=== PATIENT | male | born 1955 | race Caucasian/White ===

== ENCOUNTER 2021-07-11 15:31 | Observation (INO) | payer BC, SELFPAY ==
[2021-07-11] VITALS (13 sets, daily range): BP systolic 162–200; BP diastolic 70–110; PULSE 86–102; RESP 12–22; TEMP 36.8–37.2; O2SAT 18–98; BMI 25.0
--- NOTE | 2021-07-11 17:30 | RAD_ITS ---
STUDY: X-RAY - LEFT TIBIA AND FIBULA REASON FOR EXAM: Male, 65 years old. multiple ulcer type wounds from proximal tibial area to distal foot, hx surgery x 20years prior TECHNIQUE: 3 view(s) of the tibia and fibula were obtained. COMPARISON: None. FINDINGS: Fusion hardware of the distal fibula and tibia. Degenerative changes of the tibiotalar joint. Soft tissue swelling with ulcer of the lateral more than medial soft tissues. RAD/Tibia & Fibula 2 Views IMPRESSION: Bimalleolar soft tissue swelling/ulcers. No yuly bony destruction/ulceration. Electronically Signed: Luis Chen MD (Brooks) at 18:06 EDT ,
--- NOTE | 2021-07-11 17:30 | RAD_ITS ---
STUDY: X-RAY - LEFT FOOT CLINICAL: Male, 65 years old. multiple ulcer type wounds from proximal tibial area to distal foot, hx surgery x 20years prior TECHNIQUE: 3 view(s) of the foot. COMPARISON: None. FINDINGS: Operative changes of the distal tibia and fibula. Small calcaneal spur. Normal visualized subtalar, talonavicular, calcaneocuboid, tarsal and tarsometatarsal articulations. Normal metatarsi. Normal metatarsophalangeal joint of the great toe. There is a bipartite tibial sesamoid. Normal interphalangeal joint of the great toe. Normal phalanges of the great toe. Normal second through fifth metatarsophalangeal joints. Normal interphalangeal joints and phalanges of the lesser toes. Diffuse soft tissue swelling. RAD/Foot min 3 Views IMPRESSION: 1. Diffuse soft tissue swelling. No destructive bony process identified. Electronically Signed: Luis Chen MD (Brooks) at 18:06 EDT ,
--- NOTE | 2021-07-11 17:32 | EDS_ITS ---
HPI <ANDREW Dahl - Last Filed: 07/11/21 19:26> History of Present Illness Chief Complaint: Lower Extremity Injury Narrative Narrative: 65-year-old male with no past medical history but does not follow with a doctor presents with issues with both feet. He states he has had a fungal infection of both feet for around 6 months. It is worse in the left leg. A few weeks ago it started to smell. His socks are often fused to his feet and he has to let them to remove them. He does wear gym shoes to work and often has to walk there is no and his feet get wet. Today his left sock was fused to his foot and the pain was worse so he decided to come in. He states he has not seen a doctor in years. No recent fever, chills, nausea or vomiting. No known history of diabetes. PFSH <ANDREW Dahl Last Filed: 07/11/21 19:26> [facility] Medical History Alcohol abuse Hypertension Smoker Home Medications No Known/Unobtainable [No Known Home Medications] 07/30/16 [History Last Taken Unknown] Allergy/AdvReac Type Severity Reaction Status Date / Time No Known Allergies Allergy Verified 07/11/21 15:33 Social History Smoking Status: Current every day smoker tobacco type: cigarettes ROS <ANDREW Dahl Last Filed: 07/11/21 19:26> ROS ED ROS Narrative Constitutional: Negative for fever, chills, malaise. Eyes: Negative for visual change. ENT: Negative for sore throat, ear pain, rhinorrhea. CVS: Negative for palpitations, chest pain, syncope. Respiratory: Negative for shortness of breath, cough, orthopnea. GI: Negative for abdominal pain, nausea, vomiting, diarrhea, constipation, melena, hematochezia. : Negative for dysuria, hematuria or frequency. Neuro: Negative for headache, motor/sensory dysfunction. Skin: Positive for wound. Negative for rash, abscess. Musc: Positive for leg pain, swelling. Heme: Negative for easy bruising, bleeding, lymphadenopathy. EXAM <ANDREW Dahl Last Filed: 07/11/21 19:26> Physical Exam Narrative Exam Narrative: CONST: Patient sitting in no acute distress. EYES: Normal inspection. NECK: Normal inspection. RESP: No respiratory distress, CTAB. CVS: Regular rate and rhythm, no murmur, no gallop. SKIN: Color normal, no rash, warm, dry, intact. EXTREMITIES: Right davalos and foot has dry scaly skin, no wounds. 2+ DP pulse. Left leg had sock fused on. After removal from knee down is moist, edematous, erythematous. There is a wound from the top of the sock along the posterior calf with a yellow wet eschar. There is also a 50 cent-sized ulcer on the left lateral malleolus and another wound on the anterior davalos. Foul smell. No fluctuance or active drainage. 2+ DP pulse. Onychomycosis of all nails. NEURO: Oriented x4. PSYCH: Normal affect. Const Vital Signs: 07/11/21 15:34 07/11/21 15:37 07/11/21 17:40 Temperature 99.0 F 99.0 F Temperature Source Temporal Temporal Pulse Rate 102 H 102 H Respiratory Rate 16 16 Blood Pressure 194/101 H 194/101 H Blood Pressure Mean 132 132 Pulse Ox 95 95 Oxygen Delivery Method Room Air Room Air Room Air 07/11/21 18:00 07/11/21 18:16 07/11/21 18:54 Temperature 98.3 F Temperature Source Oral Pulse Rate 89 89 94 Respiratory Rate 14 14 Blood Pressure 173/82 H 173/82 H 171/96 H Blood Pressure Mean 112 112 121 Pulse Ox 96 18 Oxygen Delivery Method Room Air Room Air 07/11/21 19:24 07/11/21 19:27 Temperature 98.5 F Temperature Source Temporal Temporal Pulse Rate 87 87 Respiratory Rate 18 18 Blood Pressure 196/86 H 198/86 H Blood Pressure Mean 122 123 Pulse Ox 96 96 Oxygen Delivery Method Room Air <Dr. Srinivas Kirby MD - Last Filed: 07/12/21 00:47> Physical Exam Const Vital Signs: 07/11/21 15:34 07/11/21 15:37 07/11/21 17:40 Temperature 99.0 F 99.0 F Temperature Source Temporal Temporal Pulse Rate 102 H 102 H Respiratory Rate 16 16 Blood Pressure 194/101 H 194/101 H Blood Pressure Mean 132 132 Pulse Ox 95 95 Oxygen Delivery Method Room Air Room Air Room Air 07/11/21 18:00 07/11/21 18:16 07/11/21 18:54 Temperature 98.3 F Temperature Source Oral Pulse Rate 89 89 94 Respiratory Rate 14 14 Blood Pressure 173/82 H 173/82 H 171/96 H Blood Pressure Mean 112 112 121 Pulse Ox 96 18 Oxygen Delivery Method Room Air Room Air 07/11/21 19:24 07/11/21 19:27 Temperature 98.5 F Temperature Source Temporal Temporal Pulse Rate 87 87 Respiratory Rate 18 18 Blood Pressure 196/86 H 198/86 H Blood Pressure Mean 122 123 Pulse Ox 96 96 Oxygen Delivery Method Room Air [facility] <ANDREW Dahl - Last Filed: 07/11/21 19:26> [facility] Narrative Medical decision making narrative: Patient presents with concern for bilateral lower leg infections. This has been ongoing for months but became acutely worse in the left leg over the last month. He appears well nontoxic. He is hypertensive, heart rate 102, otherwise normal. His right lower extremity has dry flaky skin and is consistent with tinea pedis. His left leg had the sock fused on and required copious saline for removal. There is a wound on the mid posterior calf, left lateral ankle, and anterior mid tibia. All appear ulcerated with yellow eschar. The left leg is also edematous and erythematous. He has strong and equal distal pulses. Labs are obtained and show normal white count and lactate. However, with he significant increase in odor recently and the appearance of his left leg I feel he would benefit from IV antibiotics especially since he is not established with a doctor for follow-up. 1. Multiple left leg wounds, left leg cellulitis 2. Likely underlying hypertension ED attending interpretation of left tibia/fibula and left ankle show no acute fracture or dislocation, hardware intact, no evidence of osteomyelitis Lab Data Labs: Laboratory Results - last 24 hr 07/11/21 07/11/21 07/11/21 17:50 17:50 17:50 WBC 7.8 RBC 3.49 L Hgb 11.6 L Hct 33.4 L MCV 95.7 H MCH 33.2 H MCHC 34.7 RDW Std Deviation 46.6 H RDW Coeff of Kelsi 13.2 Plt Count 296 MPV 8.4 Immature Gran % (Auto) 0.800 Neut % (Auto) 75.0 H Lymph % (Auto) 6.5 L [place] % (Auto) 12.5 H Eos % (Auto) 4.3 Baso % (Auto) 0.9 Absolute Neuts (auto) 5.9 Absolute Lymphs (auto) 0.51 L Nucleated RBC % 0 Differential Comment Platelet Estimate ADEQUATE RBC Morphology NORM C+C PT 13.9 INR 1.1 APTT 29.3 Sodium 132 L Potassium 3.5 Chloride 96 L Carbon Dioxide 30.0 Anion Gap 6 BUN 17 Creatinine 1.25 Estim Creat Clear Calc 49.99 Est GFR (MDRD) Af Amer 75 Est GFR (MDRD) Non-Af 62 BUN/Creatinine Ratio 13.6 Glucose 100 Lactic Acid Calcium 8.5 Total Bilirubin 0.30 AST 29 ALT 20 Alkaline Phosphatase 120 H Total Protein 7.6 Albumin 2.7 L Globulin 4.9 H Albumin/Globulin Ratio 0.6 L 07/11/21 17:50 WBC RBC Hgb Hct MCV MCH MCHC RDW Std Deviation RDW Coeff of Kelsi Plt Count MPV Immature Gran % (Auto) Neut % (Auto) Lymph % (Auto) [place] % (Auto) Eos % (Auto) Baso % (Auto) Absolute Neuts (auto) Absolute Lymphs (auto) Nucleated RBC % Differential Comment Platelet Estimate RBC Morphology PT INR APTT Sodium Potassium Chloride Carbon Dioxide Anion Gap BUN Creatinine Estim Creat Clear Calc Est GFR (MDRD) Af Amer Est GFR (MDRD) Non-Af BUN/Creatinine Ratio Glucose Lactic Acid 1.3 Calcium Total Bilirubin AST ALT Alkaline Phosphatase Total Protein Albumin Globulin Albumin/Globulin Ratio Radiography Diagnostic Testing: Clinical Impression(s) from Imaging Studies Foot X-Ray 07/11/21 17:30 IMPRESSION: 1. Diffuse soft tissue swelling. No destructive bony process identified. Electronically Signed: Luis Chen MD (Brooks) at 18:06 EDT , Tibia/Fibula X-Ray 07/11/21 17:30 IMPRESSION: Bimalleolar soft tissue swelling/ulcers. No yuly bony destruction/ulceration. Electronically Signed: Luis Chen MD (Brooks) at 18:06 EDT , <Dr. Srinivas Kirby MD - Last Filed: 07/12/21 00:47> MDM MDM Narrative Medical decision making narrative: Is Patient presents with erythema swelling drainage of the left leg that is gotten notably worse just recently. He had had some fungal infection that they were treating. Over the last few weeks he has had trouble getting the socks off of his legs because they stick so badly. Work sent him home now because his leg smells too badly. He denies fevers or chills. He denies history of diabetes but he states he has not seen a doctor in decades. He did have surgery for a fracture about 18 or 19 years ago but has not seen anyone since and really saw no physician prior to that either. Exam is reviewed. Patient is nontoxic. Heart rate is borderline tachycardic but regular. Abdomen benign. Lungs are clear. His left leg does show significant erythema, some mild diffuse edema. He has multiple prominent ulcerated malodorous draining areas. With significant changes, patient will be admitted. Even though he does not have a white count or elevated lactate he has a rather high risk process. He may even need some debridement of these areas. He is started on IV antibiotics. Lab Data Attestation: I reviewed the patient's lab results. Labs: Laboratory Results - last 24 hr 07/11/21 07/11/21 07/11/21 17:50 17:50 17:50 WBC 7.8 RBC 3.49 L Hgb 11.6 L Hct 33.4 L MCV 95.7 H MCH 33.2 H MCHC 34.7 RDW Std Deviation 46.6 H RDW Coeff of Kelsi 13.2 Plt Count 296 MPV 8.4 Immature Gran % (Auto) 0.800 Neut % (Auto) 75.0 H Lymph % (Auto) 6.5 L [place] % (Auto) 12.5 H Eos % (Auto) 4.3 Baso % (Auto) 0.9 Absolute Neuts (auto) 5.9 Absolute Lymphs (auto) 0.51 L Nucleated RBC % 0 Differential Comment Platelet Estimate ADEQUATE RBC Morphology NORM C+C PT 13.9 INR 1.1 APTT 29.3 Sodium 132 L Potassium 3.5 Chloride 96 L Carbon Dioxide 30.0 Anion Gap 6 BUN 17 Creatinine 1.25 Estim Creat Clear Calc 49.99 Est GFR (MDRD) Af Amer 75 Est GFR (MDRD) Non-Af 62 BUN/Creatinine Ratio 13.6 Glucose 100 Lactic Acid Calcium 8.5 Total Bilirubin 0.30 AST 29 ALT 20 Alkaline Phosphatase 120 H Total Protein 7.6 Albumin 2.7 L Globulin 4.9 H Albumin/Globulin Ratio 0.6 L 07/11/21 17:50 WBC RBC Hgb Hct MCV MCH MCHC RDW Std Deviation RDW Coeff of Kelsi Plt Count MPV Immature Gran % (Auto) Neut % (Auto) Lymph % (Auto) [place] % (Auto) Eos % (Auto) Baso % (Auto) Absolute Neuts (auto) Absolute Lymphs (auto) Nucleated RBC % Differential Comment Platelet Estimate RBC Morphology PT INR APTT Sodium Potassium Chloride Carbon Dioxide Anion Gap BUN Creatinine Estim Creat Clear Calc Est GFR (MDRD) Af Amer Est GFR (MDRD) Non-Af BUN/Creatinine Ratio Glucose Lactic Acid 1.3 Calcium Total Bilirubin AST ALT Alkaline Phosphatase Total Protein Albumin Globulin Albumin/Globulin Ratio Radiography Diagnostic Testing: Clinical Impression(s) from Imaging Studies Foot X-Ray 07/11/21 17:30 IMPRESSION: 1. Diffuse soft tissue swelling. No destructive bony process identified. Electronically Signed: Luis Chen MD (Brooks) at 18:06 EDT , Tibia/Fibula X-Ray 07/11/21 17:30 IMPRESSION: Bimalleolar soft tissue swelling/ulcers. No yuly bony destruction/ulceration. Electronically Signed: Luis Chen MD (Brooks) at 18:06 EDT , Discharge Plan Dx/Rx/DC Orders Clinical Impression: Cellulitis of left lower limb, Deep wound Disposition Disposition: Acute Care Hospital [facility] Discharge Date/Time: 07/11/21 21:56
[2021-07-11 18:18] LABS: Absolute Lymphocyte Count 0.51 X10^3/uL (0.83-4.51); Absolute Neutrophil Count 5.9 X10^3/uL (2.0-7.7); Basophil# 0.07 X10^3/uL; Basophil% 0.9 % (0-1); Eosinophil# 0.34 X10^3/uL; Eosinophils% 4.3 % (0-5); Hematocrit 33.4 % (40-54); Hemoglobin 11.6 g/dL (13.0-16.5); Lymphocyte # 0.51 X10^3/ul (0.83-4.51); Lymphocyte % 6.5 % (19-41); Mean Corp Hgb Conc 34.7 g/dL (32-36); Mean Corpuscular Hgb 33.2 pg (27.0-32.0); Mean Corpuscular Volume 95.7 fL (80-94); Mean Platelet Vol. 8.4 fl (6.2-12.0); Monocyte# 0.98 X10^3/uL; Monocyte% 12.5 % (0-10); NRBC Flagged by Analyzer 0 % (0-5); Neutrophil # 5.87 X10^3/uL (2.7-7.7); POSITIVE DIFFERENTIAL YES; Platelet Count 296 K/mm3 (150-450); RBC Distribution Width CV 13.2 % (11.6-14.6); RBC Distribution Width SD 46.6 fl (35.1-43.9); Red Blood Count 3.49 M/mm3 (4.6-6.2); White Blood Count 7.8 K/mm3 (4.4-11.0)
[2021-07-11 18:19] LABS: Differential Indicated SCAN CRITERIA MET
[2021-07-11 18:29] LABS: Lactic Acid 1.3 mmol/L (0.4-1.9)
[2021-07-11 18:35] LABS: ALB/GLOB Ratio 0.6 RATIO (0.9-2.4); AST(SGOT) 29 U/L (15-37); Alanine Aminotransfer ALT/SGPT 20 U/L (16-61); Albumin, Serum 2.7 g/dL (3.2-5.0); Alkaline Phosphatase 120 U/L (45-117); Anion Gap 6 (5-15); BUN 17 mg/dL (7-18); BUN/Creat Ratio 13.6 RATIO (10-20); Calcium,Total 8.5 mg/dL (8.5-10.1); Chloride 96 mmol/L (98-107); Creatinine, Serum 1.25 mg/dL (0.70-1.30); EST Glomerular Filtration Rate 62 mL/min (>60); Est Glom Filt Rate - Afr Amer 75 mL/min (>60); Estimated Creatinine Clearance 49.99 ml/min; Globulin 4.9 g/dL (2.2-4.2); Glucose 100 mg/dL (74-106); Potassium 3.5 mmol/L (3.5-5.1); Protein, Total 7.6 g/dL (6.4-8.2); Sodium Level 132 mmol/L (136-145)
[2021-07-11 19:05] LABS: Platelet Estimate ADEQUATE (ADEQ); Red Cell Morphology NORM C+C NORMAL (NORM C&C)
[2021-07-11] MEDS: oxyCODONE 5 MG Tablet 10 MG PO ×2 (19:21→23:35)
--- NOTE | 2021-07-11 19:30 | HP.PCM.HOS_ITS ---
[facility] - General General Date of Admission: 07/11/21 Date of Service: 07/11/21 Chief Complaint: Wounds to left lower leg, swelling and pain in the left lower leg HPI Narrative MONSE TAYLOR, is a 65 M who presents to the emergency room at [facility] after being urged to come in for evaluation of wounds on his left lower leg-his neighbor [place] the [place] lives urged him to come in to the hospital to have an evaluation. Patient does not go to a physician on a chronic basis-he gives no reason why he does not follow-up with any physician. According to the emergency room physician, patient stated that he had trouble getting socks off his left lower leg because the sock was sticking to his skin. Patient is a poor informant and he cannot give me an exact timeframe for how long he has had the ulcerations of his left lower leg. Work-up in the ER included labs which showed a normal white blood cell count, brigid goodson's chemistry profile was essentially unremarkable, patient had tibia and fibula x-rays of his left lower leg and a foot x-ray of his left foot, there was no bony erosions noted on the x-rays, there is noted to be soft tissue swelling in the area. Examination of the patient revealed a patient with poor overall hygiene, there was gross swelling of the left lower leg noted as compared with the right lower leg, the left lower leg is reddened and tender to palpation, there are wounds on the anterior tib-fib area about 4 to 5 inches above the ankle, this wound is approximately 4 to 5 cm in diameter and has a red base to it, there is also a wound over the left lateral malleolus about the same size and the appearance is about the same with a red beefy appearance to the area. Finally there is a wound in back of the patient's left lower leg just distal to the calf muscle, this wound appears to be caused by an indentation from the patient's socks or boots, this wound is about 6 to 7 cm in length and about 2 to 3 cm in diameter. There is an overall odor to the patient's left lower leg. The patient's toenails have not been cut in quite some time with gross deformity of the toenails on both feet. Patient's right lower leg does not have any visible ulcers, there is dry skin noted over the right lower leg area. Patient will be admitted to [place] [id number] for deep wound infection of the left leg with cellulitis, he will be placed on IV Zosyn and IV vancomycin, patient's blood pressure is elevated the emergency room and I think he probably does have essential hypertension-I will start him on medication for high blood pressure. Patient states he drinks approximately a sixpack at night-I will order Ativan as needed anxiety for the patient. Patient does smoke, I will place him on a n icotine patch. I talked to podiatry (Dr. Richardson) and they will see him in consultation. [facility] Home Medications No Known/Unobtainable [No Known Home Medications] 07/30/16 [History Last Taken Unknown] Allergy/AdvReac Type Severity Reaction Status Date / Time No Known Allergies Allergy Verified 07/11/21 15:33 Social History Smoking Status: Current every day smoker tobacco type: cigarettes ROS Constitutional Constitutional: Denies anorexia, change in weight, fever(s), night sweats or weakness Eyes Eyes: Denies blurry vision, change in vision, discharge from eye(s) or eye pain Cardiovascular Cardiovascular: Denies chest pain, claudication, dyspnea on exertion, edema, lightheadedness, orthopnea or palpitations Respiratory/Chest Respiratory/Chest: Denies cough, excessive phlegm production, hemoptysis, shortness of breath at rest or shortness of breath with exertion Gastrointestinal Gastrointestinal: Denies abdominal pain, constipation, diarrhea, dyspepsia, hematemesis, hematochezia, melena, nausea or vomiting Genitourinary Genitourinary: Denies dysuria, hematuria, urinary frequency, urinary hesitancy, urinary incontinence or urinary urgency Musculoskeletal Musculoskeletal: Reports joint pain and other Details: Patient complains of pain in the left lower leg and left foot area, he is nonspecific about how long he has had this discomfort, patient complains of chronic pain over his left lower leg from previous fracture that he had many years ago. ; Denies back pain, joint stiffness, joint swelling, myalgias or neck pain Neurologic Neurologic: Denies abnormal gait, abnormal speech, dizziness, focal weakness, headache(s), loss of vision, numbness, other visual disturbances, paresthesias, syncope or tingling Psychiatric Psychiatric: Denies anxiety, cognitive impairment, depression, irritability, mood swings or suicidal ideation Endocrine Endocrinology: Denies change in body appearance, cold intolerance, excessive sweating, heat intolerance, polydipsia or polyuria Hematologic/Lymphatic Hematologic/Lymphatic: Denies none, anemia, easy bleeding, easy bruising or lymphadenopathy Allergic/Immunologic Allergic/Immunologic: Denies rhinitis, urticaria, eczemia or asthma Vital Signs Vital Signs Vital Signs: 07/11/21 15:34 07/11/21 15:37 07/11/21 17:40 Temperature 99.0 F 99.0 F Temperature Source Temporal Temporal Pulse Rate 102 H 102 H Respiratory Rate 16 16 Blood Pressure 194/101 H 194/101 H Blood Pressure Mean 132 132 Pulse Ox 95 95 Oxygen Delivery Method Room Air Room Air Room Air 07/11/21 18:00 07/11/21 18:16 07/11/21 18:54 Temperature 98.3 F Temperature Source Oral Pulse Rate 89 89 94 Respiratory Rate 14 14 Blood Pressure 173/82 H 173/82 H 171/96 H Blood Pressure Mean 112 112 121 Pulse Ox 96 18 Oxygen Delivery Method Room Air Room Air 07/11/21 19:24 07/11/21 19:27 Temperature 98.5 F Temperature Source Temporal Temporal Pulse Rate 87 87 Respiratory Rate 18 18 Blood Pressure 196/86 H 198/86 H Blood Pressure Mean 122 123 Pulse Ox 96 96 Oxygen Delivery Method Room Air Weight Weight: 66.043 kg Body Mass Index (BMI) 25.0 Physical Exam Const alert, oriented x3 and no apparent distress Constitutional Narrative: Patient's hygiene appears very poor, there are visible dirty areas over the patient's feet bilaterally, patient does not appear to be in any distress at the time of my examination although he does complain of left lower leg pain. General Appearance: cooperative, well kempt and well developed Orientation / Consciousness: awake, oriented to person, oriented to place and oriented to time HEENT normocephalic, head/scalp atraumatic, hearing grossly normal bilaterally and moist oral mucous membranes Eyes PERRL, EOMs intact bilaterally and conjunctivae normal Neck nuchal rigidity, supple, no JVD, thyroid normal and no carotid bruits General: trachea midline Resp normal respiratory effort, no retractions, no use of accessory muscles and clear to auscultation bilaterally Auscultation: Negative for rales, rhonchi or wheezes Cardio regular rate, regular rhythm, no murmurs, no rub and no gallops GI normal to inspection, nondistended, normoactive bowel sounds, soft to palpation, non-tender and non-distended Extremity Extremity Narrative: The left lower leg is swollen and reddened, there are ulcerations noted over the left lateral malleolus, lower anterior davalos area, and the back of the patient's left lower leg toward the bottom of his calf area. Right lower leg shows evidence of dry skin and skin Skin Skin Narrative: Patient has wounds over his left lower leg as described previously General Skin Exam: no breakdown Neuro oriented x3, CN's II-XII intact bilaterally, no focal motor deficits and no sensory deficits noted Sensorium / Orientation: awake and alert Speech: speech normal Psych affect normal Results Lab / Micro Data Result Diagrams: 07/11/21 17:50 07/11/21 17:50 Labs: Laboratory Results - last 24 hr 07/11/21 17:50: WBC 7.8, RBC 3.49 L, Hgb 11.6 L, Hct 33.4 L, MCV 95.7 H, MCH 33.2 H, MCHC 34.7, RDW Std Deviation 46.6 H, RDW Coeff of Kelsi 13.2, Plt Count 296, MPV 8.4, Immature Gran % (Auto) 0.800, Neut % (Auto) 75.0 H, Lymph % (Auto) 6.5 L, [place] % (Auto) 12.5 H, Eos % (Auto) 4.3, Baso % (Auto) 0.9, Absolute Neuts (auto) 5.9, Absolute Lymphs (auto) 0.51 L, Nucleated RBC % 0, Differential Comment , Platelet Estimate ADEQUATE, RBC Morphology NORM C+C 07/11/21 17:50: Sodium 132 L, Potassium 3.5, Chloride 96 L, Carbon Dioxide 30.0, Anion Gap 6, BUN 17, Creatinine 1.25, Estim Creat Clear Calc 49.99, Est GFR (MDRD) Af Amer 75, Est GFR (MDRD) Non-Af 62, BUN/Creatinine Ratio 13.6, Glucose 100, Calcium 8.5, Total Bilirubin 0.30, AST 29, ALT 20, Alkaline Phosphatase 120 H, Total Protein 7.6, Albumin 2.7 L, Globulin 4.9 H, Albumin/Globulin Ratio 0.6 L 07/11/21 17:50: Lactic Acid 1.3 Radiology Impression Foot X-Ray 07/11/21 17:30 IMPRESSION: 1. Diffuse soft tissue swelling. No destructive bony process identified. Electronically Signed: Luis Chen MD (Brooks) at 18:06 EDT , Tibia/Fibula X-Ray 07/11/21 17:30 IMPRESSION: Bimalleolar soft tissue swelling/ulcers. No yuly bony destruction/ulceration. Electronically Signed: Luis Chen MD (Brooks) at 18:06 EDT , Assessment & Plan Assessment/Plan (1) Deep wound: PLAN: 1. Infection of the left lower leg from deep wounds over the left lateral malleolus, the back of the left leg, and the anterior aspect of the left lower leg.-Patient will be admitted to [facility], he will be placed on IV Zosyn and vancomycin, he will be seen in consultation by podiatry, he will likely need debridement and surgery for these wound areas. #2 elevated blood pressure-patient most probably has essential hypertension, he has not been to a physician in many years, I will start him on medication for high blood pressure, I cautioned the patient that he will need follow-up concerning his blood pressure and follow-up regarding general medical care when he leaves the hospital. #3 [id number] recovery, care, and prognosis #4 possible alcohol abuse-patient is vague about how much he drinks, he told me that he drinks a sixpack a night, I will place the patient on Ativan 2 mg p.o. every 6 hours as needed for anxiety, I do not feel the patient needs to be placed on phenobarbital at this time Charges/Coding Visit Charges Inpatient E&M: 73122 Init Hosp L3
[2021-07-11 19:48] LABS: International Normalized Ratio 1.1; Partial Thromboplast Time 29.3 Seconds (24.1-36.2); Prothrombin Time (Protime)PT. 13.9 SECONDS (11.7-14.9)
[2021-07-11] MEDS: Vancomycin IV 1,000 MG/200 ML BAG 200 MG IV (20:15)
--- NOTE | 2021-07-11 22:19 | CON.PCM_ITS ---
Assessment & Plan Assessment/Plan (1) Cellulitis of left lower limb: PLAN: Evaluation performed. Reviewed diagnostic data. Patient afebrile, WBC normal, and no gas on xrays, no evidence of osteomyelitis on xrays. Left foot/ankle and leg were cleansed with betadine soln. Wound culture obtained left lower extremity ulcerations and sent to microbiology. Applied betadine gauze, kerlix and romeo dressing. Patient has been started on IV antibiotic vancomycin and Zosyn. We discussed possible OR debridement of the wounds, also consider enzymatic debridement with santyl. Will follow closely. NPO after midnight in case need to go to OR tomorrow. (2) Non-pressure chronic ulcer of other part of left foot with necrosis of muscle: (3) Nail dystrophy: HPI Consult Data Date of Consult: 07/11/21 HPI Narrative HPI Narrative: MONSE TAYLOR, is a 65 M who presents with left ankle and leg cellulitis - he has multiple chronic wounds. He relates he does not know how long the wounds have been present - he relates he does not keep track of stuff like that. He is here with his girlfriend. 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 He relates leg is painful and has to use a cane to walk due to the pain. There is swelling and redness. He has extremely long toenails. He drinks alcohol and smokes as well. He relates otherwise he is feeling good. Discussed with Dr. Galvan. [facility] Medical History Alcohol abuse Hypertension Smoker Home Medications No Known/Unobtainable [No Known Home Medications] 07/30/16 [History Last Taken Unknown] Allergy/AdvReac Type Severity Reaction Status Date / Time No Known Allergies Allergy Verified 07/11/21 15:33 Social History Smoking Status: Current every day smoker tobacco type: cigarettes Physical Exam Const alert, oriented x3 and no apparent distress Skin Skin Narrative: Left foot/ankle leg with cellulitis, there are wounds to the medial and lateral ankle as well as the posterior leg with significant fibrotic tissue - at least down to the subcutaneous tissue, likely fascia as well, there is maloder and edema, there is no drainage, no visible abscess, no fluctuance, no crepitus noted. There is diffuse xerosis bilateral lower extremity. Toenails are very long, thickened, dystrophic and yellow 1-5 bilateral. CFT < 2 seconds to all toes, pedal pulses intact bilateral. No edema right lower extremity. He notes pain to the ulcer sites left lower extremity otherwise no m/s POP or pain on ROM to the foot or ankle. Sensation intact to light touch bilateral foot. Lab / Micro Data Result Diagrams: 07/11/21 17:50 07/11/21 17:50 Labs: Laboratory Results - last 24 hr 07/11/21 17:50: WBC 7.8, RBC 3.49 L, Hgb 11.6 L, Hct 33.4 L, MCV 95.7 H, MCH 33.2 H, MCHC 34.7, RDW Std Deviation 46.6 H, RDW Coeff of Kelsi 13.2, Plt Count 296, MPV 8.4, Immature Gran % (Auto) 0.800, Neut % (Auto) 75.0 H, Lymph % (Auto) 6.5 L, [place] % (Auto) 12.5 H, Eos % (Auto) 4.3, Baso % (Auto) 0.9, Absolute Neuts (auto) 5.9, Absolute Lymphs (auto) 0.51 L, Nucleated RBC % 0, Differential Comment , Platelet Estimate ADEQUATE, RBC Morphology NORM C+C 07/11/21 17:50: PT 13.9, INR 1.1, APTT 29.3 07/11/21 17:50: Sodium 132 L, Potassium 3.5, Chloride 96 L, Carbon Dioxide 30.0, Anion Gap 6, BUN 17, Creatinine 1.25, Estim Creat Clear Calc 49.99, Est GFR (MDRD) Af Amer 75, Est GFR (MDRD) Non-Af 62, BUN/Creatinine Ratio 13.6, Glucose 100, Calcium 8.5, Total Bilirubin 0.30, AST 29, ALT 20, Alkaline Phosphatase 120 H, Total Protein 7.6, Albumin 2.7 L, Globulin 4.9 H, Albumin/Globulin Ratio 0.6 L 07/11/21 17:50: Lactic Acid 1.3 Radiology Impression Foot X-Ray 07/11/21 17:30 IMPRESSION: 1. Diffuse soft tissue swelling. No destructive bony process identified. Electronically Signed: Luis Chen MD (Brooks) at 18:06 EDT , Tibia/Fibula X-Ray 07/11/21 17:30 IMPRESSION: Bimalleolar soft tissue swelling/ulcers. No yuly bony destruction/ulceration. Electronically Signed: Luis Chen MD (Brooks) at 18:06 EDT ,
[2021-07-11] MEDS: Acetaminophen 325 MG Tablet 650 MG PO (23:37)
[2021-07-11] MEDS: Heparin Injection (Vial) 5,000 UNIT/ML VIAL 5000 UNIT SC (23:37)
--- NOTE | 2021-07-11 23:37 | PCM.RX.CS ---
Consult Pharmacy has been consulted to manage selected antiobiotic: Vancomycin Type of Consult: New start Suspected Infection: Skin/Soft tissue Prior Doses of Antibiotics Received/Current Regimen: Medications Vancomycin HCl () 500 mg in 100 mls @ 100 mls/hr IV Q12H GABBY Discontinued Medications Vancomycin HCl (Vancomycin) 1,000 mg in 200 mls @ 200 mls/hr 15 mg/kg (1000 mg) IV X1 ONE Stop: 07/11/21 20:22 Last Admin: 07/11/21 21:24 Dose: Infused Documented by: Labs: Sodium 132 mmol/L (136-145) L 07/11/21 17:50 Potassium 3.5 mmol/L (3.5-5.1) 07/11/21 17:50 Chloride 96 mmol/L (98-107) L 07/11/21 17:50 Carbon Dioxide 30.0 mmol/L (21.0-32.0) 07/11/21 17:50 Anion Gap 6 (5-15) 07/11/21 17:50 BUN 17 mg/dL (7-18) 07/11/21 17:50 Creatinine 1.25 mg/dL (0.70-1.30) 07/11/21 17:50 Est GFR (MDRD) Af Amer 75 mL/min (>60) 07/11/21 17:50 Est GFR (MDRD) Non-Af 62 mL/min (>60) 07/11/21 17:50 BUN/Creatinine Ratio 13.6 RATIO (10-20) 07/11/21 17:50 Glucose 100 mg/dL (74-106) 07/11/21 17:50 Weight used for dosin kg Estimated Creatinine Clearance: 50 Goal Trough: 10-15 mcg/mL Pharmacy Plan for Drug Dosing: Pharmacy Service will continue to monitor and adjust dosing as required. Follow-Up Labs: Trough Vancomycin Labs to be done on [date and time ordered]: 07/13/21 @8996
[2021-07-11] MEDS: Potassium Chloride Oral Tablet 20 MEQ 40 MEQ PO (23:38)
[2021-07-12] MEDS: Losartan Potassium 100 MG Tablet PO ×2 (00:23→09:19)
[2021-07-12] MEDS: 0.9% Saline Lock 10 ML Syringe IV ×2 (00:24→05:06)
[2021-07-12 03:39] LABS: M R Staph aureus DNA By PCR Negative (Negative); Probe Check PASS; Staph aureus DNA By PCR POSITIVE (Negative)
[2021-07-12 04:58] VITALS: BP 175/84; PULSE 77; RESP 18; TEMP 37.1; O2SAT 98
[2021-07-12] MEDS: hydroCHLOROthiazide 12.5mg 12.5 MG PO (06:19)
[2021-07-12] MEDS: Ibuprofen 400 MG Tablet PO (06:23)
[2021-07-12 06:33] LABS: Absolute Lymphocyte Count 0.68 X10^3/uL (0.83-4.51); Absolute Neutrophil Count 5.9 X10^3/uL (2.0-7.7); Basophil# 0.07 X10^3/uL; Basophil% 0.9 % (0-1); Eosinophil# 0.45 X10^3/uL; Eosinophils% 5.5 % (0-5); Hematocrit 32.2 % (40-54); Hemoglobin 10.8 g/dL (13.0-16.5); Lymphocyte # 0.68 X10^3/ul (0.83-4.51); Lymphocyte % 8.3 % (19-41); Mean Corp Hgb Conc 33.5 g/dL (32-36); Mean Corpuscular Hgb 32.4 pg (27.0-32.0); Mean Corpuscular Volume 96.7 fL (80-94); Mean Platelet Vol. 8.5 fl (6.2-12.0); Monocyte# 1.02 X10^3/uL; Monocyte% 12.5 % (0-10); NRBC Flagged by Analyzer 0 % (0-5); Neutrophil % 72.1 % (47-70); Platelet Count 329 K/mm3 (150-450); RBC Distribution Width CV 13.5 % (11.6-14.6); RBC Distribution Width SD 48.1 fl (35.1-43.9); Red Blood Count 3.33 M/mm3 (4.6-6.2); White Blood Count 8.2 K/mm3 (4.4-11.0)
[2021-07-12 07:07] LABS: AST(SGOT) 27 U/L (15-37); Alanine Aminotransfer ALT/SGPT 20 U/L (16-61); Albumin, Serum 2.7 g/dL (3.2-5.0); Alkaline Phosphatase 106 U/L (45-117); Anion Gap 6 (5-15); BUN 19 mg/dL (7-18); BUN/Creat Ratio 26.2 RATIO (10-20); Bilirubin, Direct 0.15 mg/dL (0.00-0.30); Calcium,Total 8.8 mg/dL (8.5-10.1); Chloride 98 mmol/L (98-107); Creatinine, Serum 0.73 mg/dL (0.70-1.30); EST Glomerular Filtration Rate 115 mL/min (>60); Est Glom Filt Rate - Afr Amer 140 mL/min (>60); Globulin 4.8 g/dL (2.2-4.2); Glucose 87 mg/dL (74-106); Potassium 3.7 mmol/L (3.5-5.1); Protein, Total 7.5 g/dL (6.4-8.2); Sodium Level 132 mmol/L (136-145)
--- NOTE | 2021-07-12 07:49 | PCM.PROGNOTE ---
Subjective Subjective Patient was seen this morning for follow up on left ankle/leg ulcerations and cellulitis. Patient is resting comfortably in bed, and he relates leg does not bother him at rest. No fever, chill, nausea or vomiting, no overnight events. Objective Data Objective Data Vital Signs: Vital Signs Temp Pulse Resp BP Pulse Ox 98.8 F 77 18 175/84 H 98 07/12/21 04:58 07/12/21 04:58 07/12/21 04:58 07/12/21 04:58 07/12/21 04:58 Oxygen Delivery Method Room Air Weight: 66.043 kg Body Mass Index (BMI) 25.0 Intake & Output: Intake and Output for Last 24 Hours 07/10/21 07/11/21 07/12/21 23:59 23:59 23:59 Intake Total 250 / 1150 900 / 900 Output Total 375 / 375 Balance 250 / 775 525 / 525 Lab / Micro Data Result Diagrams: 07/12/21 05:47 07/12/21 05:47 Labs: Laboratory Results - last 24 hr 07/11/21 17:50: WBC 7.8, RBC 3.49 L, Hgb 11.6 L, Hct 33.4 L, MCV 95.7 H, MCH 33.2 H, MCHC 34.7, RDW Std Deviation 46.6 H, RDW Coeff of Kelsi 13.2, Plt Count 296, MPV 8.4, Immature Gran % (Auto) 0.800, Neut % (Auto) 75.0 H, Lymph % (Auto) 6.5 L, [place] % (Auto) 12.5 H, Eos % (Auto) 4.3, Baso % (Auto) 0.9, Absolute Neuts (auto) 5.9, Absolute Lymphs (auto) 0.51 L, Nucleated RBC % 0, Differential Comment , Platelet Estimate ADEQUATE, RBC Morphology NORM C+C 07/11/21 17:50: PT 13.9, INR 1.1, APTT 29.3 07/11/21 17:50: Sodium 132 L, Potassium 3.5, Chloride 96 L, Carbon Dioxide 30.0, Anion Gap 6, BUN 17, Creatinine 1.25, Estim Creat Clear Calc 49.99, Est GFR (MDRD) Af Amer 75, Est GFR (MDRD) Non-Af 62, BUN/Creatinine Ratio 13.6, Glucose 100, Calcium 8.5, Total Bilirubin 0.30, AST 29, ALT 20, Alkaline Phosphatase 120 H, Total Protein 7.6, Albumin 2.7 L, Globulin 4.9 H, Albumin/Globulin Ratio 0.6 L 07/11/21 17:50: Lactic Acid 1.3 07/11/21 21:21: S.aureus Protein A PCR POSITIVE H, MRSA (PCR) Negative 07/12/21 05:47: WBC 8.2, RBC 3.33 L, Hgb 10.8 L, Hct 32.2 L, MCV 96.7 H, MCH 32.4 H, MCHC 33.5, RDW Std Deviation 48.1 H, RDW Coeff of Kelsi 13.5, Plt Count 329, MPV 8.5, Immature Gran % (Auto) 0.700, Neut % (Auto) 72.1 H, Lymph % (Auto) 8.3 L, [place] % (Auto) 12.5 H, Eos % (Auto) 5.5 H, Baso % (Auto) 0.9, Absolute Neuts (auto) 5.9, Absolute Lymphs (auto) 0.68 L, Nucleated RBC % 0 07/12/21 05:47: Sodium 132 L, Potassium 3.7, Chloride 98, Carbon Dioxide 28.0, Anion Gap 6, BUN 19 H, Creatinine 0.73, Estim Creat Clear Calc 85.60, Est GFR (MDRD) Af Amer 140, Est GFR (MDRD) Non-Af 115, BUN/Creatinine Ratio 26.2 H, Glucose 87, Calcium 8.8, Total Bilirubin 0.40, Direct Bilirubin 0.15, AST 27, ALT 20, Alkaline Phosphatase 106, Total Protein 7.5, Albumin 2.7 L, Globulin 4.8 H Radiography Diagnostic Testing: Radiology Impression Foot X-Ray 07/11/21 17:30 IMPRESSION: 1. Diffuse soft tissue swelling. No destructive bony process identified. Electronically Signed: Luis Chen MD (Brooks) at 18:06 EDT Reading Location ID and State: [facility] / [place] , Service support , Tibia/Fibula X-Ray 05/13/22 17:30 IMPRESSION: Bimalleolar soft tissue swelling/ulcers. No yuly bony destruction/ulceration. Electronically Signed: Luis Chen MD (Brooks) at 18:06 EDT , Physical Exam Const alert, oriented x3 and no apparent distress Skin Skin Narrative: Left foot/ankle leg with improved cellulitis, there are wounds to the medial and lateral ankle as well as the posterior leg with fibrotic tissue but more granular tissue noted today- at least down to the subcutaneous tissue, likely fascia as well, there is maloder and edema, there is no drainage, no visible abscess, no fluctuance, no crepitus noted. There is diffuse xerosis bilateral lower extremity. Toenails are very long, thickened, dystrophic and yellow 1-5 bilateral. CFT < 2 seconds to all toes, pedal pulses intact bilateral. No edema right lower extremity. He notes pain to the ulcer sites left lower extremity otherwise no m/s POP or pain on ROM to the foot or ankle. Sensation intact to light touch bilateral foot. Assessment & Plan Assessment/Plan (1) Cellulitis of left lower limb: PLAN: Re-evaluation performed. Reviewed diagnostic data. Patient afebrile, WBC normal, and no gas on xrays, no evidence of osteomyelitis on xrays. Left foot/ankle and leg noted to be improved today. there is still some residual cellulitis but better and wounds appear healthier today (improved granular tissue), today the left foot/ankle and leg were cleansed with betadine soln. Applied betadine gauze, kerlix and romeo dressing. Wound culture obtained left lower extremity ulcerations and sent to microbiology - results pending - MRSA negative on PCR. Patient has been started on IV antibiotic vancomycin and Zosyn. We discussed possible OR debridement of the wounds, however with improvement noted today we will continue with plan as noted above. Will continue to monitor. Will plan to debride toenails. Podiatry will continue to follow. (2) Non-pressure chronic ulcer of other part of left foot with necrosis of muscle: (3) Nail dystrophy:
[2021-07-12 07:54] VITALS: BP 211/80; PULSE 79; RESP 18; TEMP 36.8; O2SAT 95
[2021-07-12] MEDS: oxyCODONE 5 MG Tablet 10 MG PO ×3 (07:59→23:03)
[2021-07-12] MEDS: amLODIPine 10 MG Tablet PO (08:02)
[2021-07-12] MEDS: Potassium Chloride Oral Tablet 20 MEQ PO (09:17)
[2021-07-12] MEDS: Heparin Injection (Vial) 5,000 UNIT/ML VIAL 5000 UNIT SC ×2 (09:19→22:58)
[2021-07-12] MEDS: Vancomycin IV 500 MG/100 ML BAG 100 MG IV ×2 (09:28→19:32)
--- NOTE | 2021-07-12 11:45 | CASEMGMT ---
[place] Face to Face with patient for initial transition planning/care coordination assessment. RN AUSTIN introduced self and role at [facility]. Patient lying in bed, alert and oriented. Patient willing to participate in assessment and is able to answer all questions appropriately. Care providers, pharmacy, and demographics verified. Patient wishes to discharge home, denies need for home health at this time. Patient states he has no further needs or concerns at this time. CM to follow for discharge planning needs that may arise. PCP: No PCP, CM to provide list Specialists: none Preferred Pharmacy: [facility] Insurance: [employer] Prescription Benefit: yes Living Will/HPOA: none LNOK: friend Living Arrangements: Patient lives in a first floor apartment. Patient states he is independent at home. 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 DME/HHC: Patient states he has cane. No previous HHC or SNF. Patient refusing HHC. Patient states girlfriend lives [place] of patient and can assist with wound care. Patient encouraged to have girlfriend come with [facility] to have nursing teach wound care. Patient voiced understanding. Disposition Plan: Patient to discharge home with assistance from girlfriend and follow-up plans in place. Angeline DAVIDSON, RN, CM
--- NOTE | 2021-07-12 12:57 | PN.HOSP_ITS ---
Subjective Subjective Patient indicates that he is feeling fine and has no complaints at this time. No current surgical plans however wounds are fairly significant. Concerned that patient may need some placement at discharge. Patient may not be amenable with this however. Patient does admit to drinking 6-8 large beers a day. He states he is never really stopped and has no desire to stop drinking. He is never gone through withdrawal though it sounds like he is never not drank. Objective Data Objective Data Vital Signs: Vital Signs Temp Pulse Resp BP Pulse Ox 98.2 F 79 18 211/80 H 95 07/12/21 07:54 07/12/21 07:54 07/12/21 07:54 07/12/21 07:54 07/12/21 07:54 Oxygen Delivery Method Room Air Weight: 66 kg Body Mass Index (BMI) 25.0 Intake & Output: Intake and Output for Last 24 Hours 07/10/21 07/11/21 07/12/21 23:59 23:59 23:59 Intake Total 250 / 1150 1050 / 1050 Output Total 375 / 375 Balance 250 / 775 675 / 675 Lab / Micro Data Result Diagrams: 07/12/21 05:47 07/12/21 05:47 Labs: Laboratory Results - last 24 hr 07/11/21 17:50: WBC 7.8, RBC 3.49 L, Hgb 11.6 L, Hct 33.4 L, MCV 95.7 H, MCH 33.2 H, MCHC 34.7, RDW Std Deviation 46.6 H, RDW Coeff of Kelsi 13.2, Plt Count 296, MPV 8.4, Immature Gran % (Auto) 0.800, Neut % (Auto) 75.0 H, Lymph % (Auto) 6.5 L, [place] % (Auto) 12.5 H, Eos % (Auto) 4.3, Baso % (Auto) 0.9, Absolute Neuts (auto) 5.9, Absolute Lymphs (auto) 0.51 L, Nucleated RBC % 0, Differential Comment , Platelet Estimate ADEQUATE, RBC Morphology NORM C+C 07/11/21 17:50: PT 13.9, INR 1.1, APTT 29.3 07/11/21 17:50: Sodium 132 L, Potassium 3.5, Chloride 96 L, Carbon Dioxide 30.0, Anion Gap 6, BUN 17, Creatinine 1.25, Estim Creat Clear Calc 49.99, Est GFR (MDRD) Af Amer 75, Est GFR (MDRD) Non-Af 62, BUN/Creatinine Ratio 13.6, Glucose 100, Calcium 8.5, Total Bilirubin 0.30, AST 29, ALT 20, Alkaline Phosphatase 120 H, Total Protein 7.6, Albumin 2.7 L, Globulin 4.9 H, Albumin/Globulin Ratio 0.6 L 07/11/21 17:50: Lactic Acid 1.3 07/11/21 21:21: S.aureus Protein A PCR POSITIVE H, MRSA (PCR) Negative 07/12/21 05:47: WBC 8.2, RBC 3.33 L, Hgb 10.8 L, Hct 32.2 L, MCV 96.7 H, MCH 32.4 H, MCHC 33.5, RDW Std Deviation 48.1 H, RDW Coeff of Kelsi 13.5, Plt Count 329, MPV 8.5, Immature Gran % (Auto) 0.700, Neut % (Auto) 72.1 H, Lymph % (Auto) 8.3 L, [place] % (Auto) 12.5 H, Eos % (Auto) 5.5 H, Baso % (Auto) 0.9, Absolute Neuts (auto) 5.9, Absolute Lymphs (auto) 0.68 L, Nucleated RBC % 0 07/12/21 05:47: Sodium 132 L, Potassium 3.7, Chloride 98, Carbon Dioxide 28.0, Anion Gap 6, BUN 19 H, Creatinine 0.73, Estim Creat Clear Calc 85.60, Est GFR (MDRD) Af Amer 140, Est GFR (MDRD) Non-Af 115, BUN/Creatinine Ratio 26.2 H, Glucose 87, Calcium 8.8, Total Bilirubin 0.40, Direct Bilirubin 0.15, AST 27, ALT 20, Alkaline Phosphatase 106, Total Protein 7.5, Albumin 2.7 L, Globulin 4.8 H Micro: Microbiology 07/11/21 21:21 Wound - Leg, Left Gram Stain - Final Radiography Diagnostic Testing: Radiology Impression Foot X-Ray 07/11/21 17:30 IMPRESSION: 1. Diffuse soft tissue swelling. No destructive bony process identified. Electronically Signed: Luis Chen MD (Brooks) at 18:06 EDT , Tibia/Fibula X-Ray 07/11/21 17:30 IMPRESSION: Bimalleolar soft tissue swelling/ulcers. No yuly bony destruction/ulceration. Electronically Signed: Luis Chen MD (Brooks) at 18:06 EDT , Physical Exam Const alert, oriented x3 and no apparent distress Constitutional Narrative: Extremely disheveled upper middle-aged white male who appears much older than stated age, lying in bed, appears comfortable and nontoxic Exam Limitations: no limitations HEENT head/scalp atraumatic and moist oral mucous membranes HEENT Narrative: Extremely poor dentition, Mallampati 2, no thrush Head and Scalp: normocephalic Resp normal respiratory effort, no retractions, no use of accessory muscles and clear to auscultation bilaterally Resp Narrative: Diffusely diminished but clear Auscultation: Negative for crackles, rales, rhonchi or wheezes Cardio regular rate, regular rhythm, S1 normal heart sound, S2 normal heart sound, no murmurs, no rub, no gallops, no clicks and no JVD GI normal to inspection, nondistended, normoactive bowel sounds, soft to palpation, non-tender and non-distended; Negative for hepatosplenomegaly Extremity Extremity Narrative: Bilateral lower extremities are extremely dry with erythema, wounds are wrapped and have already been evaluated by podiatry today, nails are extremely long and unkept, cap refill is 2+ Neuro oriented x3, CN's II-XII intact bilaterally, moves all extremities and no focal motor deficits Sensorium / Orientation: awake and alert Speech: speech normal Psych Psych Narrative: Affect is extremely flat with overall poor eye contact and patient appears somewhat depressed Assessment & Plan Assessment/Plan (1) Nail dystrophy: (2) Non-pressure chronic ulcer of other part of left foot with necrosis of muscle: (3) Cellulitis of left lower limb: (4) Deep wound: PLAN: Marked bilateral lower extremity cellulitis with nonpressure chronic ulcerations -Podiatry following -Continue antibiotics with Vanco and Zosyn -Wounds have been cleaned up at the bedside and currently no need for operative intervention -Cultures are pending -Legs are in extreme disrepair -We will need close outpatient follow-up -Blood cultures are pending -Continue current dressings per podiatry -As needed pain medication available -Add as needed stool softener Bilateral lower extremity nail dystrophy -Podiatry managing -Plan for debridement prior to discharge Debility -I am concerned with his above wounds limiting his mobility not to mention the wounds being present and being significant about him going home. The patient has indicated he has no intention of going anywhere at this point time -Therapy services to evaluate the patient -We will continue to address this with him as I feel that he should go somewhere for wound care and therapy until his mobility and wounds have improved -He is at high risk for further infection/amputation/ if these do not improve Hypertension -Blood pressures have been markedly elevated -Patient started on losartan yesterday -Discontinue 12.5 mg HCTZ started overnight as patient is a chronic alcoholic with hyponatremia -Start amlodipine 10 mg/day and continue to monitor for further antihypertensive hypertensive needs -Add as needed hydralazine Alcohol abuse -At sounds the patient is a heavy drinker he admits to 5-6 large beers daily -He indicates he is never really gone without alcohol and is unclear whether or not he will have withdrawal -Currently no signs of acute withdrawal -Start phenobarb taper and will give moderate dosing at 64.8 3 times daily today and wean to twice daily tomorrow if the patient remains clinically stable -Add 200 mg of thiamine x3 days -Add folate -Patient indicates he has no interest in quitting drinking therefore we will defer any addiction services at this time Tobacco abuse -Recommend cessation -Continue nicotine patch daily 14 mg DVT prophylaxis -Continue heparin SQ CODE STATUS -Full code
[2021-07-12 13:49] VITALS: BP 138/75; PULSE 75; RESP 16; TEMP 37.3; O2SAT 95
[2021-07-12] MEDS: Phenobarbital 32.4 MG Tablet 64.8 MG PO ×2 (14:02→22:56)
[2021-07-12] MEDS: Acetaminophen 325 MG Tablet 650 MG PO (22:57)
[2021-07-12 23:07] VITALS: BP 154/83; PULSE 75; RESP 20; TEMP 36.8; O2SAT 97
[2021-07-13 02:13] VITALS: BP 117/83; PULSE 81; RESP 18; TEMP 36.7; O2SAT 94
[2021-07-13] MEDS: Phenobarbital 32.4 MG Tablet 64.8 MG PO ×3 (06:00→21:07)
[2021-07-13] MEDS: Acetaminophen 325 MG Tablet 650 MG PO (06:00)
[2021-07-13 07:44] VITALS: BP 148/82; PULSE 69; RESP 16; TEMP 36.7; O2SAT 99
[2021-07-13 08:25] LABS: Absolute Lymphocyte Count 1.06 X10^3/uL (0.83-4.51); Absolute Neutrophil Count 5.6 X10^3/uL (2.0-7.7); Basophil# 0.08 X10^3/uL; Eosinophils% 7.4 % (0-5); Hemoglobin 10.9 g/dL (13.0-16.5); Lymphocyte # 1.06 X10^3/ul (0.83-4.51); Lymphocyte % 13.1 % (19-41); Mean Corpuscular Hgb 32.5 pg (27.0-32.0); Mean Corpuscular Volume 98.5 fL (80-94); Mean Platelet Vol. 8.5 fl (6.2-12.0); Monocyte# 0.74 X10^3/uL; Monocyte% 9.1 % (0-10); NRBC Flagged by Analyzer 0 % (0-5); Neutrophil # 5.58 X10^3/uL (2.7-7.7); Neutrophil % 68.7 % (47-70); Platelet Count 295 K/mm3 (150-450); RBC Distribution Width CV 13.3 % (11.6-14.6); RBC Distribution Width SD 48.1 fl (35.1-43.9); Red Blood Count 3.35 M/mm3 (4.6-6.2); White Blood Count 8.1 K/mm3 (4.4-11.0)
[2021-07-13] MEDS: oxyCODONE 5 MG Tablet 10 MG PO ×3 (08:42→21:07)
[2021-07-13 08:45] LABS: Anion Gap 5 (5-15); BUN 16 mg/dL (7-18); BUN/Creat Ratio 18.3 RATIO (10-20); Calcium,Total 8.4 mg/dL (8.5-10.1); Chloride 91 mmol/L (98-107); Creatinine, Serum 0.87 mg/dL (0.70-1.30); EST Glomerular Filtration Rate 93 mL/min (>60); Est Glom Filt Rate - Afr Amer 113 mL/min (>60); Estimated Creatinine Clearance 71.83 ml/min; Glucose 79 mg/dL (74-106); Potassium 3.8 mmol/L (3.5-5.1); Sodium Level 125 mmol/L (136-145)
[2021-07-13] MEDS: Potassium Chloride Oral Tablet 20 MEQ PO (08:45)
--- NOTE | 2021-07-13 08:45 | PN_ITS ---
Subjective Subjective Patient was seen this morning for follow up on left ankle/leg wounds. He is resting comfortably in bed with no overnight or acute events. He needs toenails reduced. No complaints of fever, chills, nausea or vomiting. Objective Data Objective Data Vital Signs: Vital Signs Temp Pulse Resp BP Pulse Ox 98.1 F 69 16 148/82 H 99 07/13/21 07:44 07/13/21 07:44 07/13/21 07:44 07/13/21 07:44 07/13/21 07:44 Oxygen Delivery Method Room Air Weight: 66 kg Body Mass Index (BMI) 25.0 Intake & Output: Intake and Output for Last 24 Hours 07/11/21 07/12/21 07/13/21 23:59 23:59 23:59 Intake Total 250 / 1150 1200 / 1700 1550 / 1550 Output Total 375 / 375 Balance 250 / 775 825 / 1325 1550 / 1550 Lab / Micro Data Result Diagrams: 07/13/21 07:43 07/12/21 05:47 Labs: Laboratory Results - last 24 hr 07/13/21 07:43: WBC 8.1, RBC 3.35 L, Hgb 10.9 L, Hct 33.0 L, MCV 98.5 H, MCH 32.5 H, MCHC 33.0, RDW Std Deviation 48.1 H, RDW Coeff of Kelsi 13.3, Plt Count 295, MPV 8.5, Immature Gran % (Auto) 0.700, Neut % (Auto) 68.7, Lymph % (Auto) 13.1 L, [place] % (Auto) 9.1, Eos % (Auto) 7.4 H, Baso % (Auto) 1.0, Absolute Neuts (auto) 5.6, Absolute Lymphs (auto) 1.06, Nucleated RBC % 0 Micro: Microbiology 07/11/21 21:21 Wound - Leg, Left Gram Stain - Final Physical Exam Const alert, oriented x3 and no apparent distress Skin Skin Narrative: Left foot/ankle leg with improved cellulitis, there are wounds to the medial and lateral ankle as well as the posterior leg with fibrotic tissue but there is increased granular tissue noted today- at least down to the subcutaneous tissue, likely fascia as well, there is maloder and edema, there is no drainage, no visible abscess, no fluctuance, no crepitus noted. There is diffuse xerosis bilateral lower extremity. Toenails are very long, thickened, dystrophic and yellow 1-5 bilateral. CFT < 2 seconds to all toes, pedal pulses intact bilateral. No edema right lower extremity. He notes pain to the ulcer sites left lower extremity otherwise no m/s POP or pain on ROM to the foot or ankle. Sensation intact to light touch bilateral foot. Assessment & Plan Assessment/Plan (1) Cellulitis of left lower limb: PLAN: Re-evaluation performed. Reviewed diagnostic data. Patient afebrile, WBC normal, and no gas on xrays, no evidence of osteomyelitis on xrays. Left foot/ankle and leg noted to be improved today. There is still some residual cellulitis but again noted to be better and wounds appear healthier today (again noted to be improved granular tissue), today the left foot/ankle and leg were cleansed with betadine soln. Applied betadine gauze, kerlix and romeo dressing. Wound culture obtained left lower extremity ulcerations and sent to microbiology - results pending - MRSA negative on PCR. Debrided toenails 1-5 bilateral using a nail nipper - this was done without incident. Patient has been started on IV antibiotic vancomycin and Zosyn. We discussed possible OR debridement of the wounds, however with improvement noted today we will continue with plan as noted above. Will continue to monitor. Podiatry will continue to follow. (2) Non-pressure chronic ulcer of other part of left foot with necrosis of muscle: (3) Nail dystrophy:
[2021-07-13] MEDS: Losartan Potassium 100 MG Tablet PO (08:46)
[2021-07-13] MEDS: Heparin Injection (Vial) 5,000 UNIT/ML VIAL 5000 UNIT SC ×2 (08:46→21:11)
[2021-07-13 08:50] LABS: Vancomycin, Trough Level 7.5 ug/mL (5.0-15.0)
[2021-07-13] MEDS: Thiamine Hydrochloride 100 MG Tablet 200 MG PO (08:53)
[2021-07-13] MEDS: Folic Acid 1 MG Tablet PO (08:54)
[2021-07-13] MEDS: amLODIPine 10 MG Tablet PO (08:54)
--- NOTE | 2021-07-13 08:57 | PCM.RX.CS ---
Consult Pharmacy has been consulted to manage selected antiobiotic: Vancomycin Type of Consult: Follow-up Prior Doses of Antibiotics Received/Current Regimen: Medications Vancomycin HCl () 500 mg in 100 mls @ 100 mls/hr IV Q12H GABBY Last Admin: 07/12/21 22:00 Dose: Infused Documented by: Labs: Sodium 125 mmol/L (136-145) L 07/13/21 07:43 Potassium 3.8 mmol/L (3.5-5.1) 07/13/21 07:43 Chloride 91 mmol/L (98-107) L 07/13/21 07:43 Carbon Dioxide 29.0 mmol/L (21.0-32.0) 07/13/21 07:43 Anion Gap 5 (5-15) 07/13/21 07:43 BUN 16 mg/dL (7-18) 07/13/21 07:43 Creatinine 0.87 mg/dL (0.70-1.30) 07/13/21 07:43 Est GFR (MDRD) Af Amer 113 mL/min (>60) 07/13/21 07:43 Est GFR (MDRD) Non-Af 93 mL/min (>60) 07/13/21 07:43 BUN/Creatinine Ratio 18.3 RATIO (10-20) 07/13/21 07:43 Glucose 79 mg/dL (74-106) 07/13/21 07:43 Vancomycin Trough 7.5 ug/mL (5.0-15.0) 07/13/21 07:43 Microbiology: Microbiology 07/11/21 21:21 Wound - Leg, Left Gram Stain - Final Weight used for dosin kg Estimated Creatinine Clearance: 72 mL/min Goal Trough: 10-15 mcg/mL Pharmacy Plan for Drug Dosing: Trough below goal, increase to 750mg IV q12h and recheck prior to 4th dose. Pharmacy Service will continue to monitor and adjust dosing as required. Follow-Up Labs: Trough Vancomycin - 07/14 @ 2130
--- NOTE | 2021-07-13 11:27 | PN.HOSP_ITS ---
Subjective Subjective No specific issues overnight. Further debridement performed by podiatry and they are still pleased with the way his legs look indicating that he still does not need any acute surgical intervention in the operating room. The patient is unwilling to consider skilled facility and based on his mobility it does not ap pear that he would qualify. He is also unwilling to accept home health care and would like his significant other to be instructed by nursing staff on dressing changes. I did reiterate to him the importance of continued dressing changes, follow-up with podiatry after discharge and completing his antibiotics and expressed to him my concern that is if this does not happen that he would potentially lose his legs or end up with a severe infection that could be life- threatening. He voiced understanding but was still reluctant to have home health care. Objective Data Objective Data Vital Signs: Vital Signs Temp Pulse Resp BP Pulse Ox 98.1 F 69 16 148/82 H 99 07/13/21 07:44 07/13/21 07:44 07/13/21 07:44 07/13/21 07:44 07/13/21 07:44 Oxygen Delivery Method Room Air Weight: 66 kg Body Mass Index (BMI) 25.0 Intake & Output: Intake and Output for Last 24 Hours 07/11/21 07/12/21 07/13/21 23:59 23:59 23:59 Intake Total 250 / 1150 1200 / 1700 1600 / 1600 Output Total 375 / 375 Balance 250 / 775 825 / 1325 1600 / 1600 Lab / Micro Data Result Diagrams: 07/13/21 07:43 07/13/21 07:43 Labs: Laboratory Results - last 24 hr 07/13/21 07:43: WBC 8.1, RBC 3.35 L, Hgb 10.9 L, Hct 33.0 L, MCV 98.5 H, MCH 32.5 H, MCHC 33.0, RDW Std Deviation 48.1 H, RDW Coeff of Kelsi 13.3, Plt Count 295, MPV 8.5, Immature Gran % (Auto) 0.700, Neut % (Auto) 68.7, Lymph % (Auto) 13.1 L, [place] % (Auto) 9.1, Eos % (Auto) 7.4 H, Baso % (Auto) 1.0, Absolute Neuts (auto) 5.6, Absolute Lymphs (auto) 1.06, Nucleated RBC % 0 07/13/21 07:43: Sodium 125 L, Potassium 3.8, Chloride 91 L, Carbon Dioxide 29.0, Anion Gap 5, BUN 16, Creatinine 0.87, Estim Creat Clear Calc 71.83, Est GFR (MDRD) Af Amer 113, Est GFR (MDRD) Non-Af 93, BUN/Creatinine Ratio 18.3, Glucose 79, Calcium 8.4 L 07/13/21 07:43: Vancomycin Trough 7.5 Micro: Microbiology 07/11/21 21:21 Wound - Leg, Left Gram Stain - Final Physical Exam Const alert, oriented x3 and no apparent distress Constitutional Narrative: Extremely disheveled upper middle-aged white male who appears much older than stated age, lying in bed, watching television, appears comfortable and nontoxic General Appearance: cooperative, well kempt and well developed Orientation / Consciousness: awake, oriented to person, oriented to place and oriented to time Exam Limitations: no limitations HEENT normocephalic, head/scalp atraumatic, hearing grossly normal bilaterally and moist oral mucous membranes HEENT Narrative: Poor dentition, Mallampati 2, no thrush Head and Scalp: normocephalic Neck nuchal rigidity and thyroid normal General: trachea midline Resp normal respiratory effort, no retractions, no use of accessory muscles and clear to auscultation bilaterally Resp Narrative: Diffusely diminished but clear Auscultation: Negative for crackles, rales, rhonchi or wheezes Cardio regular rate, regular rhythm, S1 normal heart sound, S2 normal heart sound, no murmurs, no rub, no gallops, no clicks and no JVD GI normal to inspection, nondistended, normoactive bowel sounds, soft to palpation, non-tender and non-distended; Negative for hepatosplenomegaly Extremity Extremity Narrative: Bilateral lower extremities are extremely dry with erythema, wounds are wrapped and have already been evaluated by podiatry today, nails have been addressed by podiatry, cap refill is 2+ Skin Skin Narrative: Patient has wounds over his left lower leg as described pre viously General Skin Exam: no breakdown Neuro oriented x3, CN's II-XII intact bilaterally, moves all extremities, no focal motor deficits and no sensory deficits noted Sensorium / Orientation: awake and alert Speech: speech normal Psych Psych Narrative: Affect remains flat however patient is more interactive today Assessment & Plan Assessment/Plan (1) Nail dystrophy: (2) Non-pressure chronic ulcer of other part of left foot with necrosis of muscle: (3) Cellulitis of left lower limb: (4) Deep wound: PLAN: Marked bilateral lower extremity cellulitis with nonpressure chronic ulcerations -Podiatry following -Continue antibiotics with Vanco and Zosyn -Wounds have been cleaned up at the bedside and there remains no need for operative intervention -Cultures remain pending -Legs are in extreme disrepair -We will need close outpatient follow-up -Patient refusing placement and home health care -Nursing to teach significant other on dressings -Blood cultures main pending -Continue current dressings per podiatry -As needed pain medication available -As needed stool softener available -Staph aureus protein PCR positive however MRSA screen is negative Bilateral lower extremity nail dystrophy -Podiatry managing -Status postdebridement Debility -I am concerned with his above wounds limiting his mobility not to mention the wounds being present and being significant about him going home. The patient has indicated he has no intention of going anywhere at this point time -Therapy did see the patient and he did overall fairly well with no skilled n eeds with regards to ambulation at discharge -He is at high risk for further infection/amputation/ if these do not improve Hypertension -Blood pressures have trended down -Losartan initiated on admission and amlodipine 10 mg added yesterday -No changes today but continue to monitor -Patient may need the addition of a third agent depending on trends -Continue as needed hydralazine Macrocytic anemia -No signs of acute blood loss -Suspect may be related to chronic alcoholism/chronic disease -Counts are stable -Recommend outpatient follow-up Alcohol abuse -At sounds the patient is a heavy drinker he admits to 5-6 large beers daily -He indicates he is never really gone without alcohol and is unclear whether or not he will have withdrawal -Currently no signs of acute withdrawal -Continue phenobarbital but will taper to 64.8 mg twice daily -Automatic taper is not in place -Continue thiamine 200 mg -Continue folic acid -Patient indicates he has no interest in quitting drinking therefore we will defer any addiction services at this time Tobacco abuse -Recommend cessation -Continue nicotine patch daily 14 mg DVT prophylaxis -Continue heparin SQ CODE STATUS -Full code Charges/Coding Visit Charges Inpatient E&M: 83328 Subs Hosp L2
[2021-07-13] MEDS: 0.9% Saline Lock 10 ML Syringe IV ×2 (13:47→21:12)
[2021-07-13 13:53] VITALS: BP 134/75; PULSE 72; RESP 16; TEMP 36.7; O2SAT 99
[2021-07-13 20:41] VITALS: BP 148/94; PULSE 85; RESP 20; TEMP 36.7; O2SAT 96
[2021-07-14 02:26] VITALS: BP 148/86; PULSE 76; RESP 18; TEMP 36.8; O2SAT 95
[2021-07-14] MEDS: 0.9% Saline Lock 10 ML Syringe IV ×2 (02:30→09:47)
[2021-07-14 05:52] LABS: Absolute Lymphocyte Count 0.92 X10^3/uL (0.83-4.51); Absolute Neutrophil Count 5.3 X10^3/uL (2.0-7.7); Basophil# 0.05 X10^3/uL; Basophil% 0.6 % (0-1); Eosinophil# 0.74 X10^3/uL; Eosinophils% 9.5 % (0-5); Hemoglobin 10.8 g/dL (13.0-16.5); Lymphocyte # 0.92 X10^3/ul (0.83-4.51); Lymphocyte % 11.9 % (19-41); Mean Corp Hgb Conc 32.7 g/dL (32-36); Mean Corpuscular Hgb 32.2 pg (27.0-32.0); Mean Corpuscular Volume 98.5 fL (80-94); Mean Platelet Vol. 8.6 fl (6.2-12.0); Monocyte# 0.66 X10^3/uL; Monocyte% 8.5 % (0-10); NRBC Flagged by Analyzer 0 % (0-5); Neutrophil % 68.3 % (47-70); Platelet Count 311 K/mm3 (150-450); RBC Distribution Width CV 13.2 % (11.6-14.6); RBC Distribution Width SD 48.3 fl (35.1-43.9); Red Blood Count 3.35 M/mm3 (4.6-6.2); White Blood Count 7.8 K/mm3 (4.4-11.0)
[2021-07-14 06:27] LABS: Anion Gap 5 (5-15); BUN 14 mg/dL (7-18); BUN/Creat Ratio 15.9 RATIO (10-20); Calcium,Total 8.5 mg/dL (8.5-10.1); Chloride 99 mmol/L (98-107); Creatinine, Serum 0.88 mg/dL (0.70-1.30); EST Glomerular Filtration Rate 92 mL/min (>60); Est Glom Filt Rate - Afr Amer 111 mL/min (>60); Estimated Creatinine Clearance 71.01 ml/min; Glucose 88 mg/dL (74-106); Potassium 4.1 mmol/L (3.5-5.1); Sodium Level 131 mmol/L (136-145)
[2021-07-14] MEDS: oxyCODONE 5 MG Tablet 10 MG PO (06:56)
--- NOTE | 2021-07-14 06:59 | PCM.PROGNOTE ---
Subjective Subjective Patient was seen this morning for follow up on left ankle/leg wounds. He is resting comfortably in bed with no overnight or acute events. He denies fever, chills, nausea or vomiting. He denies leg pain this morning except with his dressing was removed. He refuses [facility] facility placement and is not sure his significant other will be able to change his dressings. Objective Data Objective Data Vital Signs: Vital Signs Temp Pulse Resp BP Pulse Ox 98.2 F 76 18 148/86 H 95 07/14/21 02:26 07/14/21 02:26 07/14/21 02:26 07/14/21 02:26 07/14/21 02:26 Oxygen Delivery Method Room Air Weight: 66 kg Body Mass Index (BMI) 25.0 Intake & Output: Intake and Output for Last 24 Hours 07/12/21 07/13/21 07/14/21 23:59 23:59 23:59 Intake Total 1200 / 1700 2180 / 2180 50 / 50 Output Total 375 / 375 Balance 825 / 1325 2180 / 2180 50 / 50 Lab / Micro Data Result Diagrams: 07/14/21 05:01 07/14/21 05:01 Labs: Laboratory Results - last 24 hr 07/13/21 07:43: WBC 8.1, RBC 3.35 L, Hgb 10.9 L, Hct 33.0 L, MCV 98.5 H, MCH 32.5 H, MCHC 33.0, RDW Std Deviation 48.1 H, RDW Coeff of Kelsi 13.3, Plt Count 295, MPV 8.5, Immature Gran % (Auto) 0.700, Neut % (Auto) 68.7, Lymph % (Auto) 13.1 L, [place] % (Auto) 9.1, Eos % (Auto) 7.4 H, Baso % (Auto) 1.0, Absolute Neuts (auto) 5.6, Absolute Lymphs (auto) 1.06, Nucleated RBC % 0 07/13/21 07:43: Sodium 125 L, Potassium 3.8, Chloride 91 L, Carbon Dioxide 29.0, Anion Gap 5, BUN 16, Creatinine 0.87, Estim Creat Clear Calc 71.83, Est GFR (MDRD) Af Amer 113, Est GFR (MDRD) Non-Af 93, BUN/Creatinine Ratio 18.3, Glucose 79, Calcium 8.4 L 07/13/21 07:43: Vancomycin Trough 7.5 07/14/21 05:01: WBC 7.8, RBC 3.35 L, Hgb 10.8 L, Hct 33.0 L, MCV 98.5 H, MCH 32.2 H, MCHC 32.7, RDW Std Deviation 48.3 H, RDW Coeff of Kelsi 13.2, Plt Count 311, MPV 8.6, Immature Gran % (Auto) 1.200 H, Neut % (Auto) 68.3, Lymph % (Auto) 11.9 L, [place] % (Auto) 8.5, Eos % (Auto) 9.5 H, Baso % (Auto) 0.6, Absolute Neuts (auto) 5.3, Absolute Lymphs (auto) 0.92, Nucleated RBC % 0 07/14/21 05:01: Sodium 131 L, Potassium 4.1, Chloride 99, Carbon Dioxide 27.0, Anion Gap 5, BUN 14, Creatinine 0.88, Estim Creat Clear Calc 71.01, Est GFR (MDRD) Af Amer 111, Est GFR (MDRD) Non-Af 92, BUN/Creatinine Ratio 15.9, Glucose 88, Calcium 8.5 Micro: Microbiology 07/11/21 21:21 Wound - Leg, Left Gram Stain - Final 07/11/21 21:21 Wound - Leg, Left Wound Culture - Preliminary Mixed Gram Positive Organisms Physical Exam Const alert, oriented x3 and no apparent distress Skin Skin Narrative: Left foot/ankle leg with resolved cellulitis, there are wounds also noted to the medial and lateral ankle as well as the posterior leg with fibrotic tissue but there is increased granular tissue noted today- at least down to the subcutaneous tissue, likely fascia as well, there is no longer maloder and edema has decreased. there is mild serosanguineous drainage (no purulence), no visible abscess, no fluctuance, no crepitus noted. There is diffuse xerosis bilateral lower extremity. He notes pain to the ulcer sites left lower extremity otherwise no m/s POP or pain on ROM to the foot or ankle. Sensation intact to light touch bilateral foot. Assessment & Plan Assessment/Plan (1) Cellulitis of left lower limb: (2) Non-pressure chronic ulcer of other part of left foot with necrosis of muscle: (3) Non-pressure chronic ulcer of unspecified part of left lower leg with fat layer exposed: (4) Xerosis cutis: (5) Other specified peripheral vascular diseases: PLAN: Re-evaluation performed. Reviewed diagnostic data. Patient afebrile, WBC normal (7.8), and no gas on xrays, no evidence of osteomyelitis on xrays. Left foot/ankle and leg noted to be improved today. There is resolved cellulitis and all ulcer beds are now granular. The left leg was washed with soap and water. Adaptic was applied to the ulcers. Additional dressings including betadine gauze, abdominal pads, kerlix, and romeo dressing was also further applied. I recommend Lac-Hydrin application to bilateral lower extremities to address his xerosis and maintain better skin integrity to avoid additional wounds and infections. Wound culture obtained left lower extremity ulcerations and sent to microbiology - results still pending - MRSA negative on PCR. Patient has been started on IV antibiotic vancomycin and Zosyn. His infection appears to be resolved. It is noted he has very poor hygiene. He refuses [facility] facility placement and home health. I at the very least would recommend close follow-up with the wound healing center and if his significant other can come in today we can also review dressing care with her. Due to chronicity of these ulcers I also recommend noninvasive vascular studies (arterial). This was ordered. Podiatry will continue to follow while in house. Please do not hesitate to call if you have any questions. Krissy Grande DPM, [facility] [phone]
--- NOTE | 2021-07-14 07:06 | ART_ITS ---
Reason For Study: ulcer Procedure A bilateral lower extremity continuous wave Doppler with analog waveform analysis,segmental pressures,and ankle brachial indexes without exercise. Left Segmental Pressures Left brachial= 142mmHg. Left posterior tibial artery = 144mmHg. Left dorsalis pedis artery = 163mmHg. Left digit = 92 mmHg. The left dorsalis pedis waveforms are triphasic. The left posterior tibial artery waveforms are triphasic. Right Segmental Pressures Right brachial= 146mmHg. Right posterior tibial artery = 157mmHg. Right dorsalis pedis artery = 165mmHg. Right digit = 97 mmHg. The right dorsalis pedis waveforms are triphasic. The right posterior tibial artery waveforms are triphasic. Indices The right ankle brachial index by the dorsalis pedis is 1.13. The right ankle brachial index by the posterior tibial artery is 1.08. The right digital-brachial index is .66. The left ankle brachial index by the posterior tibial artery is .99. The left ankle brachial index by the dorsalis pedis is 1.12. The left digital-brachial index is .63. VL/Lower Ext Art Exam w/o Exercis Interpretation Summary Triphasic Doppler waveforms are noted at ankle level bilaterally. Pulse-volume recordings appear diminished at digital level on thge right, but satisfactory at all other levels bilaterally. Resting ankle-brachial indices are normal bilaterally. Digital-brachial indices are mil dly diminished bilaterally. Arterial flow appears normal at ankle level bilaterally. There is evidence of m ild arterial occlusive disease at digital level bilaterally. Ordering Physician: Krissy Grande Performed By: Mike Miranda RVT
--- NOTE | 2021-07-14 07:45 | PCM.PN.HOSP ---
Subjective Subjective Patient is a 65-year-old gentleman with past medical history significant for hypertension admitted with redness involving both lower extremity and assessment of severe cellulitis involving both lower extremities made admitted to regular nursing floor for further management Objective Data Objective Data Vital Signs: Vital Signs Temp Pulse Resp BP Pulse Ox 98.2 F 76 18 148/86 H 95 07/14/21 02:26 07/14/21 02:26 07/14/21 02:26 07/14/21 02:26 07/14/21 02:26 Oxygen Delivery Method Room Air Weight: 66 kg Body Mass Index (BMI) 25.0 Intake & Output: Intake and Output for Last 24 Hours 07/12/21 07/13/21 07/14/21 23:59 23:59 23:59 Intake Total 1200 / 1700 2180 / 2180 1050 / 1050 Output Total 375 / 375 Balance 825 / 1325 2180 / 2180 1050 / 1050 Lab / Micro Data Result Diagrams: 07/14/21 05:01 07/14/21 05:01 Labs: Laboratory Results - last 24 hr 07/13/21 07:43: WBC 8.1, RBC 3.35 L, Hgb 10.9 L, Hct 33.0 L, MCV 98.5 H, MCH 32.5 H, MCHC 33.0, RDW Std Deviation 48.1 H, RDW Coeff of Kelsi 13.3, Plt Count 295, MPV 8.5, Immature Gran % (Auto) 0.700, Neut % (Auto) 68.7, Lymph % (Auto) 13.1 L, [place] % (Auto) 9.1, Eos % (Auto) 7.4 H, Baso % (Auto) 1.0, Absolute Neuts (auto) 5.6, Absolute Lymphs (auto) 1.06, Nucleated RBC % 0 07/13/21 07:43: Sodium 125 L, Potassium 3.8, Chloride 91 L, Carbon Dioxide 29.0, Anion Gap 5, BUN 16, Creatinine 0.87, Estim Creat Clear Calc 71.83, Est GFR (MDRD) Af Amer 113, Est GFR (MDRD) Non-Af 93, BUN/Creatinine Ratio 18.3, Glucose 79, Calcium 8.4 L 07/13/21 07:43: Vancomycin Trough 7.5 07/14/21 05:01: WBC 7.8, RBC 3.35 L, Hgb 10.8 L, Hct 33.0 L, MCV 98.5 H, MCH 32.2 H, MCHC 32.7, RDW Std Deviation 48.3 H, RDW Coeff of Kelsi 13.2, Plt Count 311, MPV 8.6, Immature Gran % (Auto) 1.200 H, Neut % (Auto) 68.3, Lymph % (Auto) 11.9 L, [place] % (Auto) 8.5, Eos % (Auto) 9.5 H, Baso % (Auto) 0.6, Absolute Neuts (auto) 5.3, Absolute Lymphs (auto) 0.92, Nucleated RBC % 0 07/14/21 05:01: Sodium 131 L, Potassium 4.1, Chloride 99, Carbon Dioxide 27.0, Anion Gap 5, BUN 14, Creatinine 0.88, Estim Creat Clear Calc 71.01, Est GFR (MDRD) Af Amer 111, Est GFR (MDRD) Non-Af 92, BUN/Creatinine Ratio 15.9, Glucose 88, Calcium 8.5 Micro: Microbiology 07/11/21 18:10 Blood Culture (Wb) - Right Forearm Blood Culture - Preliminary No growth in 48 hours. 07/11/21 17:50 Blood Culture (Wb) - Anticubital Left Blood Culture - Preliminary No growth in 48 hours. 07/11/21 21:21 Wound - Leg, Left Gram Stain - Final 07/11/21 21:21 Wound - Leg, Left Wound Culture - Preliminary Mixed Gram Positive Organisms Physical Exam Narrative GENERAL: cooperative HEENT: Atraumatic; EYES; Anicteric, Normal Conjunctiva NECK; supple, normal thyroid, RESPIRATORY: Diminished to auscultation CARDIOVASCULAR: Regular S1 S2, GI: soft, normoactive bowel sounds, : No Renal angle tenderness; EXTREMITIES: Chronic wounds involving both lower extremities left worse than right MUSCULOSKELETAL: no muscle wasting NEURO: Awake; no lateralizing signs. SKIN: No Rash PSYCH; Flat affect Assessment & Plan Assessment/Plan (1) Nail dystrophy: (2) Non-pressure chronic ulcer of other part of left foot with necrosis of muscle: (3) Cellulitis of left lower limb: (4) Deep wound: PLAN: Patient is a 65-year-old gentleman with past medical history significant for hypertension admitted with redness involving both lower extremity and assessment of severe cellulitis involving both lower extremities made admitted to regular nursing floor for further management 1. Cellulitis involving both lower extremity ? Patient was managed with vancomycin as well as Zosyn with significant improvement in his symptoms. He was also seen in consultation by podiatry. Patient did have a good response to the therapy discharged home with cefdinir with plans for patient to follow-up at the wound care center as well as with podiatry for dressing changes 2. Essential hypertension ? Currently not on any medication, prescription was written for amlodipine and losartan on discharge 3. Chronic alcohol dependence ? Patient was placed on phenobarb taper 4. Tobacco dependence - Counseled on cessation, offered nicotine patch for tobacco cravings 5. Microcytic anemia ? Possibly related to patient chronic alcohol dependence monitor H&H 6. Physical deconditioning - Requested for PT OT eval and social work case manager to assist with discharge planning ? Patient was offered the option of going to [facility] facility he apparently refused 7. DVT prophylaxis ? SC heparin CODE STATUS -Full code Charges/Coding Visit Charges Inpatient E&M: 07406 Subs Hosp L2
[2021-07-14 08:25] VITALS: BP 147/90; PULSE 79; RESP 16; TEMP 36.7; O2SAT 94
[2021-07-14] MEDS: Potassium Chloride Oral Tablet 20 MEQ PO (08:30)
[2021-07-14] MEDS: Folic Acid 1 MG Tablet PO (08:31)
[2021-07-14] MEDS: Thiamine Hydrochloride 100 MG Tablet 200 MG PO (08:31)
[2021-07-14] MEDS: Losartan Potassium 100 MG Tablet PO (08:32)
--- NOTE | 2021-07-14 08:56 | WOUNDNOTE ---
wound photo: left lower leg (lateral view)
--- NOTE | 2021-07-14 08:56 | WOUNDNOTE ---
wound photo: left lower leg (anterior view)
--- NOTE | 2021-07-14 08:57 | WOUNDNOTE ---
wound photo: left lower leg (medial view)
--- NOTE | 2021-07-14 08:58 | WOUNDNOTE ---
wound photo: left posterior lower leg
[2021-07-14] MEDS: Heparin Injection (Vial) 5,000 UNIT/ML VIAL 5000 UNIT SC (09:35)
[2021-07-14] MEDS: Ammonium Lactate 225 gm Bottle 1 APPLIC TOPICAL (09:36)
[2021-07-14] MEDS: amLODIPine 10 MG Tablet PO (09:42)
[2021-07-14] MEDS: Phenobarbital 32.4 MG Tablet 64.8 MG PO (09:43)
--- NOTE | 2021-07-14 09:58 | PCM.DC.SUM ---
Providers Date of Admission: 07/11/21 Primary Care Physician: Jennifer Primary Care Phys Consultations 07/11/21 22:27 Consult: Onc/Wound/quality assurance practice manager Routine Comment: Reason for Consult:: left leg wounds Consult: Podiatry Routine Consulting Provider: Jerardo Richardson Reason for Consult: left leg wounds EMERGENT Consult: No MD Notified: Yes Date Notified: 07/11/21 Time Notified: 19:54 Method of Notification: Verbal Reason For Visit: CELLULITIS LEFT LOWER LEG; DEEP WOUND INFECTION Diagnosis Discharge Diagnosis (1) Nail dystrophy: Status: Acute Code(s): L60.3 - Nail dystrophy (2) Non-pressure chronic ulcer of other part of left foot with necrosis of muscle: Status: Chronic Code(s): L97.523 - Non-pressure chronic ulcer of other part of left foot with necrosis of muscle (3) Cellulitis of left lower limb: Status: Acute Code(s): L03.116 - Cellulitis of left lower limb (4) Deep wound: Status: Acute Code(s): T14.8XXA - Other injury of unspecified body region, initial encounter Medications at Discharge Home Medications amlodipine 10 mg PO DAILY #60 tab 07/14/21 cefdinir 300 mg PO BID #10 cap 07/14/21 losartan 100 mg PO DAILY #60 tab 07/14/21 Hospital Course Summary of Care Provided Minutes Spent on Discharge: 35 Hospital Course: Patient is a 65-year-old gentleman with past medical history significant for hypertension admitted with redness involving both lower extremity and assessment of severe cellulitis involving both lower extremities made admitted to regular nursing floor for further management 1. Cellulitis involving both lower extremity ? Patient was managed with vancomycin as well as Zosyn with significant improvement in his symptoms. He was also seen in consultation by podiatry. Patient did have a good response to the therapy discharged home with cefdinir with plans for patient to follow-up at the wound care center as well as with podiatry for dressing changes 2. Essential hypertension ? Currently not on any medication, prescription was written for amlodipine and losartan on discharge 3. Chronic alcohol dependence ? Patient was placed on phenobarb taper 4. Tobacco dependence - Counseled on cessation, offered nicotine patch for tobacco cravings 5. Microcytic anemia ? Possibly related to patient chronic alcohol dependence monitor H&H 6. Physical deconditioning - Requested for PT OT eval and social media job titles to assist with discharge planning ? Patient was offered the option of going to senior living facility he apparently refused 7. DVT prophylaxis ? SC heparin Physical Exam Narrative GENERAL: cooperative HEENT: Atraumatic; EYES; Anicteric, Normal Conjunctiva NECK; supple, normal thyroid, RESPIRATORY: Diminished to auscultation CARDIOVASCULAR: Regular S1 S2, GI: soft, normoactive bowel sounds, : No Renal angle tenderness; EXTREMITIES: No edema, no clubbing, PSYCH; Flat affect Weight / BMI Weight Weight: 66 kg Body Mass Index (BMI) 25.0 ABG / Lab / Microbiology Data Result Diagrams: 07/14/21 05:01 07/14/21 05:01 Laboratory: Laboratory Results - last 24 hr 07/14/21 05:01: WBC 7.8, RBC 3.35 L, Hgb 10.8 L, Hct 33.0 L, MCV 98.5 H, MCH 32.2 H, MCHC 32.7, RDW Std Deviation 48.3 H, RDW Coeff of Kelsi 13.2, Plt Count 311, MPV 8.6, Immature Gran % (Auto) 1.200 H, Neut % (Auto) 68.3, Lymph % (Auto) 11.9 L, [place] % (Auto) 8.5, Eos % (Auto) 9.5 H, Baso % (Auto) 0.6, Absolute Neuts (auto) 5.3, Absolute Lymphs (auto) 0.92, Nucleated RBC % 0 07/14/21 05:01: Sodium 131 L, Potassium 4.1, Chloride 99, Carbon Dioxide 27.0, Anion Gap 5, BUN 14, Creatinine 0.88, Estim Creat Clear Calc 71.01, Est GFR (MDRD) Af Amer 111, Est GFR (MDRD) Non-Af 92, BUN/Creatinine Ratio 15.9, Glucose 88, Calcium 8.5 Microbiology: Microbiology 07/11/21 21:21 Wound - Leg, Left Gram Stain - Final 07/11/21 21:21 Wound - Leg, Left Wound Culture - Preliminary Mixed Gram Positive Organisms 07/11/21 21:21 Wound - Leg, Left Anaerobic Culture - Preliminary 07/11/21 18:10 Blood Culture (Wb) - Right Forearm Blood Culture - Preliminary No growth in 48 hours. 07/11/21 17:50 Blood Culture (Wb) - Anticubital Left Blood Culture - Preliminary No growth in 48 hours. D/C Instructions Discharge Diet: No restrictions Discharge Activity: Return to Normal Activity Call your doctor if you observe: Fever of 101 or Higher, Shortness of breath, Fainting spells and Chest pain Meaningful Use Info Meaningful Use Diagnoses (Choose all that apply): None applicable Discharge Plan Admission Admit Date/Time: 07/11/21 19:48 Attending Provider: Agustin Woodruff Primary Care Provider: Care Physician,No Primary Consulting Providers: Jerardo Richardson ; Jeramie Galvan ; Mer Singer Instructions Additional Instructions / Restrictions: Apply lotion to lower extremities daily. Change left leg dressings after washing with soap and water every 1 to 2 days with Adaptic, Betadine gauze, gauze, Kerlix and Carlos wrap. Avoid laying directly on the ulcers. Discharge Orders/Prescriptions Prescriptions: New cefdinir 300 mg capsule 300 mg PO BID Qty: 10 RF: 0 amlodipine 10 mg Tablet 10 mg PO DAILY Qty: 60 RF: 0 losartan 100 mg Tablet 100 mg PO DAILY Qty: 60 RF: 0 Referrals / Follow Up: Krissy Grande DPM [STAFF PHYSICIAN] - In 1 Week (follow up at wound healing center. call to schedule at [phone]. ) Care Physician,No Primary [Primary Care Provider] - In 1 Week Disposition Disposition (needs filled in before D/C Order can be placed): Home, Self Care Charges/Coding Visit Charges Inpatient E&M: 30136 Disch Hosp
--- NOTE | 2021-07-14 12:00 | CASEMGMT ---
COLE CM in to pt room to discuss wound care. Pt states his girlfriend will perform wound care. He states she is coming in to pick him up. He did not have wound care prior. He states he does like to have strangers in his home. Made him aware if he changes his mind prior to dc'ing to let CM know. Pt interrupted and raised his voice and states I will not change my mind. Pt denies any further homegoing needs.
[2021-07-14 13:45] VITALS: BP 152/92; PULSE 66; RESP 18; TEMP 36.9; O2SAT 95
--- NOTE | 2021-07-14 14:13 | WOUNDNOTE ---
Performed dressing change to the left lower leg with patient's girlfriend. girlfriend was more concerned about patient needing pain medications than watching this nurse do the dressing change. girlfriend did not appear to be focused on the dressing change at all. just kept looking at this nurse instead of watching the dressing change. this nurse had to keep getting girlfriend to refocus on the leg. once dressing was completed, this nurse asked the girlfriend if she felt she could do the dressing change and she stated I think so. the wound center will help me too. My son had to go there before. script written for dressing supplies. patient states I'm not getting them today. I don't get paid until Wednesday. Pt was sent with enough dressings to get through until Wednesday. Pt denies further needs at this time. tolerated the dressing change well.
== END 2021-07-14 15:11 | disposition home or self-care (01) | DRG 603 ==
LOC: ED 18:27 → MS3 20:19
PROVIDERS: Physician Assistant; Podiatrist; Admitting Provider Internal Medicine; Emergency Provider Emergency Medicine; Visit Provider Internal Medicine
DX: L03.116 Cellulitis of left lower limb (principal); L97.822 Non-pressure chronic ulcer of other part of left lower leg with fat layer exposed; L97.523 Non-pressure chronic ulcer of other part of left foot with necrosis of muscle; F10.20 Alcohol dependence, uncomplicated; I73.89 Other specified peripheral vascular diseases; D53.9 Nutritional anemia, unspecified; B95.62 Methicillin resistant Staphylococcus aureus infection as the cause of diseases classified elsewhere; B35.3 Tinea pedis; F17.210 Nicotine dependence, cigarettes, uncomplicated; I10 Essential (primary) hypertension; L60.3 Nail dystrophy; L85.3 Xerosis cutis; L03.115 Cellulitis of right lower limb
CPT/HCPCS: 36415; 73590; 73630; 80048; 80053; 80076; 80202; 83605; 85025; 85610; 85730; 87040; 87070; 87075; 87077; 87205; 87640; 93923; 96365; 96366; 96367; 96372; 97161; 97165; 97530; 99218; 99285; 99406; J7050; A4216; G0378

== ENCOUNTER 2021-07-23 13:30 | Outpatient (RCR) | payer BC, SELFPAY ==
[2021-07-16 13:06] VITALS: BP 160/92; PULSE 102; RESP 16; TEMP 36.4; BMI 24.9
--- NOTE | 2021-07-16 15:37 | PCM.WC.PN ---
History of Present Illness Date of Service: 07/16/21 Chief Complaint: left leg ulcers History of Wound: He is a hospital follow up for left leg chronic ulcers. The onset is intermittently for a couple of years. he has pain with direct touch. After these were cleaned up in the hospital and he had antibiotics, there is no longer odor or redness. He denies calf pain. He is with his significant other today. Progress of Wound: improved compared to last hospital admission Objective Data Objective Data Vital Signs: Vital Signs Temp Pulse Resp BP 97.6 F L 102 H 16 160/92 H 07/16/21 13:06 07/16/21 13:06 07/16/21 13:06 07/16/21 13:06 Oxygen Delivery Method Room Air Weight: 65.771 kg Body Mass Index (BMI) 24.9 Physical Exam Const alert, oriented x3 and no apparent distress Skin Skin Narrative: Left foot/ankle leg with resolved cellulitis, there are wounds also noted to the medial and lateral ankle as well as the posterior leg with fibrotic tissue but there is increased granular tissue noted today- at least down to the subcutaneous tissue, likely fascia as well, there is no longer maloder and edema has decreased. there is mild serosanguineous drainage (no purulence), no visible abscess, no fluctuance, no crepitus noted. There is diffuse xerosis bilateral lower extremity. He notes pain to the ulcer sites left lower extremity otherwise no m/s POP or pain on ROM to the foot or ankle. Sensation intact to light touch bilateral foot. Debridement Note Debridement Note Wound debrided: left leg ulcers Wound Grade/Stage: Type of Debridement: Excisional debridement Anesthesia Used: 4% Lidocaine Solution Depth: in the subcutaneous layer Percentage of wound debrided: 100 Instrument Used: #15 blade Tissue Removed: fibrous, devitalized subcutaneous, biofilm, slough Severity: Fat Layer Exposed Amount of bleeding with debridement: Mild Bleeding Controlled with: Pressure Patient tolerated procedure: Patient tolerated procedure well Post-Debridement Measurements and Additional Note: Post-Debridement Measurements/Treatment DEVON - Nurse 1 - General Ulcer Assessment Start: 07/16/21 13:05 Freq: Status: Active Protocol: BRANDT Activity Type Activity Date Activity User E-Sign Co-Sign Detail Recorded Client Recorded Date Recorded By Document 07/16/21 13:06 [facility] [id number] 07/16/21 13:23 [facility] 07/16/21 13:06 - Today's Visit Information Type of service Initial Visit Arrival Mode Ambulatory Transfer Assistance None Accompanied by girlfriend Patient Identification Verified (Name & Yes ) Patient Requires Transmission-Based No Precautions Height and Weight Height 5 ft 4 in Weight 65.771 kg Weight in Pounds 145.0 lbs Weight Measurement Method Stated by Patient Body Mass Index (BMI) 24.9 BMI Classification Normal BSA - [place] 1.71 Vital Signs Temperature (97.8 F-99.1 F) 97.6 F L Temperature Source Temporal Pulse Rate (60-100) 102 H Pulse Location Monitor Respiratory Rate (12-18) 16 Respiratory rate source Observation Oxygen Delivery Method Room Air Blood Pressure (90/60-120/80) 160/92 H Blood Pressure Mean (mm Hg) 114 Source Monitor Position Sitting Blood Pressure Location Left Arm History Since Last Visit- (Skip if this is Patient's initial visit) Left Footwear Other Footwear (Comment) Right Footwear Regular Shoe Other Footwear non skid sock to left foot Pain Scale: 0-10 Numeric Is Patient Pain Free? Yes Lower Extremity Assessment/ Foot Assessment/ Toe Nail Assessment Right -Lower Extremity Comment (If N/A Above PT HAD ARTERIAL ) STUDIES IN HOSP LAST WEEK Left -Lower Extremity Comment (If N/A Above PT HAD ARTERIAL ) STUDIES LAST WEEK IN HOSPITAL Communication Assessment Preferred language [place] [employer] Required No Able to Read Yes Able to Write Yes Communication Tools None Right Hearing Abillity Normal Left Hearing Abillity Normal Visual Assistive Devices None Teaching Assessment Preferences Verbal,Written, Audio/Visual, Demonstration Barriers to Learning None Readiness To Learn Good Willingness to Engage in Self Management Med Activies Readiness to Engage in Self Management Med Activities Anxiety Level Calm Cooperation Cooperative Perception Coherent Interest in Health Problem Asks Questions Education Importance Acknowledges Need Does Patient Smoke tobacco or other No substances Smoking Status Current every day smoker Is Patient Diabetic Yes Functional Assessment Recent Decline in Ability to Perform Denies Any Declines Culture/Restoration/Inspector Penetrant Cultural/Restoration Needs that may affect No Treatment Plan - Nurse 1 - General Ulcer Measurement Start: 07/16/21 13:05 Freq: Status: Active Protocol: Activity Type Activity Date Activity User E-Sign Co-Sign Detail Recorded Client Recorded Date Recorded By Document 07/16/21 13:06 [facility] [id number] 07/16/21 13:23 [facility] 07/16/21 13:06 Wound Center Nurse 1 #4- L MED ANKLE -Combined with other wound No -Current Size (cm) - Length 1.6 -Current Size (cm) - Width 1.5 -Current Size (cm) - Depth 0.2 -Total Square Cm 2.40 -Date of Last Picture (Recall this 07/16/21 field) -Photo Taken Yes -Epithelialization None Present -Tunneling No -Undermining/Tunneling No -Circular Undermining No -Exudate Amt Medium -Exudate Type Serous -Wound Margin Distinct, Outline Attached -Granulation Amt Small (1-33%) -Granulation Quality [place] -Slough/Fibrin Yes -Necrosis Amt Medium (34-66%) -Necrotic Tissue Type Adherent Slough -Texture (Sis-wound Skin Appearance) Assessed, Scarring -Moisture (Sis-wound Skin Appearance) Assessed,Dry/ Scaly -Color (Sis-wound Skin Appearance) Assessed -Temperature (Sis-wound Skin No Abnormality Appearance) (Pt Warm) -Tenderness on Palpation (Sis-wound No Skin Appearance) -Ulcer Cleansing Soap and Water -Foul Odor after Cleansing No -Anesthetic Used 4% Lidocaine Solution #3- L CALF CLUSTER -Combined with other wound No -Current Size (cm) - Length 16.1 -Current Size (cm) - Width 5.2 -Current Size (cm) - Depth 0.2 -Total Square Cm 83.72 -Date of Last Picture (Recall this 07/16/21 field) -Photo Taken Yes -Epithelialization None Present -Tunneling No -Undermining/Tunneling No -Circular Undermining No -Exudate Amt Medium -Exudate Type Serous -Wound Margin Distinct, Outline Attached -Granulation Amt Medium (34-66%) -Granulation Quality [place] -Slough/Fibrin Yes -Necrosis Amt Medium (34-66%) -Necrotic Tissue Type Adherent Slough -Texture (Sis-wound Skin Appearance) Assessed, Scarring -Moisture (Sis-wound Skin Appearance) Assessed,Dry/ Scaly -Color (Sis-wound Skin Appearance) Assessed -Temperature (Sis-wound Skin No Abnormality Appearance) (Pt Warm) -Tenderness on Palpation (Sis-wound Yes Skin Appearance) -Ulcer Cleansing Soap and Water -Foul Odor after Cleansing No -Anesthetic Used 4% Lidocaine Solution #2- L LAT ANKLE -Combined with other wound No -Current Size (cm) - Length 2.5 -Current Size (cm) - Width 3.6 -Current Size (cm) - Depth 0.2 -Total Square Cm 9.00 -Date of Last Picture (Recall this 07/16/21 field) -Photo Taken Yes -Epithelialization None Present -Tunneling No -Undermining/Tunneling No -Circular Undermining No -Exudate Amt Medium -Exudate Type Serous -Wound Margin Distinct, Outline Attached -Granulation Amt Medium (34-66%) -Granulation Quality [place] -Slough/Fibrin Yes -Necrosis Amt Medium (34-66%) -Necrotic Tissue Type Adherent Slough -Texture (Sis-wound Skin Appearance) Assessed, Scarring -Moisture (Sis-wound Skin Appearance) Assessed,Dry/ Scaly -Color (Sis-wound Skin Appearance) Assessed -Temperature (Sis-wound Skin No Abnormality Appearance) (Pt Warm) -Tenderness on Palpation (Sis-wound No Skin Appearance) -Ulcer Cleansing Soap and Water -Foul Odor after Cleansing No -Anesthetic Used 4% Lidocaine Solution #1- L VILLARREAL -Combined with other wound No -Current Size (cm) - Length 3 -Current Size (cm) - Width 4 -Current Size (cm) - Depth 0.2 -Total Square Cm 12 -Date of Last Picture (Recall this 07/16/21 field) -Photo Taken Yes -Epithelialization None Present -Tunneling No -Undermining/Tunneling No -Circular Undermining No -Exudate Amt Medium -Exudate Type Serous -Wound Margin Distinct, Outline Attached -Granulation Amt Small (1-33%) -Granulation Quality [place] -Slough/Fibrin Yes -Necrosis Amt Large (67-100%) -Necrotic Tissue Type Adherent Slough -Texture (Sis-wound Skin Appearance) Assessed, Scarring -Moisture (Sis-wound Skin Appearance) Assessed,Dry/ Scaly -Color (Sis-wound Skin Appearance) Assessed -Temperature (Sis-wound Skin No Abnormality Appearance) (Pt Warm) -Tenderness on Palpation (Sis-wound Yes Skin Appearance) -Ulcer Cleansing Soap and Water -Foul Odor after Cleansing No -Anesthetic Used 4% Lidocaine Solution Lower Limb Edema Present Yes Right Calf (cm) 34 Right Ankle (cm) 25.5 Left Calf (cm) 33.8 Left Ankle (cm) 24.6 WC - Nurse 2 - General Ulcer CM Notes Start: 07/16/21 13:05 Freq: Status: Active Protocol: Activity Type Activity Date Activity User E-Sign Co-Sign Detail Recorded Client Recorded Date Recorded By Document 07/16/21 13:31 JESSE [id number] 07/16/21 13:39 JESSE 07/16/21 13:31 Wound Center Nurse 2 #4- L MED ANKLE -Time 13:32 -Correct Patient Yes -Correct Side, Site, Position Yes -Correct Procedure Yes -Procedure Performed Yes -Type of Procedure Debridement -Clinical Debridement Subcutaneous -Tissue Removed Subcutaneous -Post Debridement (cm) - Length 1.6 -Post Debridement (cm) - Width 1.6 -Post Debridement (cm) - Depth 0.2 -Total Square (Post) (cm) 2.56 -Area of Debridement (cm) - Length 1.6 -Area of Debridement (cm) - Width 1.6 -Total Square (Area) (cm) 2.56 -Tunneling No -Undermining/Tunneling No -Circular Undermining No -Wound/Ulcer Outcome Not Healed -Ulcer Cleansing Rinsed/ Irrigated with Saline -Foul Odor after Cleansing No -Bioengineered Tissue No -Bleeding Controlled with Pressure -Treatment Response Procedure Tolerated Well -Offloading No -Debridement - Subq, 1st 20sq cm No #3- L CALF CLUSTER -Time 13:33 -Correct Patient Yes -Correct Side, Site, Position Yes -Correct Procedure Yes -Procedure Performed Yes -Type of Procedure Debridement -Clinical Debridement Subcutaneous -Tissue Removed Subcutaneous -Post Debridement (cm) - Length 16.2 -Post Debridement (cm) - Width 5.2 -Post Debridement (cm) - Depth 0.2 -Total Square (Post) (cm) 84.24 -Area of Debridement (cm) - Length 16.2 -Area of Debridement (cm) - Width 5.2 -Total Square (Area) (cm) 84.24 -Tunneling No -Undermining/Tunneling No -Circular Undermining No -Wound/Ulcer Outcome Not Healed -Ulcer Cleansing Rinsed/ Irrigated with Saline -Foul Odor after Cleansing No -Bioengineered Tissue No -Bleeding Controlled with Pressure -Treatment Response Procedure Tolerated Well -Offloading No -Debridement - Subq, 1st 20sq cm Yes -Debridement, SubQ, ea addt'l 20sq cm 5 or part thereof #2- L LAT ANKLE -Time 13:35 -Correct Patient Yes -Correct Side, Site, Position Yes -Correct Procedure Yes -Procedure Performed Yes -Type of Procedure Debridement -Clinical Debridement Subcutaneous -Tissue Removed Subcutaneous -Post Debridement (cm) - Length 2.5 -Post Debridement (cm) - Width 3.7 -Post Debridement (cm) - Depth 0.2 -Total Square (Post) (cm) 9.25 -Area of Debridement (cm) - Length 2.5 -Area of Debridement (cm) - Width 3.7 -Total Square (Area) (cm) 9.25 -Tunneling No -Undermining/Tunneling No -Circular Undermining No -Wound/Ulcer Outcome Not Healed -Ulcer Cleansing Rinsed/ Irrigated with Saline -Foul Odor after Cleansing No -Bioengineered Tissue No -Bleeding Controlled with Pressure -Treatment Response Procedure Tolerated Well -Offloading No -Debridement - Subq, 1st 20sq cm No #1- L VILLARREAL -Time 13:36 -Correct Patient Yes -Correct Side, Site, Position Yes -Correct Procedure Yes -Procedure Performed Yes -Type of Procedure Debridement -Clinical Debridement Subcutaneous -Tissue Removed Subcutaneous -Post Debridement (cm) - Length 3.1 -Post Debridement (cm) - Width 4.0 -Post Debridement (cm) - Depth 0.2 -Total Square (Post) (cm) 12.40 -Area of Debridement (cm) - Length 3.1 -Area of Debridement (cm) - Width 4.0 -Total Square (Area) (cm) 12.40 -Tunneling No -Undermining/Tunneling No -Circular Undermining No -Wound/Ulcer Outcome Not Healed -Ulcer Cleansing Rinsed/ Irrigated with Saline -Foul Odor after Cleansing No -Bioengineered Tissue No -Bleeding Controlled with Pressure -Treatment Response Procedure Tolerated Well -Offloading No -Debridement - Subq, 1st 20sq cm No Pain Scale: 0-10 Numeric Is Patient Pain Free? Yes WC - Nurse 3 - General Ulcer D/C NN Start: 07/16/21 13:05 Freq: Status: Active Protocol: Activity Type Activity Date Activity User E-Sign Co-Sign Detail Recorded Client Recorded Date Recorded By Document 07/16/21 14:14 JOSSELYN [id number] 07/16/21 14:15 JOSSELYN 05/18/22 14:14 Wound Care Nurse 3 #4- L MED ANKLE -Ulcer Cleansing Rinsed/ Irrigated with Saline -Primary Dressing Applied C Hydrogel ($), NonAdherent Contact Layer -Primary Dressing Covered/Secured with Dry Gauze,Dry Gauze & Roll Gauze,Secured with Tape #3- L CALF CLUSTER -Ulcer Cleansing Rinsed/ Irrigated with Saline -Primary Dressing Covered/Secured with Dry Gauze, Secured with Tape #2- L LAT ANKLE -Ulcer Cleansing Rinsed/ Irrigated with Saline #1- L VILLARREAL -Ulcer Cleansing Rinsed/ Irrigated with Saline Pain Scale: 0-10 Numeric Is Patient Pain Free? Yes WC - Visit Discharge Discharge Condition Stable Ambulatory Status Ambulatory Accompanied by girlfriend Assessment/Plan Assessment/Plan (1) Other specified peripheral vascular diseases: CODE(S): I73.89 - Other specified peripheral vascular diseases (2) Non-pressure chronic ulcer of unspecified part of left lower leg with fat layer exposed: CODE(S): L97.922 - Non-pressure chronic ulcer of unspecified part of left lower leg with fat layer exposed (3) Non-pressure chronic ulcer of other part of left foot with necrosis of muscle: CODE(S): L97.523 - Non-pressure chronic ulcer of other part of left foot with necrosis of muscle PLAN: Re-evaluation performed. Reviewed diagnostic data. Patient is clinically stable and local signs of infection have resolved. Left foot/ankle and leg noted to be improved today. There is resolved cellulitis and all ulcer beds are now granular. The left leg was washed with soap and water. hydrogel and adaptic applied. Indigo applied. I recommend Lac-Hydrin application to bilateral lower extremities to address his xerosis and maintain better skin integrity to avoid additional wounds and infections. He recently completed a cellulitis treatment course and has been discharged from the hospital. To complete course of cefdinir per infectious disease recommendations. His infection appears to be resolved. It is noted he has very poor hygiene. He refuses fci facility placement and home health. I at the very least would recommend close follow-up with the wound healing center and if his significant other can come in today we can also review dressing care with her. Her questions were also answered. Due to chronicity of these ulcers I also recommend noninvasive vascular studies (arterial). This was ordered and it appear he has triphasic waveforms to ankle bilateral, pvr are diminished digital to the right but ok to other bilateral levels, JUSTUS normal bilateral, digital brachial index mildly diminished bilateral. This is consistent with mild arterial occlusive disease. If lack of healing is noted, referral will be considered. I also recommend venous doppler with reflux evaluation to work up for venous insufficiency. To continue nutrition supplementation to optimize healing. To avoid laying directly on ulcer for pressure reduction. Pain controlled with topical lidocaine. Significant other is persistent about pain narcotic medication and patient states this is not necessary. This was not provided today. To follow up next week at wound center. 31 minutes was spent on this encounter. This included both face to face and non face to face care, which includes but not limited to time preparing for the visit (which includes but not limited to reviewing medical record, any pertinent paperwork, as well as previous imaging and/or test results), reviewing/obtaining the noted history, performing the noted examination, counseling and providing education to the patient as well as to patient's family and/or patient caregivers per patient request. This also includes ordering any medication(s), test(s), and/or procedure(s) as indicated and as documented in the medical record, interpreting / sharing this information when indicated (and with patient's permission) as documented, communicating with other healthcare providers as needed/as requested, the time documenting information in the medical record, as well as any further care coordination. The medical decision making level is moderate based on data including at least three of the following: review of prior external notes, review of a test, ordering a test, assessment requiring an independent historian.
[2021-07-23 13:22] VITALS: BP 166/75; PULSE 83; TEMP 36.8; BMI 24.9
--- NOTE | 2021-07-23 16:50 | PN.PCM_ITS ---
History of Present Illness Date of Service: 07/23/21 Chief Complaint: left leg ulcers History of Wound: He is a hospital follow up for left leg chronic ulcers. The onset is intermittently for a couple of years. he has pain with direct touch. After these were cleaned up in the hospital and he had antibiotics, there is no longer odor or redness. He denies calf pain. He is with his significant other today. He is amendable to have another debridement performed today. He denies fever, chills, nausea, vomiting or calf pain. Progress of Wound: improving Objective Data Objective Data Vital Signs: Vital Signs Temp Pulse Resp BP 98.2 F 83 16 166/75 H 07/23/21 13:22 07/23/21 13:22 07/16/21 13:06 07/23/21 13:22 Oxygen Delivery Method Room Air Weight: 65.771 kg Body Mass Index (BMI) 24.9 Physical Exam Const alert, oriented x3 and no apparent distress Skin Skin Narrative: Left foot/ankle leg with resolved cellulitis, there are wounds also noted to the medial and lateral ankle as well as the posterior leg with fibrotic tissue but there is increased granular tissue noted today- at least down to the subcutaneous tissue, likely fascia as well, there is no longer maloder and edema has decreased. there is mild serosanguineous drainage (no purulence), no visible abscess, no fluctuance, no crepitus noted. There is diffuse xerosis bilateral lower extremity; reduced peeling noted. He notes pain to the ulcer sites left lower extremity otherwise no m/s POP or pain on ROM to the foot or ankle. Sensation intact to light touch bilateral foot. Debridement Note Debridement Note Wound debrided: left medial ankle, lateral ankle, posterior leg x 2, lateral leg Wound Grade/Stage: Type of Debridement: Excisional debridement Anesthesia Used: 4% Lidocaine Solution Depth: in the subcutaneous layer Percentage of wound debrided: 100 Instrument Used: #15 blade Tissue Removed: fibrous, devitalized subcutaneous, biofilm, slough Severity: Fat Layer Exposed Amount of bleeding with debridement: Mild Bleeding Controlled with: Pressure Patient tolerated procedure: Patient tolerated procedure well Post-Debridement Measurements and Additional Note: Post-Debridement Measurements/Treatment DEVON - Nurse 1 - General Ulcer Assessment Start: 07/16/21 13:05 Freq: Status: Active Protocol: BRANDT Activity Type Activity Date Activity User E-Sign Co-Sign Detail Recorded Client Recorded Date Recorded By Document 07/16/21 13:06 [facility] [id number] 07/16/21 13:23 [facility] Document 07/23/21 13:22 PR [id number] 07/23/21 13:37 [place] 07/16/21 07/23/21 13:06 13:22 WC - Today's Visit Information Type of service Initial Visit Follow-up Visit (Physician/LAB REP ) Arrival Mode Ambulatory Ambulatory Transfer Assistance None Accompanied by girlfriend Patient Identification Verified (Name & Yes Yes ) Patient Requires Transmission-Based No No Precautions Height and Weight Height 5 ft 4 in Weight 65.771 kg Weight in Pounds 145.0 lbs Weight Measurement Method Stated by Patient Body Mass Index (BMI) 24.9 24.9 BMI Classification Normal Normal BSA - Marin 1.71 Vital Signs Temperature (97.8 F-99.1 F) 97.6 F L 98.2 F Temperature Source Temporal Temporal Pulse Rate (60-100) 102 H 83 Pulse Location Monitor Monitor Respiratory Rate (12-18) 16 Respiratory rate source Observation Oxygen Delivery Method Room Air Blood Pressure (90/60-120/80) 160/92 H 166/75 H Blood Pressure Mean (mm Hg) 114 105 Source Monitor Monitor Position Sitting Sitting Blood Pressure Location Left Arm Left Arm Have you changed medications since your No last visit? Any new allergies or adverse reactions No Had a fall/change in ADL's that may No increase risk of falls Signs or symptoms of abuse and/or No neglect since last visit Have you been in the hospital since your No last visit? Has dressing in place as prescribed Yes Has compression in place as prescribed Yes Has offloadiing in place as prescribed N/A Experienced any changes in pain level or No management History Since Last Visit- (Skip if this is Patient's initial visit) Left Footwear Other Footwear Regular Shoe (Comment) Right Footwear Regular Shoe Regular Shoe Other Footwear non skid sock to left foot Pain Scale: 0-10 Numeric Is Patient Pain Free? Yes Yes Lower Extremity Assessment/ Foot Assessment/ Toe Nail Assessment Right -Lower Extremity Comment (If N/A Above PT HAD ARTERIAL ) STUDIES IN HOSP LAST WEEK Left -Lower Extremity Comment (If N/A Above PT HAD ARTERIAL ) STUDIES LAST WEEK IN HOSPITAL Communication Assessment Preferred language Macedonian Food Selector Required No Able to Read Yes Able to Write Yes Communication Tools None Right Hearing Abillity Normal Left Hearing Abillity Normal Visual Assistive Devices None Teaching Assessment Preferences Verbal,Written, Audio/Visual, Demonstration Barriers to Learning None Readiness To Learn Good Willingness to Engage in Self Management Med Activies Readiness to Engage in Self Management Med Activities Anxiety Level Calm Cooperation Cooperative Perception Coherent Interest in Health Problem Asks Questions Education Importance Acknowledges Need Does Patient Smoke tobacco or other No substances Smoking Status Current every day smoker Is Patient Diabetic Yes Functional Assessment Recent Decline in Ability to Perform Denies Any Declines 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 Cultural/Uatsdin Needs that may affect No Treatment Plan WC - Nurse 1 - General Ulcer Measurement Start: 07/16/21 13:05 Freq: Status: Active Protocol: Activity Type Activity Date Activity User E-Sign Co-Sign Detail Recorded Client Recorded Date Recorded By Document 07/16/21 13:06 [facility] [id number] 07/16/21 13:23 [facility] Document 07/23/21 13:22 PR [id number] 07/23/21 13:37 [place] 07/16/21 07/23/21 13:06 13:22 Wound Center Nurse 1 #4- L MED ANKLE -Combined with other wound No -Current Size (cm) - Length 1.6 1.5 -Current Size (cm) - Width 1.5 1.5 -Current Size (cm) - Depth 0.2 0.1 -Total Square Cm 2.40 2.25 -Date of Last Picture (Recall this 07/16/21 field) -Photo Taken Yes -Epithelialization None Present -Tunneling No -Undermining/Tunneling No -Circular Undermining No -Exudate Amt Medium Small -Exudate Type Serous Serosanguineous -Wound Margin Distinct, Distinct, Outline Outline Attached Attached -Granulation Amt Small (1-33%) None Present (0 %) -Granulation Quality Dalhart -Slough/Fibrin Yes -Necrosis Amt Medium (34-66%) Large (67-100%) -Necrotic Tissue Type Adherent Slough Adherent Slough -Texture (Sis-wound Skin Appearance) Assessed, Assessed, Scarring Scarring -Moisture (Sis-wound Skin Appearance) Assessed,Dry/ No Abnormality, Scaly Assessed -Color (Sis-wound Skin Appearance) Assessed No Abnormality, Assessed -Temperature (Sis-wound Skin No Abnormality No Abnormality Appearance) (Pt Warm) (Pt Warm) -Tenderness on Palpation (Sis-wound No No Skin Appearance) -Ulcer Cleansing Soap and Water Rinsed/ Irrigated with Saline -Foul Odor after Cleansing No No -Anesthetic Used 4% Lidocaine 4% Lidocaine Solution Solution #3- L CALF CLUSTER -Combined with other wound No -Current Size (cm) - Length 16.1 6.4 -Current Size (cm) - Width 5.2 10 -Current Size (cm) - Depth 0.2 0.2 -Total Square Cm 83.72 64.0 -Date of Last Picture (Recall this 07/16/21 field) -Photo Taken Yes -Epithelialization None Present -Tunneling No -Undermining/Tunneling No -Circular Undermining No -Exudate Amt Medium Small -Exudate Type Serous Serosanguineous -Wound Margin Distinct, Distinct, Outline Outline Attached Attached -Granulation Amt Medium (34-66%) Medium (34-66%) -Granulation Quality Dalhart Red -Slough/Fibrin Yes -Necrosis Amt Medium (34-66%) Medium (34-66%) -Necrotic Tissue Type Adherent Slough Adherent Slough -Texture (Sis-wound Skin Appearance) Assessed, Assessed, Scarring Scarring -Moisture (Sis-wound Skin Appearance) Assessed,Dry/ No Abnormality, Scaly Assessed -Color (Sis-wound Skin Appearance) Assessed No Abnormality, Assessed -Temperature (Sis-wound Skin No Abnormality No Abnormality Appearance) (Pt Warm) (Pt Warm) -Tenderness on Palpation (Sis-wound Yes No Skin Appearance) -Ulcer Cleansing Soap and Water Rinsed/ Irrigated with Saline -Foul Odor after Cleansing No No -Anesthetic Used 4% Lidocaine 4% Lidocaine Solution Solution #2- L LAT ANKLE -Combined with other wound No -Current Size (cm) - Length 2.5 2.5 -Current Size (cm) - Width 3.6 4 -Current Size (cm) - Depth 0.2 0.1 -Total Square Cm 9.00 10.0 -Date of Last Picture (Recall this 07/16/21 field) -Photo Taken Yes -Epithelialization None Present -Tunneling No -Undermining/Tunneling No -Circular Undermining No -Exudate Amt Medium Medium -Exudate Type Serous Serosanguineous -Wound Margin Distinct, Distinct, Outline Outline Attached Attached -Granulation Amt Medium (34-66%) Medium (34-66%) -Granulation Quality Dalhart Red -Slough/Fibrin Yes -Necrosis Amt Medium (34-66%) Medium (34-66%) -Necrotic Tissue Type Adherent Slough Adherent Slough -Texture (Sis-wound Skin Appearance) Assessed, Assessed, Scarring Scarring -Moisture (Sis-wound Skin Appearance) Assessed,Dry/ No Abnormality, Scaly Assessed -Color (Sis-wound Skin Appearance) Assessed No Abnormality, Assessed -Temperature (Sis-wound Skin No Abnormality No Abnormality Appearance) (Pt Warm) (Pt Warm) -Tenderness on Palpation (Sis-wound No No Skin Appearance) -Ulcer Cleansing Soap and Water Rinsed/ Irrigated with Saline -Foul Odor after Cleansing No No -Anesthetic Used 4% Lidocaine 4% Lidocaine Solution Solution #1- L VILLARREAL -Combined with other wound No -Current Size (cm) - Length 3 3 -Current Size (cm) - Width 4 5 -Current Size (cm) - Depth 0.2 0.1 -Total Square Cm 12 15 -Date of Last Picture (Recall this 07/16/21 field) -Photo Taken Yes -Epithelialization None Present -Tunneling No -Undermining/Tunneling No -Circular Undermining No -Exudate Amt Medium Small -Exudate Type Serous Serosanguineous -Wound Margin Distinct, Distinct, Outline Outline Attached Attached -Granulation Amt Small (1-33%) Medium (34-66%) -Granulation Quality Dalhart Red -Slough/Fibrin Yes -Necrosis Amt Large (67-100%) Medium (34-66%) -Necrotic Tissue Type Adherent Slough Adherent Slough -Texture (Sis-wound Skin Appearance) Assessed, Assessed, Scarring Scarring -Moisture (Sis-wound Skin Appearance) Assessed,Dry/ No Abnormality, Scaly Assessed -Color (Sis-wound Skin Appearance) Assessed No Abnormality, Assessed -Temperature (Sis-wound Skin No Abnormality No Abnormality Appearance) (Pt Warm) (Pt Warm) -Tenderness on Palpation (Sis-wound Yes No Skin Appearance) -Ulcer Cleansing Soap and Water Rinsed/ Irrigated with Saline -Foul Odor after Cleansing No No -Anesthetic Used 4% Lidocaine 4% Lidocaine Solution Solution Lower Limb Edema Present Yes Right Calf (cm) 34 Right Ankle (cm) 25.5 Left Calf (cm) 33.8 Left Ankle (cm) 24.6 - Nurse 2 - General Ulcer CM Notes Start: 07/16/21 13:05 Freq: Status: Active Protocol: Activity Type Activity Date Activity User E-Sign Co-Sign Detail Recorded Client Recorded Date Recorded By Document 07/16/21 13:31 [id number] 07/16/21 13:39 Document 07/23/21 14:06 [id number] 07/23/21 14:13 07/16/21 07/23/21 13:31 14:06 Wound Center Nurse 2 #4- L MED ANKLE -Time 13:32 14:07 -Correct Patient Yes Yes -Correct Side, Site, Position Yes Yes -Correct Procedure Yes Yes -Procedure Performed Yes Yes -Type of Procedure Debridement Debridement -Clinical Debridement Subcutaneous Subcutaneous -Tissue Removed Subcutaneous Subcutaneous -Post Debridement (cm) - Length 1.6 1.6 -Post Debridement (cm) - Width 1.6 1.5 -Post Debridement (cm) - Depth 0.2 0.1 -Total Square (Post) (cm) 2.56 2.40 -Area of Debridement (cm) - Length 1.6 1.6 -Area of Debridement (cm) - Width 1.6 1.5 -Total Square (Area) (cm) 2.56 2.40 -Tunneling No No -Undermining/Tunneling No No -Circular Undermining No No -Wound/Ulcer Outcome Not Healed Not Healed -Ulcer Cleansing Rinsed/ Rinsed/ Irrigated with Irrigated with Saline Saline -Foul Odor after Cleansing No No -Bioengineered Tissue No No -Bleeding Controlled with Pressure Pressure -Treatment Response Procedure Procedure Tolerated Well Tolerated Well -Offloading No No -Debridement - Subq, 1st 20sq cm No No #3- L CALF CLUSTER -Time 13:33 14:07 -Correct Patient Yes Yes -Correct Side, Site, Position Yes Yes -Correct Procedure Yes Yes -Procedure Performed Yes Yes -Type of Procedure Debridement Debridement -Clinical Debridement Subcutaneous Subcutaneous -Tissue Removed Subcutaneous Subcutaneous -Post Debridement (cm) - Length 16.2 6.5 -Post Debridement (cm) - Width 5.2 10 -Post Debridement (cm) - Depth 0.2 0.2 -Total Square (Post) (cm) 84.24 65.0 -Area of Debridement (cm) - Length 16.2 6.5 -Area of Debridement (cm) - Width 5.2 10 -Total Square (Area) (cm) 84.24 65.0 -Tunneling No No -Undermining/Tunneling No No -Circular Undermining No No -Wound/Ulcer Outcome Not Healed Not Healed -Ulcer Cleansing Rinsed/ Rinsed/ Irrigated with Irrigated with Saline Saline -Foul Odor after Cleansing No No -Bioengineered Tissue No No -Bleeding Controlled with Pressure Pressure -Treatment Response Procedure Procedure Tolerated Well Tolerated Well -Offloading No No -Debridement - Subq, 1st 20sq cm Yes No -Debridement, SubQ, ea addt'l 20sq cm 5 or part thereof #2- L LAT ANKLE -Time 13:35 14:08 -Correct Patient Yes Yes -Correct Side, Site, Position Yes Yes -Correct Procedure Yes Yes -Procedure Performed Yes Yes -Type of Procedure Debridement Debridement -Clinical Debridement Subcutaneous Subcutaneous -Tissue Removed Subcutaneous Subcutaneous -Post Debridement (cm) - Length 2.5 2.5 -Post Debridement (cm) - Width 3.7 4.1 -Post Debridement (cm) - Depth 0.2 0.1 -Total Square (Post) (cm) 9.25 10.25 -Area of Debridement (cm) - Length 2.5 2.5 -Area of Debridement (cm) - Width 3.7 4.1 -Total Square (Area) (cm) 9.25 10.25 -Tunneling No No -Undermining/Tunneling No No -Circular Undermining No No -Wound/Ulcer Outcome Not Healed Not Healed -Ulcer Cleansing Rinsed/ Rinsed/ Irrigated with Irrigated with Saline Saline -Foul Odor after Cleansing No No -Bioengineered Tissue No No -Bleeding Controlled with Pressure Pressure -Treatment Response Procedure Procedure Tolerated Well Tolerated Well -Offloading No No -Debridement - Subq, 1st 20sq cm No No #1- L VILLARREAL -Time 13:36 14:08 -Correct Patient Yes Yes -Correct Side, Site, Position Yes Yes -Correct Procedure Yes Yes -Procedure Performed Yes Yes -Type of Procedure Debridement Debridement -Clinical Debridement Subcutaneous Subcutaneous -Tissue Removed Subcutaneous Subcutaneous -Post Debridement (cm) - Length 3.1 3.1 -Post Debridement (cm) - Width 4.0 5.0 -Post Debridement (cm) - Depth 0.2 0.1 -Total Square (Post) (cm) 12.40 15.50 -Area of Debridement (cm) - Length 3.1 3.1 -Area of Debridement (cm) - Width 4.0 5.0 -Total Square (Area) (cm) 12.40 15.50 -Tunneling No No -Undermining/Tunneling No No -Circular Undermining No No -Wound/Ulcer Outcome Not Healed Not Healed -Ulcer Cleansing Rinsed/ Rinsed/ Irrigated with Irrigated with Saline Saline -Foul Odor after Cleansing No No -Bioengineered Tissue No No -Bleeding Controlled with Pressure Pressure -Treatment Response Procedure Procedure Tolerated Well Tolerated Well -Offloading No No -Debridement - Subq, 1st 20sq cm No No Pain Scale: 0-10 Numeric Is Patient Pain Free? Yes Yes WC - Nurse 3 - General Ulcer D/C NN Start: 07/16/21 13:05 Freq: Status: Active Protocol: Activity Type Activity Date Activity User E-Sign Co-Sign Detail Recorded Client Recorded Date Recorded By Document 07/16/21 14:14 [id number] 07/16/21 14:15 KR Document 07/23/21 14:25 [facility] [id number] 07/23/21 14:26 [facility] 07/16/21 07/23/21 14:14 14:25 Wound Care Nurse 3 #4- L MED ANKLE -Ulcer Cleansing Rinsed/ Rinsed/ Irrigated with Irrigated with Saline Saline -Foul Odor after Cleansing No -Primary Dressing Applied C Hydrogel ($), C Hydrogel ($), NonAdherent NonAdherent Contact Layer Contact Layer -Primary Dressing Covered/Secured with Dry Gauze,Dry Dry Gauze & Gauze & Roll Roll Gauze, Gauze,Secured Secured with with Tape Tape -Other Covering ABD #3- L CALF CLUSTER -Ulcer Cleansing Rinsed/ Rinsed/ Irrigated with Irrigated with Saline Saline -Foul Odor after Cleansing No -Primary Dressing Applied NonAdherent Contact Layer, Other -Other Dressing HYDROGEL -Primary Dressing Covered/Secured with Dry Gauze, Dry Gauze & Secured with Roll Gauze, Tape Secured with Tape -Other Covering ABD #2- L LAT ANKLE -Ulcer Cleansing Rinsed/ Rinsed/ Irrigated with Irrigated with Saline Saline -Foul Odor after Cleansing No -Primary Dressing Applied NonAdherent Contact Layer, Other -Other Dressing HYDROGEL -Primary Dressing Covered/Secured with Dry Gauze & Roll Gauze, Secured with Tape -Other Covering ABD #1- L VILLARREAL -Ulcer Cleansing Rinsed/ Rinsed/ Irrigated with Irrigated with Saline Saline -Foul Odor after Cleansing No -Primary Dressing Applied NonAdherent Contact Layer, Other -Other Dressing HYDROGEL -Primary Dressing Covered/Secured with Dry Gauze & Roll Gauze, Secured with Tape -Other Covering ABD Left -Tubular Bandage Single Layer -Size of Tubigrip Used Size E -Size E ($) 1 Treatment Response Procedure Tolerated Well Pain Scale: 0-10 Numeric Is Patient Pain Free? Yes Yes WC - Visit Discharge Discharge Condition Stable Stable Ambulatory Status Ambulatory Ambulatory Transportation Private Auto Accompanied by girlfriend GIRLFRIEND Assessment/Plan Assessment/Plan (1) Other specified peripheral vascular diseases: CODE(S): I73.89 - Other specified peripheral vascular diseases (2) Non-pressure chronic ulcer of unspecified part of left lower leg with fat layer exposed: CODE(S): L97.922 - Non-pressure chronic ulcer of unspecified part of left lower leg with fat layer exposed (3) Non-pressure chronic ulcer of other part of left foot with necrosis of muscle: CODE(S): L97.523 - Non-pressure chronic ulcer of other part of left foot with necrosis of muscle (4) Xerosis cutis: CODE(S): L85.3 - Xerosis cutis (5) Localized edema: CODE(S): R60.0 - Localized edema (6) Venous insufficiency (chronic) (peripheral): CODE(S): I87.2 - Venous insufficiency (chronic) (peripheral) PLAN: Re-evaluation performed. Reviewed diagnostic data. Patient is clinically stable and local signs of infection have resolved. Left foot/ankle and leg noted to be improved today. There is resolved cellulitis and all ulcer beds are now granular. The left leg was washed with soap and water. hydrogel and adaptic applied. Indigo applied. I recommend Lac-Hydrin application to bilateral lower extremities to address his xerosis and maintain better skin integrity to avoid additional wounds and infections. He recently completed a cellulitis treatment course and has been discharged from the hospital. To complete course of cefdinir per infectious disease recommendations. His infection appears to be resolved. It is noted he has very poor hygiene. He refuses detention facility placement and home health. I at the very least would recommend close follow-up with the wound healing center and if his significant other can come in today we can also review dressing care with her. Her questions were also answered. Due to chronicity of these ulcers I also recommend noninvasive vascular studies (arterial). This was ordered and it appear he has triphasic waveforms to ankle bilateral, pvr are diminished digital to the right but ok to other bilateral levels, JUSTUS normal bilateral, digital brachial index mildly diminished bilateral. This is consistent with mild arterial occlusive disease. If lack of healing is noted, referral will be considered. I also recommend venous doppler with reflux evaluation to work up for venous insufficiency. To continue nutrition supplementation to optimize healing. To avoid laying directly on ulcer for pressure reduction. Pain controlled with topical lidocaine. Significant other is persistent about pain narcotic medication and patient states this is not necessary. This was not provided today. To follow up next week at wound center. Note: [employer] speech recognition disability coordinator software was used to create portions of this document. Sound-alike and misspelled words, as well as other disability coordinator errors may be contained in the documentation.
== END 2021-07-29 23:59 | disposition home or self-care (01) ==
LOC: WC 13:30
PROVIDERS: Visit Provider Podiatrist
DX: L97.523 Non-pressure chronic ulcer of other part of left foot with necrosis of muscle (principal); L97.222 Non-pressure chronic ulcer of left calf with fat layer exposed; I73.89 Other specified peripheral vascular diseases; R60.0 Localized edema; I87.2 Venous insufficiency (chronic) (peripheral); L85.3 Xerosis cutis
CPT/HCPCS: 11042; 11045; 99214; G0463

== ENCOUNTER 2021-08-27 14:15 | Outpatient (RCR) | payer BC, SELFPAY ==
[2021-07-30 01:17] VITALS: BP 166/75; PULSE 83; RESP 16; TEMP 36.8; BMI 24.9
[2021-07-30 14:29] VITALS: BP 130/63; PULSE 87; RESP 22; TEMP 36.7; BMI 24.9
--- NOTE | 2021-07-30 15:09 | PCM.WC.PN ---
History of Present Illness Date of Service: 07/30/21 Chief Complaint: left leg ulcers History of Wound: He is a hospital follow up for left leg chronic ulcers. The onset is intermittently for a couple of years. he has pain with direct touch. After these were cleaned up in the hospital and he had antibiotics, there is no longer odor or redness. He denies calf pain. He is with his significant other today. He is amendable to have another debridement performed today. He denies fever, chills, nausea, vomiting or calf pain. He wants to go back to work this upcoming week. He also brought his shoe for potential modification to offload the ulcer that are closer to his ankle bones that are prominent. He has been trying to wash the leg with soap and water and apply lotion when he has his significant other help him. Progress of Wound: Stable Objective Data Objective Data Vital Signs: Vital Signs Temp Pulse Resp BP 98.1 F 87 22 H 130/63 H 07/30/21 14:29 07/30/21 14:29 07/30/21 14:29 07/30/21 14:29 Weight: 65.771 kg Body Mass Index (BMI) 24.9 Physical Exam Const alert, oriented x3 and no apparent distress Skin Skin Narrative: Left foot/ankle leg with resolved cellulitis, there are wounds also noted to the medial and lateral ankle as well as the posterior leg with fibrotic tissue but there is increased granular tissue noted today- at least down to the subcutaneous tissue, likely fascia as well, there is no longer maloder and edema has decreased. there is mild serosanguineous drainage (no purulence), no visible abscess, no fluctuance, no crepitus noted. There is diffuse xerosis bilateral lower extremity; reduced peeling noted. He notes pain to the ulcer sites left lower extremity otherwise no m/s POP or pain on ROM to the foot or ankle. Sensation intact to light touch bilateral foot. Debridement Note Debridement Note Wound debrided: left medial malleolus, lateral malleolus, davalos (anterior leg), leg cluster Wound Grade/Stage: Type of Debridement: Excisional debridement Anesthesia Used: 4% Lidocaine Solution Depth: in the subcutaneous layer Percentage of wound debrided: 100 Instrument Used: #15 blade Tissue Removed: fibrous, devitalized subcutaneous, biofilm, slough Severity: Fat Layer Exposed Amount of bleeding with debridement: Mild Bleeding Controlled with: Pressure Patient tolerated procedure: Patient tolerated procedure well Post-Debridement Measurements and Additional Note: Post-Debridement Measurements/Treatment - Nurse 1 - General Ulcer Assessment Start: 07/30/21 14:29 Freq: Status: Active Protocol: BRANDT Activity Type Activity Date Activity User E-Sign Co-Sign Detail Recorded Client Recorded Date Recorded By Document 07/30/21 14:29 DL [id number] 07/30/21 14:43 DL 07/30/21 14:29 - Today's Visit Information Type of service 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 ) Arrival Mode Ambulatory,Cane Transfer Assistance None Patient Identification Verified (Name & Yes ) Patient Requires Transmission-Based No Precautions Height and Weight Body Mass Index (BMI) 24.9 BMI Classification Normal Vital Signs Temperature (97.8 F-99.1 F) 98.1 F Temperature Source Temporal Pulse Rate (60-100) 87 Pulse Location Monitor Respiratory Rate (12-18) 22 H Respiratory rate source Observation Blood Pressure (90/60-120/80) 130/63 H Blood Pressure Mean (mm Hg) 85 Source Monitor History Since Last Visit- (Skip if this is Patient's initial visit) Have you changed medications since your No last visit? Any new allergies or adverse reactions No Had a fall/change in ADL's that may No increase risk of falls Signs or symptoms of abuse and/or No neglect since last visit Have you been in the hospital since your No last visit? Has dressing in place as prescribed No Has compression in place as prescribed Yes Has offloadiing in place as prescribed N/A Pain Scale: 0-10 Numeric Is Patient Pain Free? Yes [facility] Nurse 1 - General Ulcer Measurement Start: 07/30/21 14:29 Freq: Status: Active Protocol: Activity Type Activity Date Activity User E-Sign Co-Sign Detail Recorded Client Recorded Date Recorded By Document 07/30/21 14:29 DL [id number] 07/30/21 14:43 DL 07/30/21 14:29 Wound Center Nurse 1 #4- L MED ANKLE -Current Size (cm) - Length 1.3 -Current Size (cm) - Width 1.5 -Current Size (cm) - Depth 0.1 -Total Square Cm 1.95 -Photo Taken No -Exudate Amt Medium -Exudate Type Yellow/Green -Wound Margin Distinct, Outline Attached -Granulation Amt Small (1-33%) -Granulation Quality [place] -Necrosis Amt Small (1-33%) -Necrotic Tissue Type Adherent Slough -Structure Exposed N/A -Texture (Sis-wound Skin Appearance) Excoriation, Rash -Moisture (Sis-wound Skin Appearance) Weeping -Color (Sis-wound Skin Appearance) Hemosiderin Staining -Temperature (Sis-wound Skin No Abnormality Appearance) (Pt Warm) -Tenderness on Palpation (Sis-wound No Skin Appearance) -Ulcer Cleansing Soap and Water -Foul Odor after Cleansing No -Anesthetic Used 4% Lidocaine Solution #3- L CALF CLUSTER -Current Size (cm) - Length 6 -Current Size (cm) - Width 15 -Current Size (cm) - Depth 0.3 -Total Square Cm 90 -Photo Taken No -Exudate Amt Medium -Exudate Type Yellow/Green -Wound Margin Distinct, Outline Attached -Granulation Amt Large (67-100%) -Granulation Quality Red -Necrosis Amt Small (1-33%) -Necrotic Tissue Type Adherent Slough -Structure Exposed N/A -Texture (Sis-wound Skin Appearance) Excoriation, Scarring,Rash -Moisture (Sis-wound Skin Appearance) Weeping -Color (Sis-wound Skin Appearance) Hemosiderin Staining -Temperature (Sis-wound Skin No Abnormality Appearance) (Pt Warm) -Anesthetic Used 4% Lidocaine Solution #2- L LAT ANKLE -Current Size (cm) - Length 2.2 -Current Size (cm) - Width 3.4 -Current Size (cm) - Depth 0.1 -Total Square Cm 7.48 -Photo Taken No -Exudate Amt Medium -Exudate Type Yellow/Green -Wound Margin Distinct, Outline Attached -Granulation Amt Large (67-100%) -Granulation Quality Red -Necrosis Amt Medium (34-66%) -Necrotic Tissue Type Adherent Slough -Structure Exposed N/A -Texture (Sis-wound Skin Appearance) Excoriation, Localized Edema ,Scarring,Rash -Moisture (Sis-wound Skin Appearance) Weeping -Color (Sis-wound Skin Appearance) Hemosiderin Staining -Temperature (Sis-wound Skin No Abnormality Appearance) (Pt Warm) -Ulcer Cleansing Soap and Water -Foul Odor after Cleansing No -Anesthetic Used 4% Lidocaine Solution #1- L DAVALOS -Current Size (cm) - Length 2.7 -Current Size (cm) - Width 3.8 -Current Size (cm) - Depth 0.3 -Total Square Cm 10.26 -Photo Taken No -Exudate Amt Medium -Exudate Type Yellow/Green -Wound Margin Distinct, Outline Attached -Granulation Amt Medium (34-66%) -Granulation Quality Red -Necrosis Amt Medium (34-66%) -Necrotic Tissue Type Adherent Slough -Structure Exposed N/A -Texture (Sis-wound Skin Appearance) Excoriation, Scarring -Moisture (Sis-wound Skin Appearance) Weeping -Color (Sis-wound Skin Appearance) Hemosiderin Staining -Temperature (Sis-wound Skin No Abnormality Appearance) (Pt Warm) -Tenderness on Palpation (Sis-wound No Skin Appearance) -Ulcer Cleansing Soap and Water -Foul Odor after Cleansing No -Anesthetic Used 4% Lidocaine Solution Left Calf (cm) 33.7 Left Ankle (cm) 24 WC - Nurse 2 - General Ulcer CM Notes Start: 07/30/21 14:29 Freq: Status: Active Protocol: Activity Type Activity Date Activity User E-Sign Co-Sign Detail Recorded Client Recorded Date Recorded By Document 07/30/21 14:55 [id number] 07/30/21 15:03 JESSE 07/30/21 14:55 Wound Center Nurse 2 #4- L MED ANKLE -Time 14:55 -Correct Patient Yes -Correct Side, Site, Position Yes -Correct Procedure Yes -Procedure Performed Yes -Type of Procedure Debridement -Clinical Debridement Subcutaneous -Tissue Removed Subcutaneous -Post Debridement (cm) - Length 1.4 -Post Debridement (cm) - Width 1.5 -Post Debridement (cm) - Depth 0.1 -Total Square (Post) (cm) 2.10 -Area of Debridement (cm) - Length 1.4 -Area of Debridement (cm) - Width 1.5 -Total Square (Area) (cm) 2.10 -Tunneling No -Undermining/Tunneling No -Circular Undermining No -Wound/Ulcer Outcome Not Healed -Ulcer Cleansing Wound Cleanser -Foul Odor after Cleansing No -Bioengineered Tissue No -Bleeding Controlled with Pressure -Treatment Response Procedure Tolerated Well -Offloading No -Debridement - Subq, 1st 20sq cm No #3- L CALF CLUSTER -Time 14:56 -Correct Patient Yes -Correct Side, Site, Position Yes -Correct Procedure Yes -Procedure Performed Yes -Type of Procedure Debridement -Clinical Debridement Subcutaneous -Tissue Removed Subcutaneous -Post Debridement (cm) - Length 6.1 -Post Debridement (cm) - Width 15 -Post Debridement (cm) - Depth 0.3 -Total Square (Post) (cm) 91.5 -Area of Debridement (cm) - Length 6.1 -Area of Debridement (cm) - Width 15.0 -Total Square (Area) (cm) 91.50 -Tunneling No -Undermining/Tunneling No -Circular Undermining No -Wound/Ulcer Outcome Not Healed -Ulcer Cleansing Rinsed/ Irrigated with Saline -Foul Odor after Cleansing No -Bioengineered Tissue No -Bleeding Controlled with Pressure -Treatment Response Procedure Tolerated Well -Offloading No -Debridement - Subq, 1st 20sq cm No #2- L LAT ANKLE -Time 14:56 -Correct Patient Yes -Correct Side, Site, Position Yes -Correct Procedure Yes -Procedure Performed Yes -Type of Procedure Debridement -Clinical Debridement Subcutaneous -Tissue Removed Subcutaneous -Post Debridement (cm) - Length 2.2 -Post Debridement (cm) - Width 3.5 -Post Debridement (cm) - Depth 0.1 -Total Square (Post) (cm) 7.70 -Area of Debridement (cm) - Length 2.2 -Area of Debridement (cm) - Width 3.5 -Total Square (Area) (cm) 7.70 -Tunneling No -Undermining/Tunneling No -Circular Undermining No -Wound/Ulcer Outcome Not Healed -Ulcer Cleansing Rinsed/ Irrigated with Saline -Foul Odor after Cleansing No -Bioengineered Tissue No -Bleeding Controlled with Pressure -Treatment Response Procedure Tolerated Well -Offloading No -Debridement - Subq, 1st 20sq cm No #1- L DAVALOS -Time 15:01 -Correct Patient Yes -Correct Side, Site, Position Yes -Correct Procedure Yes -Procedure Performed Yes -Type of Procedure Debridement -Clinical Debridement Subcutaneous -Tissue Removed Subcutaneous -Post Debridement (cm) - Length 2.8 -Post Debridement (cm) - Width 3.8 -Post Debridement (cm) - Depth 0.3 -Total Square (Post) (cm) 10.64 -Area of Debridement (cm) - Length 2.8 -Area of Debridement (cm) - Width 3.8 -Total Square (Area) (cm) 10.64 -Tunneling No -Undermining/Tunneling No -Circular Undermining No -Wound/Ulcer Outcome Not Healed -Ulcer Cleansing Rinsed/ Irrigated with Saline -Foul Odor after Cleansing No -Bioengineered Tissue No -Bleeding Controlled with Pressure -Treatment Response Procedure Tolerated Well -Offloading No -Debridement - Subq, 1st 20sq cm Yes -Debridement, SubQ, ea addt'l 20sq cm 5 or part thereof Pain Scale: 0-10 Numeric Is Patient Pain Free? Yes Assessment/Plan Assessment/Plan (1) Other specified peripheral vascular diseases: CODE(S): I73.89 - Other specified peripheral vascular diseases (2) Non-pressure chronic ulcer of unspecified part of left lower leg with fat layer exposed: CODE(S): L97.922 - Non-pressure chronic ulcer of unspecified part of left lower leg with fat layer exposed (3) Xerosis cutis: CODE(S): L85.3 - Xerosis cutis (4) Localized edema: CODE(S): R60.0 - Localized edema (5) Venous insufficiency (chronic) (peripheral): CODE(S): I87.2 - Venous insufficiency (chronic) (peripheral) (6) Venous ulcer of left leg: CODE(S): I83.029 - Varicose veins of left lower extremity with ulcer of unspecified site; L97.929 - Non-pressure chronic ulcer of unspecified part of left lower leg with unspecified severity PLAN: Re-evaluation performed. Reviewed diagnostic data. Patient is clinically stable and local signs of infection have resolved. Left foot/ankle and leg noted to be improved today. There is resolved cellulitis and all ulcer beds are now granular. The left leg was washed with soap and water. hydrogel and adaptic applied. CARLOS applied. Now that this is stabilized, I recommend application of advanced wound healing product including cadaver donated TheraSkin. The indications, benefits, anticipated application management were reviewed. Prior authorization will be necessary. This is medically necessary for wound healing, limb salvage and to prevent infections amputation and even . I would also like to consider misonix ultrasound debridement next week. He defers today. Offloading: To avoid laying directly on the ulcers. To help reduce pressure on the ulcers by better controlling the edema with a forementioned compression Tubigrip and Carlos wrap. I also cut away shoe material to avoid direct contact to the medial and lateral malleoli ulcer sites. I recommend Lac-Hydrin application to bilateral lower extremities to address his xerosis and maintain better skin integrity to avoid additional wounds and infections. He recently completed a cellulitis treatment course and has been discharged from the hospital. To complete course of cefdinir per infectious disease recommendations. No local signs infection noted today. Due to chronicity of these ulcers I also recommend noninvasive vascular studies (arterial). This was ordered and it appear he has triphasic waveforms to ankle bilateral, pvr are diminished digital to the right but ok to other bilateral levels, JUSTUS normal bilateral, digital brachial index mildly diminished bilateral. This is consistent with mild arterial occlusive disease. If lack of healing is noted, referral will be considered. I also recommend venous doppler with reflux evaluation to work up for venous insufficiency. This is scheduled for this upcoming Wednesday. To continue nutrition supplementation to optimize healing. To avoid laying directly on ulcer for pressure reduction. Pain controlled with topical lidocaine. He defers prescription medication or injection of local anesthetic for further pain control. To follow up next week at wound center. Note: [employer] speech recognition tufter hand software was used to create portions of this document. Sound-alike and misspelled words, as well as other tufter hand errors may be contained in the documentation. 13 minutes was spent on this encounter. This included face to face and non face to face care including preparing for the visit, reviewing the history, performing the exam, counseling and providing education to the patient, family, or caregiver, ordering medications/test/ procedures if indicated as documented, communicating with other healthcare providers, documenting information in the medical record, interpreting / sharing this information when indicated as documented, and care coordination.
[2021-08-06 14:14] VITALS: BP 169/84; PULSE 81; TEMP 36.4; BMI 24.9
--- NOTE | 2021-08-06 16:33 | PCM.WC.PN ---
History of Present Illness Date of Service: 08/06/21 Chief Complaint: left leg ulcers History of Wound: He is a hospital follow up for left leg chronic ulcers. The onset is intermittently for a couple of years. he has pain with direct touch. After these were cleaned up in the hospital and he had antibiotics, there is no longer odor or redness. He denies calf pain. He is with his significant other today. He is amendable to have another debridement performed today. He denies fever, chills, nausea, vomiting or calf pain. He has been trying to wash the leg with soap and water and apply lotion when he has his significant other help him. He is amendable to have advanced wound healing product, theraskin (donated skin) applied today. Progress of Wound: Stable Objective Data Objective Data Vital Signs: Vital Signs Temp Pulse Resp BP 97.5 F L 81 22 H 169/84 H 08/06/21 14:14 08/06/21 14:14 07/30/21 14:29 08/06/21 14:14 Weight: 65.771 kg Body Mass Index (BMI) 24.9 Physical Exam Const alert, oriented x3 and no apparent distress Skin Skin Narrative: Left foot/ankle leg with resolved cellulitis, there are wounds also noted to the medial and lateral ankle as well as the posterior leg with fibrotic tissue but there is increased granular tissue noted today- at least down to the subcutaneous tissue, likely fascia as well, there is no longer maloder and edema has decreased. there is mild serosanguineous drainage (no purulence), no visible abscess, no fluctuance, no crepitus noted. There is diffuse xerosis bilateral lower extremity; reduced peeling noted. He notes pain to the ulcer sites left lower extremity otherwise no m/s POP or pain on ROM to the foot or ankle. Sensation intact to light touch bilateral foot. Debridement Note Debridement Note Wound debrided: left medial malleolus, lateral malleolus, posterior cluster, anterior davalos Wound Grade/Stage: Type of Debridement: Excisional debridement Anesthesia Used: 4% Lidocaine Solution Depth: in the subcutaneous layer Percentage of wound debrided: 100 Instrument Used: #15 blade and - (misonix ultrasound debridement) Tissue Removed: fibrous, devitalized subcutaneous, biofilm, slough Severity: Fat Layer Exposed Amount of bleeding with debridement: Mild Bleeding Controlled with: Pressure Patient tolerated procedure: Patient tolerated procedure well Post-Debridement Measurements and Additional Note: Post-Debridement Measurements/Treatment WC - Nurse 1 - General Ulcer Assessment Start: 07/30/21 14:29 Freq: Status: Active Protocol: BRANDT Activity Type Activity Date Activity User E-Sign Co-Sign Detail Recorded Client Recorded Date Recorded By Document 07/30/21 14:29 DL [id number] 07/30/21 14:43 DL Document 08/06/21 14:14 KR [id number] 08/06/21 14:17 KR 07/30/21 08/06/21 14:29 14:14 WC - Today's Visit Information Type of service Follow-up Visit Follow-up Visit (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 (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 ) ) Arrival Mode Ambulatory,Cane Ambulatory Transfer Assistance None Patient Identification Verified (Name & Yes Yes ) Patient Requires Transmission-Based No Precautions Height and Weight Body Mass Index (BMI) 24.9 24.9 BMI Classification Normal Normal Vital Signs Temperature (97.8 F-99.1 F) 98.1 F 97.5 F L Temperature Source Temporal Temporal Pulse Rate (60-100) 87 81 Pulse Location Monitor Monitor Respiratory Rate (12-18) 22 H Respiratory rate source Observation Blood Pressure (90/60-120/80) 130/63 H 169/84 H Blood Pressure Mean (mm Hg) 85 112 Source Monitor Monitor Position Sitting Blood Pressure Location Left Arm History Since Last Visit- (Skip if this is Patient's initial visit) Have you changed medications since your No No last visit? Any new allergies or adverse reactions No No Had a fall/change in ADL's that may No No increase risk of falls Signs or symptoms of abuse and/or No No neglect since last visit Have you been in the hospital since your No No last visit? Has dressing in place as prescribed No Yes Has compression in place as prescribed Yes N/A Has offloadiing in place as prescribed N/A N/A Experienced any changes in pain level or No management Left Footwear Regular Shoe Right Footwear Regular Shoe Pain Scale: 0-10 Numeric Is Patient Pain Free? Yes Yes DEVON - Nurse 1 - General Ulcer Measurement Start: 07/30/21 14:29 Freq: Status: Active Protocol: Activity Type Activity Date Activity User E-Sign Co-Sign Detail Recorded Client Recorded Date Recorded By Document 07/30/21 14:29 DL [id number] 07/30/21 14:43 DL Document 08/06/21 14:14 KR [id number] 08/06/21 14:17 KR 07/30/21 08/06/21 14:29 14:14 Wound Center Nurse 1 #4- L MED ANKLE -Current Size (cm) - Length 1.3 1.5 -Current Size (cm) - Width 1.5 1.4 -Current Size (cm) - Depth 0.1 0.1 -Total Square Cm 1.95 2.10 -Photo Taken No -Exudate Amt Medium Small -Exudate Type Yellow/Green Serosanguineous -Wound Margin Distinct, Distinct, Outline Outline Attached Attached -Granulation Amt Small (1-33%) Medium (34-66%) -Granulation Quality [place] -Necrosis Amt Small (1-33%) Medium (34-66%) -Necrotic Tissue Type Adherent Slough Adherent Slough -Structure Exposed N/A -Texture (Sis-wound Skin Appearance) Excoriation, Assessed, Rash Scarring -Moisture (Sis-wound Skin Appearance) Weeping No Abnormality, Assessed -Color (Sis-wound Skin Appearance) Hemosiderin No Abnormality, Staining Assessed -Temperature (Sis-wound Skin No Abnormality No Abnormality Appearance) (Pt Warm) (Pt Warm) -Tenderness on Palpation (Sis-wound No No Skin Appearance) -Ulcer Cleansing Soap and Water Rinsed/ Irrigated with Saline -Foul Odor after Cleansing No No -Anesthetic Used 4% Lidocaine 4% Lidocaine Solution Solution #3- L CALF CLUSTER -Current Size (cm) - Length 6 2.7 -Current Size (cm) - Width 15 16 -Current Size (cm) - Depth 0.3 0.1 -Total Square Cm 90 43.2 -Photo Taken No -Exudate Amt Medium Small -Exudate Type Yellow/Green Serosanguineous -Wound Margin Distinct, Distinct, Outline Outline Attached Attached -Granulation Amt Large (67-100%) Medium (34-66%) -Granulation Quality Red Red -Necrosis Amt Small (1-33%) Medium (34-66%) -Necrotic Tissue Type Adherent Slough Adherent Slough -Structure Exposed N/A -Texture (Sis-wound Skin Appearance) Excoriation, Assessed, Scarring,Rash Scarring -Moisture (Sis-wound Skin Appearance) Weeping No Abnormality, Assessed -Color (Sis-wound Skin Appearance) Hemosiderin No Abnormality, Staining Assessed -Temperature (Sis-wound Skin No Abnormality No Abnormality Appearance) (Pt Warm) (Pt Warm) -Tenderness on Palpation (Sis-wound No Skin Appearance) -Ulcer Cleansing Rinsed/ Irrigated with Saline -Foul Odor after Cleansing No -Anesthetic Used 4% Lidocaine 4% Lidocaine Solution Solution #2- L LAT ANKLE -Current Size (cm) - Length 2.2 2.5 -Current Size (cm) - Width 3.4 3.5 -Current Size (cm) - Depth 0.1 0.1 -Total Square Cm 7.48 8.75 -Photo Taken No -Exudate Amt Medium Small -Exudate Type Yellow/Green Serosanguineous -Wound Margin Distinct, Distinct, Outline Outline Attached Attached -Granulation Amt Large (67-100%) Medium (34-66%) -Granulation Quality [place] -Necrosis Amt Medium (34-66%) Medium (34-66%) -Necrotic Tissue Type Adherent Slough Adherent Slough -Structure Exposed N/A -Texture (Sis-wound Skin Appearance) Excoriation, Assessed, Localized Edema Scarring ,Scarring,Rash -Moisture (Sis-wound Skin Appearance) Weeping No Abnormality, Assessed -Color (Sis-wound Skin Appearance) Hemosiderin No Abnormality, Staining Assessed -Temperature (Sis-wound Skin No Abnormality No Abnormality Appearance) (Pt Warm) (Pt Warm) -Tenderness on Palpation (Sis-wound No Skin Appearance) -Ulcer Cleansing Soap and Water Rinsed/ Irrigated with Saline -Foul Odor after Cleansing No No -Anesthetic Used 4% Lidocaine 4% Lidocaine Solution Solution #1- L DAVALOS -Current Size (cm) - Length 2.7 2.5 -Current Size (cm) - Width 3.8 5.5 -Current Size (cm) - Depth 0.3 0.1 -Total Square Cm 10.26 13.75 -Photo Taken No -Exudate Amt Medium Small -Exudate Type Yellow/Green Serosanguineous -Wound Margin Distinct, Distinct, Outline Outline Attached Attached -Granulation Amt Medium (34-66%) Medium (34-66%) -Granulation Quality [place] -Necrosis Amt Medium (34-66%) Medium (34-66%) -Necrotic Tissue Type Adherent Slough Adherent Slough -Structure Exposed N/A -Texture (Sis-wound Skin Appearance) Excoriation, Scarring -Moisture (Sis-wound Skin Appearance) Weeping -Color (Sis-wound Skin Appearance) Hemosiderin Staining -Temperature (Sis-wound Skin No Abnormality Appearance) (Pt Warm) -Tenderness on Palpation (Sis-wound No Skin Appearance) -Ulcer Cleansing Soap and Water -Foul Odor after Cleansing No -Anesthetic Used 4% Lidocaine Solution Left Calf (cm) 33.7 Left Ankle (cm) 24 WC - Nurse 2 - General Ulcer CM Notes Start: 07/30/21 14:29 Freq: Status: Active Protocol: Activity Type Activity Date Activity User E-Sign Co-Sign Detail Recorded Client Recorded Date Recorded By Document 07/30/21 14:55 [id number] 07/30/21 15:03 Document 08/06/21 14:45 [id number] 08/06/21 14:51 07/30/21 08/06/21 14:55 14:45 Wound Center Nurse 2 #4- L MED ANKLE -Time 14:55 14:46 -Correct Patient Yes Yes -Correct Side, Site, Position Yes Yes -Correct Procedure Yes Yes -Procedure Performed Yes Yes -Type of Procedure Debridement Debridement -Clinical Debridement Subcutaneous Subcutaneous -Tissue Removed Subcutaneous Subcutaneous -Post Debridement (cm) - Length 1.4 1.5 -Post Debridement (cm) - Width 1.5 1.5 -Post Debridement (cm) - Depth 0.1 0.1 -Total Square (Post) (cm) 2.10 2.25 -Area of Debridement (cm) - Length 1.4 1.5 -Area of Debridement (cm) - Width 1.5 1.5 -Total Square (Area) (cm) 2.10 2.25 -Tunneling No No -Undermining/Tunneling No No -Circular Undermining No No -Wound/Ulcer Outcome Not Healed Not Healed -Ulcer Cleansing Wound Cleanser Rinsed/ Irrigated with Saline -Foul Odor after Cleansing No No -Bioengineered Tissue No No -Bleeding Controlled with Pressure Pressure -Treatment Response Procedure Procedure Tolerated Well Tolerated Well -Offloading No No -Debridement - Subq, 1st 20sq cm No No #3- L CALF CLUSTER -Time 14:56 14:46 -Correct Patient Yes Yes -Correct Side, Site, Position Yes Yes -Correct Procedure Yes Yes -Procedure Performed Yes Yes -Type of Procedure Debridement Debridement -Clinical Debridement Subcutaneous Subcutaneous -Tissue Removed Subcutaneous Subcutaneous -Post Debridement (cm) - Length 6.1 2.8 -Post Debridement (cm) - Width 15 16.0 -Post Debridement (cm) - Depth 0.3 0.1 -Total Square (Post) (cm) 91.5 44.80 -Area of Debridement (cm) - Length 6.1 2.8 -Area of Debridement (cm) - Width 15.0 16.0 -Total Square (Area) (cm) 91.50 44.80 -Tunneling No No -Undermining/Tunneling No No -Circular Undermining No No -Wound/Ulcer Outcome Not Healed Not Healed -Ulcer Cleansing Rinsed/ Rinsed/ Irrigated with Irrigated with Saline Saline -Foul Odor after Cleansing No No -Bioengineered Tissue No Yes -Type of Bioengineered Tissue Theraskin -Expiration Date 09/23/25 -Product Lot Number [id number] -Percent Used 100 -Lot number of Saline Used 04/28/2024 -Bleeding Controlled with Pressure Pressure -Treatment Response Procedure Procedure Tolerated Well Tolerated Well -Offloading No No -Debridement - Subq, 1st 20sq cm No No -Apply Skin Sub - 1st 25 sq cm - Legs 1 -Apply Skin Sub - each addt'l 25 sq cm 1 - Legs -Theraskin (per sq cm) 39 #2- L LAT ANKLE -Time 14:56 14:47 -Correct Patient Yes Yes -Correct Side, Site, Position Yes Yes -Correct Procedure Yes Yes -Procedure Performed Yes Yes -Type of Procedure Debridement Debridement -Clinical Debridement Subcutaneous Subcutaneous -Tissue Removed Subcutaneous Subcutaneous -Post Debridement (cm) - Length 2.2 2.5 -Post Debridement (cm) - Width 3.5 3.6 -Post Debridement (cm) - Depth 0.1 0.1 -Total Square (Post) (cm) 7.70 9.00 -Area of Debridement (cm) - Length 2.2 2.5 -Area of Debridement (cm) - Width 3.5 3.6 -Total Square (Area) (cm) 7.70 9.00 -Tunneling No No -Undermining/Tunneling No No -Circular Undermining No No -Wound/Ulcer Outcome Not Healed Not Healed -Ulcer Cleansing Rinsed/ Rinsed/ Irrigated with Irrigated with Saline Saline -Foul Odor after Cleansing No No -Bioengineered Tissue No No -Bleeding Controlled with Pressure Pressure -Treatment Response Procedure Procedure Tolerated Well Tolerated Well -Offloading No No -Debridement - Subq, 1st 20sq cm No No #1- L DAVALOS -Time 15:01 14:48 -Correct Patient Yes Yes -Correct Side, Site, Position Yes Yes -Correct Procedure Yes Yes -Procedure Performed Yes Yes -Type of Procedure Debridement Debridement -Clinical Debridement Subcutaneous Subcutaneous -Tissue Removed Subcutaneous Subcutaneous -Post Debridement (cm) - Length 2.8 2.5 -Post Debridement (cm) - Width 3.8 5.6 -Post Debridement (cm) - Depth 0.3 0.1 -Total Square (Post) (cm) 10.64 14.00 -Area of Debridement (cm) - Length 2.8 2.5 -Area of Debridement (cm) - Width 3.8 5.6 -Total Square (Area) (cm) 10.64 14.00 -Tunneling No No -Undermining/Tunneling No No -Circular Undermining No No -Wound/Ulcer Outcome Not Healed Not Healed -Ulcer Cleansing Rinsed/ Rinsed/ Irrigated with Irrigated with Saline Saline -Foul Odor after Cleansing No No -Bioengineered Tissue No No -Bleeding Controlled with Pressure Pressure -Treatment Response Procedure Procedure Tolerated Well Tolerated Well -Offloading No No -Debridement - Subq, 1st 20sq cm Yes Yes -Debridement, SubQ, ea addt'l 20sq cm 5 1 or part thereof Pain Scale: 0-10 Numeric Is Patient Pain Free? Yes Yes - Nurse 3 - General Ulcer D/C NN Start: 07/30/21 14:29 Freq: Status: Active Protocol: Activity Type Activity Date Activity User E-Sign Co-Sign Detail Recorded Client Recorded Date Recorded By Document 07/30/21 15:25 [facility] [id number] 07/30/21 15:26 [facility] Document 08/06/21 15:20 RB [id number] 08/06/21 15:22 RB 07/30/21 08/06/21 15:25 15:20 Wound Care Nurse 3 #4- L MED ANKLE -Ulcer Cleansing Rinsed/ Irrigated with Saline -Foul Odor after Cleansing No -Primary Dressing Applied C Hydrogel ($), C Hydrogel ($), NonAdherent NonAdherent Contact Layer Contact Layer -Primary Dressing Covered/Secured with Dry Gauze & Dry Gauze,Dry Roll Gauze, Gauze & Roll Secured with Gauze,Secured Tape with Tape -Other Covering ABD #3- L CALF CLUSTER -Ulcer Cleansing Rinsed/ Irrigated with Saline -Foul Odor after Cleansing No -Primary Dressing Applied NonAdherent Contact Layer, Other -Other Dressing HYDROGEL -Primary Dressing Covered/Secured with Dry Gauze & Dry Gauze,Dry Roll Gauze, Gauze & Roll Secured with Gauze,Secured Tape with Tape -Other Covering ABD #2- L LAT ANKLE -Ulcer Cleansing Rinsed/ Irrigated with Saline -Foul Odor after Cleansing No -Primary Dressing Applied NonAdherent NonAdherent Contact Layer, Contact Layer Other -Other Dressing HYDROGEL hydrogel -Primary Dressing Covered/Secured with Dry Gauze & Dry Gauze,Dry Roll Gauze, Gauze & Roll Secured with Gauze,Secured Tape with Tape -Other Covering ABD #1- L DAVALOS -Ulcer Cleansing Rinsed/ Irrigated with Saline -Foul Odor after Cleansing No -Primary Dressing Applied NonAdherent NonAdherent Contact Layer, Contact Layer Other -Other Dressing HYDROGEL hydrogel -Primary Dressing Covered/Secured with Dry Gauze & Dry Gauze,Dry Roll Gauze, Gauze & Roll Secured with Gauze,Secured Tape with Tape -Other Covering ABD BLE -Tubular Bandage Single Layer Single Layer -Size of Tubigrip Used Size E Size E -Size E ($) 2 2 Treatment Response Procedure Procedure Tolerated Well Tolerated Well Pain Scale: 0-10 Numeric Is Patient Pain Free? Yes Yes WC - Visit Discharge Discharge Condition Stable Stable Ambulatory Status Ambulatory,Cane Ambulatory Transportation Private Auto Private Auto Medication Reconcilliation completed & No provided to patient/care provider Clinical Summary of Care Provided Yes Assessment/Plan Assessment/Plan (1) Other specified peripheral vascular diseases: CODE(S): I73.89 - Other specified peripheral vascular diseases (2) Non-pressure chronic ulcer of unspecified part of left lower leg with fat layer exposed: CODE(S): L97.922 - Non-pressure chronic ulcer of unspecified part of left lower leg with fat layer exposed (3) Xerosis cutis: CODE(S): L85.3 - Xerosis cutis (4) Localized edema: CODE(S): R60.0 - Localized edema (5) Venous insufficiency (chronic) (peripheral): CODE(S): I87.2 - Venous insufficiency (chronic) (peripheral) (6) Venous ulcer of left leg: CODE(S): I83.029 - Varicose veins of left lower extremity with ulcer of unspecified site; L97.929 - Non-pressure chronic ulcer of unspecified part of left lower leg with unspecified severity PLAN: Re-evaluation performed. Reviewed diagnostic data. Patient is clinically stable and local signs of infection have resolved. Prior to theraskin application, misonix ultrasound cavitation debridemetn was performed. He tolerated this well and verbacl consent was also obtained. Left foot/ankle and leg noted to be improved today. There is resolved cellulitis and all ulcer beds are now granular. The left leg was washed with soap and water. hydrogel and adaptic applied. CARLOS applied. Now that this is stabilized, I recommend application of advanced wound healing product including cadaver donated TheraSkin. The indications, benefits, anticipated application management were reviewed. Prior authorization was obtained and verbal consent was obtained. He tolerated this well. It was applied to the left leg cluster according to standard protocol and was further secured with a wound veil, dermabond, and steri strips. He tolerated this well and 100 % of the product was utilized. To keep secondary dressing clean, dry, and intact untill follow up. This is medically necessary for wound healing, limb salvage and to prevent infections amputation and even . Offloading: To avoid laying directly on the ulcers. To help reduce pressure on the ulcers by better controlling the edema with a forementioned compression Tubigrip and Carlos wrap. I also cut away shoe material to avoid direct contact to the medial and lateral malleoli ulcer sites. I recommend Lac-Hydrin application to bilateral lower extremities to address his xerosis and maintain better skin integrity to avoid additional wounds and infections. He recently completed a cellulitis treatment course and has been discharged from the hospital. To complete course of cefdinir per infectious disease recommendations. No local signs infection noted today. Due to chronicity of these ulcers I also recommend noninvasive vascular studies (arterial). This was ordered and it appear he has triphasic waveforms to ankle bilateral, pvr are diminished digital to the right but ok to other bilateral levels, JUSTUS normal bilateral, digital brachial index mildly diminished bilateral. This is consistent with mild arterial occlusive disease. If lack of healing is noted, referral will be considered. I also recommend venous doppler with reflux evaluation to work up for venous insufficiency. This is scheduled for this upcoming Wednesday. To continue nutrition supplementation to optimize healing. To avoid laying directly on ulcer for pressure reduction. Pain controlled with topical lidocaine. He defers prescription medication or injection of local anesthetic for further pain control. To follow up next week at wound center. Note: [employer] speech recognition fishing tool supervisor software was used to create portions of this document. Sound-alike and misspelled words, as well as other fishing tool supervisor errors may be contained in the documentation.
--- NOTE | 2021-08-08 10:02 | VDLE_ITS ---
Reason For Study: Edema RIGHT LEFT CFV is compressible, spontaneous, phasic, CFV is compressible, spontaneous, phasic, competent and demonstrates normal competent, and demonstrates normal augmentation. augmentation. FV is compressible, spontaneous, phasic, FV is compressible, spontaneous, phasic, competent and demonstrates normal competent and demonstrates normal augmentation. augmentation. POP V is compressible, spontaneous, phasic, POP V is compressible, spontaneous, phasic, competent and demonstrates normal competent and demonstrates normal augmentation. augmentation. T/P Trunk is compressible. T/P Trunk is compressible. PTV is compressible. PTV is compressible. RT PerV is compressible. LT PerV is compressible. SFJ is competent and measures 0.65 x 0.71 cm. SFJ is competent and measures 0.70 x 0.70 cm. GSV proximal thigh measures 0.59 x 0.60 cm. GSV proximal thigh measures 0.61 x 0.67 cm. GSV at knee measures 0.39 cm. GSV at knee measures 0.52 x 0.61 cm. GSV is competent throughout. GSV is competent throughout. SSV at junction is competent and measures SSV at junction is competent and measures 0.52 x 0.53 cm. 0.42 x 0.49 cm. Lymph node noted in in the right groin that Lymph node noted in the left groin the measures 4.45 x 1.39 x 1.99 cm. measures 4.38 x 2.16 x 2.05 cm. Procedure This is a venous duplex using B-mode, color flow and spectral Doppler. Exam performed in department. Left Calf veins not visualized past proximanl calf due to open wounds and bandages. A preliminary report was called and/or faxed to . VL/Venous Duplex US - Jose David Extrem Interpretation Summary Deep veins of the lower extremities are bilaterally patent and compressible seg mentally. There is no evidence of deep vein thrombosis on either side. Valvular competence appears in tact within the proximal deep venous systems bilaterally. The great saphenous veins appear bila terally patent and compressible segmentally. Sapheno-femoral junctions are bilaterally competent . Valvular competence appears to be intact segmentally within the great saphenous veins bilaterally. Small saphenous veins are patent and competent bilaterally. Deep veins of the left calf were not visu alized due to the presence of open wounds and bandages. Lymphadenopathy is noted in the groins bi laterally. Ordering Physician: Krissy Grande Performed By: Angeline Kaye RVT
[2021-08-13 13:57] VITALS: BP 180/99; PULSE 89; RESP 16; BMI 24.9
--- NOTE | 2021-08-13 15:06 | PCM.WC.PN ---
History of Present Illness Date of Service: 08/13/21 Chief Complaint: left leg ulcers History of Wound: He is a hospital follow up for left leg chronic ulcers. The onset is intermittently for a couple of years. he has pain with direct touch. After these were cleaned up in the hospital and he had antibiotics, there is no longer odor or redness. He denies calf pain. He is with his significant other today. He is amendable to have another debridement performed today. He denies fever, chills, nausea, vomiting or calf pain. He has been trying to wash the leg with soap and water and apply lotion when he has his significant other help him. He is amendable to have advanced wound healing product, theraskin (donated skin) applied today. he has dry heel skin. Progress of Wound: improving Objective Data Objective Data Vital Signs: Vital Signs Temp Pulse Resp BP 97.5 F L 89 16 180/99 H 08/06/21 14:14 08/13/21 13:57 08/13/21 13:57 08/13/21 13:57 Oxygen Delivery Method Room Air Weight: 65.771 kg Body Mass Index (BMI) 24.9 Physical Exam Const alert, oriented x3 and no apparent distress Skin Skin Narrative: Left foot/ankle leg with resolved cellulitis, there are wounds also noted to the medial and lateral ankle as well as the posterior leg with fibrotic tissue but there is increased granular tissue noted today- at least down to the subcutaneous tissue, likely fascia as well, there is no longer maloder and edema has decreased. there is mild serosanguineous drainage (no purulence), no visible abscess, no fluctuance, no crepitus noted. There is diffuse xerosis bilateral lower extremity; reduced peeling noted. He notes pain to the ulcer sites left lower extremity otherwise no m/s POP or pain on ROM to the foot or ankle. Sensation intact to light touch bilateral foot. Debridement Note Debridement Note Wound debrided: left medial malleolus, lateral malleolus, posterior cluster, anterior davalos Wound Grade/Stage: Type of Debridement: Excisional debridement Anesthesia Used: 4% Lidocaine Solution Depth: in the subcutaneous layer Percentage of wound debrided: 100 Instrument Used: #15 blade Tissue Removed: fibrous, devitalized subcutaneous, biofilm, slough Severity: Fat Layer Exposed Amount of bleeding with debridement: Mild Bleeding Controlled with: Pressure Patient tolerated procedure: Patient tolerated procedure well Post-Debridement Measurements and Additional Note: Post-Debridement Measurements/Treatment WC - Nurse 1 - General Ulcer Assessment Start: 07/30/21 14:29 Freq: Status: Active Protocol: BRANDT Activity Type Activity Date Activity User E-sign Co-sign Detail Recorded Client Recorded Date Recorded By Document 07/30/21 14:29 DL [id number] 07/30/21 14:43 DL Document 08/06/21 14:14 KR [id number] 08/06/21 14:17 KR Document 08/13/21 13:57 BMF [id number] 08/13/21 14:13 BMF 07/30/21 08/06/21 08/13/21 14:29 14:14 13:57 - Today's Visit Information Type of service Follow-up Visit Follow-up Visit Follow-up Visit (Physician/DAYCARE PROVIDER (Physician/DAYCARE PROVIDER (Physician/DAYCARE PROVIDER ) ) ) Arrival Mode Ambulatory,Cane Ambulatory Ambulatory Transfer Assistance None None Patient Identification Verified (Name & Yes Yes Yes ) Patient Requires Transmission-Based No No Precautions Height and Weight Body Mass Index (BMI) 24.9 24.9 24.9 BMI Classification Normal Normal Normal Vital Signs Temperature (97.8 F-99.1 F) 98.1 F 97.5 F L Temperature Source Temporal Temporal Pulse Rate (60-100) 87 81 89 Pulse Location Monitor Monitor Monitor Respiratory Rate (12-18) 22 H 16 Respiratory rate source Observation Observation Oxygen Delivery Method Room Air Blood Pressure (90/60-120/80) 130/63 H 169/84 H 180/99 H Blood Pressure Mean (mm Hg) 85 112 126 Source Monitor Monitor Monitor Position Sitting Sitting Blood Pressure Location Left Arm Left Arm History Since Last Visit- (Skip if this is Patient's initial visit) Have you changed medications since your No No No last visit? Any new allergies or adverse reactions No No No Had a fall/change in ADL's that may No No No increase risk of falls Signs or symptoms of abuse and/or No No No neglect since last visit Have you been in the hospital since your No No No last visit? Has dressing in place as prescribed No Yes Yes Has compression in place as prescribed Yes N/A Yes Has offloadiing in place as prescribed N/A N/A N/A Experienced any changes in pain level or No No management Left Footwear Regular Shoe Regular Shoe Right Footwear Regular Shoe Regular Shoe Pain Scale: 0-10 Numeric Is Patient Pain Free? Yes Yes Yes WC - Nurse 1 - General Ulcer Measurement Start: 07/30/21 14:29 Freq: Status: Active Protocol: Activity Type Activity Date Activity User E-sign Co-sign Detail Recorded Client Recorded Date Recorded By Document 07/30/21 14:29 DL [id number] 07/30/21 14:43 DL Document 08/06/21 14:14 KR [id number] 08/06/21 14:17 KR Document 08/13/21 13:57 BMF [id number] 08/13/21 14:13 BMF 07/30/21 08/06/21 08/13/21 14:29 14:14 13:57 Wound Center Nurse 1 #4- L MED ANKLE -Combined with other wound No -Current Size (cm) - Length 1.3 1.5 1.5 -Current Size (cm) - Width 1.5 1.4 1.1 -Current Size (cm) - Depth 0.1 0.1 0.1 -Total Square Cm 1.95 2.10 1.65 -Photo Taken No No -Epithelialization Small 1-33% -Tunneling No -Undermining/Tunneling No -Circular Undermining No -Exudate Amt Medium Small Medium -Exudate Type Yellow/Green Serosanguineous Serosanguineous -Wound Margin Distinct, Distinct, Distinct, Outline Outline Outline Attached Attached Attached -Granulation Amt Small (1-33%) Medium (34-66%) Medium (34-66%) -Granulation Quality [place] Red -Slough/Fibrin Yes -Necrosis Amt Small (1-33%) Medium (34-66%) Medium (34-66%) -Necrotic Tissue Type Adherent Slough Adherent Slough Adherent Slough -Structure Exposed N/A -Texture (Sis-wound Skin Appearance) Excoriation, Assessed, Assessed, Rash Scarring Scarring -Moisture (Sis-wound Skin Appearance) Weeping No Abnormality, Assessed,Dry/ Assessed Scaly -Color (Sis-wound Skin Appearance) Hemosiderin No Abnormality, Assessed Staining Assessed -Temperature (Sis-wound Skin No Abnormality No Abnormality No Abnormality Appearance) (Pt Warm) (Pt Warm) (Pt Warm) -Tenderness on Palpation (Sis-wound No No No Skin Appearance) -Ulcer Cleansing Soap and Water Rinsed/ Soap and Water Irrigated with Saline -Foul Odor after Cleansing No No No -Anesthetic Used 4% Lidocaine 4% Lidocaine 4% Lidocaine Solution Solution Solution #3- L CALF CLUSTER -Combined with other wound No -Current Size (cm) - Length 6 2.7 3.2 -Current Size (cm) - Width 15 16 14.2 -Current Size (cm) - Depth 0.3 0.1 0.3 -Total Square Cm 90 43.2 45.44 -Photo Taken No No -Epithelialization Small 1-33% -Tunneling No -Undermining/Tunneling No -Circular Undermining No -Exudate Amt Medium Small Large -Exudate Type Yellow/Green Serosanguineous Serosanguineous -Wound Margin Distinct, Distinct, Distinct, Outline Outline Outline Attached Attached Attached -Granulation Amt Large (67-100%) Medium (34-66%) Small (1-33%) -Granulation Quality Red Red Red -Slough/Fibrin Yes -Necrosis Amt Small (1-33%) Medium (34-66%) Large (67-100%) -Necrotic Tissue Type Adherent Slough Adherent Slough Adherent Slough -Structure Exposed N/A -Texture (Ssi-wound Skin Appearance) Excoriation, Assessed, Assessed, Scarring,Rash Scarring Scarring -Moisture (Sis-wound Skin Appearance) Weeping No Abnormality, Assessed,Dry/ Assessed Scaly -Color (Sis-wound Skin Appearance) Hemosiderin No Abnormality, Assessed Staining Assessed -Temperature (Sis-wound Skin No Abnormality No Abnormality No Abnormality Appearance) (Pt Warm) (Pt Warm) (Pt Warm) -Tenderness on Palpation (Sis-wound No Yes Skin Appearance) -Ulcer Cleansing Rinsed/ Soap and Water Irrigated with Saline -Foul Odor after Cleansing No No -Anesthetic Used 4% Lidocaine 4% Lidocaine 4% Lidocaine Solution Solution Solution #2- L LAT ANKLE -Current Size (cm) - Length 2.2 2.5 2.2 -Current Size (cm) - Width 3.4 3.5 3.2 -Current Size (cm) - Depth 0.1 0.1 0.1 -Total Square Cm 7.48 8.75 7.04 -Photo Taken No No -Epithelialization Small 1-33% -Tunneling No -Undermining/Tunneling No -Circular Undermining No -Exudate Amt Medium Small Medium -Exudate Type Yellow/Green Serosanguineous Serosanguineous -Wound Margin Distinct, Distinct, Distinct, Outline Outline Outline Attached Attached Attached -Granulation Amt Large (67-100%) Medium (34-66%) Medium (34-66%) -Granulation Quality Red [place] Red -Slough/Fibrin Yes -Necrosis Amt Medium (34-66%) Medium (34-66%) Medium (34-66%) -Necrotic Tissue Type Adherent Slough Adherent Slough Adherent Slough -Structure Exposed N/A -Texture (Sis-wound Skin Appearance) Excoriation, Assessed, Assessed, Localized Edema Scarring Scarring ,Scarring,Rash -Moisture (Sis-wound Skin Appearance) Weeping No Abnormality, Assessed,Dry/ Assessed Scaly -Color (Sis-wound Skin Appearance) Hemosiderin No Abnormality, Assessed Staining Assessed -Temperature (Sis-wound Skin No Abnormality No Abnormality No Abnormality Appearance) (Pt Warm) (Pt Warm) (Pt Warm) -Tenderness on Palpation (Sis-wound No No Skin Appearance) -Ulcer Cleansing Soap and Water Rinsed/ Soap and Water Irrigated with Saline -Foul Odor after Cleansing No No No -Anesthetic Used 4% Lidocaine 4% Lidocaine 4% Lidocaine Solution Solution Solution #1- L DAVALOS -Combined with other wound No -Current Size (cm) - Length 2.7 2.5 3.1 -Current Size (cm) - Width 3.8 5.5 4 -Current Size (cm) - Depth 0.3 0.1 0.2 -Total Square Cm 10.26 13.75 12.4 -Photo Taken No No -Epithelialization Small 1-33% -Tunneling No -Undermining/Tunneling No -Circular Undermining No -Exudate Amt Medium Small Large -Exudate Type Yellow/Green Serosanguineous Serosanguineous -Wound Margin Distinct, Distinct, Distinct, Outline Outline Outline Attached Attached Attached -Granulation Amt Medium (34-66%) Medium (34-66%) Small (1-33%) -Granulation Quality Red [place] Red -Slough/Fibrin Yes -Necrosis Amt Medium (34-66%) Medium (34-66%) Large (67-100%) -Necrotic Tissue Type Adherent Slough Adherent Slough Adherent Slough -Structure Exposed N/A -Texture (Sis-wound Skin Appearance) Excoriation, Assessed, Scarring Scarring -Moisture (Sis-wound Skin Appearance) Weeping Assessed,Dry/ Scaly -Color (Sis-wound Skin Appearance) Hemosiderin Assessed Staining -Temperature (Sis-wound Skin No Abnormality No Abnormality Appearance) (Pt Warm) (Pt Warm) -Tenderness on Palpation (Sis-wound No No Skin Appearance) -Ulcer Cleansing Soap and Water Soap and Water -Foul Odor after Cleansing No No -Anesthetic Used 4% Lidocaine 4% Lidocaine Solution Solution Lower Limb Edema Present Yes Left Calf (cm) 33.7 36.1 Left Ankle (cm) 24 24.1 WC - Nurse 2 - General Ulcer CM Notes Start: 07/30/21 14:29 Freq: Status: Active Protocol: Activity Type Activity Date Activity User E-sign Co-sign Detail Recorded Client Recorded Date Recorded By Document 07/30/21 14:55 [id number] 07/30/21 15:03 Document 08/06/21 14:45 [id number] 08/06/21 14:51 Document 08/13/21 14:24 [id number] 08/13/21 14:37 Edit Result 08/13/21 14:24 JF (1) [id number] 08/13/21 14:43 JF (1) #1- L DAVALOS - Debridement, SubQ, ea addt'l 20sq cm => 1 or part thereof 07/30/21 08/06/21 08/13/21 14:55 14:45 14:24 Wound Center Nurse 2 #4- L MED ANKLE -Time 14:55 14:46 14:24 -Correct Patient Yes Yes Yes -Correct Side, Site, Position Yes Yes Yes -Correct Procedure Yes Yes Yes -Procedure Performed Yes Yes Yes -Type of Procedure Debridement Debridement Debridement -Clinical Debridement Subcutaneous Subcutaneous Subcutaneous -Tissue Removed Subcutaneous Subcutaneous Subcutaneous -Post Debridement (cm) - Length 1.4 1.5 1.6 -Post Debridement (cm) - Width 1.5 1.5 1.1 -Post Debridement (cm) - Depth 0.1 0.1 0.1 -Total Square (Post) (cm) 2.10 2.25 1.76 -Area of Debridement (cm) - Length 1.4 1.5 1.6 -Area of Debridement (cm) - Width 1.5 1.5 1.1 -Total Square (Area) (cm) 2.10 2.25 1.76 -Tunneling No No No -Undermining/Tunneling No No No -Circular Undermining No No No -Wound/Ulcer Outcome Not Healed Not Healed Not Healed -Ulcer Cleansing Wound Cleanser Rinsed/ Rinsed/ Irrigated with Irrigated with Saline Saline -Foul Odor after Cleansing No No No -Bioengineered Tissue No No No -Bleeding Controlled with Pressure Pressure Pressure -Treatment Response Procedure Procedure Procedure Tolerated Well Tolerated Well Tolerated Well -Offloading No No No -Debridement - Subq, 1st 20sq cm No No No #3- L CALF CLUSTER -Time 14:56 14:46 14:25 -Correct Patient Yes Yes Yes -Correct Side, Site, Position Yes Yes Yes -Correct Procedure Yes Yes Yes -Procedure Performed Yes Yes Yes -Type of Procedure Debridement Debridement Debridement -Clinical Debridement Subcutaneous Subcutaneous Subcutaneous -Tissue Removed Subcutaneous Subcutaneous Subcutaneous -Post Debridement (cm) - Length 6.1 2.8 3.3 -Post Debridement (cm) - Width 15 16.0 14.2 -Post Debridement (cm) - Depth 0.3 0.1 0.3 -Total Square (Post) (cm) 91.5 44.80 46.86 -Area of Debridement (cm) - Length 6.1 2.8 3.3 -Area of Debridement (cm) - Width 15.0 16.0 14.2 -Total Square (Area) (cm) 91.50 44.80 46.86 -Tunneling No No No -Undermining/Tunneling No No No -Circular Undermining No No No -Wound/Ulcer Outcome Not Healed Not Healed Not Healed -Ulcer Cleansing Rinsed/ Rinsed/ Rinsed/ Irrigated with Irrigated with Irrigated with Saline Saline Saline -Foul Odor after Cleansing No No No -Bioengineered Tissue No Yes Yes -Type of Bioengineered Tissue Theraskin Theraskin -Expiration Date 09/23/25 09/23/25 -Product Lot Number [id number] -Percent Used 100 100 -Lot number of Saline Used 04/28/[id number] -Bleeding Controlled with Pressure Pressure Pressure -Treatment Response Procedure Procedure Procedure Tolerated Well Tolerated Well Tolerated Well -Offloading No No No -Debridement - Subq, 1st 20sq cm No No No -Apply Skin Sub - 1st 25 sq cm - Legs 1 1 -Apply Skin Sub - each addt'l 25 sq cm 1 1 - Legs -Theraskin (per sq cm) 39 39 #2- L LAT ANKLE -Time 14:56 14:47 14:27 -Correct Patient Yes Yes Yes -Correct Side, Site, Position Yes Yes Yes -Correct Procedure Yes Yes Yes -Procedure Performed Yes Yes Yes -Type of Procedure Debridement Debridement Debridement -Clinical Debridement Subcutaneous Subcutaneous Subcutaneous -Tissue Removed Subcutaneous Subcutaneous Subcutaneous -Post Debridement (cm) - Length 2.2 2.5 2.3 -Post Debridement (cm) - Width 3.5 3.6 3.2 -Post Debridement (cm) - Depth 0.1 0.1 0.1 -Total Square (Post) (cm) 7.70 9.00 7.36 -Area of Debridement (cm) - Length 2.2 2.5 2.3 -Area of Debridement (cm) - Width 3.5 3.6 3.2 -Total Square (Area) (cm) 7.70 9.00 7.36 -Tunneling No No No -Undermining/Tunneling No No No -Circular Undermining No No No -Wound/Ulcer Outcome Not Healed Not Healed Not Healed -Ulcer Cleansing Rinsed/ Rinsed/ Rinsed/ Irrigated with Irrigated with Irrigated with Saline Saline Saline -Foul Odor after Cleansing No No No -Bioengineered Tissue No No No -Bleeding Controlled with Pressure Pressure Pressure -Treatment Response Procedure Procedure Procedure Tolerated Well Tolerated Well Tolerated Well -Offloading No No No -Debridement - Subq, 1st 20sq cm No No No #1- L DAVALOS -Time 15:01 14:48 14:36 -Correct Patient Yes Yes Yes -Correct Side, Site, Position Yes Yes Yes -Correct Procedure Yes Yes Yes -Procedure Performed Yes Yes Yes -Type of Procedure Debridement Debridement Debridement -Clinical Debridement Subcutaneous Subcutaneous Subcutaneous -Tissue Removed Subcutaneous Subcutaneous Subcutaneous -Post Debridement (cm) - Length 2.8 2.5 3.2 -Post Debridement (cm) - Width 3.8 5.6 4 -Post Debridement (cm) - Depth 0.3 0.1 0.2 -Total Square (Post) (cm) 10.64 14.00 12.8 -Area of Debridement (cm) - Length 2.8 2.5 3.2 -Area of Debridement (cm) - Width 3.8 5.6 4 -Total Square (Area) (cm) 10.64 14.00 12.8 -Tunneling No No No -Undermining/Tunneling No No No -Circular Undermining No No No -Wound/Ulcer Outcome Not Healed Not Healed Not Healed -Ulcer Cleansing Rinsed/ Rinsed/ Rinsed/ Irrigated with Irrigated with Irrigated with Saline Saline Saline -Foul Odor after Cleansing No No No -Bioengineered Tissue No No No -Bleeding Controlled with Pressure Pressure Pressure -Treatment Response Procedure Procedure Procedure Tolerated Well Tolerated Well Tolerated Well -Offloading No No No -Debridement - Subq, 1st 20sq cm Yes Yes Yes -Debridement, SubQ, ea addt'l 20sq cm 5 1 1 or part thereof Pain Scale: 0-10 Numeric Is Patient Pain Free? Yes Yes Yes WC - Nurse 3 - General Ulcer D/C NN Start: 07/30/21 14:29 Freq: Status: Active Protocol: Activity Type Activity Date Activity User E-sign Co-sign Detail Recorded Client Recorded Date Recorded By Document 07/30/21 15:[address] [facility] [id number] 07/30/21 15:[address] [facility] Document 08/06/21 15:20 [id number] 08/06/21 15:22 Document 08/13/21 14:43 [place] [id number] 08/13/21 14:46 [place] 07/30/21 08/06/21 08/13/21 15:25 15:20 14:43 Wound Care Nurse 3 #4- L MED ANKLE -Ulcer Cleansing Rinsed/ Rinsed/ Irrigated with Irrigated with Saline Saline -Foul Odor after Cleansing No No -Negative Pressure Wound Therapy N/A -Primary Dressing Applied C Hydrogel ($), C Hydrogel ($), C Hydrogel ($) NonAdherent NonAdherent Contact Layer Contact Layer -Primary Dressing Covered/Secured with Dry Gauze & Dry Gauze,Dry Dry Gauze & Roll Gauze, Gauze & Roll Roll Gauze, Secured with Gauze,Secured Secured with Tape with Tape Tape -Other Covering ABD #3- L CALF CLUSTER -Ulcer Cleansing Rinsed/ Irrigated with Saline -Foul Odor after Cleansing No -Primary Dressing Applied NonAdherent Contact Layer, Other -Other Dressing HYDROGEL ABD -Primary Dressing Covered/Secured with Dry Gauze & Dry Gauze,Dry Dry Gauze & Roll Gauze, Gauze & Roll Roll Gauze, Secured with Gauze,Secured Secured with Tape with Tape Tape -Other Covering ABD #2- L LAT ANKLE -Ulcer Cleansing Rinsed/ Rinsed/ Irrigated with Irrigated with Saline Saline -Foul Odor after Cleansing No No -Negative Pressure Wound Therapy N/A -Primary Dressing Applied NonAdherent NonAdherent C Hydrogel ($) Contact Layer, Contact Layer Other -Other Dressing HYDROGEL hydrogel -Primary Dressing Covered/Secured with Dry Gauze & Dry Gauze,Dry Dry Gauze & Roll Gauze, Gauze & Roll Roll Gauze, Secured with Gauze,Secured Secured with Tape with Tape Tape -Other Covering ABD #1- L DAVALOS -Ulcer Cleansing Rinsed/ Rinsed/ Irrigated with Irrigated with Saline Saline -Foul Odor after Cleansing No No -Negative Pressure Wound Therapy N/A -Primary Dressing Applied NonAdherent NonAdherent C Hydrogel ($) Contact Layer, Contact Layer Other -Other Dressing HYDROGEL hydrogel -Primary Dressing Covered/Secured with Dry Gauze & Dry Gauze,Dry Dry Gauze & Roll Gauze, Gauze & Roll Roll Gauze, Secured with Gauze,Secured Secured with Tape with Tape Tape -Other Covering ABD BLE -Lotion applied to leg before No compression wrap -Tubular Bandage Single Layer Single Layer Single Layer -Size of Tubigrip Used Size E Size E Size E -Size E ($) 2 2 1 Treatment Response Procedure Procedure Tolerated Well Tolerated Well Pain Scale: 0-10 Numeric Is Patient Pain Free? Yes Yes Yes WC - Visit Discharge Discharge Condition Stable Stable Stable Ambulatory Status Ambulatory,Cane Ambulatory Ambulatory Transportation Private Auto Private Auto Private Auto Accompanied by Medication Reconcilliation completed & No No provided to patient/care provider Clinical Summary of Care Provided Yes No Assessment/Plan Assessment/Plan (1) Other specified peripheral vascular diseases: CODE(S): I73.89 - Other specified peripheral vascular diseases (2) Non-pressure chronic ulcer of unspecified part of left lower leg with fat layer exposed: CODE(S): L97.922 - Non-pressure chronic ulcer of unspecified part of left lower leg with fat layer exposed (3) Xerosis cutis: CODE(S): L85.3 - Xerosis cutis (4) Localized edema: CODE(S): R60.0 - Localized edema (5) Venous insufficiency (chronic) (peripheral): CODE(S): I87.2 - Venous insufficiency (chronic) (peripheral) PLAN: ruled out (6) Venous ulcer of left leg: CODE(S): I83.029 - Varicose veins of left lower extremity with ulcer of unspecified site; L97.929 - Non-pressure chronic ulcer of unspecified part of left lower leg with unspecified severity PLAN: Plan Re-evaluation performed. Reviewed diagnostic data. Patient is clinically stable and local signs of infection have resolved. Prior to theraskin application, misonix ultrasound cavitation debridement was performed. He tolerated this well and verbal consent was also obtained. Left foot/ankle and leg noted to be improved today. There is resolved cellulitis and all ulcer beds are now granular. The left leg was washed with soap and water. hydrogel and adaptic applied. CARLOS applied. Now that this is stabilized, I recommend application of advanced wound healing product including cadaver donated TheraSkin. The indications, benefits, anticipated application management were reviewed. Prior authorization was obtained and verbal consent was obtained. He tolerated this well. It was applied to the left leg cluster according to standard protocol and was further secured with a wound veil, dermabond, and steri strips. He tolerated this well and 100 % of the product was utilized. To keep secondary dressing clean, dry, and intact untill follow up. This is medically necessary for wound healing, limb salvage and to prevent infections amputation and even . Offloading: To avoid laying directly on the ulcers. To help reduce pressure on the ulcers by better controlling the edema with a forementioned compression Tubigrip and Carlos wrap. I also cut away shoe material to avoid direct contact to the medial and lateral malleoli ulcer sites. I recommend Lac-Hydrin application to bilateral lower extremities to address his xerosis and maintain better skin integrity to avoid additional wounds and infections. refill sent to [facility]. He recently completed a cellulitis treatment course and has been discharged from the hospital. To complete course of cefdinir per infectious disease recommendations. No local signs infection noted today. Due to chronicity of these ulcers I also recommend noninvasive vascular studies (arterial). This was ordered and it appear he has triphasic waveforms to ankle bilateral, pvr are diminished digital to the right but ok to other bilateral levels, JUSTUS normal bilateral, digital brachial index mildly diminished bilateral. This is consistent with mild arterial occlusive disease. If lack of healing is noted, referral will be considered. I also recommend venous doppler with reflux evaluation to work up for venous insufficiency. Venous insufficiency was not identified and these results were reviewed with him today. To continue nutrition supplementation to optimize healing. To avoid laying directly on ulcer for pressure reduction. Pain controlled with topical lidocaine. He defers prescription medication or injection of local anesthetic for further pain control. To follow up next week at wound center. Note: [employer] speech recognition building certifier software was used to create portions of this document. Sound-alike and misspelled words, as well as other building certifier errors may be contained in the documentation. The medical decision making level is limited based on data including the review of prior external notes, review of a prior test, or ordering a test. The problems addressed require a low medical decision making level which includes two or more minor problems, a stable chronic illness, or an acute uncomplicated illness or injury.
[2021-08-20 14:07] VITALS: BP 184/86; PULSE 84; TEMP 37.3; BMI 24.9
--- NOTE | 2021-08-20 15:16 | PCM.WC.PN ---
History of Present Illness Date of Service: 08/20/21 Chief Complaint: left leg ulcers History of Wound: He is a hospital follow up for left leg chronic ulcers. The onset is intermittently for a couple of years. he has pain with direct touch. After these were cleaned up in the hospital and he had antibiotics, there is no longer odor or redness. He denies calf pain. He is with his significant other today. He is amendable to have another debridement performed today. He denies fever, chills, nausea, vomiting or calf pain. He has been trying to wash the leg with soap and water and apply lotion when he has his significant other help him. He is amendable to have advanced wound healing product, theraskin applied today. Progress of Wound: improving Objective Data Objective Data Vital Signs: Vital Signs Temp Pulse Resp BP 99.1 F 84 16 184/86 H 08/20/21 14:07 08/20/21 14:07 08/13/21 13:57 08/20/21 14:07 Oxygen Delivery Method Room Air Weight: 65.771 kg Body Mass Index (BMI) 24.9 Physical Exam Const alert, oriented x3 and no apparent distress Skin Skin Narrative: Left foot/ankle leg with resolved cellulitis, there are wounds also noted to the medial and lateral ankle as well as the posterior leg with fibrotic tissue but there is increased granular tissue noted today- at least down to the subcutaneous tissue, likely fascia as well, there is no longer maloder and edema has decreased. there is mild serosanguineous drainage (no purulence), no visible abscess, no fluctuance, no crepitus noted. There is diffuse xerosis bilateral lower extremity; reduced peeling noted. He notes pain to the ulcer sites left lower extremity otherwise no m/s POP or pain on ROM to the foot or ankle. Sensation intact to light touch bilateral foot. Debridement Note Debridement Note Wound debrided: left medial malleolus, lateral malleolus, posterior cluster, anterior davalos Wound Grade/Stage: Type of Debridement: Excisional debridement Anesthesia Used: 4% Lidocaine Solution Depth: in the subcutaneous layer Percentage of wound debrided: 100 Instrument Used: #15 blade Tissue Removed: fibrous, devitalized subcutaneous, biofilm, slough Severity: Fat Layer Exposed Amount of bleeding with debridement: Mild Bleeding Controlled with: Pressure Patient tolerated procedure: Patient tolerated procedure well Post-Debridement Measurements and Additional Note: Post-Debridement Measurements/Treatment WC - Nurse 1 - General Ulcer Assessment Start: 07/30/21 14:29 Freq: Status: Active Protocol: BRANDT Activity Type Activity Date Activity User E-sign Co-sign Detail Recorded Client Recorded Date Recorded By Document 07/30/21 14:29 DL [id number] 07/30/21 14:43 DL Document 08/06/21 14:14 KR [id number] 08/06/21 14:17 KR Document 08/13/21 13:57 BMF [id number] 08/13/21 14:13 BMF Document 08/20/21 14:07 BM [id number] 08/20/21 14:27 BMF 07/30/21 08/06/21 08/13/21 14:29 14:14 13:57 WC - Today's Visit Information Type of service Follow-up Visit Follow-up Visit Follow-up Visit (Physician/MEDICAL EDUCATION COORDINATOR (Physician/MEDICAL EDUCATION COORDINATOR (Physician/MEDICAL EDUCATION COORDINATOR ) ) ) Arrival Mode Ambulatory,Cane Ambulatory Ambulatory Transfer Assistance None None Patient Identification Verified (Name & Yes Yes Yes ) Patient Requires Transmission-Based No No Precautions Height and Weight Body Mass Index (BMI) 24.9 24.9 24.9 BMI Classification Normal Normal Normal Vital Signs Temperature (97.8 F-99.1 F) 98.1 F 97.5 F L Temperature Source Temporal Temporal Pulse Rate (60-100) 87 81 89 Pulse Location Monitor Monitor Monitor Respiratory Rate (12-18) 22 H 16 Respiratory rate source Observation Observation Oxygen Delivery Method Room Air Blood Pressure (90/60-120/80) 130/63 H 169/84 H 180/99 H Blood Pressure Mean (mm Hg) 85 112 126 Source Monitor Monitor Monitor Position Sitting Sitting Blood Pressure Location Left Arm Left Arm History Since Last Visit- (Skip if this is Patient's initial visit) Have you changed medications since your No No No last visit? Any new allergies or adverse reactions No No No Had a fall/change in ADL's that may No No No increase risk of falls Signs or symptoms of abuse and/or No No No neglect since last visit Have you been in the hospital since your No No No last visit? Has dressing in place as prescribed No Yes Yes Has compression in place as prescribed Yes N/A Yes Has offloadiing in place as prescribed N/A N/A N/A Experienced any changes in pain level or No No management Left Footwear Regular Shoe Regular Shoe Right Footwear Regular Shoe Regular Shoe Pain Scale: 0-10 Numeric Is Patient Pain Free? Yes Yes Yes 08/20/21 14:07 - Today's Visit Information Type of service Follow-up Visit (Physician/MEDICAL EDUCATION COORDINATOR ) Arrival Mode Ambulatory Transfer Assistance None Patient Identification Verified (Name & Yes ) Patient Requires Transmission-Based No Precautions Height and Weight Body Mass Index (BMI) 24.9 BMI Classification Normal Vital Signs Temperature (97.8 F-99.1 F) 99.1 F Temperature Source Temporal Pulse Rate (60-100) 84 Pulse Location Monitor Respiratory Rate (12-18) Respiratory rate source Oxygen Delivery Method Blood Pressure (90/60-120/80) 184/86 H Blood Pressure Mean (mm Hg) 118 Source Monitor Position Sitting Blood Pressure Location Right Arm History Since Last Visit- (Skip if this is Patient's initial visit) Have you changed medications since your No last visit? Any new allergies or adverse reactions No Had a fall/change in ADL's that may No increase risk of falls Signs or symptoms of abuse and/or No neglect since last visit Have you been in the hospital since your No last visit? Has dressing in place as prescribed No Has compression in place as prescribed Yes Has offloadiing in place as prescribed N/A Experienced any changes in pain level or No management Left Footwear Regular Shoe Right Footwear Regular Shoe Pain Scale: 0-10 Numeric Is Patient Pain Free? Yes - Nurse 1 - General Ulcer Measurement Start: 07/30/21 14:29 Freq: Status: Active Protocol: Activity Type Activity Date Activity User E-sign Co-sign Detail Recorded Client Recorded Date Recorded By Document 07/30/21 14:29 DL [id number] 07/30/21 14:43 DL Document 08/06/21 14:14 KR [id number] 08/06/21 14:17 KR Document 08/13/21 13:57 BMF [id number] 08/13/21 14:13 BMF Document 08/20/21 14:07 [facility] [id number] 08/20/21 14:27 BMF 07/30/21 08/06/21 08/13/21 14:29 14:14 13:57 Wound Center Nurse 1 #4- L MED ANKLE -Combined with other wound No -Current Size (cm) - Length 1.3 1.5 1.5 -Current Size (cm) - Width 1.5 1.4 1.1 -Current Size (cm) - Depth 0.1 0.1 0.1 -Total Square Cm 1.95 2.10 1.65 -Date of Last Picture (Recall this field) -Photo Taken No No -Epithelialization Small 1-33% -Tunneling No -Undermining/Tunneling No -Circular Undermining No -Exudate Amt Medium Small Medium -Exudate Type Yellow/Green Serosanguineous Serosanguineous -Wound Margin Distinct, Distinct, Distinct, Outline Outline Outline Attached Attached Attached -Granulation Amt Small (1-33%) Medium (34-66%) Medium (34-66%) -Granulation Quality [place] Red -Slough/Fibrin Yes -Necrosis Amt Small (1-33%) Medium (34-66%) Medium (34-66%) -Necrotic Tissue Type Adherent Slough Adherent Slough Adherent Slough -Structure Exposed N/A -Texture (Sis-wound Skin Appearance) Excoriation, Assessed, Assessed, Rash Scarring Scarring -Moisture (Sis-wound Skin Appearance) Weeping No Abnormality, Assessed,Dry/ Assessed Scaly -Color (Sis-wound Skin Appearance) Hemosiderin No Abnormality, Assessed Staining Assessed -Temperature (Sis-wound Skin No Abnormality No Abnormality No Abnormality Appearance) (Pt Warm) (Pt Warm) (Pt Warm) -Tenderness on Palpation (Sis-wound No No No Skin Appearance) -Ulcer Cleansing Soap and Water Rinsed/ Soap and Water Irrigated with Saline -Foul Odor after Cleansing No No No -Anesthetic Used 4% Lidocaine 4% Lidocaine 4% Lidocaine Solution Solution Solution #3- L CALF CLUSTER -Combined with other wound No -Current Size (cm) - Length 6 2.7 3.2 -Current Size (cm) - Width 15 16 14.2 -Current Size (cm) - Depth 0.3 0.1 0.3 -Total Square Cm 90 43.2 45.44 -Photo Taken No No -Epithelialization Small 1-33% -Tunneling No -Undermining/Tunneling No -Circular Undermining No -Exudate Amt Medium Small Large -Exudate Type Yellow/Green Serosanguineous Serosanguineous -Wound Margin Distinct, Distinct, Distinct, Outline Outline Outline Attached Attached Attached -Granulation Amt Large (67-100%) Medium (34-66%) Small (1-33%) -Granulation Quality Red Red Red -Slough/Fibrin Yes -Necrosis Amt Small (1-33%) Medium (34-66%) Large (67-100%) -Necrotic Tissue Type Adherent Slough Adherent Slough Adherent Slough -Structure Exposed N/A -Texture (Sis-wound Skin Appearance) Excoriation, Assessed, Assessed, Scarring,Rash Scarring Scarring -Moisture (Sis-wound Skin Appearance) Weeping No Abnormality, Assessed,Dry/ Assessed Scaly -Color (Sis-wound Skin Appearance) Hemosiderin No Abnormality, Assessed Staining Assessed -Temperature (Sis-wound Skin No Abnormality No Abnormality No Abnormality Appearance) (Pt Warm) (Pt Warm) (Pt Warm) -Tenderness on Palpation (Sis-wound No Yes Skin Appearance) -Ulcer Cleansing Rinsed/ Soap and Water Irrigated with Saline -Foul Odor after Cleansing No No -Anesthetic Used 4% Lidocaine 4% Lidocaine 4% Lidocaine Solution Solution Solution #2- L LAT ANKLE -Combined with other wound -Current Size (cm) - Length 2.2 2.5 2.2 -Current Size (cm) - Width 3.4 3.5 3.2 -Current Size (cm) - Depth 0.1 0.1 0.1 -Total Square Cm 7.48 8.75 7.04 -Date of Last Picture (Recall this field) -Photo Taken No No -Epithelialization Small 1-33% -Tunneling No -Undermining/Tunneling No -Circular Undermining No -Exudate Amt Medium Small Medium -Exudate Type Yellow/Green Serosanguineous Serosanguineous -Wound Margin Distinct, Distinct, Distinct, Outline Outline Outline Attached Attached Attached -Granulation Amt Large (67-100%) Medium (34-66%) Medium (34-66%) -Granulation Quality Red [place] Red -Slough/Fibrin Yes -Necrosis Amt Medium (34-66%) Medium (34-66%) Medium (34-66%) -Necrotic Tissue Type Adherent Slough Adherent Slough Adherent Slough -Structure Exposed N/A -Texture (Sis-wound Skin Appearance) Excoriation, Assessed, Assessed, Localized Edema Scarring Scarring ,Scarring,Rash -Moisture (Sis-wound Skin Appearance) Weeping No Abnormality, Assessed,Dry/ Assessed Scaly -Color (Sis-wound Skin Appearance) Hemosiderin No Abnormality, Assessed Staining Assessed -Temperature (Sis-wound Skin No Abnormality No Abnormality No Abnormality Appearance) (Pt Warm) (Pt Warm) (Pt Warm) -Tenderness on Palpation (Sis-wound No No Skin Appearance) -Ulcer Cleansing Soap and Water Rinsed/ Soap and Water Irrigated with Saline -Foul Odor after Cleansing No No No -Anesthetic Used 4% Lidocaine 4% Lidocaine 4% Lidocaine Solution Solution Solution #1- L DAVALOS -Combined with other wound No -Current Size (cm) - Length 2.7 2.5 3.1 -Current Size (cm) - Width 3.8 5.5 4 -Current Size (cm) - Depth 0.3 0.1 0.2 -Total Square Cm 10.26 13.75 12.4 -Date of Last Picture (Recall this field) -Photo Taken No No -Epithelialization Small 1-33% -Tunneling No -Undermining/Tunneling No -Circular Undermining No -Exudate Amt Medium Small Large -Exudate Type Yellow/Green Serosanguineous Serosanguineous -Wound Margin Distinct, Distinct, Distinct, Outline Outline Outline Attached Attached Attached -Granulation Amt Medium (34-66%) Medium (34-66%) Small (1-33%) -Granulation Quality Red [place] Red -Slough/Fibrin Yes -Necrosis Amt Medium (34-66%) Medium (34-66%) Large (67-100%) -Necrotic Tissue Type Adherent Slough Adherent Slough Adherent Slough -Structure Exposed N/A -Texture (Sis-wound Skin Appearance) Excoriation, Assessed, Scarring Scarring -Moisture (Sis-wound Skin Appearance) Weeping Assessed,Dry/ Scaly -Color (Sis-wound Skin Appearance) Hemosiderin Assessed Staining -Temperature (Sis-wound Skin No Abnormality No Abnormality Appearance) (Pt Warm) (Pt Warm) -Tenderness on Palpation (Sis-wound No No Skin Appearance) -Ulcer Cleansing Soap and Water Soap and Water -Foul Odor after Cleansing No No -Anesthetic Used 4% Lidocaine 4% Lidocaine Solution Solution Lower Limb Edema Present Yes Left Calf (cm) 33.7 36.1 Left Ankle (cm) 24 24.1 08/20/21 14:07 Wound Center Nurse 1 #4- L MED ANKLE -Combined with other wound No -Current Size (cm) - Length 0.3 -Current Size (cm) - Width 0.5 -Current Size (cm) - Depth 0.1 -Total Square Cm 0.15 -Date of Last Picture (Recall this 08/20/21 field) -Photo Taken Yes -Epithelialization Small 1-33% -Tunneling No -Undermining/Tunneling No -Circular Undermining No -Exudate Amt Large -Exudate Type Serous -Wound Margin Distinct, Outline Attached -Granulation Amt Large (67-100%) -Granulation Quality [place] -Slough/Fibrin Yes -Necrosis Amt Small (1-33%) -Necrotic Tissue Type Adherent Slough -Structure Exposed -Texture (Sis-wound Skin Appearance) Assessed, Scarring -Moisture (Sis-wound Skin Appearance) Assessed -Color (Sis-wound Skin Appearance) Assessed, Erythema -Temperature (Sis-wound Skin Appearance) -Tenderness on Palpation (Sis-wound No Skin Appearance) -Ulcer Cleansing Soap and Water -Foul Odor after Cleansing No -Anesthetic Used 5% Lidocaine Gel #3- L CALF CLUSTER -Combined with other wound No -Current Size (cm) - Length 3 -Current Size (cm) - Width 11 -Current Size (cm) - Depth 0.2 -Total Square Cm 33 -Photo Taken -Epithelialization None Present -Tunneling No -Undermining/Tunneling No -Circular Undermining No -Exudate Amt Large -Exudate Type Serosanguineous -Wound Margin Distinct, Outline Attached -Granulation Amt Small (1-33%) -Granulation Quality Red -Slough/Fibrin Yes -Necrosis Amt Large (67-100%) -Necrotic Tissue Type Adherent Slough -Structure Exposed -Texture (Sis-wound Skin Appearance) Assessed, Scarring -Moisture (Sis-wound Skin Appearance) Assessed -Color (Sis-wound Skin Appearance) Assessed, Hemosiderin Staining -Temperature (Sis-wound Skin No Abnormality Appearance) (Pt Warm) -Tenderness on Palpation (Sis-wound No Skin Appearance) -Ulcer Cleansing Soap and Water -Foul Odor after Cleansing No -Anesthetic Used 4% Lidocaine Solution #2- L LAT ANKLE -Combined with other wound No -Current Size (cm) - Length 1.7 -Current Size (cm) - Width 2.5 -Current Size (cm) - Depth 0.1 -Total Square Cm 4.25 -Date of Last Picture (Recall this 08/20/21 field) -Photo Taken Yes -Epithelialization None Present -Tunneling No -Undermining/Tunneling No -Circular Undermining No -Exudate Amt Large -Exudate Type Serosanguineous -Wound Margin Distinct, Outline Attached -Granulation Amt Medium (34-66%) -Granulation Quality Red -Slough/Fibrin Yes -Necrosis Amt Medium (34-66%) -Necrotic Tissue Type Adherent Slough -Structure Exposed -Texture (Sis-wound Skin Appearance) Assessed, Scarring -Moisture (Sis-wound Skin Appearance) Assessed -Color (Sis-wound Skin Appearance) Assessed, Erythema, Hemosiderin Staining -Temperature (Sis-wound Skin No Abnormality Appearance) (Pt Warm) -Tenderness on Palpation (Sis-wound No Skin Appearance) -Ulcer Cleansing Soap and Water -Foul Odor after Cleansing No -Anesthetic Used 4% Lidocaine Solution #1- L DAVALOS -Combined with other wound No -Current Size (cm) - Length 3 -Current Size (cm) - Width 4 -Current Size (cm) - Depth 0.1 -Total Square Cm 12 -Date of Last Picture (Recall this 08/20/21 field) -Photo Taken Yes -Epithelialization None Present -Tunneling No -Undermining/Tunneling No -Circular Undermining No -Exudate Amt Medium -Exudate Type Serosanguineous -Wound Margin Distinct, Outline Attached -Granulation Amt Small (1-33%) -Granulation Quality Red -Slough/Fibrin Yes -Necrosis Amt Large (67-100%) -Necrotic Tissue Type Adherent Slough -Structure Exposed -Texture (Sis-wound Skin Appearance) Assessed, Scarring -Moisture (Sis-wound Skin Appearance) No Abnormality -Color (Sis-wound Skin Appearance) Assessed, Erythema, Hemosiderin Staining -Temperature (Sis-wound Skin No Abnormality Appearance) (Pt Warm) -Tenderness on Palpation (Sis-wound No Skin Appearance) -Ulcer Cleansing Soap and Water -Foul Odor after Cleansing No -Anesthetic Used 4% Lidocaine Solution Lower Limb Edema Present Yes Left Calf (cm) 35.8 Left Ankle (cm) 24.1 - Nurse 2 - General Ulcer CM Notes Start: 07/30/21 14:29 Freq: Status: Active Protocol: Activity Type Activity Date Activity User E-sign Co-sign Detail Recorded Client Recorded Date Recorded By Document 07/30/21 14:55 [id number] 07/30/21 15:03 Document 08/06/21 14:45 [id number] 08/06/21 14:51 Document 08/13/21 14:24 [id number] 08/13/21 14:37 Edit Result 08/13/21 14:24 JF (1) [id number] 08/13/21 14:43 JF Document 08/20/21 14:40 [id number] 08/20/21 14:52 JF (1) #1- L DAVALOS - Debridement, SubQ, ea addt'l 20sq cm => 1 or part thereof 07/30/21 08/06/21 08/13/21 14:55 14:45 14:24 Wound Center Nurse 2 #4- L MED ANKLE -Time 14:55 14:46 14:24 -Correct Patient Yes Yes Yes -Correct Side, Site, Position Yes Yes Yes -Correct Procedure Yes Yes Yes -Procedure Performed Yes Yes Yes -Type of Procedure Debridement Debridement Debridement -Clinical Debridement Subcutaneous Subcutaneous Subcutaneous -Tissue Removed Subcutaneous Subcutaneous Subcutaneous -Post Debridement (cm) - Length 1.4 1.5 1.6 -Post Debridement (cm) - Width 1.5 1.5 1.1 -Post Debridement (cm) - Depth 0.1 0.1 0.1 -Total Square (Post) (cm) 2.10 2.25 1.76 -Area of Debridement (cm) - Length 1.4 1.5 1.6 -Area of Debridement (cm) - Width 1.5 1.5 1.1 -Total Square (Area) (cm) 2.10 2.25 1.76 -Tunneling No No No -Undermining/Tunneling No No No -Circular Undermining No No No -Wound/Ulcer Outcome Not Healed Not Healed Not Healed -Ulcer Cleansing Wound Cleanser Rinsed/ Rinsed/ Irrigated with Irrigated with Saline Saline -Foul Odor after Cleansing No No No -Bioengineered Tissue No No No -Bleeding Controlled with Pressure Pressure Pressure -Treatment Response Procedure Procedure Procedure Tolerated Well Tolerated Well Tolerated Well -Offloading No No No -Debridement - Subq, 1st 20sq cm No No No #3- L CALF CLUSTER -Time 14:56 14:46 14:25 -Correct Patient Yes Yes Yes -Correct Side, Site, Position Yes Yes Yes -Correct Procedure Yes Yes Yes -Procedure Performed Yes Yes Yes -Type of Procedure Debridement Debridement Debridement -Clinical Debridement Subcutaneous Subcutaneous Subcutaneous -Tissue Removed Subcutaneous Subcutaneous Subcutaneous -Post Debridement (cm) - Length 6.1 2.8 3.3 -Post Debridement (cm) - Width 15 16.0 14.2 -Post Debridement (cm) - Depth 0.3 0.1 0.3 -Total Square (Post) (cm) 91.5 44.80 46.86 -Area of Debridement (cm) - Length 6.1 2.8 3.3 -Area of Debridement (cm) - Width 15.0 16.0 14.2 -Total Square (Area) (cm) 91.50 44.80 46.86 -Tunneling No No No -Undermining/Tunneling No No No -Circular Undermining No No No -Wound/Ulcer Outcome Not Healed Not Healed Not Healed -Ulcer Cleansing Rinsed/ Rinsed/ Rinsed/ Irrigated with Irrigated with Irrigated with Saline Saline Saline -Foul Odor after Cleansing No No No -Bioengineered Tissue No Yes Yes -Type of Bioengineered Tissue Theraskin Theraskin -Expiration Date 09/23/25 09/23/25 -Product Lot Number [id number] -Percent Used 100 100 -Lot number of Saline Used 04/28/20244454066 -Bleeding Controlled with Pressure Pressure Pressure -Treatment Response Procedure Procedure Procedure Tolerated Well Tolerated Well Tolerated Well -Offloading No No No -Debridement - Subq, 1st 20sq cm No No No -Apply Skin Sub - 1st 25 sq cm - Legs 1 1 -Apply Skin Sub - each addt'l 25 sq cm 1 1 - Legs -Theraskin (per sq cm) 39 39 #2- L LAT ANKLE -Time 14:56 14:47 14:27 -Correct Patient Yes Yes Yes -Correct Side, Site, Position Yes Yes Yes -Correct Procedure Yes Yes Yes -Procedure Performed Yes Yes Yes -Type of Procedure Debridement Debridement Debridement -Clinical Debridement Subcutaneous Subcutaneous Subcutaneous -Tissue Removed Subcutaneous Subcutaneous Subcutaneous -Post Debridement (cm) - Length 2.2 2.5 2.3 -Post Debridement (cm) - Width 3.5 3.6 3.2 -Post Debridement (cm) - Depth 0.1 0.1 0.1 -Total Square (Post) (cm) 7.70 9.00 7.36 -Area of Debridement (cm) - Length 2.2 2.5 2.3 -Area of Debridement (cm) - Width 3.5 3.6 3.2 -Total Square (Area) (cm) 7.70 9.00 7.36 -Tunneling No No No -Undermining/Tunneling No No No -Circular Undermining No No No -Wound/Ulcer Outcome Not Healed Not Healed Not Healed -Ulcer Cleansing Rinsed/ Rinsed/ Rinsed/ Irrigated with Irrigated with Irrigated with Saline Saline Saline -Foul Odor after Cleansing No No No -Bioengineered Tissue No No No -Bleeding Controlled with Pressure Pressure Pressure -Treatment Response Procedure Procedure Procedure Tolerated Well Tolerated Well Tolerated Well -Offloading No No No -Debridement - Subq, 1st 20sq cm No No No #1- L DAVALOS -Time 15:01 14:48 14:36 -Correct Patient Yes Yes Yes -Correct Side, Site, Position Yes Yes Yes -Correct Procedure Yes Yes Yes -Procedure Performed Yes Yes Yes -Type of Procedure Debridement Debridement Debridement -Clinical Debridement Subcutaneous Subcutaneous Subcutaneous -Tissue Removed Subcutaneous Subcutaneous Subcutaneous -Post Debridement (cm) - Length 2.8 2.5 3.2 -Post Debridement (cm) - Width 3.8 5.6 4 -Post Debridement (cm) - Depth 0.3 0.1 0.2 -Total Square (Post) (cm) 10.64 14.00 12.8 -Area of Debridement (cm) - Length 2.8 2.5 3.2 -Area of Debridement (cm) - Width 3.8 5.6 4 -Total Square (Area) (cm) 10.64 14.00 12.8 -Tunneling No No No -Undermining/Tunneling No No No -Circular Undermining No No No -Wound/Ulcer Outcome Not Healed Not Healed Not Healed -Ulcer Cleansing Rinsed/ Rinsed/ Rinsed/ Irrigated with Irrigated with Irrigated with Saline Saline Saline -Foul Odor after Cleansing No No No -Bioengineered Tissue No No No -Bleeding Controlled with Pressure Pressure Pressure -Treatment Response Procedure Procedure Procedure Tolerated Well Tolerated Well Tolerated Well -Offloading No No No -Debridement - Subq, 1st 20sq cm Yes Yes Yes -Debridement, SubQ, ea addt'l 20sq cm 5 1 1 or part thereof Pain Scale: 0-10 Numeric Is Patient Pain Free? Yes Yes Yes 08/20/21 14:40 Wound Center Nurse 2 #4- L MED ANKLE -Time 14:40 -Correct Patient Yes -Correct Side, Site, Position Yes -Correct Procedure Yes -Procedure Performed Yes -Type of Procedure Debridement -Clinical Debridement Subcutaneous -Tissue Removed Subcutaneous -Post Debridement (cm) - Length 0.4 -Post Debridement (cm) - Width 0.5 -Post Debridement (cm) - Depth 0.1 -Total Square (Post) (cm) 0.20 -Area of Debridement (cm) - Length 0.4 -Area of Debridement (cm) - Width 0.5 -Total Square (Area) (cm) 0.20 -Tunneling No -Undermining/Tunneling No -Circular Undermining No -Wound/Ulcer Outcome Not Healed -Ulcer Cleansing Rinsed/ Irrigated with Saline -Foul Odor after Cleansing No -Bioengineered Tissue No -Bleeding Controlled with Pressure -Treatment Response Procedure Tolerated Well -Offloading No -Debridement - Subq, 1st 20sq cm Yes #3- L CALF CLUSTER -Time 14:46 -Correct Patient Yes -Correct Side, Site, Position Yes -Correct Procedure Yes -Procedure Performed Yes -Type of Procedure Debridement -Clinical Debridement Subcutaneous -Tissue Removed Subcutaneous -Post Debridement (cm) - Length 3.1 -Post Debridement (cm) - Width 11 -Post Debridement (cm) - Depth 0.2 -Total Square (Post) (cm) 34.1 -Area of Debridement (cm) - Length 3.1 -Area of Debridement (cm) - Width 11 -Total Square (Area) (cm) 34.1 -Tunneling No -Undermining/Tunneling No -Circular Undermining No -Wound/Ulcer Outcome Not Healed -Ulcer Cleansing Rinsed/ Irrigated with Saline -Foul Odor after Cleansing No -Bioengineered Tissue Yes -Type of Bioengineered Tissue Theraskin -Expiration Date 12/01/25 -Product Lot Number [id number] -Percent Used 100 -Lot number of Saline Used [id number] -Bleeding Controlled with Pressure -Treatment Response Procedure Tolerated Well -Offloading No -Debridement - Subq, 1st 20sq cm No -Apply Skin Sub - 1st 25 sq cm - Legs 1 -Apply Skin Sub - each addt'l 25 sq cm 1 - Legs -Theraskin (per sq cm) 39 #2- L LAT ANKLE -Time 14:47 -Correct Patient Yes -Correct Side, Site, Position Yes -Correct Procedure Yes -Procedure Performed Yes -Type of Procedure Debridement -Clinical Debridement Subcutaneous -Tissue Removed Subcutaneous -Post Debridement (cm) - Length 1.8 -Post Debridement (cm) - Width 2.5 -Post Debridement (cm) - Depth 0.1 -Total Square (Post) (cm) 4.50 -Area of Debridement (cm) - Length 1.8 -Area of Debridement (cm) - Width 2.5 -Total Square (Area) (cm) 4.50 -Tunneling No -Undermining/Tunneling No -Circular Undermining No -Wound/Ulcer Outcome Not Healed -Ulcer Cleansing Rinsed/ Irrigated with Saline -Foul Odor after Cleansing No -Bioengineered Tissue No -Bleeding Controlled with Pressure -Treatment Response Procedure Tolerated Well -Offloading No -Debridement - Subq, 1st 20sq cm No #1- L DAVALOS -Time 14:48 -Correct Patient Yes -Correct Side, Site, Position Yes -Correct Procedure Yes -Procedure Performed Yes -Type of Procedure Debridement -Clinical Debridement Subcutaneous -Tissue Removed Subcutaneous -Post Debridement (cm) - Length 3.1 -Post Debridement (cm) - Width 4 -Post Debridement (cm) - Depth 0.1 -Total Square (Post) (cm) 12.4 -Area of Debridement (cm) - Length 3.1 -Area of Debridement (cm) - Width 4.0 -Total Square (Area) (cm) 12.40 -Tunneling -Undermining/Tunneling No -Circular Undermining No -Wound/Ulcer Outcome Not Healed -Ulcer Cleansing Rinsed/ Irrigated with Saline -Foul Odor after Cleansing No -Bioengineered Tissue No -Bleeding Controlled with Pressure -Treatment Response Procedure Tolerated Well -Offloading No -Debridement - Subq, 1st 20sq cm No -Debridement, SubQ, ea addt'l 20sq cm or part thereof Pain Scale: 0-10 Numeric Is Patient Pain Free? Yes WC - Nurse 3 - General Ulcer D/C NN Start: 07/30/21 14:29 Freq: Status: Active Protocol: Activity Type Activity Date Activity User E-sign Co-sign Detail Recorded Client Recorded Date Recorded By Document 07/30/21 15:25 BM [id number] 07/30/21 15:26 BM Document 08/06/21 15:20 RB [id number] 08/06/21 15:22 RB Document 08/13/21 14:43 AK [id number] 08/13/21 14:46 AK Document 08/20/21 14:54 DL [id number] 08/20/21 14:57 DL 07/30/21 08/06/21 08/13/21 15:25 15:20 14:43 Wound Care Nurse 3 #4- L MED ANKLE -Ulcer Cleansing Rinsed/ Rinsed/ Irrigated with Irrigated with Saline Saline -Foul Odor after Cleansing No No -Negative Pressure Wound Therapy N/A -Primary Dressing Applied C Hydrogel ($), C Hydrogel ($), C Hydrogel ($) NonAdherent NonAdherent Contact Layer Contact Layer -Other Dressing -Primary Dressing Covered/Secured with Dry Gauze & Dry Gauze,Dry Dry Gauze & Roll Gauze, Gauze & Roll Roll Gauze, Secured with Gauze,Secured Secured with Tape with Tape Tape -Other Covering ABD #3- L CALF CLUSTER -Ulcer Cleansing Rinsed/ Irrigated with Saline -Foul Odor after Cleansing No -Primary Dressing Applied NonAdherent Contact Layer, Other -Other Dressing HYDROGEL ABD -Primary Dressing Covered/Secured with Dry Gauze & Dry Gauze,Dry Dry Gauze & Roll Gauze, Gauze & Roll Roll Gauze, Secured with Gauze,Secured Secured with Tape with Tape Tape -Other Covering ABD #2- L LAT ANKLE -Ulcer Cleansing Rinsed/ Rinsed/ Irrigated with Irrigated with Saline Saline -Foul Odor after Cleansing No No -Negative Pressure Wound Therapy N/A -Primary Dressing Applied NonAdherent NonAdherent C Hydrogel ($) Contact Layer, Contact Layer Other -Other Dressing HYDROGEL hydrogel -Primary Dressing Covered/Secured with Dry Gauze & Dry Gauze,Dry Dry Gauze & Roll Gauze, Gauze & Roll Roll Gauze, Secured with Gauze,Secured Secured with Tape with Tape Tape -Other Covering ABD #1- L DAVALOS -Ulcer Cleansing Rinsed/ Rinsed/ Irrigated with Irrigated with Saline Saline -Foul Odor after Cleansing No No -Negative Pressure Wound Therapy N/A -Primary Dressing Applied NonAdherent NonAdherent C Hydrogel ($) Contact Layer, Contact Layer Other -Other Dressing HYDROGEL hydrogel -Primary Dressing Covered/Secured with Dry Gauze & Dry Gauze,Dry Dry Gauze & Roll Gauze, Gauze & Roll Roll Gauze, Secured with Gauze,Secured Secured with Tape with Tape Tape -Other Covering ABD BLE -Lotion applied to leg before No compression wrap -Tubular Bandage Single Layer Single Layer Single Layer -Size of Tubigrip Used Size E Size E Size E -Size E ($) 2 2 1 Treatment Response Procedure Procedure Tolerated Well Tolerated Well Pain Scale: 0-10 Numeric Is Patient Pain Free? Yes Yes Yes WC - Visit Discharge Discharge Condition Stable Stable Stable Ambulatory Status Ambulatory,Cane Ambulatory Ambulatory Transportation Private Auto Private Auto Private Auto Accompanied by Medication Reconcilliation completed & No No provided to patient/care provider Clinical Summary of Care Provided Yes No 08/20/21 14:54 Wound Care Nurse 3 #4- L MED ANKLE -Ulcer Cleansing Rinsed/ Irrigated with Saline -Foul Odor after Cleansing No -Negative Pressure Wound Therapy -Primary Dressing Applied -Other Dressing hydrogel -Primary Dressing Covered/Secured with Dry Gauze & Roll Gauze, Secured with Tape -Other Covering #3- L CALF CLUSTER -Ulcer Cleansing -Foul Odor after Cleansing No -Primary Dressing Applied -Other Dressing Theraskin -Primary Dressing Covered/Secured with Dry Gauze & Roll Gauze, Secured with Tape -Other Covering #2- L LAT ANKLE -Ulcer Cleansing Rinsed/ Irrigated with Saline -Foul Odor after Cleansing No -Negative Pressure Wound Therapy -Primary Dressing Applied -Other Dressing hydrogel -Primary Dressing Covered/Secured with Dry Gauze & Roll Gauze, Secured with Tape -Other Covering #1- L DAVALOS -Ulcer Cleansing -Foul Odor after Cleansing No -Negative Pressure Wound Therapy -Primary Dressing Applied -Other Dressing Therakin -Primary Dressing Covered/Secured with Dry Gauze & Roll Gauze, Secured with Tape -Other Covering BLE -Lotion applied to leg before compression wrap -Tubular Bandage Single Layer -Size of Tubigrip Used Size E -Size E ($) 1 Treatment Response Procedure Tolerated Well Pain Scale: 0-10 Numeric Is Patient Pain Free? 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 Reviewed diagnostic data. Patient is clinically stable and local signs of infection have resolved. Prior to theraskin application, debridement was performed. He tolerated this well and verbal consent was also obtained. Left foot/ankle and leg noted to be improved today. There is resolved cellulitis and all ulcer beds are now granular. The left leg was washed with soap and water. hydrogel and adaptic applied to non theraskin sites. CARLOS applied. I recommend application of advanced wound healing product including cadaver donated TheraSkin. The indications, benefits, anticipated application management were reviewed. Prior authorization was obtained and verbal consent was obtained. He tolerated this well. It was applied to the posterior left leg cluster according to standard protocol and was further secured with a wound veil, dermabond, and steri strips. He tolerated this well and 100 % of the product was utilized. To keep secondary dressing clean, dry, and intact untill follow up. This is medically necessary for wound healing, limb salvage and to prevent infections amputation and even . Offloading: To avoid laying directly on the ulcers. To help reduce pressure on the ulcers by better controlling the edema with a forementioned compression Tubigrip and Carlos wrap. I also cut away shoe material to avoid direct contact to the medial and lateral malleoli ulcer sites. I recommend Lac-Hydrin application to bilateral lower extremities to address his xerosis and maintain better skin integrity to avoid additional wounds and infections. refill sent to [facility]. He recently completed a cellulitis treatment course and has been discharged from the hospital. To complete course of cefdinir per infectious disease recommendations. No local signs infection noted today. Due to chronicity of these ulcers I also recommend noninvasive vascular studies (arterial). This was ordered and it appear he has triphasic waveforms to ankle bilateral, pvr are diminished digital to the right but ok to other bilateral levels, JUSTUS normal bilateral, digital brachial index mildly diminished bilateral. This is consistent with mild arterial occlusive disease. If lack of healing is noted, referral will be considered. I also recommend venous doppler with reflux evaluation to work up for venous insufficiency. Venous insufficiency was not identified and these results were reviewed with him previously. To continue nutrition supplementation to optimize healing. To avoid laying directly on ulcer for pressure reduction. Pain controlled with topical lidocaine. He defers prescription medication or injection of local anesthetic for further pain control. To follow up next week at wound center. Note: [employer] speech recognition dialysis clinical manager software was used to create portions of this document. Sound-alike and misspelled words, as well as other dialysis clinical manager errors may be contained in the documentation. The medical decision making level is limited based on data including the review of prior external notes, review of a prior test, or ordering a test. The problems addressed require a low medical decision making level which includes two or more minor problems, a stable chronic illness, or an acute uncomplicated illness or injury.
[2021-08-27 14:17] VITALS: BP 162/97; PULSE 90; RESP 20; TEMP 36.5; BMI 24.9
--- NOTE | 2021-08-27 15:21 | PN.PCM_ITS ---
History of Present Illness Date of Service: 08/27/21 Chief Complaint: left leg ulcers History of Wound: He is a hospital follow up for left leg chronic ulcers. The onset is intermittently for a couple of years. he has pain with direct touch. After these were cleaned up in the hospital and he had antibiotics, there is no longer odor or redness. He denies calf pain. He is with his significant other today. He is amendable to have another debridement performed today. He denies fever, chills, nausea, vomiting or calf pain. His significant other reports there was possibly a maggot found this past week and he has increased swelling. The patient denies this has occurred. Progress of Wound: improving Objective Data Objective Data Vital Signs: Vital Signs Temp Pulse Resp BP O2 Del Method 97.7 F L 90 20 H 162/97 H Room Air 08/27/21 14:17 08/27/21 14:17 08/27/21 14:17 08/27/21 14:17 08/13/21 13:57 Oxygen Delivery Method Room Air Weight: 65.771 kg Body Mass Index (BMI) 24.9 Physical Exam Const alert, oriented x3 and no apparent distress Skin Skin Narrative: Left foot/ankle leg with resolved cellulitis, there are wounds also noted to the medial and lateral ankle as well as the posterior leg with fibrotic tissue but there is increased granular tissue noted today- at least down to the subcutaneous tissue, likely fascia as well, there is no longer maloder and edema has decreased. there is mild serosanguineous drainage (no purulence), no visible abscess, no fluctuance, no crepitus noted. There is diffuse xerosis bilateral lower extremity; reduced peeling noted. He notes pain to the ulcer sites left lower extremity otherwise no m/s POP or pain on ROM to the foot or ankle. Sensation intact to light touch bilateral foot. mild inc edema. no odor. no maggots Debridement Note Debridement Note Wound debrided: left medial malleolus, lateral malleolus, posterior cluster, anterior davalos Wound Grade/Stage: Type of Debridement: Excisional debridement Anesthesia Used: 4% Lidocaine Solution Depth: in the subcutaneous layer Percentage of wound debrided: 100 Instrument Used: #15 blade and - (Judob[employer]onix ultrasound debrider) Tissue Removed: fibrous, devitalized subcutaneous, biofilm, slough Severity: Fat Layer Exposed Amount of bleeding with debridement: Mild Bleeding Controlled with: Pressure Patient tolerated procedure: Patient tolerated procedure well Post-Debridement Measurements and Additional Note: Post-Debridement Measurements/Treatment - Nurse 1 - General Ulcer Assessment Start: 07/30/21 14:29 Freq: Status: Active Protocol: BRANDT Activity Type Activity Date Activity User E-sign Co-sign Detail Recorded Client Recorded Date Recorded By Document 07/30/21 14:29 DL [id number] 07/30/21 14:43 DL Document 08/06/21 14:14 KR [id number] 08/06/21 14:17 KR Document 08/13/21 13:57 BMF [id number] 08/13/21 14:13 BM Document 08/20/21 14:07 BMF [id number] 08/20/21 14:27 BM Document 08/27/21 14:17 DL [id number] 08/27/21 14:28 DL 07/30/21 08/06/21 08/13/21 14:29 14:14 13:57 - Today's Visit Information Type of service Follow-up Visit Follow-up Visit Follow-up Visit (Physician/PLASTIC STRAIGHTENING ROLL OPERATOR (Physician/PLASTIC STRAIGHTENING ROLL OPERATOR (Physician/PLASTIC STRAIGHTENING ROLL OPERATOR ) ) ) Arrival Mode Ambulatory,Cane Ambulatory Ambulatory Transfer Assistance None None Patient Identification Verified (Name & Yes Yes Yes ) Patient Requires Transmission-Based No No Precautions Height and Weight Body Mass Index (BMI) 24.9 24.9 24.9 BMI Classification Normal Normal Normal Vital Signs Temperature (97.8 F-99.1 F) 98.1 F 97.5 F L Temperature Source Temporal Temporal Pulse Rate (60-100) 87 81 89 Pulse Location Monitor Monitor Monitor Respiratory Rate (12-18) 22 H 16 Respiratory rate source Observation Observation Oxygen Delivery Method Room Air Blood Pressure (90/60-120/80) 130/63 H 169/84 H 180/99 H Blood Pressure Mean (mm Hg) 85 112 126 Source Monitor Monitor Monitor Position Sitting Sitting Blood Pressure Location Left Arm Left Arm History Since Last Visit- (Skip if this is Patient's initial visit) Have you changed medications since your No No No last visit? Any new allergies or adverse reactions No No No Had a fall/change in ADL's that may No No No increase risk of falls Signs or symptoms of abuse and/or No No No neglect since last visit Have you been in the hospital since your No No No last visit? Has dressing in place as prescribed No Yes Yes Has compression in place as prescribed Yes N/A Yes Has offloadiing in place as prescribed N/A N/A N/A Experienced any changes in pain level or No No management Left Footwear Regular Shoe Regular Shoe Right Footwear Regular Shoe Regular Shoe Pain Scale: 0-10 Numeric Is Patient Pain Free? Yes Yes Yes 08/20/21 08/27/21 14:07 14:17 - Today's Visit Information Type of service Follow-up Visit Follow-up Visit (Physician/PLASTIC STRAIGHTENING ROLL OPERATOR (Physician/PLASTIC STRAIGHTENING ROLL OPERATOR ) ) Arrival Mode Ambulatory Ambulatory Transfer Assistance None None Patient Identification Verified (Name & Yes Yes ) Patient Requires Transmission-Based No No Precautions Height and Weight Body Mass Index (BMI) 24.9 24.9 BMI Classification Normal Normal Vital Signs Temperature (97.8 F-99.1 F) 99.1 F 97.7 F L Temperature Source Temporal Temporal Pulse Rate (60-100) 84 90 Pulse Location Monitor Monitor Respiratory Rate (12-18) 20 H Respiratory rate source Observation Oxygen Delivery Method Blood Pressure (90/60-120/80) 184/86 H 162/97 H Blood Pressure Mean (mm Hg) 118 118 Source Monitor Monitor Position Sitting Blood Pressure Location Right Arm History Since Last Visit- (Skip if this is Patient's initial visit) Have you changed medications since your No No last visit? Any new allergies or adverse reactions No No Had a fall/change in ADL's that may No No increase risk of falls Signs or symptoms of abuse and/or No No neglect since last visit Have you been in the hospital since your No No last visit? Has dressing in place as prescribed No Yes Has compression in place as prescribed Yes Yes Has offloadiing in place as prescribed N/A Yes Experienced any changes in pain level or No No management Left Footwear Regular Shoe Custom Shoe Right Footwear Regular Shoe Pain Scale: 0-10 Numeric Is Patient Pain Free? Yes Yes - Nurse 1 - General Ulcer Measurement Start: 07/30/21 14:29 Freq: Status: Active Protocol: Activity Type Activity Date Activity User E-sign Co-sign Detail Recorded Client Recorded Date Recorded By Document 07/30/21 14:29 DL [id number] 07/30/21 14:43 DL Document 08/06/21 14:14 KR [id number] 08/06/21 14:17 KR Document 08/13/21 13:57 BMF [id number] 08/13/21 14:13 BMF Document 08/20/21 14:07 BMF [id number] 08/20/21 14:27 BMF Document 08/27/21 14:17 DL [id number] 08/27/21 14:28 DL 07/30/21 08/06/21 08/13/21 14:29 14:14 13:57 Wound Center Nurse 1 #4- L MED ANKLE -Combined with other wound No -Current Size (cm) - Length 1.3 1.5 1.5 -Current Size (cm) - Width 1.5 1.4 1.1 -Current Size (cm) - Depth 0.1 0.1 0.1 -Total Square Cm 1.95 2.10 1.65 -Date of Last Picture (Recall this field) -Photo Taken No No -Epithelialization Small 1-33% -Tunneling No -Undermining/Tunneling No -Circular Undermining No -Exudate Amt Medium Small Medium -Exudate Type Yellow/Green Serosanguineous Serosanguineous -Wound Margin Distinct, Distinct, Distinct, Outline Outline Outline Attached Attached Attached -Granulation Amt Small (1-33%) Medium (34-66%) Medium (34-66%) -Granulation Quality [place] Red -Slough/Fibrin Yes -Necrosis Amt Small (1-33%) Medium (34-66%) Medium (34-66%) -Necrotic Tissue Type Adherent Slough Adherent Slough Adherent Slough -Structure Exposed N/A -Texture (Sis-wound Skin Appearance) Excoriation, Assessed, Assessed, Rash Scarring Scarring -Moisture (Sis-wound Skin Appearance) Weeping No Abnormality, Assessed,Dry/ Assessed Scaly -Color (Sis-wound Skin Appearance) Hemosiderin No Abnormality, Assessed Staining Assessed -Temperature (Sis-wound Skin No Abnormality No Abnormality No Abnormality Appearance) (Pt Warm) (Pt Warm) (Pt Warm) -Tenderness on Palpation (Sis-wound No No No Skin Appearance) -Ulcer Cleansing Soap and Water Rinsed/ Soap and Water Irrigated with Saline -Foul Odor after Cleansing No No No -Anesthetic Used 4% Lidocaine 4% Lidocaine 4% Lidocaine Solution Solution Solution #3- L CALF CLUSTER -Combined with other wound No -Current Size (cm) - Length 6 2.7 3.2 -Current Size (cm) - Width 15 16 14.2 -Current Size (cm) - Depth 0.3 0.1 0.3 -Total Square Cm 90 43.2 45.44 -Photo Taken No No -Epithelialization Small 1-33% -Tunneling No -Undermining/Tunneling No -Circular Undermining No -Exudate Amt Medium Small Large -Exudate Type Yellow/Green Serosanguineous Serosanguineous -Wound Margin Distinct, Distinct, Distinct, Outline Outline Outline Attached Attached Attached -Granulation Amt Large (67-100%) Medium (34-66%) Small (1-33%) -Granulation Quality Red Red Red -Slough/Fibrin Yes -Necrosis Amt Small (1-33%) Medium (34-66%) Large (67-100%) -Necrotic Tissue Type Adherent Slough Adherent Slough Adherent Slough -Structure Exposed N/A -Texture (Sis-wound Skin Appearance) Excoriation, Assessed, Assessed, Scarring,Rash Scarring Scarring -Moisture (Sis-wound Skin Appearance) Weeping No Abnormality, Assessed,Dry/ Assessed Scaly -Color (Sis-wound Skin Appearance) Hemosiderin No Abnormality, Assessed Staining Assessed -Temperature (Sis-wound Skin No Abnormality No Abnormality No Abnormality Appearance) (Pt Warm) (Pt Warm) (Pt Warm) -Tenderness on Palpation (Sis-wound No Yes Skin Appearance) -Ulcer Cleansing Rinsed/ Soap and Water Irrigated with Saline -Foul Odor after Cleansing No No -Anesthetic Used 4% Lidocaine 4% Lidocaine 4% Lidocaine Solution Solution Solution #2- L LAT ANKLE -Combined with other wound -Current Size (cm) - Length 2.2 2.5 2.2 -Current Size (cm) - Width 3.4 3.5 3.2 -Current Size (cm) - Depth 0.1 0.1 0.1 -Total Square Cm 7.48 8.75 7.04 -Date of Last Picture (Recall this field) -Photo Taken No No -Epithelialization Small 1-33% -Tunneling No -Undermining/Tunneling No -Circular Undermining No -Exudate Amt Medium Small Medium -Exudate Type Yellow/Green Serosanguineous Serosanguineous -Wound Margin Distinct, Distinct, Distinct, Outline Outline Outline Attached Attached Attached -Granulation Amt Large (67-100%) Medium (34-66%) Medium (34-66%) -Granulation Quality Red [place] Red -Slough/Fibrin Yes -Necrosis Amt Medium (34-66%) Medium (34-66%) Medium (34-66%) -Necrotic Tissue Type Adherent Slough Adherent Slough Adherent Slough -Structure Exposed N/A -Texture (Sis-wound Skin Appearance) Excoriation, Assessed, Assessed, Localized Edema Scarring Scarring ,Scarring,Rash -Moisture (Sis-wound Skin Appearance) Weeping No Abnormality, Assessed,Dry/ Assessed Scaly -Color (Sis-wound Skin Appearance) Hemosiderin No Abnormality, Assessed Staining Assessed -Temperature (Sis-wound Skin No Abnormality No Abnormality No Abnormality Appearance) (Pt Warm) (Pt Warm) (Pt Warm) -Tenderness on Palpation (Sis-wound No No Skin Appearance) -Ulcer Cleansing Soap and Water Rinsed/ Soap and Water Irrigated with Saline -Foul Odor after Cleansing No No No -Anesthetic Used 4% Lidocaine 4% Lidocaine 4% Lidocaine Solution Solution Solution #1- L DAVALOS -Combined with other wound No -Current Size (cm) - Length 2.7 2.5 3.1 -Current Size (cm) - Width 3.8 5.5 4 -Current Size (cm) - Depth 0.3 0.1 0.2 -Total Square Cm 10.26 13.75 12.4 -Date of Last Picture (Recall this field) -Photo Taken No No -Epithelialization Small 1-33% -Tunneling No -Undermining/Tunneling No -Circular Undermining No -Exudate Amt Medium Small Large -Exudate Type Yellow/Green Serosanguineous Serosanguineous -Wound Margin Distinct, Distinct, Distinct, Outline Outline Outline Attached Attached Attached -Granulation Amt Medium (34-66%) Medium (34-66%) Small (1-33%) -Granulation Quality Red [place] Red -Slough/Fibrin Yes -Necrosis Amt Medium (34-66%) Medium (34-66%) Large (67-100%) -Necrotic Tissue Type Adherent Slough Adherent Slough Adherent Slough -Structure Exposed N/A -Texture (Sis-wound Skin Appearance) Excoriation, Assessed, Scarring Scarring -Moisture (Sis-wound Skin Appearance) Weeping Assessed,Dry/ Scaly -Color (Sis-wound Skin Appearance) Hemosiderin Assessed Staining -Temperature (Sis-wound Skin No Abnormality No Abnormality Appearance) (Pt Warm) (Pt Warm) -Tenderness on Palpation (Sis-wound No No Skin Appearance) -Ulcer Cleansing Soap and Water Soap and Water -Foul Odor after Cleansing No No -Anesthetic Used 4% Lidocaine 4% Lidocaine Solution Solution Lower Limb Edema Present Yes Left Calf (cm) 33.7 36.1 Left Ankle (cm) 24 24.1 08/20/21 08/27/21 14:07 14:17 Wound Center Nurse 1 #4- L MED ANKLE -Combined with other wound No -Current Size (cm) - Length 0.3 0.1 -Current Size (cm) - Width 0.5 0.1 -Current Size (cm) - Depth 0.1 0.1 -Total Square Cm 0.15 0.01 -Date of Last Picture (Recall this 08/20/21 field) -Photo Taken Yes No -Epithelialization Small 1-33% -Tunneling No -Undermining/Tunneling No -Circular Undermining No -Exudate Amt Large Small -Exudate Type Serous Serosanguineous -Wound Margin Distinct, Indistinct, Non Outline -Visible Attached -Granulation Amt Large (67-100%) Small (1-33%) -Granulation Quality [place] -Slough/Fibrin Yes -Necrosis Amt Small (1-33%) None Present (0 %) -Necrotic Tissue Type Adherent Slough -Structure Exposed N/A -Texture (Sis-wound Skin Appearance) Assessed, Excoriation, Scarring Scarring,Rash -Moisture (Sis-wound Skin Appearance) Assessed Maceration, Weeping -Color (Sis-wound Skin Appearance) Assessed, Erythema Erythema -Temperature (Sis-wound Skin No Abnormality Appearance) (Pt Warm) -Tenderness on Palpation (Sis-wound No No Skin Appearance) -Ulcer Cleansing Soap and Water Soap and Water -Foul Odor after Cleansing No No -Anesthetic Used 5% Lidocaine 4% Lidocaine Gel Solution #3- L CALF CLUSTER -Combined with other wound No -Current Size (cm) - Length 3 2.9 -Current Size (cm) - Width 11 10.6 -Current Size (cm) - Depth 0.2 0.1 -Total Square Cm 33 30.74 -Photo Taken No -Epithelialization None Present -Tunneling No -Undermining/Tunneling No -Circular Undermining No -Exudate Amt Large Large -Exudate Type Serosanguineous Serosanguineous -Wound Margin Distinct, Distinct, Outline Outline Attached Attached -Granulation Amt Small (1-33%) None Present (0 %) -Granulation Quality Red -Slough/Fibrin Yes -Necrosis Amt Large (67-100%) Large (67-100%) -Necrotic Tissue Type Adherent Slough Adherent Slough -Structure Exposed N/A -Texture (Sis-wound Skin Appearance) Assessed, Excoriation, Scarring Scarring,Rash -Moisture (Sis-wound Skin Appearance) Assessed Weeping -Color (Sis-wound Skin Appearance) Assessed, Erythema Hemosiderin Staining -Temperature (Sis-wound Skin No Abnormality No Abnormality Appearance) (Pt Warm) (Pt Warm) -Tenderness on Palpation (Sis-wound No No Skin Appearance) -Ulcer Cleansing Soap and Water Not Cleansed -Foul Odor after Cleansing No -Anesthetic Used 4% Lidocaine 4% Lidocaine Solution Solution #2- L LAT ANKLE -Combined with other wound No -Current Size (cm) - Length 1.7 1.8 -Current Size (cm) - Width 2.5 2.6 -Current Size (cm) - Depth 0.1 0.1 -Total Square Cm 4.25 4.68 -Date of Last Picture (Recall this 08/20/21 field) -Photo Taken Yes No -Epithelialization None Present -Tunneling No -Undermining/Tunneling No -Circular Undermining No -Exudate Amt Large Large -Exudate Type Serosanguineous Serosanguineous -Wound Margin Distinct, Distinct, Outline Outline Attached Attached -Granulation Amt Medium (34-66%) Medium (34-66%) -Granulation Quality Red Hyper- granulation, [place] -Slough/Fibrin Yes -Necrosis Amt Medium (34-66%) Medium (34-66%) -Necrotic Tissue Type Adherent Slough Adherent Slough -Structure Exposed N/A -Texture (Sis-wound Skin Appearance) Assessed, Excoriation, Scarring Scarring,Rash -Moisture (Sis-wound Skin Appearance) Assessed Weeping -Color (Sis-wound Skin Appearance) Assessed, Erythema Erythema, Hemosiderin Staining -Temperature (Sis-wound Skin No Abnormality No Abnormality Appearance) (Pt Warm) (Pt Warm) -Tenderness on Palpation (Sis-wound No No Skin Appearance) -Ulcer Cleansing Soap and Water Soap and Water -Foul Odor after Cleansing No No -Anesthetic Used 4% Lidocaine 4% Lidocaine Solution Solution #1- L DAVALOS -Combined with other wound No -Current Size (cm) - Length 3 3.2 -Current Size (cm) - Width 4 3.5 -Current Size (cm) - Depth 0.1 0.1 -Total Square Cm 12 01.18 -Date of Last Picture (Recall this 08/20/21 field) -Photo Taken Yes No -Epithelialization None Present -Tunneling No -Undermining/Tunneling No -Circular Undermining No -Exudate Amt Medium Large -Exudate Type Serosanguineous Serosanguineous -Wound Margin Distinct, Distinct, Outline Outline Attached Attached -Granulation Amt Small (1-33%) None Present (0 %) -Granulation Quality Red -Slough/Fibrin Yes -Necrosis Amt Large (67-100%) Large (67-100%) -Necrotic Tissue Type Adherent Slough Adherent Slough -Structure Exposed N/A -Texture (Sis-wound Skin Appearance) Assessed, Excoriation, Scarring Scarring,Rash -Moisture (Sis-wound Skin Appearance) No Abnormality Weeping -Color (Sis-wound Skin Appearance) Assessed, Erythema Erythema, Hemosiderin Staining -Temperature (Sis-wound Skin No Abnormality No Abnormality Appearance) (Pt Warm) (Pt Warm) -Tenderness on Palpation (Sis-wound No No Skin Appearance) -Ulcer Cleansing Soap and Water Soap and Water -Foul Odor after Cleansing No No -Anesthetic Used 4% Lidocaine 4% Lidocaine Solution Solution Lower Limb Edema Present Yes Left Calf (cm) 35.8 34 Left Ankle (cm) 24.1 23.3 WC - Nurse 2 - General Ulcer CM Notes Start: 07/30/21 14:29 Freq: Status: Active Protocol: Activity Type Activity Date Activity User E-sign Co-sign Detail Recorded Client Recorded Date Recorded By Document 07/30/21 14:55 [id number] 07/30/21 15:03 Document 08/06/21 14:45 [id number] 08/06/21 14:51 Document 08/13/21 14:24 [id number] 08/13/21 14:37 Edit Result 08/13/21 14:24 JF (1) [id number] 08/13/21 14:43 Document 08/20/21 14:40 [id number] 08/20/21 14:52 JF (1) #1- L DAVALOS - Debridement, SubQ, ea addt'l 20sq cm => 1 or part thereof 07/30/21 08/06/21 08/13/21 14:55 14:45 14:24 Wound Center Nurse 2 #4- L MED ANKLE -Time 14:55 14:46 14:24 -Correct Patient Yes Yes Yes -Correct Side, Site, Position Yes Yes Yes -Correct Procedure Yes Yes Yes -Procedure Performed Yes Yes Yes -Type of Procedure Debridement Debridement Debridement -Clinical Debridement Subcutaneous Subcutaneous Subcutaneous -Tissue Removed Subcutaneous Subcutaneous Subcutaneous -Post Debridement (cm) - Length 1.4 1.5 1.6 -Post Debridement (cm) - Width 1.5 1.5 1.1 -Post Debridement (cm) - Depth 0.1 0.1 0.1 -Total Square (Post) (cm) 2.10 2.25 1.76 -Area of Debridement (cm) - Length 1.4 1.5 1.6 -Area of Debridement (cm) - Width 1.5 1.5 1.1 -Total Square (Area) (cm) 2.10 2.25 1.76 -Tunneling No No No -Undermining/Tunneling No No No -Circular Undermining No No No -Wound/Ulcer Outcome Not Healed Not Healed Not Healed -Ulcer Cleansing Wound Cleanser Rinsed/ Rinsed/ Irrigated with Irrigated with Saline Saline -Foul Odor after Cleansing No No No -Bioengineered Tissue No No No -Bleeding Controlled with Pressure Pressure Pressure -Treatment Response Procedure Procedure Procedure Tolerated Well Tolerated Well Tolerated Well -Offloading No No No -Debridement - Subq, 1st 20sq cm No No No #3- L CALF CLUSTER -Time 14:56 14:46 14:25 -Correct Patient Yes Yes Yes -Correct Side, Site, Position Yes Yes Yes -Correct Procedure Yes Yes Yes -Procedure Performed Yes Yes Yes -Type of Procedure Debridement Debridement Debridement -Clinical Debridement Subcutaneous Subcutaneous Subcutaneous -Tissue Removed Subcutaneous Subcutaneous Subcutaneous -Post Debridement (cm) - Length 6.1 2.8 3.3 -Post Debridement (cm) - Width 15 16.0 14.2 -Post Debridement (cm) - Depth 0.3 0.1 0.3 -Total Square (Post) (cm) 91.5 44.80 46.86 -Area of Debridement (cm) - Length 6.1 2.8 3.3 -Area of Debridement (cm) - Width 15.0 16.0 14.2 -Total Square (Area) (cm) 91.50 44.80 46.86 -Tunneling No No No -Undermining/Tunneling No No No -Circular Undermining No No No -Wound/Ulcer Outcome Not Healed Not Healed Not Healed -Ulcer Cleansing Rinsed/ Rinsed/ Rinsed/ Irrigated with Irrigated with Irrigated with Saline Saline Saline -Foul Odor after Cleansing No No No -Bioengineered Tissue No Yes Yes -Type of Bioengineered Tissue Theraskin Theraskin -Expiration Date 09/23/25 09/23/25 -Product Lot Number [id number] -Percent Used 100 100 -Lot number of Saline Used 04/28/[id number] -Bleeding Controlled with Pressure Pressure Pressure -Treatment Response Procedure Procedure Procedure Tolerated Well Tolerated Well Tolerated Well -Offloading No No No -Debridement - Subq, 1st 20sq cm No No No -Apply Skin Sub - 1st 25 sq cm - Legs 1 1 -Apply Skin Sub - each addt'l 25 sq cm 1 1 - Legs -Theraskin (per sq cm) 39 39 #2- L LAT ANKLE -Time 14:56 14:47 14:27 -Correct Patient Yes Yes Yes -Correct Side, Site, Position Yes Yes Yes -Correct Procedure Yes Yes Yes -Procedure Performed Yes Yes Yes -Type of Procedure Debridement Debridement Debridement -Clinical Debridement Subcutaneous Subcutaneous Subcutaneous -Tissue Removed Subcutaneous Subcutaneous Subcutaneous -Post Debridement (cm) - Length 2.2 2.5 2.3 -Post Debridement (cm) - Width 3.5 3.6 3.2 -Post Debridement (cm) - Depth 0.1 0.1 0.1 -Total Square (Post) (cm) 7.70 9.00 7.36 -Area of Debridement (cm) - Length 2.2 2.5 2.3 -Area of Debridement (cm) - Width 3.5 3.6 3.2 -Total Square (Area) (cm) 7.70 9.00 7.36 -Tunneling No No No -Undermining/Tunneling No No No -Circular Undermining No No No -Wound/Ulcer Outcome Not Healed Not Healed Not Healed -Ulcer Cleansing Rinsed/ Rinsed/ Rinsed/ Irrigated with Irrigated with Irrigated with Saline Saline Saline -Foul Odor after Cleansing No No No -Bioengineered Tissue No No No -Bleeding Controlled with Pressure Pressure Pressure -Treatment Response Procedure Procedure Procedure Tolerated Well Tolerated Well Tolerated Well -Offloading No No No -Debridement - Subq, 1st 20sq cm No No No #1- L DAVALOS -Time 15:01 14:48 14:36 -Correct Patient Yes Yes Yes -Correct Side, Site, Position Yes Yes Yes -Correct Procedure Yes Yes Yes -Procedure Performed Yes Yes Yes -Type of Procedure Debridement Debridement Debridement -Clinical Debridement Subcutaneous Subcutaneous Subcutaneous -Tissue Removed Subcutaneous Subcutaneous Subcutaneous -Post Debridement (cm) - Length 2.8 2.5 3.2 -Post Debridement (cm) - Width 3.8 5.6 4 -Post Debridement (cm) - Depth 0.3 0.1 0.2 -Total Square (Post) (cm) 10.64 14.00 12.8 -Area of Debridement (cm) - Length 2.8 2.5 3.2 -Area of Debridement (cm) - Width 3.8 5.6 4 -Total Square (Area) (cm) 10.64 14.00 12.8 -Tunneling No No No -Undermining/Tunneling No No No -Circular Undermining No No No -Wound/Ulcer Outcome Not Healed Not Healed Not Healed -Ulcer Cleansing Rinsed/ Rinsed/ Rinsed/ Irrigated with Irrigated with Irrigated with Saline Saline Saline -Foul Odor after Cleansing No No No -Bioengineered Tissue No No No -Bleeding Controlled with Pressure Pressure Pressure -Treatment Response Procedure Procedure Procedure Tolerated Well Tolerated Well Tolerated Well -Offloading No No No -Debridement - Subq, 1st 20sq cm Yes Yes Yes -Debridement, SubQ, ea addt'l 20sq cm 5 1 1 or part thereof Pain Scale: 0-10 Numeric Is Patient Pain Free? Yes Yes Yes 08/20/21 14:40 Wound Center Nurse 2 #4- L MED ANKLE -Time 14:40 -Correct Patient Yes -Correct Side, Site, Position Yes -Correct Procedure Yes -Procedure Performed Yes -Type of Procedure Debridement -Clinical Debridement Subcutaneous -Tissue Removed Subcutaneous -Post Debridement (cm) - Length 0.4 -Post Debridement (cm) - Width 0.5 -Post Debridement (cm) - Depth 0.1 -Total Square (Post) (cm) 0.20 -Area of Debridement (cm) - Length 0.4 -Area of Debridement (cm) - Width 0.5 -Total Square (Area) (cm) 0.20 -Tunneling No -Undermining/Tunneling No -Circular Undermining No -Wound/Ulcer Outcome Not Healed -Ulcer Cleansing Rinsed/ Irrigated with Saline -Foul Odor after Cleansing No -Bioengineered Tissue No -Bleeding Controlled with Pressure -Treatment Response Procedure Tolerated Well -Offloading No -Debridement - Subq, 1st 20sq cm Yes #3- L CALF CLUSTER -Time 14:46 -Correct Patient Yes -Correct Side, Site, Position Yes -Correct Procedure Yes -Procedure Performed Yes -Type of Procedure Debridement -Clinical Debridement Subcutaneous -Tissue Removed Subcutaneous -Post Debridement (cm) - Length 3.1 -Post Debridement (cm) - Width 11 -Post Debridement (cm) - Depth 0.2 -Total Square (Post) (cm) 34.1 -Area of Debridement (cm) - Length 3.1 -Area of Debridement (cm) - Width 11 -Total Square (Area) (cm) 34.1 -Tunneling No -Undermining/Tunneling No -Circular Undermining No -Wound/Ulcer Outcome Not Healed -Ulcer Cleansing Rinsed/ Irrigated with Saline -Foul Odor after Cleansing No -Bioengineered Tissue Yes -Type of Bioengineered Tissue Theraskin -Expiration Date 12/01/25 -Product Lot Number [id number] -Percent Used 100 -Lot number of Saline Used [id number] -Bleeding Controlled with Pressure -Treatment Response Procedure Tolerated Well -Offloading No -Debridement - Subq, 1st 20sq cm No -Apply Skin Sub - 1st 25 sq cm - Legs 1 -Apply Skin Sub - each addt'l 25 sq cm 1 - Legs -Theraskin (per sq cm) 39 #2- L LAT ANKLE -Time 14:47 -Correct Patient Yes -Correct Side, Site, Position Yes -Correct Procedure Yes -Procedure Performed Yes -Type of Procedure Debridement -Clinical Debridement Subcutaneous -Tissue Removed Subcutaneous -Post Debridement (cm) - Length 1.8 -Post Debridement (cm) - Width 2.5 -Post Debridement (cm) - Depth 0.1 -Total Square (Post) (cm) 4.50 -Area of Debridement (cm) - Length 1.8 -Area of Debridement (cm) - Width 2.5 -Total Square (Area) (cm) 4.50 -Tunneling No -Undermining/Tunneling No -Circular Undermining No -Wound/Ulcer Outcome Not Healed -Ulcer Cleansing Rinsed/ Irrigated with Saline -Foul Odor after Cleansing No -Bioengineered Tissue No -Bleeding Controlled with Pressure -Treatment Response Procedure Tolerated Well -Offloading No -Debridement - Subq, 1st 20sq cm No #1- L DAVALOS -Time 14:48 -Correct Patient Yes -Correct Side, Site, Position Yes -Correct Procedure Yes -Procedure Performed Yes -Type of Procedure Debridement -Clinical Debridement Subcutaneous -Tissue Removed Subcutaneous -Post Debridement (cm) - Length 3.1 -Post Debridement (cm) - Width 4 -Post Debridement (cm) - Depth 0.1 -Total Square (Post) (cm) 12.4 -Area of Debridement (cm) - Length 3.1 -Area of Debridement (cm) - Width 4.0 -Total Square (Area) (cm) 12.40 -Tunneling -Undermining/Tunneling No -Circular Undermining No -Wound/Ulcer Outcome Not Healed -Ulcer Cleansing Rinsed/ Irrigated with Saline -Foul Odor after Cleansing No -Bioengineered Tissue No -Bleeding Controlled with Pressure -Treatment Response Procedure Tolerated Well -Offloading No -Debridement - Subq, 1st 20sq cm No -Debridement, SubQ, ea addt'l 20sq cm or part thereof Pain Scale: 0-10 Numeric Is Patient Pain Free? Yes WC - Nurse 3 - General Ulcer D/C NN Start: 07/30/21 14:29 Freq: Status: Active Protocol: Activity Type Activity Date Activity User E-sign Co-sign Detail Recorded Client Recorded Date Recorded By Document 07/30/21 15:25 [facility] [id number] 07/30/21 15:26 BMF Document 08/06/21 15:20 RB [id number] 08/06/21 15:22 RB Document 08/13/21 14:43 AK [id number] 08/13/21 14:46 AK Document 08/20/21 14:54 DL [id number] 08/20/21 14:57 DL Document 08/27/21 15:16 AK [id number] 08/27/21 15:19 AK 07/30/21 08/06/21 08/13/21 15:25 15:20 14:43 Wound Care Nurse 3 #4- L MED ANKLE -Ulcer Cleansing Rinsed/ Rinsed/ Irrigated with Irrigated with Saline Saline -Foul Odor after Cleansing No No -Negative Pressure Wound Therapy N/A -Primary Dressing Applied C Hydrogel ($), C Hydrogel ($), C Hydrogel ($) NonAdherent NonAdherent Contact Layer Contact Layer -Other Dressing -Primary Dressing Covered/Secured with Dry Gauze & Dry Gauze,Dry Dry Gauze & Roll Gauze, Gauze & Roll Roll Gauze, Secured with Gauze,Secured Secured with Tape with Tape Tape -Other Covering ABD #3- L CALF CLUSTER -Ulcer Cleansing Rinsed/ Irrigated with Saline -Foul Odor after Cleansing No -Primary Dressing Applied NonAdherent Contact Layer, Other -Other Dressing HYDROGEL ABD -Primary Dressing Covered/Secured with Dry Gauze & Dry Gauze,Dry Dry Gauze & Roll Gauze, Gauze & Roll Roll Gauze, Secured with Gauze,Secured Secured with Tape with Tape Tape -Other Covering ABD #2- L LAT ANKLE -Ulcer Cleansing Rinsed/ Rinsed/ Irrigated with Irrigated with Saline Saline -Foul Odor after Cleansing No No -Negative Pressure Wound Therapy N/A -Primary Dressing Applied NonAdherent NonAdherent C Hydrogel ($) Contact Layer, Contact Layer Other -Other Dressing HYDROGEL hydrogel -Primary Dressing Covered/Secured with Dry Gauze & Dry Gauze,Dry Dry Gauze & Roll Gauze, Gauze & Roll Roll Gauze, Secured with Gauze,Secured Secured with Tape with Tape Tape -Other Covering ABD #1- L DAVALOS -Ulcer Cleansing Rinsed/ Rinsed/ Irrigated with Irrigated with Saline Saline -Foul Odor after Cleansing No No -Negative Pressure Wound Therapy N/A -Primary Dressing Applied NonAdherent NonAdherent C Hydrogel ($) Contact Layer, Contact Layer Other -Other Dressing HYDROGEL hydrogel -Primary Dressing Covered/Secured with Dry Gauze & Dry Gauze,Dry Dry Gauze & Roll Gauze, Gauze & Roll Roll Gauze, Secured with Gauze,Secured Secured with Tape with Tape Tape -Other Covering ABD BLE -Lotion applied to leg before No compression wrap -Tubular Bandage Single Layer Single Layer Single Layer -Size of Tubigrip Used Size E Size E Size E -Size E ($) 2 2 1 Treatment Response Procedure Procedure Tolerated Well Tolerated Well Pain Scale: 0-10 Numeric Is Patient Pain Free? Yes Yes Yes WC - Visit Discharge Discharge Condition Stable Stable Stable Ambulatory Status Ambulatory,Cane Ambulatory Ambulatory Transportation Private Auto Private Auto Private Auto Accompanied by Medication Reconcilliation completed & No No provided to patient/care provider Clinical Summary of Care Provided Yes No 08/20/21 08/27/21 14:54 15:16 Wound Care Nurse 3 #4- L MED ANKLE -Ulcer Cleansing Rinsed/ Rinsed/ Irrigated with Irrigated with Saline Saline -Foul Odor after Cleansing No No -Negative Pressure Wound Therapy N/A -Primary Dressing Applied NonAdherent Contact Layer -Other Dressing hydrogel hydrogel -Primary Dressing Covered/Secured with Dry Gauze & Dry Gauze & Roll Gauze, Roll Gauze, Secured with Secured with Tape Tape -Other Covering hydrogel and adaptic #3- L CALF CLUSTER -Ulcer Cleansing Rinsed/ Irrigated with Saline -Foul Odor after Cleansing No -Primary Dressing Applied -Other Dressing Theraskin hydrogel and adaptic -Primary Dressing Covered/Secured with Dry Gauze & Dry Gauze & Roll Gauze, Roll Gauze, Secured with Secured with Tape Tape -Other Covering #2- L LAT ANKLE -Ulcer Cleansing Rinsed/ Rinsed/ Irrigated with Irrigated with Saline Saline -Foul Odor after Cleansing No No -Negative Pressure Wound Therapy N/A -Primary Dressing Applied -Other Dressing hydrogel hydrogel and adaptic -Primary Dressing Covered/Secured with Dry Gauze & Dry Gauze & Roll Gauze, Roll Gauze, Secured with Secured with Tape Tape -Other Covering #1- L DAVALOS -Ulcer Cleansing Rinsed/ Irrigated with Saline -Foul Odor after Cleansing No No -Negative Pressure Wound Therapy N/A -Primary Dressing Applied -Other Dressing Therakin hydrogel and adaptic -Primary Dressing Covered/Secured with Dry Gauze & Dry Gauze & Roll Gauze, Roll Gauze, Secured with Secured with Tape Tape -Other Covering BLE -Lotion applied to leg before compression wrap -Tubular Bandage Single Layer -Size of Tubigrip Used Size E -Size E ($) 1 Treatment Response Procedure Tolerated Well Pain Scale: 0-10 Numeric Is Patient Pain Free? Yes Yes WC - Visit Discharge Discharge Condition Stable Stable Ambulatory Status Ambulatory Ambulatory,Cane Transportation Private Auto Accompanied by girlfriend Medication Reconcilliation completed & Yes provided to patient/care provider Clinical Summary of Care Provided Yes Assessment/Plan Assessment/Plan (1) Other specified peripheral vascular diseases: CODE(S): I73.89 - Other specified peripheral vascular diseases (2) Non-pressure chronic ulcer of unspecified part of left lower leg with fat layer exposed: CODE(S): L97.922 - Non-pressure chronic ulcer of unspecified part of left lower leg with fat layer exposed (3) Xerosis cutis: CODE(S): L85.3 - Xerosis cutis (4) Localized edema: CODE(S): R60.0 - Localized edema (5) Venous insufficiency (chronic) (peripheral): CODE(S): I87.2 - Venous insufficiency (chronic) (peripheral) PLAN: ruled out (6) Venous ulcer of left leg: CODE(S): I83.029 - Varicose veins of left lower extremity with ulcer of unspecified site; L97.929 - Non-pressure chronic ulcer of unspecified part of left lower leg with unspecified severity PLAN: Plan Re-evaluation performed. Reviewed diagnostic data. Patient is clinically stable and local signs of infection have resolved. Left foot/ankle and leg noted to be improved today. There is resolved cellulitis and all ulcer beds are now granular. The left leg was washed with soap and water. To change daily with hydrogel and adaptic. CARLOS applied. I recommend application of advanced wound healing product including cadaver donated TheraSkin consideration next week. The indications, benefits, anticipated application management were reviewed. Offloading: To avoid laying directly on the ulcers. To help reduce pressure on the ulcers by better controlling the edema with a forementioned compression Tubigrip and Carlos wrap. I also cut away shoe material to avoid direct contact to the medial and lateral malleoli ulcer sites. I recommend Lac-Hydrin application to bilateral lower extremities to address his xerosis and maintain better skin integrity to avoid additional wounds and infections. refill sent to [facility]. He recently completed a cellulitis treatment course and has been discharged from the hospital. To complete course of cefdinir per infectious disease recommendations. No local signs infection noted today. Due to chronicity of these ulcers I also recommend noninvasive vascular studies (arterial). This was ordered and it appear he has triphasic waveforms to ankle bilateral, pvr are diminished digital to the right but ok to other bilateral levels, JUSTUS normal bilateral, digital brachial index mildly diminished bilateral. This is consistent with mild arterial occlusive disease. If lack of healing is noted, referral will be considered. I also recommend venous doppler with reflux evaluation to work up for venous insufficiency. Venous insufficiency was not identified and these results were reviewed with him previously. To continue nutrition supplementation to optimize healing. To avoid laying directly on ulcer for pressure reduction. Pain controlled with topical lidocaine. He defers prescription medication or injection of local anesthetic for further pain control. To follow up next week at wound center. Note: [employer] speech recognition industrial tech instructor software was used to create portions of this document. Sound-alike and misspelled words, as well as other industrial tech instructor errors may be contained in the documentation.
== END 2021-08-28 23:59 ==
LOC: WC 14:15
PROVIDERS: Referring Provider Podiatrist; Visit Provider Podiatrist
DX: I83.023 Varicose veins of left lower extremity with ulcer of ankle (principal); L97.322 Non-pressure chronic ulcer of left ankle with fat layer exposed; L97.822 Non-pressure chronic ulcer of other part of left lower leg with fat layer exposed; I83.028 Varicose veins of left lower extremity with ulcer other part of lower leg; R60.0 Localized edema; L85.3 Xerosis cutis
CPT/HCPCS: 11042; 11045; 15271; 15272; 93970; Q4121

== ENCOUNTER 2021-09-26 10:45 | Outpatient (RCR) | payer BC, SELFPAY ==
[2021-08-29 00:42] VITALS: BP 162/97; PULSE 90; RESP 20; TEMP 36.5; BMI 24.9
[2021-09-03 14:25] VITALS: BP 168/92; PULSE 75; RESP 18; TEMP 36.1; BMI 24.9
--- NOTE | 2021-09-03 15:28 | PN.PCM_ITS ---
History of Present Illness Date of Service: 09/03/21 Chief Complaint: left leg ulcers History of Wound: He is following up today at the wound healing center for left leg chronic ulcers. The onset is intermittently for a couple of years. he has pain with direct touch. After these were cleaned up in the hospital and he had antibiotics, there is no longer odor or redness. He denies calf pain. He is with his significant other today. He is amendable to have another debridement performed today. He denies fever, chills, nausea, vomiting or calf pain. He is ready for an updated TheraSkin application today. Progress of Wound: Stable Objective Data Objective Data Vital Signs: Vital Signs Temp Pulse Resp BP 97 F L 75 18 168/92 H 09/03/21 14:25 09/03/21 14:25 09/03/21 14:25 09/03/21 14:25 Weight: 65.771 kg Body Mass Index (BMI) 24.9 Physical Exam Const alert, oriented x3 and no apparent distress Skin Skin Narrative: Left foot/ankle leg with resolved cellulitis, there are wounds also noted to the medial and lateral ankle as well as the posterior leg with fibrotic tissue but there is increased granular tissue noted today. there is no longer maloder and edema has decreased. there is mild serosanguineous drainage (no purulence), no visible abscess, no fluctuance, no crepitus noted. There is diffuse xerosis bilateral lower extremity; reduced peeling noted. He notes pain to the ulcer sites left lower extremity otherwise no other pain noted. Sensation intact to light touch bilateral foot. Decreased edema. no odor. Debridement Note Debridement Note Wound debrided: left medial malleolus, lateral malleolus, posterior cluster, anterior davalos Wound Grade/Stage: Type of Debridement: Excisional debridement Anesthesia Used: 4% Lidocaine Solution Depth: in the subcutaneous layer Percentage of wound debrided: 100 Instrument Used: #15 blade and - ([employer] ultrasound debrider) Tissue Removed: fibrous, devitalized subcutaneous, biofilm, slough Severity: Fat Layer Exposed Amount of bleeding with debridement: Mild Bleeding Controlled with: Pressure Patient tolerated procedure: Patient tolerated procedure well Debridement Free Text: Post debridement measurements left: Medial mall (0.6 x 0.6 x 0.1 cm), lateral mall (1.6 x 2.3 x 0.1 cm), anterior leg (2.8 by 3.6 x 0.2 cm), posterior leg (11.6 x 2.8 x 0.2 cm) Post-Debridement Measurements and Additional Note: Post-Debridement Measurements/Treatment - Nurse 1 - General Ulcer Assessment Start: 09/03/21 14:25 Freq: Status: Active Protocol: BRANDT Activity Type Activity Date Activity User E-sign Co-sign Detail Recorded Client Recorded Date Recorded By Document 09/03/21 14:25 JOSE [id number] 09/03/21 14:28 09/03/21 14:25 WC - Today's Visit Information Type of service Follow-up Visit (Physician/[employer] ) Arrival Mode Ambulatory Transfer Assistance None Patient Identification Verified (Name & Yes ) Height and Weight Body Mass Index (BMI) 24.9 BMI Classification Normal Vital Signs Temperature (97.8 F-99.1 F) 97 F L Temperature Source Temporal Pulse Rate (60-100) 75 Pulse Location Monitor Respiratory Rate (12-18) 18 Respiratory rate source Observation Blood Pressure (90/60-120/80) 168/92 H Blood Pressure Mean (mm Hg) 117 Source Monitor Position Semi-Fowlers Blood Pressure Location Left Arm History Since Last Visit- (Skip if this is Patient's initial visit) Have you changed medications since your No last visit? Any new allergies or adverse reactions No Had a fall/change in ADL's that may No increase risk of falls Signs or symptoms of abuse and/or No neglect since last visit Have you been in the hospital since your No last visit? Has dressing in place as prescribed Yes Has compression in place as prescribed Yes Has offloadiing in place as prescribed No Experienced any changes in pain level or No management Pain Scale: 0-10 Numeric Is Patient Pain Free? Yes - Nurse 1 - General Ulcer Measurement Start: 09/03/21 14:25 Freq: Status: Active Protocol: Activity Type Activity Date Activity User E-sign Co-sign Detail Recorded Client Recorded Date Recorded By Document 09/03/21 14:25 JOSE [id number] 09/03/21 14:28 RB 09/03/21 14:25 Wound Center Nurse 1 #4- L MED ANKLE -Combined with other wound No -Current Size (cm) - Length 0.5 -Current Size (cm) - Width 0.5 -Current Size (cm) - Depth 0.1 -Total Square Cm 0.25 -Tunneling No -Undermining/Tunneling No -Circular Undermining No -Exudate Amt Medium -Exudate Type Serosanguineous -Wound Margin Distinct, Outline Attached -Granulation Amt Medium (34-66%) -Granulation Quality [place] -Slough/Fibrin Yes -Necrosis Amt Medium (34-66%) -Necrotic Tissue Type Adherent Slough -Structure Exposed N/A -Texture (Sis-wound Skin Appearance) Assessed, Scarring -Moisture (Sis-wound Skin Appearance) Assessed -Color (Sis-wound Skin Appearance) Assessed -Temperature (Sis-wound Skin No Abnormality Appearance) (Pt Warm) -Tenderness on Palpation (Sis-wound No Skin Appearance) -Ulcer Cleansing Wound Cleanser -Foul Odor after Cleansing No -Anesthetic Used 5% Lidocaine Gel #3- L CALF CLUSTER -Combined with other wound No -Current Size (cm) - Length 11.5 -Current Size (cm) - Width 2.7 -Current Size (cm) - Depth 0.2 -Total Square Cm 31.05 -Epithelialization Small 1-33% -Tunneling No -Undermining/Tunneling No -Classification - Thickness Partial Thickness -Exudate Amt Large -Exudate Type Serosanguineous -Wound Margin Distinct, Outline Attached -Granulation Amt Medium (34-66%) -Granulation Quality [place] -Slough/Fibrin Yes -Necrosis Amt Medium (34-66%) -Necrotic Tissue Type Adherent Slough -Structure Exposed N/A -Texture (Sis-wound Skin Appearance) Scarring -Moisture (Sis-wound Skin Appearance) Assessed -Color (Sis-wound Skin Appearance) Assessed -Temperature (Sis-wound Skin No Abnormality Appearance) (Pt Warm) -Tenderness on Palpation (Sis-wound No Skin Appearance) -Ulcer Cleansing Wound Cleanser -Foul Odor after Cleansing No -Anesthetic Used 5% Lidocaine Gel #2- L LAT ANKLE -Combined with other wound No -Current Size (cm) - Length 1.5 -Current Size (cm) - Width 2.2 -Current Size (cm) - Depth 0.1 -Total Square Cm 3.30 -Tunneling No -Undermining/Tunneling No -Circular Undermining No -Exudate Amt Medium -Exudate Type Serosanguineous -Wound Margin Distinct, Outline Attached -Granulation Amt Medium (34-66%) -Granulation Quality [place] -Slough/Fibrin Yes -Necrosis Amt Medium (34-66%) -Necrotic Tissue Type Adherent Slough -Structure Exposed N/A -Texture (Sis-wound Skin Appearance) Scarring -Moisture (Sis-wound Skin Appearance) Assessed -Color (Sis-wound Skin Appearance) Assessed -Temperature (Sis-wound Skin No Abnormality Appearance) (Pt Warm) -Tenderness on Palpation (Sis-wound No Skin Appearance) -Ulcer Cleansing Wound Cleanser -Foul Odor after Cleansing No -Anesthetic Used 5% Lidocaine Gel #1- L DAVALOS -Combined with other wound No -Current Size (cm) - Length 2.7 -Current Size (cm) - Width 3.5 -Current Size (cm) - Depth 0.2 -Total Square Cm 9.45 -Tunneling No -Undermining/Tunneling No -Circular Undermining No -Exudate Amt Large -Exudate Type Serosanguineous -Wound Margin Distinct, Outline Attached -Granulation Amt Medium (34-66%) -Granulation Quality [place] -Slough/Fibrin Yes -Necrosis Amt Medium (34-66%) -Necrotic Tissue Type Adherent Slough -Structure Exposed N/A -Texture (Sis-wound Skin Appearance) Assessed, Scarring -Moisture (Sis-wound Skin Appearance) Assessed -Color (Sis-wound Skin Appearance) Assessed -Tenderness on Palpation (Sis-wound No Skin Appearance) -Ulcer Cleansing Wound Cleanser -Foul Odor after Cleansing No -Anesthetic Used 5% Lidocaine Gel Lower Limb Edema Present Yes Left Calf (cm) 34.5 Left Ankle (cm) 24.5 WC - Nurse 3 - General Ulcer D/C NN Start: 09/03/21 14:25 Freq: Status: Active Protocol: Activity Type Activity Date Activity User E-sign Co-sign Detail Recorded Client Recorded Date Recorded By Document 09/03/21 15:09 RB [id number] 09/03/21 15:10 RB 09/03/21 15:09 Wound Care Nurse 3 #4- L MED ANKLE -Other Dressing hydrogel -Primary Dressing Covered/Secured with Dry Gauze,Dry Gauze & Roll Gauze,Secured with Tape #3- L CALF CLUSTER -Other Dressing abd pad -Primary Dressing Covered/Secured with Dry Gauze,Dry Gauze & Roll Gauze,Secured with Tape #2- L LAT ANKLE -Primary Dressing Covered/Secured with Dry Gauze,Dry Gauze & Roll Gauze,Secured with Tape #1- L DAVALOS -Ulcer Cleansing Wound Cleanser -Other Dressing hydrogel Right -Tubular Bandage Single Layer -Size of Tubigrip Used Size E -Size E ($) 1 Left -Tubular Bandage Single Layer -Size of Tubigrip Used Size E -Size E ($) 1 Treatment Response Procedure Tolerated Well Pain Scale: 0-10 Numeric Is Patient Pain Free? Yes WC - Visit Discharge Discharge Condition Stable Ambulatory Status Ambulatory,Cane Transportation Private Auto Medication Reconcilliation completed & No provided to patient/care provider Clinical Summary of Care Provided Yes Assessment/Plan Assessment/Plan (1) Other specified peripheral vascular diseases: CODE(S): I73.89 - Other specified peripheral vascular diseases (2) Non-pressure chronic ulcer of unspecified part of left lower leg with fat layer exposed: CODE(S): L97.922 - Non-pressure chronic ulcer of unspecified part of left lower leg with fat layer exposed (3) Localized edema: CODE(S): R60.0 - Localized edema (4) Venous ulcer of left leg: CODE(S): I83.029 - Varicose veins of left lower extremity with ulcer of unspecified site; L97.929 - Non-pressure chronic ulcer of unspecified part of left lower leg with unspecified severity PLAN: Plan Re-evaluation performed. Reviewed diagnostic data. Patient is clinically stable and local signs of infection have resolved. Left foot/ankle and leg noted to be improved today. There is resolved cellulitis and all ulcer beds are now granular. The left leg was washed with soap and water. CARLOS applied. I recommend application of advanced wound healing product including cadaver donated TheraSkin. The indications, benefits, anticipated application management were reviewed. Verbal consent was obtained and this was applied cranks standard protocol. This was secured with Dermabond, wound veil and Steri-Strips. He tolerated this well and a secondary dressing of gauze present further applied. Keep clean, dry, and intact until follow-up next week. Hydrogel and Adaptic was applied to the other ulcer sites. Offloading: To avoid laying directly on the ulcers. To help reduce pressure on the ulcers by better controlling the edema with a forementioned compression Tubigrip and Carlos wrap. I recommend Lac-Hydrin application to bilateral lower extremities to address his xerosis and maintain better skin integrity to avoid additional wounds and infections. refill sent to [facility]. He recently completed a cellulitis treatment course and has been discharged from the hospital. To complete course of cefdinir per infectious disease recommendations. No local signs infection noted today. Due to chronicity of these ulcers I also recommend noninvasive vascular studies (arterial). This was ordered and it appear he has triphasic waveforms to ankle bilateral, pvr are diminished digital to the right but ok to other bilateral levels, JUSTUS normal bilateral, digital brachial index mildly diminished bilateral. This is consistent with mild arterial occlusive disease. If lack of healing is noted, referral will be considered. I also recommend venous doppler with reflux evaluation to work up for venous insufficiency. Venous insufficiency was not identified and these results were reviewed with him previo usly. To continue nutrition supplementation to optimize healing. To avoid laying directly on ulcer for pressure reduction. Pain controlled with topical lidocaine. He defers prescription medication or injection of local anesthetic for further pain control. To follow up next week at wound center. Note: [employer] speech recognition sales activity manager software was used to create portions of this document. Sound-alike and misspelled words, as well as other sales activity manager errors may be contained in the documentation.
[2021-09-10 14:05] VITALS: BP 191/101; PULSE 83; RESP 20; TEMP 37.2; BMI 24.9
--- NOTE | 2021-09-10 19:49 | PCM.WC.PN ---
History of Present Illness Date of Service: 09/10/21 Chief Complaint: left leg ulcers History of Wound: He is following up today at the wound healing center for left leg chronic ulcers. The onset is intermittently for a couple of years. he has pain with direct touch. After these were cleaned up in the hospital and he had antibiotics, there is no longer odor or redness. He denies calf pain. He is with his significant other today. He is amendable to have another debridement performed today. He denies fever, chills, nausea, vomiting or calf pain. He is ready for an updated TheraSkin application today. Progress of Wound: improving Objective Data Objective Data Vital Signs: Vital Signs Temp Pulse Resp BP 99 F 83 20 H 191/101 H 09/10/21 14:05 09/10/21 14:05 09/10/21 14:05 09/10/21 14:05 Weight: 65.771 kg Body Mass Index (BMI) 24.9 Physical Exam Const alert, oriented x3 and no apparent distress Skin Skin Narrative: Left foot/ankle leg with resolved cellulitis, there are wounds also noted to the medial and lateral ankle as well as the posterior leg with fibrotic tissue but there is increased granular tissue noted today. there is no longer maloder and edema has decreased. there is mild serosanguineous drainage (no purulence), no visible abscess, no fluctuance, no crepitus noted. There is diffuse xerosis bilateral lower extremity; reduced peeling noted. He notes pain to the ulcer sites left lower extremity otherwise no other pain noted. Sensation intact to light touch bilateral foot. Decreased edema. no odor. Debridement Note Debridement Note Wound debrided: left medial malleolus, lateral malleolus, posterior cluster, anterior davalos Wound Grade/Stage: Type of Debridement: Excisional debridement Anesthesia Used: 4% Lidocaine Solution Depth: in the subcutaneous layer Percentage of wound debrided: 100 Instrument Used: #15 blade and - (Revegy ultrasound debrider) Tissue Removed: fibrous, devitalized subcutaneous, biofilm, slough Severity: Fat Layer Exposed Amount of bleeding with debridement: Mild Bleeding Controlled with: Pressure Patient tolerated procedure: Patient tolerated procedure well Debridement Free Text: Post debridement measurements left: Medial mall (0.6 x 0.6 x 0.1 cm), lateral mall (1.6 x 2.3 x 0.1 cm), anterior leg (2.8 by 3.6 x 0.2 cm), posterior leg (11.6 x 2.8 x 0.2 cm) Post-Debridement Measurements and Additional Note: Post-Debridement Measurements/Treatment WC - Nurse 1 - General Ulcer Assessment Start: 09/03/21 14:25 Freq: Status: Active Protocol: DEVON.LOWEXAlize Activity Type Activity Date Activity User E-sign Co-sign Detail Recorded Client Recorded Date Recorded By Document 09/03/21 14:25 RB [id number] 09/03/21 14:28 RB Document 09/10/21 14:05 DL [id number] 09/10/21 14:19 DL Edit Result 09/10/21 14:05 DL (1) [id number] 09/10/21 14:35 DL (1) Comment => BP elevated today, => pt stated, I => stopped taking my => BP meds. 09/03/21 09/10/21 14:25 14:05 WC - Today's Visit Information Type of service Follow-up Visit Follow-up Visit (Physician/CONGREGATIONAL CARE PASTOR (Physician/CONGREGATIONAL CARE PASTOR ) ) Arrival Mode Ambulatory Ambulatory Transfer Assistance None None Patient Identification Verified (Name & Yes Yes ) Patient Requires Transmission-Based No Precautions Height and Weight Body Mass Index (BMI) 24.9 24.9 BMI Classification Normal Normal Vital Signs Temperature (97.8 F-99.1 F) 97 F L 99 F Temperature Source Temporal Temporal Pulse Rate (60-100) 75 83 Pulse Location Monitor Monitor Respiratory Rate (12-18) 18 20 H Respiratory rate source Observation Observation Blood Pressure (90/60-120/80) 168/92 H 191/101 H Blood Pressure Mean (mm Hg) 117 131 Source Monitor Position Semi-Fowlers Blood Pressure Location Left Arm Comment BP elevated today, pt stated, I stopped taking my BP meds. History Since Last Visit- (Skip if this is Patient's initial visit) Have you changed medications since your No No last visit? Any new allergies or adverse reactions No No Had a fall/change in ADL's that may No No increase risk of falls Signs or symptoms of abuse and/or No No neglect since last visit Have you been in the hospital since your No No last visit? Has dressing in place as prescribed Yes Yes Has compression in place as prescribed Yes No Has offloadiing in place as prescribed No N/A Experienced any changes in pain level or No No management Left Footwear Regular Shoe Right Footwear Regular Shoe Pain Scale: 0-10 Numeric Is Patient Pain Free? Yes Yes WC - Nurse 1 - General Ulcer Measurement Start: 09/03/21 14:25 Freq: Status: Active Protocol: Activity Type Activity Date Activity User E-sign Co-sign Detail Recorded Client Recorded Date Recorded By Document 09/03/21 14:25 RB [id number] 09/03/21 14:28 RB Document 09/10/21 14:05 DL [id number] 09/10/21 14:19 DL 09/03/21 09/10/21 14:25 14:05 Wound Center Nurse 1 #4- L MED ANKLE -Combined with other wound No -Current Size (cm) - Length 0.5 0.2 -Current Size (cm) - Width 0.5 0.2 -Current Size (cm) - Depth 0.1 0.1 -Total Square Cm 0.25 0.04 -Photo Taken No -Tunneling No -Undermining/Tunneling No -Circular Undermining No -Exudate Amt Medium Small -Exudate Type Serosanguineous Serosanguineous -Wound Margin Distinct, Indistinct, Non Outline -Visible Attached -Granulation Amt Medium (34-66%) Small (1-33%) -Granulation Quality Pleasure Bend Pleasure Bend -Slough/Fibrin Yes -Necrosis Amt Medium (34-66%) None Present (0 %) -Necrotic Tissue Type Adherent Slough -Structure Exposed N/A N/A -Texture (Sis-wound Skin Appearance) Assessed, Excoriation Scarring -Moisture (Sis-wound Skin Appearance) Assessed Weeping -Color (Sis-wound Skin Appearance) Assessed Hemosiderin Staining -Temperature (Sis-wound Skin No Abnormality No Abnormality Appearance) (Pt Warm) (Pt Warm) -Tenderness on Palpation (Sis-wound No No Skin Appearance) -Ulcer Cleansing Wound Cleanser Soap and Water -Foul Odor after Cleansing No No -Anesthetic Used 5% Lidocaine 4% Lidocaine Gel Solution #3- L CALF CLUSTER -Combined with other wound No -Current Size (cm) - Length 11.5 3.2 -Current Size (cm) - Width 2.7 11.8 -Current Size (cm) - Depth 0.2 0.3 -Total Square Cm 31.05 37.76 -Photo Taken No -Epithelialization Small 1-33% -Tunneling No -Undermining/Tunneling No -Classification - Thickness Partial Thickness -Exudate Amt Large Medium -Exudate Type Serosanguineous Serosanguineous -Wound Margin Distinct, Distinct, Outline Outline Attached Attached -Granulation Amt Medium (34-66%) Small (1-33%) -Granulation Quality [place] -Slough/Fibrin Yes -Necrosis Amt Medium (34-66%) Large (67-100%) -Necrotic Tissue Type Adherent Slough Adherent Slough -Structure Exposed N/A N/A -Texture (Sis-wound Skin Appearance) Scarring Excoriation, Scarring -Moisture (Sis-wound Skin Appearance) Assessed Weeping -Color (Sis-wound Skin Appearance) Assessed Hemosiderin Staining -Temperature (Sis-wound Skin No Abnormality No Abnormality Appearance) (Pt Warm) (Pt Warm) -Tenderness on Palpation (Sis-wound No No Skin Appearance) -Ulcer Cleansing Wound Cleanser Soap and Water -Foul Odor after Cleansing No -Anesthetic Used 5% Lidocaine 4% Lidocaine Gel Solution #2- L LAT ANKLE -Combined with other wound No -Current Size (cm) - Length 1.5 2 -Current Size (cm) - Width 2.2 3.2 -Current Size (cm) - Depth 0.1 0.1 -Total Square Cm 3.30 6.4 -Photo Taken No -Tunneling No -Undermining/Tunneling No -Circular Undermining No -Exudate Amt Medium Medium -Exudate Type Serosanguineous Serosanguineous -Wound Margin Distinct, Distinct, Outline Outline Attached Attached -Granulation Amt Medium (34-66%) Medium (34-66%) -Granulation Quality Pleasure Bend Pleasure Bend -Slough/Fibrin Yes -Necrosis Amt Medium (34-66%) Medium (34-66%) -Necrotic Tissue Type Adherent Slough Adherent Slough -Structure Exposed N/A N/A -Texture (Sis-wound Skin Appearance) Scarring Excoriation, Scarring -Moisture (Sis-wound Skin Appearance) Assessed No Abnormality -Color (Sis-wound Skin Appearance) Assessed Hemosiderin Staining -Temperature (Sis-wound Skin No Abnormality No Abnormality Appearance) (Pt Warm) (Pt Warm) -Tenderness on Palpation (Sis-wound No No Skin Appearance) -Ulcer Cleansing Wound Cleanser Soap and Water -Foul Odor after Cleansing No No -Anesthetic Used 5% Lidocaine 4% Lidocaine Gel Solution #1- L DAVALOS -Combined with other wound No -Current Size (cm) - Length 2.7 3.2 -Current Size (cm) - Width 3.5 3.7 -Current Size (cm) - Depth 0.2 0.2 -Total Square Cm 9.45 11.84 -Photo Taken No -Tunneling No -Undermining/Tunneling No -Circular Undermining No -Exudate Amt Large Medium -Exudate Type Serosanguineous Serosanguineous -Wound Margin Distinct, Distinct, Outline Outline Attached Attached -Granulation Amt Medium (34-66%) Small (1-33%) -Granulation Quality Ple[place] Bend Red -Slough/Fibrin Yes -Necrosis Amt Medium (34-66%) Large (67-100%) -Necrotic Tissue Type Adherent Slough Adherent Slough -Structure Exposed N/A N/A -Texture (Sis-wound Skin Appearance) Assessed, Excoriation, Scarring Scarring -Moisture (Sis-wound Skin Appearance) Assessed Dry/Scaly -Color (Sis-wound Skin Appearance) Assessed Hemosiderin Staining -Temperature (Sis-wound Skin No Abnormality Appearance) (Pt Warm) -Tenderness on Palpation (Sis-wound No Skin Appearance) -Ulcer Cleansing Wound Cleanser Soap and Water -Foul Odor after Cleansing No No -Anesthetic Used 5% Lidocaine 4% Lidocaine Gel Solution Lower Limb Edema Present Yes Left Calf (cm) 34.5 35 Left Ankle (cm) 24.5 24.2 WC - Nurse 2 - General Ulcer CM Notes Start: 09/03/21 14:25 Freq: Status: Active Protocol: Activity Type Activity Date Activity User E-sign Co-sign Detail Recorded Client Recorded Date Recorded By Document 09/03/21 15:43 PL [id number] 09/03/21 15:49 PL Document 09/10/21 15:07 JESSE [id number] 09/10/21 15:14 JESSE 09/03/21 09/10/21 15:43 15:07 Wound Center Nurse 2 #4- L MED ANKLE -Time 14:40 -Correct Patient Yes No -Correct Side, Site, Position Yes No -Correct Procedure Yes No -Procedure Performed Yes No -Type of Procedure Debridement -Clinical Debridement Subcutaneous -Tissue Removed Subcutaneous -Post Debridement (cm) - Length 0.5 0 -Post Debridement (cm) - Width 0.5 0 -Post Debridement (cm) - Depth 0.1 0 -Total Square (Post) (cm) 0.25 0 -Area of Debridement (cm) - Length 0.5 0 -Area of Debridement (cm) - Width 0.5 0 -Total Square (Area) (cm) 0.25 0 -Tunneling No -Undermining/Tunneling No -Circular Undermining No -Wound/Ulcer Outcome Not Healed Healed- Epithelialized -Ulcer Cleansing Rinsed/ Irrigated with Saline -Foul Odor after Cleansing No -Bioengineered Tissue No -Bleeding Controlled with Pressure -Treatment Response Procedure Tolerated Well -Debridement - Subq, 1st 20sq cm No #3- L CALF CLUSTER -Time 14:40 15:09 -Correct Patient Yes Yes -Correct Side, Site, Position Yes Yes -Correct Procedure Yes Yes -Procedure Performed Yes Yes -Type of Procedure Debridement Debridement -Clinical Debridement Subcutaneous Subcutaneous -Tissue Removed Subcutaneous Subcutaneous -Post Debridement (cm) - Length 11.5 3.2 -Post Debridement (cm) - Width 2.7 9 -Post Debridement (cm) - Depth 0.2 0.1 -Total Square (Post) (cm) 31.05 28.8 -Area of Debridement (cm) - Length 11.5 3.2 -Area of Debridement (cm) - Width 2.7 9.0 -Total Square (Area) (cm) 31.05 28.80 -Tunneling No No -Undermining/Tunneling No No -Circular Undermining No No -Wound/Ulcer Outcome Not Healed Not Healed -Ulcer Cleansing Rinsed/ Rinsed/ Irrigated with Irrigated with Saline Saline -Foul Odor after Cleansing No No -Bioengineered Tissue Yes Yes -Type of Bioengineered Tissue Theraskin Theraskin -Expiration Date 12/03/25 07/23/24 -Product Lot Number [id number] -Percent Used 100 100 -Lot number of Saline Used [id number] -Bleeding Controlled with Pressure Pressure -Treatment Response Procedure Procedure Tolerated Well Tolerated Well -Offloading No -Debridement - Subq, 1st 20sq cm No No -Apply Skin Sub - 1st 25 sq cm - Legs 1 1 -Apply Skin Sub - each addt'l 25 sq cm 1 1 - Legs -Theraskin (per sq cm) 39 26 #2- L LAT ANKLE -Time 14:40 15:11 -Correct Patient Yes Yes -Correct Side, Site, Position Yes Yes -Correct Procedure Yes Yes -Procedure Performed Yes Yes -Type of Procedure Debridement Debridement -Clinical Debridement Subcutaneous Subcutaneous -Tissue Removed Subcutaneous Subcutaneous -Post Debridement (cm) - Length 1.5 2.1 -Post Debridement (cm) - Width 2.2 3.2 -Post Debridement (cm) - Depth 0.1 0.1 -Total Square (Post) (cm) 3.30 6.72 -Area of Debridement (cm) - Length 1.5 2.1 -Area of Debridement (cm) - Width 2.2 3.2 -Total Square (Area) (cm) 3.30 6.72 -Tunneling No No -Undermining/Tunneling No No -Circular Undermining No No -Wound/Ulcer Outcome Not Healed Not Healed -Ulcer Cleansing Rinsed/ Rinsed/ Irrigated with Irrigated with Saline Saline -Foul Odor after Cleansing No No -Bioengineered Tissue No No -Bleeding Controlled with Pressure Pressure -Treatment Response Procedure Procedure Tolerated Well Tolerated Well -Offloading No -Debridement - Subq, 1st 20sq cm No Yes #1- L DAVALOS -Time 14:40 15:11 -Correct Patient Yes Yes -Correct Side, Site, Position Yes Yes -Correct Procedure Yes Yes -Procedure Performed Yes Yes -Type of Procedure Debridement Debridement -Clinical Debridement Subcutaneous Subcutaneous -Tissue Removed Subcutaneous Subcutaneous -Post Debridement (cm) - Length 2.7 3.2 -Post Debridement (cm) - Width 3.5 3.8 -Post Debridement (cm) - Depth 0.2 0.2 -Total Square (Post) (cm) 9.45 12.16 -Area of Debridement (cm) - Length 2.7 3.2 -Area of Debridement (cm) - Width 3.5 3.8 -Total Square (Area) (cm) 9.45 12.16 -Tunneling No No -Undermining/Tunneling No No -Circular Undermining No No -Wound/Ulcer Outcome Not Healed Not Healed -Ulcer Cleansing Rinsed/ Rinsed/ Irrigated with Irrigated with Saline Saline -Foul Odor after Cleansing No No -Bioengineered Tissue No No -Bleeding Controlled with Pressure Pressure -Treatment Response Procedure Procedure Tolerated Well Tolerated Well -Offloading No -Debridement - Subq, 1st 20sq cm No No Pain Scale: 0-10 Numeric Is Patient Pain Free? Yes Yes - Nurse 3 - General Ulcer D/C NN Start: 09/03/21 14:25 Freq: Status: Active Protocol: Activity Type Activity Date Activity User E-sign Co-sign Detail Recorded Client Recorded Date Recorded By Document 09/03/21 15:09 [id number] 09/03/21 15:10 RB Document 09/10/21 15:27 [facility] [id number] 09/10/21 15:28 BM 09/03/21 09/10/21 15:09 15:27 Wound Care Nurse 3 #4- L MED ANKLE -Other Dressing hydrogel -Primary Dressing Covered/Secured with Dry Gauze,Dry Gauze & Roll Gauze,Secured with Tape #3- L CALF CLUSTER -Other Dressing abd pad theraskin -Primary Dressing Covered/Secured with Dry Gauze,Dry Dry Gauze & Gauze & Roll Roll Gauze, Gauze,Secured Secured with with Tape Tape -Other Covering abd #2- L LAT ANKLE -Ulcer Cleansing Rinsed/ Irrigated with Saline -Foul Odor after Cleansing No -Primary Dressing Applied Aquacel AG 4x4 -Primary Dressing Covered/Secured with Dry Gauze,Dry Dry Gauze & Gauze & Roll Roll Gauze, Gauze,Secured Secured with with Tape Tape -Other Covering abd -Aquacel AG 4x4 1 #1- L DAVALOS -Ulcer Cleansing Wound Cleanser Rinsed/ Irrigated with Saline -Foul Odor after Cleansing No -Primary Dressing Applied Aquacel AG 4x4 -Other Dressing hydrogel -Primary Dressing Covered/Secured with Dry Gauze & Roll Gauze, Secured with Tape -Other Covering abd -Aquacel AG 4x4 1 Right -Tubular Bandage Single Layer -Size of Tubigrip Used Size E -Size E ($) 1 Left -Tubular Bandage Single Layer Double Layer -Size of Tubigrip Used Size E Size E -Size E ($) 1 2 -Other sent extra; pt refused left tubi Treatment Response Procedure Procedure Tolerated Well Tolerated Well Pain Scale: 0-10 Numeric Is Patient Pain Free? Yes Yes - Visit Discharge Discharge Condition Stable Stable Ambulatory Status Ambulatory,Cane Ambulatory Transportation Private Auto Private Auto Accompanied by girlfriend Medication Reconcilliation completed & No provided to patient/care provider Clinical Summary of Care Provided Yes Assessment/Plan Assessment/Plan (1) Other specified peripheral vascular diseases: CODE(S): I73.89 - Other specified peripheral vascular diseases (2) Non-pressure chronic ulcer of unspecified part of left lower leg with fat layer exposed: CODE(S): L97.922 - Non-pressure chronic ulcer of unspecified part of left lower leg with fat layer exposed (3) Localized edema: CODE(S): R60.0 - Localized edema (4) Venous ulcer of left leg: CODE(S): I83.029 - Varicose veins of left lower extremity with ulcer of unspecified site; L97.929 - Non-pressure chronic ulcer of unspecified part of left lower leg with unspecified severity PLAN: Plan Re-evaluation performed. Reviewed diagnostic data. Patient is clinically stable and local signs of infection have resolved. Left foot/ankle and leg noted to be improved today. There is resolved cellulitis and all ulcer beds are now granular. The left leg was washed with soap and water. CARLOS applied. I recommend application of advanced wound healing product including cadaver donated TheraSkin. The indications, benefits, anticipated application management were reviewed. Verbal consent was obtained and this was applied cranks standard protocol. This was secured with Dermabond, wound veil and Steri-Strips. He tolerated this well and a secondary dressing of gauze present further applied. Keep clean, dry, and intact until follow-up next week. Hydrogel and Adaptic was applied to the other ulcer sites. Offloading: To avoid laying directly on the ulcers. To help reduce pressure on the ulcers by better controlling the edema with a forementioned compression Tubigrip and Carlos wrap. I recommend Lac-Hydrin application to bilateral lower extremities to address his xerosis and maintain better skin integrity to avoid additional wounds and infections. refill sent to [facility]. He recently completed a cellulitis treatment course and has been discharged from the hospital. To complete course of cefdinir per infectious disease recommendations. No local signs infection noted today. Due to chronicity of these ulcers I also recommend noninvasive vascular studies (arterial). This was ordered and it appear he has triphasic waveforms to ankle bilateral, pvr are diminished digital to the right but ok to other bilateral levels, JUSTUS normal bilateral, digital brachial index mildly diminished bilateral. This is consistent with mild arterial occlusive disease. If lack of healing is noted, referral will be considered. I also recommend venous doppler with reflux evaluation to work up for venous insufficiency. Venous insufficiency was not identified and these results were reviewed with him previously. To continue nutrition supplementation to optimize healing. To avoid laying directly on ulcer for pressure reduction. Pain controlled with topical lidocaine. He defers prescription medication or injection of local anesthetic for further pain control. To follow up next week at wound center. Note: [employer] speech recognition electrical engineering technician software was used to create portions of this document. Sound-alike and misspelled words, as well as other electrical engineering technician errors may be contained in the documentation.
[2021-09-17 14:10] VITALS: BP 162/87; PULSE 86; RESP 18; TEMP 36.8; BMI 24.9
--- NOTE | 2021-09-17 16:20 | PN.PCM_ITS ---
History of Present Illness Date of Service: 09/17/21 Chief Complaint: left leg ulcers History of Wound: He is following up today at the wound healing center for left leg chronic ulcers. The onset is intermittently for a couple of years. he has pain with direct touch. After these were cleaned up in the hospital and he had antibiotics, there is no longer odor or redness. He denies calf pain. He is with his significant other today. He is amendable to have another debridement performed today. He denies fever, chills, nausea, vomiting or calf pain. He is ready for an updated TheraSkin application today. Progress of Wound: improving Objective Data Objective Data Vital Signs: Vital Signs Temp Pulse Resp BP 98.3 F 86 18 162/87 H 09/17/21 14:10 09/17/21 14:10 09/17/21 14:10 09/17/21 14:10 Weight: 65.771 kg Body Mass Index (BMI) 24.9 Physical Exam Const alert, oriented x3 and no apparent distress Skin Skin Narrative: Left foot/ankle leg with resolved cellulitis, there are wounds also noted to the medial and lateral ankle as well as the posterior leg with fibrotic tissue but there is increased granular tissue noted today. there is no longer maloder and edema has decreased. there is mild serosanguineous drainage (no purulence), no visible abscess, no fluctuance, no crepitus noted. There is diffuse xerosis bi lateral lower extremity; reduced peeling noted. He notes pain to the ulcer sites left lower extremity otherwise no other pain noted. Sensation intact to light touch bilateral foot. Decreased edema. no odor. Debridement Note Debridement Note Wound debrided: lateral malleolus, posterior cluster, anterior davalos Wound Grade/Stage: Type of Debridement: Excisional debridement Anesthesia Used: 4% Lidocaine Solution Depth: in the subcutaneous layer Percentage of wound debrided: 100 Instrument Used: #15 blade and - (Zoraponix ultrasound debrider) Tissue Removed: fibrous, devitalized subcutaneous, biofilm, slough Severity: Fat Layer Exposed Amount of bleeding with debridement: Mild Bleeding Controlled with: Pressure Patient tolerated procedure: Patient tolerated procedure well Post-Debridement Measurements and Additional Note: Post-Debridement Measurements/Treatment DEVON - Nurse 1 - General Ulcer Assessment Start: 09/03/21 14:25 Freq: Status: Active Protocol: WC.LOWEXT Activity Type Activity Date Activity User E-sign Co-sign Detail Recorded Client Recorded Date Recorded By Document 09/03/21 14:25 RB [id number] 09/03/21 14:28 RB Document 09/10/21 14:05 DL [id number] 09/10/21 14:19 DL Edit Result 09/10/21 14:05 DL (1) [id number] 09/10/21 14:35 DL Document 09/17/21 14:10 RB [id number] 09/17/21 14:28 RB (1) Comment => BP elevated today, => pt stated, I => stopped taking my => BP meds. 09/03/21 09/10/21 09/17/21 14:25 14:05 14:10 WC - Today's Visit Information Type of service Follow-up Visit Follow-up Visit Follow-up Visit (Physician/ROLL FORM OPERATOR (Physician/ROLL FORM OPERATOR (Physician/ROLL FORM OPERATOR ) ) ) Arrival Mode Ambulatory Ambulatory Ambulatory,Cane Transfer Assistance None None None Patient Identification Verified (Name & Yes Yes Yes ) Patient Requires Transmission-Based No No Precautions Height and Weight Body Mass Index (BMI) 24.9 24.9 24.9 BMI Classification Normal Normal Normal Vital Signs Temperature (97.8 F-99.1 F) 97 F L 99 F 98.3 F Temperature Source Temporal Temporal Temporal Pulse Rate (60-100) 75 83 86 Pulse Location Monitor Monitor Monitor Respiratory Rate (12-18) 18 20 H 18 Respiratory rate source Observation Observation Observation Blood Pressure (90/60-120/80) 168/92 H 191/101 H 162/87 H Blood Pressure Mean (mm Hg) 117 131 112 Source Monitor Monitor Position Semi-Fowlers Semi-Fowlers Blood Pressure Location Left Arm Left Arm Comment BP elevated today, pt stated, I stopped taking my BP meds. History Since Last Visit- (Skip if this is Patient's initial visit) Have you changed medications since your No No No last visit? Any new allergies or adverse reactions No No No Had a fall/change in ADL's that may No No No increase risk of falls Signs or symptoms of abuse and/or No No No neglect since last visit Have you been in the hospital since your No No No last visit? Has dressing in place as prescribed Yes Yes Yes Has compression in place as prescribed Yes No No Has offloadiing in place as prescribed No N/A Yes Experienced any changes in pain level or No No No management Left Footwear Regular Shoe Right Footwear Regular Shoe Pain Scale: 0-10 Numeric Is Patient Pain Free? Yes Yes Yes WC - Nurse 1 - General Ulcer Measurement Start: 09/03/21 14:25 Freq: Status: Active Protocol: Activity Type Activity Date Activity User E-sign Co-sign Detail Recorded Client Recorded Date Recorded By Document 09/03/21 14:25 RB [id number] 09/03/21 14:28 RB Document 09/10/21 14:05 DL [id number] 09/10/21 14:19 DL Document 09/17/21 14:10 RB [id number] 09/17/21 14:28 RB 09/03/21 09/10/21 09/17/21 14:25 14:05 14:10 Wound Center Nurse 1 #4- L MED ANKLE -Combined with other wound No -Current Size (cm) - Length 0.5 0.2 -Current Size (cm) - Width 0.5 0.2 -Current Size (cm) - Depth 0.1 0.1 -Total Square Cm 0.25 0.04 -Photo Taken No -Tunneling No -Undermining/Tunneling No -Circular Undermining No -Exudate Amt Medium Small -Exudate Type Serosanguineous Serosanguineous -Wound Margin Distinct, Indistinct, Non Outline -Visible Attached -Granulation Amt Medium (34-66%) Small (1-33%) -Granulation Quality [place]ow [place]ow -Slough/Fibrin Yes -Necrosis Amt Medium (34-66%) None Present (0 %) -Necrotic Tissue Type Adherent Slough -Structure Exposed N/A N/A -Texture (Sis-wound Skin Appearance) Assessed, Excoriation Scarring -Moisture (Sis-wound Skin Appearance) Assessed Weeping -Color (Iss-wound Skin Appearance) Assessed Hemosiderin Staining -Temperature (Sis-wound Skin No Abnormality No Abnormality Appearance) (Pt Warm) (Pt Warm) -Tenderness on Palpation (Sis-wound No No Skin Appearance) -Ulcer Cleansing Wound Cleanser Soap and Water -Foul Odor after Cleansing No No -Anesthetic Used 5% Lidocaine 4% Lidocaine Gel Solution #3- L CALF CLUSTER -Combined with other wound No No -Current Size (cm) - Length 11.5 3.2 10 -Current Size (cm) - Width 2.7 11.8 3 -Current Size (cm) - Depth 0.2 0.3 0.1 -Total Square Cm 31.05 37.76 30 -Photo Taken No Yes -Epithelialization Small 1-33% -Tunneling No No -Undermining/Tunneling No No -Circular Undermining No -Classification - Thickness Partial Thickness -Exudate Amt Large Medium Large -Exudate Type Serosanguineous Serosanguineous Serosanguineous -Wound Margin Distinct, Distinct, Distinct, Outline Outline Outline Attached Attached Attached -Granulation Amt Medium (34-66%) Small (1-33%) Medium (34-66%) -Granulation Quality [place]ow [place]ow -Slough/Fibrin Yes Yes -Necrosis Amt Medium (34-66%) Large (67-100%) Large (67-100%) -Necrotic Tissue Type Adherent Slough Adherent Slough Adherent Slough -Structure Exposed N/A N/A N/A -Texture (Ssi-wound Skin Appearance) Scarring Excoriation, Assessed Scarring -Moisture (Sis-wound Skin Appearance) Assessed Weeping Assessed, Weeping,Dry/ Scaly -Color (Sis-wound Skin Appearance) Assessed Hemosiderin Assessed Staining -Temperature (Sis-wound Skin No Abnormality No Abnormality No Abnormality Appearance) (Pt Warm) (Pt Warm) (Pt Warm) -Tenderness on Palpation (Sis-wound No No No Skin Appearance) -Ulcer Cleansing Wound Cleanser Soap and Water Wound Cleanser -Foul Odor after Cleansing No No -Anesthetic Used 5% Lidocaine 4% Lidocaine 5% Lidocaine Gel Solution Gel #2- L LAT ANKLE -Combined with other wound No No -Current Size (cm) - Length 1.5 2 0.7 -Current Size (cm) - Width 2.2 3.2 1.7 -Current Size (cm) - Depth 0.1 0.1 0.1 -Total Square Cm 3.30 6.4 1.19 -Photo Taken No Yes -Tunneling No No -Undermining/Tunneling No No -Circular Undermining No No -Exudate Amt Medium Medium Large -Exudate Type Serosanguineous Serosanguineous Serosanguineous -Wound Margin Distinct, Distinct, Distinct, Outline Outline Outline Attached Attached Attached -Granulation Amt Medium (34-66%) Medium (34-66%) Medium (34-66%) -Granulation Quality [place]ow [place]ow [place]ow -Slough/Fibrin Yes Yes -Necrosis Amt Medium (34-66%) Medium (34-66%) Medium (34-66%) -Necrotic Tissue Type Adherent Slough Adherent Slough Adherent Slough -Structure Exposed N/A N/A N/A -Texture (Sis-wound Skin Appearance) Scarring Excoriation, Assessed Scarring -Moisture (Sis-wound Skin Appearance) Assessed No Abnormality Weeping,Dry/ Scaly -Color (Sis-wound Skin Appearance) Assessed Hemosiderin Assessed Staining -Temperature (Sis-wound Skin No Abnormality No Abnormality No Abnormality Appearance) (Pt Warm) (Pt Warm) (Pt Warm) -Tenderness on Palpation (Sis-wound No No No Skin Appearance) -Ulcer Cleansing Wound Cleanser Soap and Water Wound Cleanser -Foul Odor after Cleansing No No No -Anesthetic Used 5% Lidocaine 4% Lidocaine 5% Lidocaine Gel Solution Gel #1- L DAVALOS -Combined with other wound No No -Current Size (cm) - Length 2.7 3.2 3 -Current Size (cm) - Width 3.5 3.7 4.5 -Current Size (cm) - Depth 0.2 0.2 0.1 -Total Square Cm 9.45 11.84 13.5 -Photo Taken No Yes -Tunneling No No -Undermining/Tunneling No No -Circular Undermining No No -Exudate Amt Large Medium Large -Exudate Type Serosanguineous Serosanguineous Serosanguineous -Wound Margin Distinct, Distinct, Distinct, Outline Outline Outline Attached Attached Attached -Granulation Amt Medium (34-66%) Small (1-33%) Medium (34-66%) -Granulation Quality [place] Red Golden [place]ow -Slough/Fibrin Yes Yes -Necrosis Amt Medium (34-66%) Large (67-100%) Medium (34-66%) -Necrotic Tissue Type Adherent Slough Adherent Slough Adherent Slough -Structure Exposed N/A N/A N/A -Texture (Sis-wound Skin Appearance) Assessed, Excoriation, Assessed Scarring Scarring -Moisture (Sis-wound Skin Appearance) Assessed Dry/Scaly Assessed, Weeping,Dry/ Scaly -Color (Sis-wound Skin Appearance) Assessed Hemosiderin Assessed Staining -Temperature (Sis-wound Skin No Abnormality No Abnormality Appearance) (Pt Warm) (Pt Warm) -Tenderness on Palpation (Sis-wound No No Skin Appearance) -Ulcer Cleansing Wound Cleanser Soap and Water Wound Cleanser -Foul Odor after Cleansing No No No -Anesthetic Used 5% Lidocaine 4% Lidocaine 5% Lidocaine Gel Solution Gel Lower Limb Edema Present Yes Left Calf (cm) 34.5 35 35 Left Ankle (cm) 24.5 24.2 23.5 WC - Nurse 2 - General Ulcer CM Notes Start: 09/03/21 14:25 Freq: Status: Active Protocol: Activity Type Activity Date Activity User E-sign Co-sign Detail Recorded Client Recorded Date Recorded By Document 09/03/21 15:43 PL [id number] 09/03/21 15:49 PL Document 09/10/21 15:07 [id number] 09/10/21 15:14 Document 09/17/21 16:10 PL [id number] 09/17/21 16:14 PL 09/03/21 09/10/21 09/17/21 15:43 15:07 16:10 Wound Center Nurse 2 #4- L MED ANKLE -Time 14:40 -Correct Patient Yes No -Correct Side, Site, Position Yes No -Correct Procedure Yes No -Procedure Performed Yes No -Type of Procedure Debridement -Clinical Debridement Subcutaneous -Tissue Removed Subcutaneous -Post Debridement (cm) - Length 0.5 0 -Post Debridement (cm) - Width 0.5 0 -Post Debridement (cm) - Depth 0.1 0 -Total Square (Post) (cm) 0.25 0 -Area of Debridement (cm) - Length 0.5 0 -Area of Debridement (cm) - Width 0.5 0 -Total Square (Area) (cm) 0.25 0 -Tunneling No -Undermining/Tunneling No -Circular Undermining No -Wound/Ulcer Outcome Not Healed Healed- Epithelialized -Ulcer Cleansing Rinsed/ Irrigated with Saline -Foul Odor after Cleansing No -Bioengineered Tissue No -Bleeding Controlled with Pressure -Treatment Response Procedure Tolerated Well -Debridement - Subq, 1st 20sq cm No #3- L CALF CLUSTER -Time 14:40 15:09 14:37 -Correct Patient Yes Yes Yes -Correct Side, Site, Position Yes Yes Yes -Correct Procedure Yes Yes Yes -Procedure Performed Yes Yes Yes -Type of Procedure Debridement Debridement Debridement -Clinical Debridement Subcutaneous Subcutaneous Subcutaneous -Tissue Removed Subcutaneous Subcutaneous Subcutaneous -Post Debridement (cm) - Length 11.5 3.2 10 -Post Debridement (cm) - Width 2.7 9 3 -Post Debridement (cm) - Depth 0.2 0.1 0.1 -Total Square (Post) (cm) 31.05 28.8 30 -Area of Debridement (cm) - Length 11.5 3.2 10 -Area of Debridement (cm) - Width 2.7 9.0 3 -Total Square (Area) (cm) 31.05 28.80 30 -Tunneling No No No -Undermining/Tunneling No No No -Circular Undermining No No No -Wound/Ulcer Outcome Not Healed Not Healed Not Healed -Ulcer Cleansing Rinsed/ Rinsed/ Rinsed/ Irrigated with Irrigated with Irrigated with Saline Saline Saline -Foul Odor after Cleansing No No No -Bioengineered Tissue Yes Yes Yes -Type of Bioengineered Tissue Theraskin Theraskin Theraskin -Expiration Date 12/03/25 07/23/24 12/26/25 -Product Lot Number [id number] -Percent Used 100 100 100 -Lot number of Saline Used [id number] -Bleeding Controlled with Pressure Pressure Pressure -Treatment Response Procedure Procedure Procedure Tolerated Well Tolerated Well Tolerated Well -Offloading No -Debridement - Subq, 1st 20sq cm No No No -Apply Skin Sub - 1st 25 sq cm - Legs 1 1 1 -Apply Skin Sub - each addt'l 25 sq cm 1 1 1 - Legs -Theraskin (per sq cm) 39 26 39 #2- L LAT ANKLE -Time 14:40 15:11 14:37 -Correct Patient Yes Yes Yes -Correct Side, Site, Position Yes Yes Yes -Correct Procedure Yes Yes Yes -Procedure Performed Yes Yes Yes -Type of Procedure Debridement Debridement Debridement -Clinical Debridement Subcutaneous Subcutaneous Subcutaneous -Tissue Removed Subcutaneous Subcutaneous Subcutaneous -Post Debridement (cm) - Length 1.5 2.1 0.7 -Post Debridement (cm) - Width 2.2 3.2 1.7 -Post Debridement (cm) - Depth 0.1 0.1 0.1 -Total Square (Post) (cm) 3.30 6.72 1.19 -Area of Debridement (cm) - Length 1.5 2.1 0.7 -Area of Debridement (cm) - Width 2.2 3.2 1.7 -Total Square (Area) (cm) 3.30 6.72 1.19 -Tunneling No No No -Undermining/Tunneling No No No -Circular Undermining No No No -Wound/Ulcer Outcome Not Healed Not Healed Not Healed -Ulcer Cleansing Rinsed/ Rinsed/ Rinsed/ Irrigated with Irrigated with Irrigated with Saline Saline Saline -Foul Odor after Cleansing No No No -Bioengineered Tissue No No No -Bleeding Controlled with Pressure Pressure Pressure -Treatment Response Procedure Procedure Procedure Tolerated Well Tolerated Well Tolerated Well -Offloading No -Debridement - Subq, 1st 20sq cm No Yes No #1- L DAVALOS -Time 14:40 15:11 14:37 -Correct Patient Yes Yes Yes -Correct Side, Site, Position Yes Yes Yes -Correct Procedure Yes Yes Yes -Procedure Performed Yes Yes Yes -Type of Procedure Debridement Debridement Debridement -Clinical Debridement Subcutaneous Subcutaneous Subcutaneous -Tissue Removed Subcutaneous Subcutaneous Subcutaneous -Post Debridement (cm) - Length 2.7 3.2 3 -Post Debridement (cm) - Width 3.5 3.8 4.5 -Post Debridement (cm) - Depth 0.2 0.2 0.1 -Total Square (Post) (cm) 9.45 12.16 13.5 -Area of Debridement (cm) - Length 2.7 3.2 3 -Area of Debridement (cm) - Width 3.5 3.8 4.5 -Total Square (Area) (cm) 9.45 12.16 13.5 -Tunneling No No No -Undermining/Tunneling No No No -Circular Undermining No No No -Wound/Ulcer Outcome Not Healed Not Healed Not Healed -Ulcer Cleansing Rinsed/ Rinsed/ Rinsed/ Irrigated with Irrigated with Irrigated with Saline Saline Saline -Foul Odor after Cleansing No No No -Bioengineered Tissue No No No -Bleeding Controlled with Pressure Pressure Pressure -Treatment Response Procedure Procedure Procedure Tolerated Well Tolerated Well Tolerated Well -Offloading No -Debridement - Subq, 1st 20sq cm No No No Pain Scale: 0-10 Numeric Is Patient Pain Free? Yes Yes Yes WC - Nurse 3 - General Ulcer D/C NN Start: 09/03/21 14:25 Freq: Status: Active Protocol: Activity Type Activity Date Activity User E-sign Co-sign Detail Recorded Client Recorded Date Recorded By Document 09/03/21 15:09 RB [id number] 09/03/21 15:10 RB Document 09/10/21 15:27 BM [id number] 09/10/21 15:28 BMF Document 09/17/21 15:06 DL [id number] 09/17/21 15:08 DL 09/03/21 09/10/21 09/17/21 15:09 15:27 15:06 Wound Care Nurse 3 #4- L MED ANKLE -Other Dressing hydrogel -Primary Dressing Covered/Secured with Dry Gauze,Dry Gauze & Roll Gauze,Secured with Tape #3- L CALF CLUSTER -Foul Odor after Cleansing No -Other Dressing abd pad theraskin Theraskin -Primary Dressing Covered/Secured with Dry Gauze,Dry Dry Gauze & Dry Gauze & Gauze & Roll Roll Gauze, Roll Gauze, Gauze,Secured Secured with Secured with with Tape Tape Tape -Other Covering abd #2- L LAT ANKLE -Ulcer Cleansing Rinsed/ Rinsed/ Irrigated with Irrigated with Saline Saline -Foul Odor after Cleansing No No -Primary Dressing Applied Aquacel AG 4x4 Aquacel AG 4x4 -Primary Dressing Covered/Secured with Dry Gauze,Dry Dry Gauze & Dry Gauze & Gauze & Roll Roll Gauze, Roll Gauze, Gauze,Secured Secured with Secured with with Tape Tape Tape -Other Covering abd -Aquacel AG 4x4 1 1 #1- L DAVALOS -Ulcer Cleansing Wound Cleanser Rinsed/ Irrigated with Saline -Foul Odor after Cleansing No No -Primary Dressing Applied Aquacel AG 4x4 -Other Dressing hydrogel Theraskin -Primary Dressing Covered/Secured with Dry Gauze & Dry Gauze & Roll Gauze, Roll Gauze, Secured with Secured with Tape Tape -Other Covering abd -Aquacel AG 4x4 1 Right -Tubular Bandage Single Layer -Size of Tubigrip Used Size E -Size E ($) 1 Left -Tubular Bandage Single Layer Double Layer Single Layer -Size of Tubigrip Used Size E Size E Size D -Size D ($) 1 -Size E ($) 1 2 -Other sent extra; pt refused left tubi Treatment Response Procedure Procedure Procedure Tolerated Well Tolerated Well Tolerated Well Pain Scale: 0-10 Numeric Is Patient Pain Free? Yes Yes Yes WC - Visit Discharge Discharge Condition Stable Stable Stable Ambulatory Status Ambulatory,Cane Ambulatory Ambulatory Transportation Private Auto Private Auto Private Auto Accompanied by girlfriend Medication Reconcilliation completed & No provided to patient/care provider Clinical Summary of Care Provided Yes Facility Type Home Health Orders Sent Yes Assessment/Plan Assessment/Plan (1) Other specified peripheral vascular diseases: CODE(S): I73.89 - Other specified peripheral vascular diseases (2) Non-pressure chronic ulcer of unspecified part of left lower leg with fat layer exposed: CODE(S): L97.922 - Non-pressure chronic ulcer of unspecified part of left lower leg with fat layer exposed (3) Localized edema: CODE(S): R60.0 - Localized edema (4) Venous ulcer of left leg: CODE(S): I83.029 - Varicose veins of left lower extremity with ulcer of unspecified site; L97.929 - Non-pressure chronic ulcer of unspecified part of left lower leg with unspecified severity PLAN: Plan Re-evaluation performed. Reviewed diagnostic data. Patient is clinically stable and local signs of infection have resolved. Left foot/ankle and leg noted to be improved today. There is resolved cellulitis and all ulcer beds are now granular. The left leg was washed with soap and water. CARLOS applied. I recommend application of advanced wound healing product including cadaver donated TheraSkin. The indications, benefits, anticipated application management were reviewed. Verbal consent was obtained and this was applied cr anks standard protocol. This was secured with Dermabond, wound veil and Steri- Strips. He tolerated this well and a secondary dressing of gauze present further applied. Keep clean, dry, and intact until follow-up next week. Hydrogel and Adaptic was applied to the other ulcer sites. Offloading: To avoid laying directly on the ulcers. To help reduce pressure on the ulcers by better controlling the edema with a forementioned compression Tubigrip and Carlos wrap. I recommend Lac-Hydrin application to bilateral lower extremities to address his xerosis and maintain better skin integrity to avoid additional wounds and infections. refill sent to [facility]. He recently completed a cellulitis treatment course and has been discharged from the hospital. To complete course of cefdinir per infectious disease recommendations. No local signs infection noted today. Due to chronicity of these ulcers I also recommend noninvasive vascular studies (arterial). This was ordered and it appear he has triphasic waveforms to ankle bilateral, pvr are diminished digital to the right but ok to other bilateral levels, JUSTUS normal bilateral, digital brachial index mildly diminished bilateral. This is consistent with mild arterial occlusive disease. If lack of healing is noted, referral will be considered. I also recommend venous doppler with reflux evaluation to work up for venous insufficiency. Venous insufficiency was not identified and these results were reviewed with him previously. To continue nutrition supplementation to optimize healing. To moisturize peripheral skin with Lac-Hydrin daily to obtain good skin integrity. To avoid laying directly on ulcer for pressure reduction. Pain controlled with topical lidocaine. He defers prescription medication or injection of local anesthetic for further pain control. To follow up next week at wound center. Note: [facility] speech recognition petroleum laboratory technician software was used to create portions of this document. Sound-alike and misspelled words, as well as other petroleum laboratory technician errors may be contained in the documentation.
[2021-09-24 14:15] VITALS: BP 169/85; PULSE 87; RESP 18; TEMP 36.6; BMI 24.9
--- NOTE | 2021-09-24 15:53 | PCM.WC.PN ---
History of Present Illness Date of Service: 09/24/21 Chief Complaint: left leg ulcers History of Wound: He is following up today at the wound healing center for left leg chronic ulcers. The onset is intermittently for a couple of years. he has pain with direct touch. After these were cleaned up in the hospital and he had antibiotics, there is no longer odor or redness. He denies calf pain. He is amendable to have another debridement performed today. He denies fever, chills, nausea, vomiting or calf pain. He is ready for an updated TheraSkin application today. Progress of Wound: improving Objective Data Objective Data Vital Signs: Vital Signs Temp Pulse Resp BP 97.8 F 87 18 169/85 H 09/24/21 14:15 09/24/21 14:15 09/24/21 14:15 09/24/21 14:15 Weight: 65.771 kg Body Mass Index (BMI) 24.9 Physical Exam Const alert, oriented x3 and no apparent distress Skin Skin Narrative: Left foot/ankle leg with resolved cellulitis, there are wounds also noted to the medial and lateral ankle as well as the posterior leg with fibrotic tissue but there is increased granular tissue noted today. there is no longer maloder and edema has decreased. there is mild serosanguineous drainage (no purulence), no visible abscess, no fluctuance, no crepitus noted. There is diffuse xerosis bilateral lower extremity; reduced peeling noted. He notes pain to the ulcer sites left lower extremity otherwise no other pain noted. Sensation intact to light touch bilateral foot. Decreased edema. no odor. Debridement Note Debridement Note Wound debrided: lateral malleolus, posterior cluster, anterior davalos Wound Grade/Stage: Type of Debridement: Excisional debridement Anesthesia Used: 4% Lidocaine Solution Depth: in the subcutaneous layer Percentage of wound debrided: 100 Instrument Used: #15 blade and - (misonix ultrasound debrider) Tissue Removed: fibrous, devitalized subcutaneous, biofilm, slough Severity: Fat Layer Exposed Amount of bleeding with debridement: Mild Bleeding Controlled with: Pressure Patient tolerated procedure: Patient tolerated procedure well Post-Debridement Measurements and Additional Note: Post-Debridement Measurements/Treatment DEVON - Nurse 1 - General Ulcer Assessment Start: 09/03/21 14:25 Freq: Status: Active Protocol: BRANDT Activity Type Activity Date Activity User E-sign Co-sign Detail Recorded Client Recorded Date Recorded By Document 09/03/21 14:25 RB [id number] 09/03/21 14:28 RB Document 09/10/21 14:05 DL [id number] 09/10/21 14:19 DL Edit Result 09/10/21 14:05 DL (1) [id number] 09/10/21 14:35 DL Document 09/17/21 14:10 RB [id number] 09/17/21 14:28 RB Document 09/24/21 14:15 RB [id number] 09/24/21 14:42 RB (1) Comment => BP elevated today, => pt stated, I => stopped taking my => BP meds. 09/03/21 09/10/21 09/17/21 14:25 14:05 14:10 WC - Today's Visit Information Type of service Follow-up Visit Follow-up Visit Follow-up Visit (Physician/DATA SYSTEMS MANAGER (Physician/DATA SYSTEMS MANAGER (Physician/DATA SYSTEMS MANAGER ) ) ) Arrival Mode Ambulatory Ambulatory Ambulatory,Cane Transfer Assistance None None None Patient Identification Verified (Name & Yes Yes Yes ) Patient Requires Transmission-Based No No Precautions Height and Weight Body Mass Index (BMI) 24.9 24.9 24.9 BMI Classification Normal Normal Normal Vital Signs Temperature (97.8 F-99.1 F) 97 F L 99 F 98.3 F Temperature Source Temporal Temporal Temporal Pulse Rate (60-100) 75 83 86 Pulse Location Monitor Monitor Monitor Respiratory Rate (12-18) 18 20 H 18 Respiratory rate source Observation Observation Observation Blood Pressure (90/60-120/80) 168/92 H 191/101 H 162/87 H Blood Pressure Mean (mm Hg) 117 131 112 Source Monitor Monitor Position Semi-Fowlers Semi-Fowlers Blood Pressure Location Left Arm Left Arm Comment BP elevated today, pt stated, I stopped taking my BP meds. History Since Last Visit- (Skip if this is Patient's initial visit) Have you changed medications since your No No No last visit? Any new allergies or adverse reactions No No No Had a fall/change in ADL's that may No No No increase risk of falls Signs or symptoms of abuse and/or No No No neglect since last visit Have you been in the hospital since your No No No last visit? Has dressing in place as prescribed Yes Yes Yes Has compression in place as prescribed Yes No No Has offloadiing in place as prescribed No N/A Yes Experienced any changes in pain level or No No No management Left Footwear Regular Shoe Right Footwear Regular Shoe Pain Scale: 0-10 Numeric Is Patient Pain Free? Yes Yes Yes 09/24/21 14:15 WC - Today's Visit Information Type of service Follow-up Visit (Physician/DATA SYSTEMS MANAGER ) Arrival Mode Ambulatory Transfer Assistance None Patient Identification Verified (Name & Yes ) Patient Requires Transmission-Based No Precautions Height and Weight Body Mass Index (BMI) 24.9 BMI Classification Normal Vital Signs Temperature (97.8 F-99.1 F) 97.8 F Temperature Source Temporal Pulse Rate (60-100) 87 Pulse Location Monitor Respiratory Rate (12-18) 18 Respiratory rate source Observation Blood Pressure (90/60-120/80) 169/85 H Blood Pressure Mean (mm Hg) 113 Source Monitor Position Sitting Blood Pressure Location Left Arm Comment History Since Last Visit- (Skip if this is Patient's initial visit) Have you changed medications since your No last visit? Any new allergies or adverse reactions No Had a fall/change in ADL's that may No increase risk of falls Signs or symptoms of abuse and/or No neglect since last visit Have you been in the hospital since your No last visit? Has dressing in place as prescribed Yes Has compression in place as prescribed Yes Has offloadiing in place as prescribed No Experienced any changes in pain level or No management Left Footwear Regular Shoe Right Footwear Regular Shoe Pain Scale: 0-10 Numeric Is Patient Pain Free? Yes - Nurse 1 - General Ulcer Measurement Start: 09/03/21 14:25 Freq: Status: Active Protocol: Activity Type Activity Date Activity User E-sign Co-sign Detail Recorded Client Recorded Date Recorded By Document 09/03/21 14:25 RB [id number] 09/03/21 14:28 RB Document 09/10/21 14:05 DL [id number] 09/10/21 14:19 DL Document 09/17/21 14:10 RB [id number] 09/17/21 14:28 RB Document 09/24/21 14:15 RB [id number] 09/24/21 14:42 RB 09/03/21 09/10/21 09/17/21 14:25 14:05 14:10 Wound Center Nurse 1 #4- L MED ANKLE -Combined with other wound No -Current Size (cm) - Length 0.5 0.2 -Current Size (cm) - Width 0.5 0.2 -Current Size (cm) - Depth 0.1 0.1 -Total Square Cm 0.25 0.04 -Photo Taken No -Tunneling No -Undermining/Tunneling No -Circular Undermining No -Exudate Amt Medium Small -Exudate Type Serosanguineous Serosanguineous -Wound Margin Distinct, Indistinct, Non Outline -Visible Attached -Granulation Amt Medium (34-66%) Small (1-33%) -Granulation Quality [place] Oak[place] -Slough/Fibrin Yes -Necrosis Amt Medium (34-66%) None Present (0 %) -Necrotic Tissue Type Adherent Slough -Structure Exposed N/A N/A -Texture (Sis-wound Skin Appearance) Assessed, Excoriation Scarring -Moisture (Sis-wound Skin Appearance) Assessed Weeping -Color (Sis-wound Skin Appearance) Assessed Hemosiderin Staining -Temperature (Sis-wound Skin No Abnormality No Abnormality Appearance) (Pt Warm) (Pt Warm) -Tenderness on Palpation (Sis-wound No No Skin Appearance) -Ulcer Cleansing Wound Cleanser Soap and Water -Foul Odor after Cleansing No No -Anesthetic Used 5% Lidocaine 4% Lidocaine Gel Solution #3- L CALF CLUSTER -Combined with other wound No No -Current Size (cm) - Length 11.5 3.2 10 -Current Size (cm) - Width 2.7 11.8 3 -Current Size (cm) - Depth 0.2 0.3 0.1 -Total Square Cm 31.05 37.76 30 -Photo Taken No Yes -Epithelialization Small 1-33% -Tunneling No No -Undermining/Tunneling No No -Circular Undermining No -Classification - Thickness Partial Thickness -Exudate Amt Large Medium Large -Exudate Type Serosanguineous Serosanguineous Serosanguineous -Wound Margin Distinct, Distinct, Distinct, Outline Outline Outline Attached Attached Attached -Granulation Amt Medium (34-66%) Small (1-33%) Medium (34-66%) -Granulation Quality [place] Oak[place] -Slough/Fibrin Yes Yes -Necrosis Amt Medium (34-66%) Large (67-100%) Large (67-100%) -Necrotic Tissue Type Adherent Slough Adherent Slough Adherent Slough -Structure Exposed N/A N/A N/A -Texture (Sis-wound Skin Appearance) Scarring Excoriation, Assessed Scarring -Moisture (Sis-wound Skin Appearance) Assessed Weeping Assessed, Weeping,Dry/ Scaly -Color (Sis-wound Skin Appearance) Assessed Hemosiderin Assessed Staining -Temperature (Sis-wound Skin No Abnormality No Abnormality No Abnormality Appearance) (Pt Warm) (Pt Warm) (Pt Warm) -Tenderness on Palpation (Sis-wound No No No Skin Appearance) -Ulcer Cleansing Wound Cleanser Soap and Water Wound Cleanser -Foul Odor after Cleansing No No -Anesthetic Used 5% Lidocaine 4% Lidocaine 5% Lidocaine Gel Solution Gel #2- L LAT ANKLE -Combined with other wound No No -Current Size (cm) - Length 1.5 2 0.7 -Current Size (cm) - Width 2.2 3.2 1.7 -Current Size (cm) - Depth 0.1 0.1 0.1 -Total Square Cm 3.30 6.4 1.19 -Photo Taken No Yes -Tunneling No No -Undermining/Tunneling No No -Circular Undermining No No -Exudate Amt Medium Medium Large -Exudate Type Serosanguineous Serosanguineous Serosanguineous -Wound Margin Distinct, Distinct, Distinct, Outline Outline Outline Attached Attached Attached -Granulation Amt Medium (34-66%) Medium (34-66%) Medium (34-66%) -Granulation Quality [place] Oakfield Oakfield -Slough/Fibrin Yes Yes -Necrosis Amt Medium (34-66%) Medium (34-66%) Medium (34-66%) -Necrotic Tissue Type Adherent Slough Adherent Slough Adherent Slough -Structure Exposed N/A N/A N/A -Texture (Sis-wound Skin Appearance) Scarring Excoriation, Assessed Scarring -Moisture (Sis-wound Skin Appearance) Assessed No Abnormality Weeping,Dry/ Scaly -Color (Sis-wound Skin Appearance) Assessed Hemosiderin Assessed Staining -Temperature (Sis-wound Skin No Abnormality No Abnormality No Abnormality Appearance) (Pt Warm) (Pt Warm) (Pt Warm) -Tenderness on Palpation (Sis-wound No No No Skin Appearance) -Ulcer Cleansing Wound Cleanser Soap and Water Wound Cleanser -Foul Odor after Cleansing No No No -Anesthetic Used 5% Lidocaine 4% Lidocaine 5% Lidocaine Gel Solution Gel #1- L DAVALOS -Combined with other wound No No -Current Size (cm) - Length 2.7 3.2 3 -Current Size (cm) - Width 3.5 3.7 4.5 -Current Size (cm) - Depth 0.2 0.2 0.1 -Total Square Cm 9.45 11.84 13.5 -Photo Taken No Yes -Tunneling No No -Undermining/Tunneling No No -Circular Undermining No No -Exudate Amt Large Medium Large -Exudate Type Serosanguineous Serosanguineous Serosanguineous -Wound Margin Distinct, Distinct, Distinct, Outline Outline Outline Attached Attached Attached -Granulation Amt Medium (34-66%) Small (1-33%) Medium (34-66%) -Granulation Quality [place] Red [place] -Slough/Fibrin Yes Yes -Necrosis Amt Medium (34-66%) Large (67-100%) Medium (34-66%) -Necrotic Tissue Type Adherent Slough Adherent Slough Adherent Slough -Structure Exposed N/A N/A N/A -Texture (Sis-wound Skin Appearance) Assessed, Excoriation, Assessed Scarring Scarring -Moisture (Sis-wound Skin Appearance) Assessed Dry/Scaly Assessed, Weeping,Dry/ Scaly -Color (Sis-wound Skin Appearance) Assessed Hemosiderin Assessed Staining -Temperature (Sis-wound Skin No Abnormality No Abnormality Appearance) (Pt Warm) (Pt Warm) -Tenderness on Palpation (Sis-wound No No Skin Appearance) -Ulcer Cleansing Wound Cleanser Soap and Water Wound Cleanser -Foul Odor after Cleansing No No No -Anesthetic Used 5% Lidocaine 4% Lidocaine 5% Lidocaine Gel Solution Gel Lower Limb Edema Present Yes Left Calf (cm) 34.5 35 35 Left Ankle (cm) 24.5 24.2 23.5 Left Foot (cm) 09/24/21 14:15 Wound Center Nurse 1 #4- L MED ANKLE -Combined with other wound -Current Size (cm) - Length -Current Size (cm) - Width -Current Size (cm) - Depth -Total Square Cm -Photo Taken -Tunneling -Undermining/Tunneling -Circular Undermining -Exudate Amt -Exudate Type -Wound Margin -Granulation Amt -Granulation Quality -Slough/Fibrin -Necrosis Amt -Necrotic Tissue Type -Structure Exposed -Texture (Sis-wound Skin Appearance) -Moisture (Sis-wound Skin Appearance) -Color (Sis-wound Skin Appearance) -Temperature (Sis-wound Skin Appearance) -Tenderness on Palpation (Sis-wound Skin Appearance) -Ulcer Cleansing -Foul Odor after Cleansing -Anesthetic Used #3- L CALF CLUSTER -Combined with other wound No -Current Size (cm) - Length 3 -Current Size (cm) - Width 10.5 -Current Size (cm) - Depth 0.1 -Total Square Cm 31.5 -Photo Taken Yes -Epithelialization -Tunneling No -Undermining/Tunneling No -Circular Undermining No -Classification - Thickness -Exudate Amt Large -Exudate Type Serosanguineous -Wound Margin Distinct, Outline Attached -Granulation Amt Medium (34-66%) -Granulation Quality [place] -Slough/Fibrin Yes -Necrosis Amt Medium (34-66%) -Necrotic Tissue Type Adherent Slough -Structure Exposed N/A -Texture (Sis-wound Skin Appearance) Assessed -Moisture (Sis-wound Skin Appearance) Assessed,Dry/ Scaly -Color (Sis-wound Skin Appearance) Assessed -Temperature (Sis-wound Skin No Abnormality Appearance) (Pt Warm) -Tenderness on Palpation (Sis-wound No Skin Appearance) -Ulcer Cleansing Wound Cleanser -Foul Odor after Cleansing No -Anesthetic Used 4% Lidocaine Solution #2- L LAT ANKLE -Combined with other wound No -Current Size (cm) - Length 0.1 -Current Size (cm) - Width 0.1 -Current Size (cm) - Depth 0.1 -Total Square Cm 0.01 -Photo Taken Yes -Tunneling No -Undermining/Tunneling No -Circular Undermining No -Exudate Amt Small -Exudate Type Serosanguineous -Wound Margin Distinct, Outline Attached -Granulation Amt Medium (34-66%) -Granulation Quality [place] -Slough/Fibrin Yes -Necrosis Amt Medium (34-66%) -Necrotic Tissue Type Adherent Slough -Structure Exposed N/A -Texture (Sis-wound Skin Appearance) Assessed -Moisture (Sis-wound Skin Appearance) Assessed -Color (Sis-wound Skin Appearance) Assessed -Temperature (Sis-wound Skin No Abnormality Appearance) (Pt Warm) -Tenderness on Palpation (Sis-wound No Skin Appearance) -Ulcer Cleansing Wound Cleanser -Foul Odor after Cleansing No -Anesthetic Used 4% Lidocaine Solution #1- L DAVALOS -Combined with other wound No -Current Size (cm) - Length 2.5 -Current Size (cm) - Width 3.2 -Current Size (cm) - Depth 0.1 -Total Square Cm 8.00 -Photo Taken Yes -Tunneling No -Undermining/Tunneling No -Circular Undermining No -Exudate Amt Medium -Exudate Type Serosanguineous -Wound Margin Distinct, Outline Attached -Granulation Amt Medium (34-66%) -Granulation Quality [place] -Slough/Fibrin Yes -Necrosis Amt Medium (34-66%) -Necrotic Tissue Type Adherent Slough -Structure Exposed N/A -Texture (Sis-wound Skin Appearance) Assessed -Moisture (Sis-wound Skin Appearance) Assessed,Dry/ Scaly -Color (Sis-wound Skin Appearance) Assessed -Temperature (Sis-wound Skin No Abnormality Appearance) (Pt Warm) -Tenderness on Palpation (Sis-wound No Skin Appearance) -Ulcer Cleansing Wound Cleanser -Foul Odor after Cleansing No -Anesthetic Used 4% Lidocaine Solution Lower Limb Edema Present Left Calf (cm) Left Ankle (cm) 34 Left Foot (cm) 24 WC - Nurse 2 - General Ulcer CM Notes Start: 09/03/21 14:25 Freq: Status: Active Protocol: Activity Type Activity Date Activity User E-sign Co-sign Detail Recorded Client Recorded Date Recorded By Document 09/03/21 15:43 [id number] 09/03/21 15:49 Document 09/10/21 15:07 [id number] 09/10/21 15:14 Document 09/17/21 16:10 PL [id number] 09/17/21 16:14 PL Document 09/24/21 15:14 [id number] 09/24/21 15:27 09/03/21 09/10/21 09/17/21 15:43 15:07 16:10 Wound Center Nurse 2 #4- L MED ANKLE -Time 14:40 -Correct Patient Yes No -Correct Side, Site, Position Yes No -Correct Procedure Yes No -Procedure Performed Yes No -Type of Procedure Debridement -Clinical Debridement Subcutaneous -Tissue Removed Subcutaneous -Post Debridement (cm) - Length 0.5 0 -Post Debridement (cm) - Width 0.5 0 -Post Debridement (cm) - Depth 0.1 0 -Total Square (Post) (cm) 0.25 0 -Area of Debridement (cm) - Length 0.5 0 -Area of Debridement (cm) - Width 0.5 0 -Total Square (Area) (cm) 0.25 0 -Tunneling No -Undermining/Tunneling No -Circular Undermining No -Wound/Ulcer Outcome Not Healed Healed- Epithelialized -Ulcer Cleansing Rinsed/ Irrigated with Saline -Foul Odor after Cleansing No -Bioengineered Tissue No -Bleeding Controlled with Pressure -Treatment Response Procedure Tolerated Well -Debridement - Subq, 1st 20sq cm No #3- L CALF CLUSTER -Time 14:40 15:09 14:37 -Correct Patient Yes Yes Yes -Correct Side, Site, Position Yes Yes Yes -Correct Procedure Yes Yes Yes -Procedure Performed Yes Yes Yes -Type of Procedure Debridement Debridement Debridement -Clinical Debridement Subcutaneous Subcutaneous Subcutaneous -Tissue Removed Subcutaneous Subcutaneous Subcutaneous -Post Debridement (cm) - Length 11.5 3.2 10 -Post Debridement (cm) - Width 2.7 9 3 -Post Debridement (cm) - Depth 0.2 0.1 0.1 -Total Square (Post) (cm) 31.05 28.8 30 -Area of Debridement (cm) - Length 11.5 3.2 10 -Area of Debridement (cm) - Width 2.7 9.0 3 -Total Square (Area) (cm) 31.05 28.80 30 -Tunneling No No No -Undermining/Tunneling No No No -Circular Undermining No No No -Wound/Ulcer Outcome Not Healed Not Healed Not Healed -Ulcer Cleansing Rinsed/ Rinsed/ Rinsed/ Irrigated with Irrigated with Irrigated with Saline Saline Saline -Foul Odor after Cleansing No No No -Bioengineered Tissue Yes Yes Yes -Type of Bioengineered Tissue Theraskin Theraskin Theraskin -Expiration Date 12/03/25 07/23/24 12/26/25 -Product Lot Number [id number] -Percent Used 100 100 100 -Lot number of Saline Used [id number] -Bleeding Controlled with Pressure Pressure Pressure -Treatment Response Procedure Procedure Procedure Tolerated Well Tolerated Well Tolerated Well -Offloading No -Debridement - Subq, 1st 20sq cm No No No -Apply Skin Sub - 1st 25 sq cm - Legs 1 1 1 -Apply Skin Sub - each addt'l 25 sq cm 1 1 1 - Legs -Theraskin (per sq cm) 39 26 39 #2- L LAT ANKLE -Time 14: 15:11 14:37 -Correct Patient Yes Yes Yes -Correct Side, Site, Position Yes Yes Yes -Correct Procedure Yes Yes Yes -Procedure Performed Yes Yes Yes -Type of Procedure Debridement Debridement Debridement -Clinical Debridement Subcutaneous Subcutaneous Subcutaneous -Tissue Removed Subcutaneous Subcutaneous Subcutaneous -Post Debridement (cm) - Length 1.5 2.1 0.7 -Post Debridement (cm) - Width 2.2 3.2 1.7 -Post Debridement (cm) - Depth 0.1 0.1 0.1 -Total Square (Post) (cm) 3.30 6.72 1.19 -Area of Debridement (cm) - Length 1.5 2.1 0.7 -Area of Debridement (cm) - Width 2.2 3.2 1.7 -Total Square (Area) (cm) 3.30 6.72 1.19 -Tunneling No No No -Undermining/Tunneling No No No -Circular Undermining No No No -Wound/Ulcer Outcome Not Healed Not Healed Not Healed -Ulcer Cleansing Rinsed/ Rinsed/ Rinsed/ Irrigated with Irrigated with Irrigated with Saline Saline Saline -Foul Odor after Cleansing No No No -Bioengineered Tissue No No No -Bleeding Controlled with Pressure Pressure Pressure -Treatment Response Procedure Procedure Procedure Tolerated Well Tolerated Well Tolerated Well -Offloading No -Debridement - Subq, 1st 20sq cm No Yes No #1- L DAVALOS -Time 14: 15:11 14:37 -Correct Patient Yes Yes Yes -Correct Side, Site, Position Yes Yes Yes -Correct Procedure Yes Yes Yes -Procedure Performed Yes Yes Yes -Type of Procedure Debridement Debridement Debridement -Clinical Debridement Subcutaneous Subcutaneous Subcutaneous -Tissue Removed Subcutaneous Subcutaneous Subcutaneous -Post Debridement (cm) - Length 2.7 3.2 3 -Post Debridement (cm) - Width 3.5 3.8 4.5 -Post Debridement (cm) - Depth 0.2 0.2 0.1 -Total Square (Post) (cm) 9.45 12.16 13.5 -Area of Debridement (cm) - Length 2.7 3.2 3 -Area of Debridement (cm) - Width 3.5 3.8 4.5 -Total Square (Area) (cm) 9.45 12.16 13.5 -Tunneling No No No -Undermining/Tunneling No No No -Circular Undermining No No No -Wound/Ulcer Outcome Not Healed Not Healed Not Healed -Ulcer Cleansing Rinsed/ Rinsed/ Rinsed/ Irrigated with Irrigated with Irrigated with Saline Saline Saline -Foul Odor after Cleansing No No No -Bioengineered Tissue No No No -Bleeding Controlled with Pressure Pressure Pressure -Treatment Response Procedure Procedure Procedure Tolerated Well Tolerated Well Tolerated Well -Offloading No -Debridement - Subq, 20sq cm No No No Pain Scale: 0-10 Numeric Is Patient Pain Free? Yes Yes Yes 09/24/21 15:14 Wound Center Nurse 2 #4- L MED ANKLE -Time -Correct Patient -Correct Side, Site, Position -Correct Procedure -Procedure Performed -Type of Procedure -Clinical Debridement -Tissue Removed -Post Debridement (cm) - Length -Post Debridement (cm) - Width -Post Debridement (cm) - Depth -Total Square (Post) (cm) -Area of Debridement (cm) - Length -Area of Debridement (cm) - Width -Total Square (Area) (cm) -Tunneling -Undermining/Tunneling -Circular Undermining -Wound/Ulcer Outcome -Ulcer Cleansing -Foul Odor after Cleansing -Bioengineered Tissue -Bleeding Controlled with -Treatment Response -Debridement - Subq, 20sq cm #3- L CALF CLUSTER -Time 15:14 -Correct Patient Yes -Correct Side, Site, Position Yes -Correct Procedure Yes -Procedure Performed Yes -Type of Procedure Debridement -Clinical Debridement Subcutaneous -Tissue Removed Subcutaneous -Post Debridement (cm) - Length 3.0 -Post Debridement (cm) - Width 10.5 -Post Debridement (cm) - Depth 0.1 -Total Square (Post) (cm) 31.50 -Area of Debridement (cm) - Length 3.0 -Area of Debridement (cm) - Width 10.5 -Total Square (Area) (cm) 31.50 -Tunneling No -Undermining/Tunneling No -Circular Undermining No -Wound/Ulcer Outcome Not Healed -Ulcer Cleansing Rinsed/ Irrigated with Saline -Foul Odor after Cleansing No -Bioengineered Tissue Yes -Type of Bioengineered Tissue Theraskin -Expiration Date 12/26/25 -Product Lot Number [id number] -Percent Used 100 -Lot number of Saline Used [id number] -Bleeding Controlled with Pressure -Treatment Response Procedure Tolerated Well -Offloading No -Debridement - Subq, 1st 20sq cm No -Apply Skin Sub - 1st 25 sq cm - Legs 1 -Apply Skin Sub - each addt'l 25 sq cm 1 - Legs -Theraskin (per sq cm) 39 #2- L LAT ANKLE -Time 15:25 -Correct Patient Yes -Correct Side, Site, Position Yes -Correct Procedure Yes -Procedure Performed Yes -Type of Procedure Debridement -Clinical Debridement Subcutaneous -Tissue Removed Subcutaneous -Post Debridement (cm) - Length 0.2 -Post Debridement (cm) - Width 0.2 -Post Debridement (cm) - Depth 0.1 -Total Square (Post) (cm) 0.04 -Area of Debridement (cm) - Length 0.2 -Area of Debridement (cm) - Width 0.2 -Total Square (Area) (cm) 0.04 -Tunneling No -Undermining/Tunneling No -Circular Undermining No -Wound/Ulcer Outcome Not Healed -Ulcer Cleansing Rinsed/ Irrigated with Saline -Foul Odor after Cleansing No -Bioengineered Tissue No -Bleeding Controlled with Pressure -Treatment Response Procedure Tolerated Well -Offloading No -Debridement - Subq, 1st 20sq cm Yes #1- L DAVALOS -Time 15:26 -Correct Patient Yes -Correct Side, Site, Position Yes -Correct Procedure Yes -Procedure Performed Yes -Type of Procedure Debridement -Clinical Debridement Subcutaneous -Tissue Removed Subcutaneous -Post Debridement (cm) - Length 2.5 -Post Debridement (cm) - Width 3.3 -Post Debridement (cm) - Depth 0.1 -Total Square (Post) (cm) 8.25 -Area of Debridement (cm) - Length 2.5 -Area of Debridement (cm) - Width 3.3 -Total Square (Area) (cm) 8.25 -Tunneling No -Undermining/Tunneling No -Circular Undermining No -Wound/Ulcer Outcome Not Healed -Ulcer Cleansing Rinsed/ Irrigated with Saline -Foul Odor after Cleansing No -Bioengineered Tissue No -Bleeding Controlled with Pressure -Treatment Response Procedure Tolerated Well -Offloading No -Debridement - Subq, 1st 20sq cm No Pain Scale: 0-10 Numeric Is Patient Pain Free? Yes WC - Nurse 3 - General Ulcer D/C NN Start: 09/03/21 14:25 Freq: Status: Active Protocol: Activity Type Activity Date Activity User E-sign Co-sign Detail Recorded Client Recorded Date Recorded By Document 09/03/21 15:09 RB [id number] 09/03/21 15:10 RB Document 09/10/21 15:27 BM [id number] 09/10/21 15:28 BMF Document 09/17/21 15:06 DL [id number] 09/17/21 15:08 DL Document 09/24/21 15:48 RB [id number] 09/24/21 15:49 RB 09/03/21 09/10/21 09/17/21 15:09 15:27 15:06 Wound Care Nurse 3 #4- L MED ANKLE -Other Dressing hydrogel -Primary Dressing Covered/Secured with Dry Gauze,Dry Gauze & Roll Gauze,Secured with Tape #3- L CALF CLUSTER -Foul Odor after Cleansing No -Primary Dressing Applied -Other Dressing abd pad theraskin [place] -Primary Dressing Covered/Secured with Dry Gauze,Dry Dry Gauze & Dry Gauze & Gauze & Roll Roll Gauze, Roll Gauze, Gauze,Secured Secured with Secured with with Tape Tape Tape -Other Covering abd -Optilok 6.5x10 #2- L LAT ANKLE -Ulcer Cleansing Rinsed/ Rinsed/ Irrigated with Irrigated with Saline Saline -Foul Odor after Cleansing No No -Primary Dressing Applied Aquacel AG 4x4 Aquacel AG 4x4 -Primary Dressing Covered/Secured with Dry Gauze,Dry Dry Gauze & Dry Gauze & Gauze & Roll Roll Gauze, Roll Gauze, Gauze,Secured Secured with Secured with with Tape Tape Tape -Other Covering abd -Aquacel AG 4x4 1 1 #1- L DAVALOS -Ulcer Cleansing Wound Cleanser Rinsed/ Irrigated with Saline -Foul Odor after Cleansing No No -Primary Dressing Applied Aquacel AG 4x4 -Other Dressing hydrogel Theraskin -Primary Dressing Covered/Secured with Dry Gauze & Dry Gauze & Roll Gauze, Roll Gauze, Secured with Secured with Tape Tape -Other Covering abd -Aquacel AG 4x4 1 -Optilok 6.5x10 Right -Tubular Bandage Single Layer -Size of Tubigrip Used Size E -Size E ($) 1 Left -Multi-Layered Wrap Application -Tubular Bandage Single Layer Double Layer Single Layer -Size of Tubigrip Used Size E Size E Size D -Size D ($) 1 -Size E ($) 1 2 -Other sent extra; pt refused left tubi Treatment Response Procedure Procedure Procedure Tolerated Well Tolerated Well Tolerated Well Pain Scale: 0-10 Numeric Is Patient Pain Free? Yes Yes Yes - Visit Discharge Discharge Condition Stable Stable Stable Ambulatory Status Ambulatory,Cane Ambulatory Ambulatory Transportation Private Auto Private Auto Private Auto Accompanied by girlfriend Medication Reconcilliation completed & No provided to patient/care provider Clinical Summary of Care Provided Yes Facility Type Home Health Orders Sent Yes 09/24/21 15:48 Wound Care Nurse 3 #4- L MED ANKLE -Other Dressing -Primary Dressing Covered/Secured with #3- L CALF CLUSTER -Foul Odor after Cleansing -Primary Dressing Applied Optilok 6.5x10 -Other Dressing -Primary Dressing Covered/Secured with -Other Covering -Optilok 6.5x10 1 #2- L LAT ANKLE -Ulcer Cleansing -Foul Odor after Cleansing -Primary Dressing Applied -Primary Dressing Covered/Secured with Dry Gauze -Other Covering -Aquacel AG 4x4 #1- L DAVALOS -Ulcer Cleansing -Foul Odor after Cleansing -Primary Dressing Applied Optilok 6.5x10 -Other Dressing -Primary Dressing Covered/Secured with -Other Covering -Aquacel AG 4x4 -Optilok 6.5x10 1 Right -Tubular Bandage -Size of Tubigrip Used -Size E ($) Left -Multi-Layered Wrap Application Multi-Layer Comp - Left ($) -Tubular Bandage -Size of Tubigrip Used -Size D ($) -Size E ($) -Other Treatment Response Procedure Tolerated Well Pain Scale: 0-10 Numeric Is Patient Pain Free? 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 Reviewed diagnostic data. Patient is clinically stable and local signs of infection have resolved. Left foot/ankle and leg noted to be improved today. There is resolved cellulitis and all ulcer beds are now granular. The left leg was washed with soap and water. Compression was updated to 3M2L. He will follow-up on Wednesday for nurse dressing and compression change. I recommend application of advanced wound healing product including cadaver donated TheraSkin. The indications, benefits, anticipated application management were reviewed. Verbal consent was obtained and this was applied cranks standard protocol. This was secured with Dermabond, wound veil and Steri-Strips. He tolerated this well and a secondary dressing of gauze present further applied. Keep clean, dry, and intact until follow-up next week. Hydrogel and Adaptic was applied to the other ulcer sites. Offloading: To avoid laying directly on the ulcers. To help reduce pressure on the ulcers by better controlling the edema with a forementioned compression Tubigrip and Carlos wrap. I recommend Lac-Hydrin application to bilateral lower extremities to address his xerosis and maintain better skin integrity to avoid additional wounds and infections. refill sent to [facility]. He recently completed a cellulitis treatment course and has been discharged from the hospital. To complete course of cefdinir per infectious disease recommendations. No local signs infection noted today. Due to chronicity of these ulcers I also recommend noninvasive vascular studies (arterial). This was ordered and it appear he has triphasic waveforms to ankle bilateral, pvr are diminished digital to the right but ok to other bilateral levels, JUSTUS normal bilateral, digital brachial index mildly diminished bilateral. This is consistent with mild arterial occlusive disease. If lack of healing is noted, referral will be considered. I also recommend venous doppler with reflux evaluation to work up for venous insufficiency. Venous insufficiency was not identified and these results were reviewed with him previously. To continue nutrition supplementation to optimize healing. To moisturize peripheral skin with Lac-Hydrin daily to obtain good skin integrity. To avoid laying directly on ulcer for pressure reduction. Pain controlled with topical lidocaine. He defers prescription medication or injection of local anesthetic for further pain control. To follow up next week at wound center. Note: [employer] speech recognition electric motors salesperson software was used to create portions of this document. Sound-alike and misspelled words, as well as other electric motors salesperson errors may be contained in the documentation.
[2021-09-26 11:03] VITALS: BP 147/85; PULSE 98; TEMP 35.7; BMI 24.9
== END 2021-09-28 23:59 | disposition home or self-care (01) ==
LOC: WC 10:45
PROVIDERS: Referring Provider Podiatrist; Visit Provider Podiatrist
DX: L97.922 Non-pressure chronic ulcer of unspecified part of left lower leg with fat layer exposed (principal); I73.9 Peripheral vascular disease, unspecified; I83.92 Asymptomatic varicose veins of left lower extremity; I87.2 Venous insufficiency (chronic) (peripheral); R60.0 Localized edema
CPT/HCPCS: 11042; 15271; 15272; 29581; Q4121

== ENCOUNTER 2021-10-29 14:30 | Outpatient (RCR) | payer BC, SELFPAY ==
[2021-09-29 00:32] VITALS: BP 147/85; PULSE 98; RESP 18; TEMP 35.7; BMI 24.9
[2021-10-01 14:38] VITALS: BP 169/81; PULSE 91; RESP 18; TEMP 36.8; BMI 24.9
--- NOTE | 2021-10-01 15:39 | PCM.WC.PN ---
History of Present Illness Date of Service: 10/01/21 Chief Complaint: left leg ulcers History of Wound: He is following up today at the wound healing center for left leg chronic ulcers. The onset is intermittently for a couple of years. he has pain with direct touch. After these were cleaned up in the hospital and he had antibiotics, there is no longer odor or redness. He denies calf pain. He is amendable to have another debridement performed today. He denies fever, chills, nausea, vomiting or calf pain. his leg skin is peeling more today. Progress of Wound: improving Objective Data Objective Data Vital Signs: Vital Signs Temp Pulse Resp BP 98.3 F 91 18 169/81 H 10/01/21 14:38 10/01/21 14:38 10/01/21 14:38 10/01/21 14:38 Weight: 65.771 kg Body Mass Index (BMI) 24.9 Physical Exam Const alert, oriented x3 and no apparent distress Skin Skin Narrative: Left foot/ankle leg with resolved cellulitis, there are wounds also noted to the medial and lateral ankle that are healed with full epithelialization. There are still open ulcers to the posterior leg with fibrotic tissue but there is increased granular tissue noted today. there is no longer maloder and edema has decreased. there is mild serosanguineous drainage (no purulence), no visible abscess, no fluctuance, no crepitus noted. There is diffuse xerosis bilateral lower extremity; increased peeling noted. He notes pain to the ulcer sites left lower extremity otherwise no other pain noted. Sensation intact to light touch bilateral foot. Decreased edema. no odor. Debridement Note Debridement Note Wound debrided: posterior cluster, anterior davalos Wound Grade/Stage: Type of Debridement: Excisional debridement Anesthesia Used: 4% Lidocaine Solution Depth: in the subcutaneous layer Percentage of wound debrided: 100 Instrument Used: #15 blade and - ([employer] ultrasound debrider) Tissue Removed: fibrous, devitalized subcutaneous, biofilm, slough Severity: Fat Layer Exposed Amount of bleeding with debridement: Mild Bleeding Controlled with: Pressure Patient tolerated procedure: Patient tolerated procedure well Post-Debridement Measurements and Additional Note: Post-Debridement Measurements/Treatment DEVON - Nurse 1 - General Ulcer Assessment Start: 10/01/21 14:38 Freq: Status: Active Protocol: BRANDT Activity Type Activity Date Activity User E-sign Co-sign Detail Recorded Client Recorded Date Recorded By Document 10/01/21 14:38 [id number] 10/01/21 15:04 RB 10/01/21 14:38 WC - Today's Visit Information Type of service Follow-up 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 (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 ) Arrival Mode Ambulatory,Cane Transfer Assistance None Patient Identification Verified (Name & Yes ) Patient Requires Transmission-Based No Precautions Height and Weight Body Mass Index (BMI) 24.9 BMI Classification Normal Vital Signs Temperature (97.8 F-99.1 F) 98.3 F Temperature Source Temporal Pulse Rate (60-100) 91 Pulse Location Monitor Respiratory Rate (12-18) 18 Respiratory rate source Observation Blood Pressure (90/60-120/80) 169/81 H Blood Pressure Mean (mm Hg) 110 Source Monitor Position Semi-Fowlers Blood Pressure Location Left Arm History Since Last Visit- (Skip if this is Patient's initial visit) Have you changed medications since your No last visit? Any new allergies or adverse reactions No Had a fall/change in ADL's that may No increase risk of falls Signs or symptoms of abuse and/or No neglect since last visit Have you been in the hospital since your No last visit? Has dressing in place as prescribed Yes Has compression in place as prescribed Yes Has offloadiing in place as prescribed No Experienced any changes in pain level or No management Pain Scale: 0-10 Numeric Is Patient Pain Free? Yes - Nurse 1 - General Ulcer Measurement Start: 10/01/21 14:38 Freq: Status: Active Protocol: Activity Type Activity Date Activity User E-sign Co-sign Detail Recorded Client Recorded Date Recorded By Document 10/01/21 14:38 [id number] 10/01/21 15:04 RB 10/01/21 14:38 Wound Center Nurse 1 #2- L LAT ANKLE -Combined with other wound No -Current Size (cm) - Length 1 -Current Size (cm) - Width 1.1 -Current Size (cm) - Depth 0.1 -Total Square Cm 1.1 -Photo Taken Yes -Tunneling No -Undermining/Tunneling No -Circular Undermining No -Exudate Amt Medium -Exudate Type Serosanguineous -Wound Margin Distinct, Outline Attached -Granulation Amt Small (1-33%) -Granulation Quality [place] -Slough/Fibrin Yes -Necrosis Amt Large (67-100%) -Necrotic Tissue Type Adherent Slough -Structure Exposed N/A -Texture (Sis-wound Skin Appearance) Assessed -Moisture (Sis-wound Skin Appearance) Dry/Scaly -Color (Sis-wound Skin Appearance) Assessed -Temperature (Sis-wound Skin No Abnormality Appearance) (Pt Warm) -Tenderness on Palpation (Sis-wound No Skin Appearance) -Ulcer Cleansing Wound Cleanser -Foul Odor after Cleansing Yes -Anesthetic Used 5% Lidocaine Gel #3- L CALF CLUSTER -Combined with other wound No -Current Size (cm) - Length 8 -Current Size (cm) - Width 2.1 -Current Size (cm) - Depth 0.1 -Total Square Cm 16.8 -Photo Taken Yes -Tunneling No -Undermining/Tunneling No -Circular Undermining No -Exudate Amt Large -Exudate Type Serosanguineous -Wound Margin Distinct, Outline Attached -Granulation Amt Small (1-33%) -Granulation Quality [place] -Slough/Fibrin Yes -Necrosis Amt Large (67-100%) -Necrotic Tissue Type Adherent Slough -Structure Exposed N/A -Texture (Sis-wound Skin Appearance) Assessed -Moisture (Sis-wound Skin Appearance) Dry/Scaly -Color (Sis-wound Skin Appearance) Assessed -Temperature (Sis-wound Skin No Abnormality Appearance) (Pt Warm) -Tenderness on Palpation (Sis-wound No Skin Appearance) -Ulcer Cleansing Wound Cleanser -Foul Odor after Cleansing Yes -Anesthetic Used 5% Lidocaine Gel #1- L DAVALOS -Combined with other wound No -Current Size (cm) - Length 2 -Current Size (cm) - Width 3.3 -Current Size (cm) - Depth 0.1 -Total Square Cm 6.6 -Photo Taken Yes -Tunneling No -Undermining/Tunneling No -Circular Undermining No -Exudate Amt Large -Exudate Type Serosanguineous -Wound Margin Distinct, Outline Attached -Granulation Amt Small (1-33%) -Granulation Quality [place] -Slough/Fibrin Yes -Necrosis Amt Large (67-100%) -Necrotic Tissue Type Adherent Slough -Structure Exposed N/A -Texture (Sis-wound Skin Appearance) Assessed -Moisture (Sis-wound Skin Appearance) Dry/Scaly -Color (Sis-wound Skin Appearance) Assessed -Temperature (Sis-wound Skin No Abnormality Appearance) (Pt Warm) -Tenderness on Palpation (Sis-wound No Skin Appearance) -Ulcer Cleansing Wound Cleanser -Foul Odor after Cleansing Yes -Anesthetic Used 5% Lidocaine Gel Lower Limb Edema Present Yes Left Calf (cm) 32 Left Ankle (cm) 23.5 WC - Nurse 2 - General Ulcer CM Notes Start: 10/01/21 14:38 Freq: Status: Active Protocol: Activity Type Activity Date Activity User E-sign Co-sign Detail Recorded Client Recorded Date Recorded By Document 10/01/21 15:27 JESSE [id number] 10/01/21 15:32 JESSE 10/01/21 15:27 Wound Center Nurse 2 #2- L LAT ANKLE -Correct Patient No -Correct Side, Site, Position No -Correct Procedure No -Procedure Performed No -Post Debridement (cm) - Length 0 -Post Debridement (cm) - Width 0 -Post Debridement (cm) - Depth 0 -Total Square (Post) (cm) 0 -Area of Debridement (cm) - Length 0 -Area of Debridement (cm) - Width 0 -Total Square (Area) (cm) 0 -Wound/Ulcer Outcome Healed- Epithelialized #3- L CALF CLUSTER -Time 15:28 -Correct Patient Yes -Correct Side, Site, Position Yes -Correct Procedure Yes -Procedure Performed Yes -Type of Procedure Debridement -Clinical Debridement Subcutaneous -Tissue Removed Subcutaneous -Post Debridement (cm) - Length 8 -Post Debridement (cm) - Width 2.2 -Post Debridement (cm) - Depth 0.1 -Total Square (Post) (cm) 17.6 -Area of Debridement (cm) - Length 8 -Area of Debridement (cm) - Width 2.2 -Total Square (Area) (cm) 17.6 -Tunneling No -Undermining/Tunneling No -Circular Undermining No -Wound/Ulcer Outcome Not Healed -Ulcer Cleansing Rinsed/ Irrigated with Saline -Foul Odor after Cleansing No -Bioengineered Tissue No -Bleeding Controlled with Pressure -Treatment Response Procedure Tolerated Well -Offloading No -Debridement - Subq, 1st 20sq cm Yes -Debridement, SubQ, ea addt'l 20sq cm 1 or part thereof #1- L DAVALOS -Time 15:31 -Correct Patient Yes -Correct Side, Site, Position Yes -Correct Procedure Yes -Procedure Performed Yes -Type of Procedure Debridement -Clinical Debridement Subcutaneous -Tissue Removed Subcutaneous -Post Debridement (cm) - Length 2 -Post Debridement (cm) - Width 3.4 -Post Debridement (cm) - Depth 0.1 -Total Square (Post) (cm) 6.8 -Area of Debridement (cm) - Length 2.0 -Area of Debridement (cm) - Width 3.4 -Total Square (Area) (cm) 6.80 -Tunneling No -Undermining/Tunneling No -Circular Undermining No -Wound/Ulcer Outcome Not Healed -Ulcer Cleansing Rinsed/ Irrigated with Saline -Foul Odor after Cleansing No -Bioengineered Tissue No -Bleeding Controlled with Pressure -Treatment Response Procedure Tolerated Well -Offloading No -Debridement - Subq, 1st 20sq cm No Pain Scale: 0-10 Numeric Is Patient Pain Free? Yes - Nurse 3 - General Ulcer D/C NN Start: 10/01/21 14:38 Freq: Status: Active Protocol: Activity Type Activity Date Activity User E-sign Co-sign Detail Recorded Client Recorded Date Recorded By Document 10/01/21 15:36 [id number] 10/01/21 15:39 RB 10/01/21 15:36 Wound Care Nurse 3 #3- L CALF CLUSTER -Ulcer Cleansing Rinsed/ Irrigated with Saline -Primary Dressing Applied Aquacel AG 4x4 -Other Dressing abd kerlix -Primary Dressing Covered/Secured with Dry Gauze,Dry Gauze & Roll Gauze,Secured with Tape -Aquacel AG 4x4 1 #1- L DAVALOS -Ulcer Cleansing Rinsed/ Irrigated with Saline -Other Dressing aquacel ag, abd , kerlix Left -Tubular Bandage Double Layer -Size of Tubigrip Used Size D -Size D ($) 2 Treatment Response Procedure Tolerated Well Pain Scale: 0-10 Numeric Is Patient Pain Free? Yes Teaching: Wound Center Dressing Your Wound -Person Taught Patient, Significant Other -Teaching Method Discussion, Demonstration -Response to teaching Verbalize understanding WC - Visit Discharge Discharge Condition Stable Ambulatory Status Ambulatory Transportation Private Auto Medication Reconcilliation completed & No provided to patient/care provider Clinical Summary of Care Provided Yes Notes: dressing completed by Gricel Kee RN Assessment/Plan Assessment/Plan (1) Other specified peripheral vascular diseases: CODE(S): I73.89 - Other specified peripheral vascular diseases (2) Non-pressure chronic ulcer of unspecified part of left lower leg with fat layer exposed: CODE(S): L97.922 - Non-pressure chronic ulcer of unspecified part of left lower leg with fat layer exposed (3) Localized edema: CODE(S): R60.0 - Localized edema (4) Venous ulcer of left leg: CODE(S): I83.029 - Varicose veins of left lower extremity with ulcer of unspecified site; L97.929 - Non-pressure chronic ulcer of unspecified part of left lower leg with unspecified severity PLAN: Plan Re-evaluation performed. Reviewed diagnostic data. Patient is clinically stable and local signs of infection have resolved. Left foot/ankle and leg noted to be improved today. There is resolved cellulitis and all ulcer beds are now granular. The left leg was washed with soap and water. Compression was updated to 3M2L. He will follow-up on Wednesday for nurse dressing and compression change. I recommend application of advanced wound healing product including cadaver donated TheraSkin next week. The indications, benefits, anticipated application management were reviewed. Hydrogel and Adaptic was applied to the other ulcer sites; to change daily this week. I recommend improving skin integity this week with daily soap and water wash and lotion application. Offloading: To avoid laying directly on the ulcers. To help reduce pressure on the ulcers by better controlling the edema with a forementioned compression Tubigrip and Carlos wrap. I recommend Lac-Hydrin application to bilateral lower extremities to address his xerosis and maintain better skin integrity to avoid additional wounds and infections. refill sent to [facility]. He recently completed a cellulitis treatment course and has been discharged from the hospital. To complete course of cefdinir per infectious disease recommendations. No local signs infection noted today. Due to chronicity of these ulcers I also recommend noninvasive vascular studies (arterial). This was ordered and it appear he has triphasic waveforms to ankle bilateral, pvr are diminished digital to the right but ok to other bilateral levels, JUSTUS normal bilateral, digital brachial index mildly diminished bilateral. This is consistent with mild arterial occlusive disease. If lack of healing is noted, referral will be considered. I also recommend venous doppler with reflux evaluation to work up for venous insufficiency. Venous insufficiency was not identified and these results were reviewed with him previously. To continue nutrition supplementation to optimize healing. To avoid laying directly on ulcer for pressure reduction. To follow up next week at wound center. Note: [employer] speech recognition folded towel machine operator software was used to create portions of this document. Sound-alike and misspelled words, as well as other folded towel machine operator errors may be contained in the documentation.
[2021-10-08 14:32] VITALS: BP 167/77; PULSE 92; RESP 16; BMI 24.9
--- NOTE | 2021-10-08 15:49 | PN.PCM_ITS ---
History of Present Illness Date of Service: 10/08/21 Chief Complaint: left leg ulcers History of Wound: He is following up today at the wound healing center for left leg chronic ulcers. The onset is intermittently for a couple of years. he has pain with direct touch. After these were cleaned up in the hospital and he had antibiotics, there is no longer odor or redness. He denies calf pain. He is amendable to have another debridement performed today. He denies fever, chills, nausea, vomiting or calf pain. He washed his leg daily with soap and water and applied lotion to improve the skin integrity which was a success last week. Progress of Wound: improving Objective Data Objective Data Vital Signs: Vital Signs Temp Pulse Resp BP O2 Del Method 98.3 F 92 16 167/77 H Room Air 10/01/21 14:38 10/08/21 14:32 10/08/21 14:32 10/08/21 14:32 10/08/21 14:32 Oxygen Delivery Method Room Air Weight: 65.771 kg Body Mass Index (BMI) 24.9 Physical Exam Const alert, oriented x3 and no apparent distress Skin Skin Narrative: Left foot/ankle leg with resolved cellulitis. medial and lateral malleolus ulcers are healed; full epithelialization noted. There are still open ulcers to the posterior and anterior leg with nearly resolved fibrotic tissue and increased granular tissue noted today. there is no longer maloder and edema has decreased. there is mild serosanguineous drainage (no purulence), no visible abscess, no fluctuance, no crepitus noted. There is diffuse xerosis bilateral lower extremity; increased peeling noted (decreased). He notes pain to the ulcer sites left lower extremity otherwise no other pain noted. Sensation intact to light touch bilateral foot. Decreased edema. no odor. Debridement Note Debridement Note Wound debrided: posterior cluster, anterior davalos Wound Grade/Stage: Type of Debridement: Excisional debridement Anesthesia Used: 4% Lidocaine Solution Depth: in the subcutaneous layer Percentage of wound debrided: 100 Instrument Used: #15 blade and - ([id number] ultrasound debrider) Tissue Removed: fibrous, devitalized subcutaneous, biofilm, slough Severity: Fat Layer Exposed Amount of bleeding with debridement: Mild Bleeding Controlled with: Pressure Patient tolerated procedure: Patient tolerated procedure well Post-Debridement Measurements and Additional Note: Post-Debridement Measurements/Treatment WC - Nurse 1 - General Ulcer Assessment Start: 10/01/21 14:38 Freq: Status: Active Protocol: BRANDT Activity Type Activity Date Activity User E-sign Co-sign Detail Recorded Client Recorded Date Recorded By Document 10/01/21 14:38 RB [id number] 10/01/21 15:04 RB Document 10/08/21 14:32 [facility] [id number] 10/08/21 14:42 [facility] 10/01/21 10/08/21 14:38 14:32 - Today's Visit Information Type of service Follow-up Visit Follow-up Visit (Physician/RETAIL KEY HOLDER (Physician/RETAIL KEY HOLDER ) ) Arrival Mode Ambulatory,Cane Ambulatory Transfer Assistance None None Patient Identification Verified (Name & Yes Yes ) Patient Requires Transmission-Based No Precautions Height and Weight Body Mass Index (BMI) 24.9 24.9 BMI Classification Normal Normal Vital Signs Temperature (97.8 F-99.1 F) 98.3 F Temperature Source Temporal Pulse Rate (60-100) 91 92 Pulse Location Monitor Monitor Respiratory Rate (12-18) 18 16 Respiratory rate source Observation Observation Oxygen Delivery Method Room Air Blood Pressure (90/60-120/80) 169/81 H 167/77 H Blood Pressure Mean (mm Hg) 110 107 Source Monitor Monitor Position Semi-Fowlers Sitting Blood Pressure Location Left Arm Left Arm History Since Last Visit- (Skip if this is Patient's initial visit) Have you changed medications since your No No last visit? Any new allergies or adverse reactions No No Had a fall/change in ADL's that may No No increase risk of falls Signs or symptoms of abuse and/or No No neglect since last visit Have you been in the hospital since your No No last visit? Has dressing in place as prescribed Yes Yes Has compression in place as prescribed Yes Yes Has offloadiing in place as prescribed No Yes Experienced any changes in pain level or No No management Left Footwear Custom Shoe Right Footwear Regular Shoe Pain Scale: 0-10 Numeric Is Patient Pain Free? Yes Yes - Nurse 1 - General Ulcer Measurement Start: 10/01/21 14:38 Freq: Status: Active Protocol: Activity Type Activity Date Activity User E-sign Co-sign Detail Recorded Client Recorded Date Recorded By Document 10/01/21 14:38 RB [id number] 10/01/21 15:04 RB Document 10/08/21 14:32 [facility] [id number] 10/08/21 14:42 BMF 10/01/21 10/08/21 14:38 14:32 Wound Center Nurse 1 #2- L LAT ANKLE -Combined with other wound No -Current Size (cm) - Length 1 -Current Size (cm) - Width 1.1 -Current Size (cm) - Depth 0.1 -Total Square Cm 1.1 -Photo Taken Yes -Tunneling No -Undermining/Tunneling No -Circular Undermining No -Exudate Amt Medium -Exudate Type Serosanguineous -Wound Margin Distinct, Outline Attached -Granulation Amt Small (1-33%) -Granulation Quality [place] -Slough/Fibrin Yes -Necrosis Amt Large (67-100%) -Necrotic Tissue Type Adherent Slough -Structure Exposed N/A -Texture (Sis-wound Skin Appearance) Assessed -Moisture (Sis-wound Skin Appearance) Dry/Scaly -Color (Sis-wound Skin Appearance) Assessed -Temperature (Sis-wound Skin No Abnormality Appearance) (Pt Warm) -Tenderness on Palpation (Sis-wound No Skin Appearance) -Ulcer Cleansing Wound Cleanser -Foul Odor after Cleansing Yes -Anesthetic Used 5% Lidocaine Gel #3- L CALF CLUSTER -Combined with other wound No No -Current Size (cm) - Length 8 2 -Current Size (cm) - Width 2.1 9.1 -Current Size (cm) - Depth 0.1 0.1 -Total Square Cm 16.8 18.2 -Photo Taken Yes No -Epithelialization Small 1-33% -Tunneling No No -Undermining/Tunneling No No -Circular Undermining No No -Exudate Amt Large Medium -Exudate Type Serosanguineous Serosanguineous -Wound Margin Distinct, Flat & Intact Outline Attached -Granulation Amt Small (1-33%) Medium (34-66%) -Granulation Quality [place] -Slough/Fibrin Yes Yes -Necrosis Amt Large (67-100%) Medium (34-66%) -Necrotic Tissue Type Adherent Slough Adherent Slough -Structure Exposed N/A -Texture (Sis-wound Skin Appearance) Assessed Assessed, Scarring -Moisture (Sis-wound Skin Appearance) Dry/Scaly Assessed -Color (Sis-wound Skin Appearance) Assessed Assessed -Temperature (Sis-wound Skin No Abnormality No Abnormality Appearance) (Pt Warm) (Pt Warm) -Tenderness on Palpation (Sis-wound No No Skin Appearance) -Ulcer Cleansing Wound Cleanser Soap and Water -Foul Odor after Cleansing Yes No -Anesthetic Used 5% Lidocaine 4% Lidocaine Gel Solution #1- L DAVALOS -Combined with other wound No No -Current Size (cm) - Length 2 2 -Current Size (cm) - Width 3.3 2 -Current Size (cm) - Depth 0.1 0.1 -Total Square Cm 6.6 4 -Photo Taken Yes No -Epithelialization Small 1-33% -Tunneling No No -Undermining/Tunneling No No -Circular Undermining No No -Exudate Amt Large Small -Exudate Type Serosanguineous Serosanguineous -Wound Margin Distinct, Flat & Intact Outline Attached -Granulation Amt Small (1-33%) Small (1-33%) -Granulation Quality [place] -Slough/Fibrin Yes Yes -Necrosis Amt Large (67-100%) Medium (34-66%) -Necrotic Tissue Type Adherent Slough Adherent Slough -Structure Exposed N/A -Texture (Sis-wound Skin Appearance) Assessed Assessed, Scarring -Moisture (Sis-wound Skin Appearance) Dry/Scaly Assessed -Color (Sis-wound Skin Appearance) Assessed Assessed -Temperature (Sis-wound Skin No Abnormality No Abnormality Appearance) (Pt Warm) (Pt Warm) -Tenderness on Palpation (Sis-wound No No Skin Appearance) -Ulcer Cleansing Wound Cleanser Soap and Water -Foul Odor after Cleansing Yes No -Anesthetic Used 5% Lidocaine 4% Lidocaine Gel Solution Lower Limb Edema Present Yes Left Calf (cm) 32 Left Ankle (cm) 23.5 WC - Nurse 2 - General Ulcer CM Notes Start: 10/01/21 14:38 Freq: Status: Active Protocol: Activity Type Activity Date Activity User E-sign Co-sign Detail Recorded Client Recorded Date Recorded By Document 10/01/21 15:27 JESSE [id number] 10/01/21 15:32 Document 10/08/21 15:14 JESSE [id number] 10/08/21 15:15 JESSE 10/01/21 10/08/21 15:27 15:14 Wound Center Nurse 2 #2- L LAT ANKLE -Correct Patient No -Correct Side, Site, Position No -Correct Procedure No -Procedure Performed No -Post Debridement (cm) - Length 0 -Post Debridement (cm) - Width 0 -Post Debridement (cm) - Depth 0 -Total Square (Post) (cm) 0 -Area of Debridement (cm) - Length 0 -Area of Debridement (cm) - Width 0 -Total Square (Area) (cm) 0 -Wound/Ulcer Outcome Healed- Epithelialized #3- L CALF CLUSTER -Time 15:28 15:14 -Correct Patient Yes Yes -Correct Side, Site, Position Yes Yes -Correct Procedure Yes Yes -Procedure Performed Yes Yes -Type of Procedure Debridement Debridement -Clinical Debridement Subcutaneous Subcutaneous -Tissue Removed Subcutaneous Subcutaneous -Post Debridement (cm) - Length 8 9.1 -Post Debridement (cm) - Width 2.2 2.1 -Post Debridement (cm) - Depth 0.1 0.1 -Total Square (Post) (cm) 17.6 19.11 -Area of Debridement (cm) - Length 8 9.1 -Area of Debridement (cm) - Width 2.2 2.1 -Total Square (Area) (cm) 17.6 19.11 -Tunneling No No -Undermining/Tunneling No No -Circular Undermining No No -Wound/Ulcer Outcome Not Healed Not Healed -Ulcer Cleansing Rinsed/ Rinsed/ Irrigated with Irrigated with Saline Saline -Foul Odor after Cleansing No No -Bioengineered Tissue No Yes -Type of Bioengineered Tissue Theraskin -Expiration Date 06/20/24 -Product Lot Number [id number] -Percent Used 100 -Lot number of Saline Used [id number] -Bleeding Controlled with Pressure Pressure -Treatment Response Procedure Procedure Tolerated Well Tolerated Well -Offloading No No -Debridement - Subq, 1st 20sq cm Yes No -Debridement, SubQ, ea addt'l 20sq cm 1 or part thereof -Apply Skin Sub - 1st 25 sq cm - Legs 1 -Theraskin (per sq cm) 13 #1- L DAVALOS -Time 15:31 15:15 -Correct Patient Yes Yes -Correct Side, Site, Position Yes Yes -Correct Procedure Yes Yes -Procedure Performed Yes Yes -Type of Procedure Debridement Debridement -Clinical Debridement Subcutaneous Subcutaneous -Tissue Removed Subcutaneous Subcutaneous -Post Debridement (cm) - Length 2 2.1 -Post Debridement (cm) - Width 3.4 2 -Post Debridement (cm) - Depth 0.1 0.1 -Total Square (Post) (cm) 6.8 4.2 -Area of Debridement (cm) - Length 2.0 2.1 -Area of Debridement (cm) - Width 3.4 2 -Total Square (Area) (cm) 6.80 4.2 -Tunneling No No -Undermining/Tunneling No No -Circular Undermining No No -Wound/Ulcer Outcome Not Healed Not Healed -Ulcer Cleansing Rinsed/ Rinsed/ Irrigated with Irrigated with Saline Saline -Foul Odor after Cleansing No No -Bioengineered Tissue No No -Bleeding Controlled with Pressure Pressure -Treatment Response Procedure Procedure Tolerated Well Tolerated Well -Offloading No No -Debridement - Subq, 1st 20sq cm No Yes Pain Scale: 0-10 Numeric Is Patient Pain Free? Yes Yes WC - Nurse 3 - General Ulcer D/C NN Start: 10/01/21 14:38 Freq: Status: Active Protocol: Activity Type Activity Date Activity User E-sign Co-sign Detail Recorded Client Recorded Date Recorded By Document 10/01/21 15:36 [id number] 10/01/21 15:39 RB Document 10/08/21 15:28 [facility] [id number] 10/08/21 15:29 BM 10/01/21 10/08/21 15:36 15:28 Wound Care Nurse 3 #3- L CALF CLUSTER -Ulcer Cleansing Rinsed/ Irrigated with Saline -Primary Dressing Applied Aquacel AG 4x4 Optilok 8x12 -Other Dressing abd kerlix theraskin -Primary Dressing Covered/Secured with Dry Gauze,Dry Gauze & Roll Gauze,Secured with Tape -Other Covering kerlix -Aquacel AG 4x4 1 -Optilok 8x12 1 #1- L DAVALOS -Ulcer Cleansing Rinsed/ Irrigated with Saline -Primary Dressing Applied Optilok 6.5x10 -Other Dressing aquacel ag, abd kerlix , kerlix -Other Covering theraskin -Optilok 6.5x10 1 Left -Multi-Layered Wrap Application Multi-Layer Comp - Left ($) -Tubular Bandage Double Layer -Size of Tubigrip Used Size D -Size D ($) 2 Treatment Response Procedure Procedure Tolerated Well Tolerated Well Pain Scale: 0-10 Numeric Is Patient Pain Free? Yes Yes Teaching: Wound Center Dressing Your Wound -Person Taught Patient, Significant Other -Teaching Method Discussion, Demonstration -Response to teaching Verbalize understanding WC - Visit Discharge Discharge Condition Stable Stable Ambulatory Status Ambulatory Ambulatory,Cane Transportation Private Auto Private Auto Accompanied by girlfriend Medication Reconcilliation completed & No provided to patient/care provider Clinical Summary of Care Provided Yes Notes: dressing completed by Gricel Kee RN Assessment/Plan Assessment/Plan (1) Other specified peripheral vascular diseases: CODE(S): I73.89 - Other specified peripheral vascular diseases (2) Non-pressure chronic ulcer of unspecified part of left lower leg with fat layer exposed: CODE(S): L97.922 - Non-pressure chronic ulcer of unspecified part of left lower leg with fat layer exposed (3) Localized edema: CODE(S): R60.0 - Localized edema (4) Venous ulcer of left leg: CODE(S): I83.029 - Varicose veins of left lower extremity with ulcer of unspecified site; L97.929 - Non-pressure chronic ulcer of unspecified part of left lower leg with unspecified severity PLAN: Plan Re-evaluation performed. Reviewed diagnostic data. Patient is clinically stable and local signs of infection have resolved. Left foot/ankle and leg noted to be improved today. There is resolved cellulitis and all ulcer beds are now granular. The left leg was washed with soap and water. Compression was updated to 3M2L. He will follow-up on Wednesday for nurse dressing and compression change. I recommend application of advanced wound healing product including cadaver donated TheraSkin again today. The indications, benefits, anticipated application management were reviewed. Verbal consent was obtained and this was applied according to standard protocol. This was secured with skin glue, Steri-Strips, and additionally a wound veil. A secondary dressing was applied and he will keep this clean, dry, and intact. Verbal consent was obtained and he tolerated this well. 100% of the product was utilized and this is medically necessary for limb salvage. Offloading: To avoid laying directly on the ulcers. To help reduce pressure on the ulcers by better controlling the edema with aforementioned compression Tubigrip and Carlos wrap. I recommend Lac-Hydrin application to bilateral lower extremities to address his xerosis and maintain better skin integrity to avoid additional wounds and infections. He recently completed a cellulitis treatment course and has been discharged from the hospital. To complete course of cefdinir per infectious disease recommendations. No local signs infection noted today. Due to chronicity of these ulcers I also recommend noninvasive vascular studies (arterial). This was ordered and it appear he has triphasic waveforms to ankle bilateral, pvr are diminished digital to the right but ok to other bilateral levels, JUSTUS normal bilateral, digital brachial index mildly diminished bilateral. This is consistent with mild arterial occlusive disease. If lack of healing is noted, referral will be considered. I also recommend venous doppler with reflux evaluation to work up for venous insufficiency. Venous insufficiency was not identified and these results were reviewed with him previously. To continue nutrition supplementation to optimize healing. To avoid laying directly on ulcer for pressure reduction. To follow up next week at wound center. Note: [employer] speech recognition decorating kiln operator software was used to create portions of this document. Sound-alike and misspelled words, as well as other decorating kiln operator errors may be contained in the documentation.
[2021-10-10 12:56] VITALS: BP 147/77; PULSE 95; RESP 18; TEMP 36.1
[2021-10-15 14:48] VITALS: BP 180/91; PULSE 106; RESP 16; TEMP 37.2; BMI 24.9
--- NOTE | 2021-10-15 15:31 | PN.PCM_ITS ---
History of Present Illness Date of Service: 10/15/21 Chief Complaint: left leg ulcers History of Wound: He kept that there is skin clean, dry, and intact to the left leg this past week. He reports continued dry skin to the right leg for which she has been scratching and has skin peeling.He is following up today at the wound healing center for left leg chronic ulcers. The onset is intermittently for a couple of years. he has pain with direct touch. After these were cleaned up in the hospital and he had antibiotics, there is no longer odor or redness. He denies calf pain. He is amendable to have another debridement performed today. He denies fever, chills, nausea, vomiting or calf pain. Progress of Wound: improving Objective Data Objective Data Vital Signs: Vital Signs Temp Pulse Resp BP O2 Del Method 99 F 106 H 16 180/91 H Room Air 10/15/21 14:48 10/15/21 14:48 10/15/21 14:48 10/15/21 14:48 10/15/21 14:48 Oxygen Delivery Method Room Air Weight: 65.771 kg Body Mass Index (BMI) 24.9 Physical Exam Const alert, oriented x3 and no apparent distress Skin Skin Narrative: Left foot/ankle leg with resolved cellulitis. medial and lateral malleolus ulcers are healed; full epithelialization noted. There are still open ulcers to the posterior and anterior leg with nearly resolved fibrotic tissue and increased granular tissue noted today. there is no longer maloder and edema has decreased. notable decreased ulcer sizes noted. there is mild serosanguineous drainage (no purulence), no visible abscess, no fluctuance, no crepitus noted. There is diffuse xerosis bilateral lower extremity; increased peeling noted. Sensation intact to light touch bilateral foot. Debridement Note Debridement Note Wound debrided: posterior leg, anterior leg Wound Grade/Stage: left Type of Debridement: Excisional debridement Anesthesia Used: 4% Lidocaine Solution Depth: in the subcutaneous layer Percentage of wound debrided: 100 Instrument Used: #15 blade and - ([employer] ultrasound debrider) Tissue Removed: fibrous, devitalized subcutaneous, biofilm, slough Severity: Fat Layer Exposed Amount of bleeding with debridement: Mild Bleeding Controlled with: Pressure Patient tolerated procedure: Patient tolerated procedure well Post-Debridement Measurements and Additional Note: Post-Debridement Measurements/Treatment WC - Nurse 1 - General Ulcer Assessment Start: 10/01/21 14:38 Freq: Status: Active Protocol: WC.LOWEXT Activity Type Activity Date Activity User E-sign Co-sign Detail Recorded Client Recorded Date Recorded By Document 10/01/21 14:38 RB [id number] 10/01/21 15:04 RB Document 10/08/21 14:32 [facility] [id number] 10/08/21 14:42 BM Document 10/15/21 14:48 [facility] [id number] 10/15/21 15:00 BMF 10/01/21 10/08/21 10/15/21 14:38 14:32 14:48 - Today's Visit Information Type of service Follow-up Visit Follow-up Visit Follow-up Visit (Physician/CAMPAIGN MANAGER (Physician/CAMPAIGN MANAGER (Physician/CAMPAIGN MANAGER ) ) ) Arrival Mode Ambulatory,Cane Ambulatory Ambulatory,Cane Transfer Assistance None None None Patient Identification Verified (Name & Yes Yes Yes ) Patient Requires Transmission-Based No No Precautions Height and Weight Body Mass Index (BMI) 24.9 24.9 24.9 BMI Classification Normal Normal Normal Vital Signs Temperature (97.8 F-99.1 F) 98.3 F 99 F Temperature Source Temporal Temporal Pulse Rate (60-100) 91 92 106 H Pulse Location Monitor Monitor Monitor Respiratory Rate (12-18) 18 16 16 Respiratory rate source Observation Observation Observation Oxygen Delivery Method Room Air Room Air Blood Pressure (90/60-120/80) 169/81 H 167/77 H 180/91 H Blood Pressure Mean (mm Hg) 110 107 120 Source Monitor Monitor Monitor Position Semi-Fowlers Sitting Sitting Blood Pressure Location Left Arm Left Arm Right Arm History Since Last Visit- (Skip if this is Patient's initial visit) Have you changed medications since your No No No last visit? Any new allergies or adverse reactions No No No Had a fall/change in ADL's that may No No No increase risk of falls Signs or symptoms of abuse and/or No No No neglect since last visit Have you been in the hospital since your No No No last visit? Has dressing in place as prescribed Yes Yes Yes Has compression in place as prescribed Yes Yes Yes Has offloadiing in place as prescribed No Yes Yes Experienced any changes in pain level or No No No management Left Footwear Custom Shoe Custom Shoe Right Footwear Regular Shoe Regular Shoe Pain Scale: 0-10 Numeric Is Patient Pain Free? Yes Yes Yes WC - Nurse 1 - General Ulcer Measurement Start: 10/01/21 14:38 Freq: Status: Active Protocol: Activity Type Activity Date Activity User E-sign Co-sign Detail Recorded Client Recorded Date Recorded By Document 10/01/21 14:38 RB [id number] 10/01/21 15:04 RB Document 10/08/21 14:32 [facility] [id number] 10/08/21 14:42 BM Document 10/15/21 14:48 [facility] [id number] 10/15/21 15:00 F 10/01/21 10/08/21 10/15/21 14:38 14:32 14:48 Wound Center Nurse 1 #2- L LAT ANKLE -Combined with other wound No -Current Size (cm) - Length 1 -Current Size (cm) - Width 1.1 -Current Size (cm) - Depth 0.1 -Total Square Cm 1.1 -Photo Taken Yes -Tunneling No -Undermining/Tunneling No -Circular Undermining No -Exudate Amt Medium -Exudate Type Serosanguineous -Wound Margin Distinct, Outline Attached -Granulation Amt Small (1-33%) -Granulation Quality [place] -Slough/Fibrin Yes -Necrosis Amt Large (67-100%) -Necrotic Tissue Type Adherent Slough -Structure Exposed N/A -Texture (Sis-wound Skin Appearance) Assessed -Moisture (Sis-wound Skin Appearance) Dry/Scaly -Color (Sis-wound Skin Appearance) Assessed -Temperature (Sis-wound Skin No Abnormality Appearance) (Pt Warm) -Tenderness on Palpation (Sis-wound No Skin Appearance) -Ulcer Cleansing Wound Cleanser -Foul Odor after Cleansing Yes -Anesthetic Used 5% Lidocaine Gel #3- L CALF CLUSTER -Combined with other wound No No No -Current Size (cm) - Length 8 2 1.8 -Current Size (cm) - Width 2.1 9.1 7.7 -Current Size (cm) - Depth 0.1 0.1 0.1 -Total Square Cm 16.8 18.2 13.86 -Date of Last Picture (Recall this 10/15/21 field) -Photo Taken Yes No Yes -Epithelialization Small 1-33% Small 1-33% -Tunneling No No No -Undermining/Tunneling No No No -Circular Undermining No No No -Exudate Amt Large Medium Medium -Exudate Type Serosanguineous Serosanguineous Serosanguineous -Wound Margin Distinct, Flat & Intact Distinct, Outline Outline Attached Attached -Granulation Amt Small (1-33%) Medium (34-66%) Large (67-100%) -Granulation Quality [place] Hyper- granulation,Red -Slough/Fibrin Yes Yes No -Necrosis Amt Large (67-100%) Medium (34-66%) None Present (0 %) -Necrotic Tissue Type Adherent Slough Adherent Slough -Structure Exposed N/A -Texture (Sis-wound Skin Appearance) Assessed Assessed, Assessed, Scarring Scarring -Moisture (Sis-wound Skin Appearance) Dry/Scaly Assessed Assessed,Dry/ Scaly -Color (Sis-wound Skin Appearance) Assessed Assessed Assessed -Temperature (Sis-wound Skin No Abnormality No Abnormality No Abnormality Appearance) (Pt Warm) (Pt Warm) (Pt Warm) -Tenderness on Palpation (Sis-wound No No No Skin Appearance) -Ulcer Cleansing Wound Cleanser Soap and Water Soap and Water -Foul Odor after Cleansing Yes No No -Anesthetic Used 5% Lidocaine 4% Lidocaine 4% Lidocaine Gel Solution Solution #1- L VILLARREAL -Combined with other wound No No No -Current Size (cm) - Length 2 2 0.1 -Current Size (cm) - Width 3.3 2 0.1 -Current Size (cm) - Depth 0.1 0.1 0.1 -Total Square Cm 6.6 4 0.01 -Date of Last Picture (Recall this 10/15/21 field) -Photo Taken Yes No Yes -Epithelialization Small 1-33% Large 67-100% -Tunneling No No No -Undermining/Tunneling No No No -Circular Undermining No No No -Exudate Amt Large Small None Present -Exudate Type Serosanguineous Serosanguineous -Wound Margin Distinct, Flat & Intact Outline Attached -Granulation Amt Small (1-33%) Small (1-33%) -Granulation Quality [place] -Slough/Fibrin Yes Yes -Necrosis Amt Large (67-100%) Medium (34-66%) -Necrotic Tissue Type Adherent Slough Adherent Slough -Structure Exposed N/A -Texture (Sis-wound Skin Appearance) Assessed Assessed, Assessed, Scarring Friable -Moisture (Sis-wound Skin Appearance) Dry/Scaly Assessed Assessed,Dry/ Scaly -Color (Sis-wound Skin Appearance) Assessed Assessed Assessed, Hemosiderin Staining -Temperature (Sis-wound Skin No Abnormality No Abnormality No Abnormality Appearance) (Pt Warm) (Pt Warm) (Pt Warm) -Tenderness on Palpation (Sis-wound No No No Skin Appearance) -Ulcer Cleansing Wound Cleanser Soap and Water Soap and Water -Foul Odor after Cleansing Yes No Yes, Due to Product Use -Anesthetic Used 5% Lidocaine 4% Lidocaine 4% Lidocaine Gel Solution Solution Lower Limb Edema Present Yes Yes Left Calf (cm) 32 31 Left Ankle (cm) 23.5 23.3 WC - Nurse 2 - General Ulcer CM Notes Start: 10/01/21 14:38 Freq: Status: Active Protocol: Activity Type Activity Date Activity User E-sign Co-sign Detail Recorded Client Recorded Date Recorded By Document 10/01/21 15:27 [id number] 10/01/21 15:32 Document 10/08/21 15:14 [id number] 10/08/21 15:15 Document 10/15/21 15:11 [id number] 10/15/21 15:19 10/01/21 10/08/21 10/15/21 15:27 15:14 15:11 Wound Center Nurse 2 #2- L LAT ANKLE -Correct Patient No -Correct Side, Site, Position No -Correct Procedure No -Procedure Performed No -Post Debridement (cm) - Length 0 -Post Debridement (cm) - Width 0 -Post Debridement (cm) - Depth 0 -Total Square (Post) (cm) 0 -Area of Debridement (cm) - Length 0 -Area of Debridement (cm) - Width 0 -Total Square (Area) (cm) 0 -Wound/Ulcer Outcome Healed- Epithelialized #3- L CALF CLUSTER -Time 15:28 15:14 15:17 -Correct Patient Yes Yes Yes -Correct Side, Site, Position Yes Yes Yes -Correct Procedure Yes Yes Yes -Procedure Performed Yes Yes Yes -Type of Procedure Debridement Debridement Debridement -Clinical Debridement Subcutaneous Subcutaneous Subcutaneous -Tissue Removed Subcutaneous Subcutaneous Subcutaneous -Post Debridement (cm) - Length 8 9.1 6 -Post Debridement (cm) - Width 2.2 2.1 1.7 -Post Debridement (cm) - Depth 0.1 0.1 0.1 -Total Square (Post) (cm) 17.6 19.11 10.2 -Area of Debridement (cm) - Length 8 9.1 6 -Area of Debridement (cm) - Width 2.2 2.1 1.7 -Total Square (Area) (cm) 17.6 19.11 10.2 -Tunneling No No No -Undermining/Tunneling No No No -Circular Undermining No No No -Wound/Ulcer Outcome Not Healed Not Healed Not Healed -Ulcer Cleansing Rinsed/ Rinsed/ Rinsed/ Irrigated with Irrigated with Irrigated with Saline Saline Saline -Foul Odor after Cleansing No No No -Bioengineered Tissue No Yes Yes -Type of Bioengineered Tissue Theraskin Theraskin -Expiration Date 06/20/24 08/05/24 -Product Lot Number [id number] -Percent Used 100 10 -Lot number of Saline Used [id number] -Bleeding Controlled with Pressure Pressure Pressure -Treatment Response Procedure Procedure Procedure Tolerated Well Tolerated Well Tolerated Well -Offloading No No No -Debridement - Subq, 1st 20sq cm Yes No No -Debridement, SubQ, ea addt'l 20sq cm 1 or part thereof -Apply Skin Sub - 1st 25 sq cm - Legs 1 -Theraskin (per sq cm) 13 13 #1- L VILLARREAL -Time 15:31 15:15 15:19 -Correct Patient Yes Yes Yes -Correct Side, Site, Position Yes Yes Yes -Correct Procedure Yes Yes Yes -Procedure Performed Yes Yes Yes -Type of Procedure Debridement Debridement Debridement -Clinical Debridement Subcutaneous Subcutaneous Subcutaneous -Tissue Removed Subcutaneous Subcutaneous Dermis -Post Debridement (cm) - Length 2 2.1 0.4 -Post Debridement (cm) - Width 3.4 2 0.6 -Post Debridement (cm) - Depth 0.1 0.1 0.1 -Total Square (Post) (cm) 6.8 4.2 0.24 -Area of Debridement (cm) - Length 2.0 2.1 0.4 -Area of Debridement (cm) - Width 3.4 2 0.6 -Total Square (Area) (cm) 6.80 4.2 0.24 -Tunneling No No No -Undermining/Tunneling No No No -Circular Undermining No No No -Wound/Ulcer Outcome Not Healed Not Healed Not Healed -Ulcer Cleansing Rinsed/ Rinsed/ Rinsed/ Irrigated with Irrigated with Irrigated with Saline Saline Saline -Foul Odor after Cleansing No No No -Bioengineered Tissue No No No -Bleeding Controlled with Pressure Pressure Pressure -Treatment Response Procedure Procedure Procedure Tolerated Well Tolerated Well Tolerated Well -Offloading No No No -Debridement - Subq, 1st 20sq cm No Yes Yes Pain Scale: 0-10 Numeric Is Patient Pain Free? Yes Yes Yes WC - Nurse 3 - General Ulcer D/C NN Start: 10/01/21 14:38 Freq: Status: Active Protocol: Activity Type Activity Date Activity User E-sign Co-sign Detail Recorded Client Recorded Date Recorded By Document 10/01/21 15:36 RB [id number] 10/01/21 15:39 RB Document 10/08/21 15:28 [facility] [id number] 10/08/21 15:29 [facility] Document 10/10/21 12:56 MT [id number] 10/10/21 13:25 MT Document 10/15/21 15:22 DL [id number] 10/15/21 15:24 DL 10/01/21 10/08/21 10/10/21 15:36 15:28 12:56 Wound Care Nurse 3 #3- L CALF CLUSTER -Ulcer Cleansing Rinsed/ Soap and Water Irrigated with Saline -Foul Odor after Cleansing -Primary Dressing Applied Aquacel AG 4x4 Optilok 8x12 Optilok 6.5x10, Optilok 8x12 -Other Dressing abd kerlix theraskin -Primary Dressing Covered/Secured with Dry Gauze,Dry Gauze & Roll Gauze,Secured with Tape -Other Covering kerlix -Aquacel AG 4x4 1 -Optilok 6.5x10 1 -Optilok 8x12 1 1 #1- L VILLARREAL -Ulcer Cleansing Rinsed/ Irrigated with Saline -Primary Dressing Applied Optilok 6.5x10 -Other Dressing aquacel ag, abd kerlix , kerlix -Primary Dressing Covered/Secured with -Other Covering theraskin -Optilok 6.5x10 1 Left -Multi-Layered Wrap Application Multi-Layer Multi-Layer Comp - Left ($) Comp - Left ($) -Tubular Bandage Double Layer -Size of Tubigrip Used Size D -Size D ($) 2 Treatment Response Procedure Procedure Tolerated Well Tolerated Well Vital Signs Temperature (97.8 F-99.1 F) 97 F L Temperature Source Temporal Pulse Rate (60-100) 95 Pulse Location Monitor Respiratory Rate (12-18) 18 Respiratory rate source Observation Oxygen Delivery Method Room Air Blood Pressure (90/60-120/80) 147/77 H Blood Pressure Mean (mm Hg) 100 Source Monitor Position Sitting Blood Pressure Location Left Arm Pain Scale: 0-10 Numeric Is Patient Pain Free? Yes Yes Yes Teaching: Wound Center Dressing Your Wound -Person Taught Patient, Significant Other -Teaching Method Discussion, Demonstration -Response to teaching Verbalize understanding WC - Visit Discharge Discharge Condition Stable Stable Stable Ambulatory Status Ambulatory Ambulatory,Cane Transportation Private Auto Private Auto Private Auto Accompanied by girlfriend Medication Reconcilliation completed & No No provided to patient/care provider Clinical Summary of Care Provided Yes Yes Notes: dressing nurse visit. completed by Mahad Garcia RN 10/15/21 15:22 Wound Care Nurse 3 #3- L CALF CLUSTER -Ulcer Cleansing -Foul Odor after Cleansing No -Primary Dressing Applied -Other Dressing superabsorber -Primary Dressing Covered/Secured with Dry Gauze & Roll Gauze, Secured with Tape -Other Covering -Aquacel AG 4x4 -Optilok 6.5x10 -Optilok 8x12 #1- L VILLARREAL -Ulcer Cleansing -Primary Dressing Applied -Other Dressing superabsorber -Primary Dressing Covered/Secured with Dry Gauze & Roll Gauze, Secured with Tape -Other Covering -Optilok 6.5x10 Left -Multi-Layered Wrap Application Multi-Layer Comp - Left ($) -Tubular Bandage -Size of Tubigrip Used -Size D ($) Treatment Response Procedure Tolerated Well Vital Signs Temperature (97.8 F-99.1 F) Temperature Source Pulse Rate (60-100) Pulse Location Respiratory Rate (12-18) Respiratory rate source Oxygen Delivery Method Blood Pressure (90/60-120/80) Blood Pressure Mean (mm Hg) Source Position Blood Pressure Location Pain Scale: 0-10 Numeric Is Patient Pain Free? Yes Teaching: Wound Center Dressing Your Wound -Person Taught -Teaching Method -Response to teaching WC - Visit Discharge Discharge Condition Stable Ambulatory Status Ambulatory Transportation Private Auto Accompanied by Medication Reconcilliation completed & provided to patient/care provider Clinical Summary of Care Provided Notes: Assessment/Plan Assessment/Plan (1) Other specified peripheral vascular diseases: CODE(S): I73.89 - Other specified peripheral vascular diseases (2) Non-pressure chronic ulcer of unspecified part of left lower leg with fat layer exposed: CODE(S): L97.922 - Non-pressure chronic ulcer of unspecified part of left lower leg with fat layer exposed (3) Localized edema: CODE(S): R60.0 - Localized edema (4) Venous ulcer of left leg: CODE(S): I83.029 - Varicose veins of left lower extremity with ulcer of unspecified site; L97.929 - Non-pressure chronic ulcer of unspecified part of left lower leg with unspecified severity PLAN: Plan Re-evaluation performed. Reviewed diagnostic data. Patient is clinically stable and local signs of infection have resolved. Left foot/ankle and leg noted to be improved today. There is resolved cellulitis and all ulcer beds are now granular. The left leg was washed with soap and water. Compression was updated to 3M2L. He will follow-up on Wednesday for nurse dressing and compression change. I recommend application of advanced wound healing product including cadaver donated TheraSkin again today. The indications, benefits, anticipated ap plication management were reviewed. Verbal consent was obtained and this was applied according to standard protocol. This was secured with skin glue, Steri- Strips, and additionally a wound veil. A secondary dressing was applied and he will keep this clean, dry, and intact. Verbal consent was obtained and he tolerated this well. 100% of the product was utilized and this is medically necessary for limb salvage. Offloading: To avoid laying directly on the ulcers. To help reduce pressure on the ulcers by better controlling the edema with aforementioned compression Tubigrip and Carlos wrap. I recommend Lac-Hydrin application to bilateral lower extremities to address his xerosis and maintain better skin integrity to avoid additional wounds and infections. His right limb was evaluated today also as noted in physical exam section. He recently completed a cellulitis treatment course and has been discharged from the hospital. To complete course of cefdinir per infectious disease recomme ndations. No local signs infection noted today. Due to chronicity of these ulcers I also recommend noninvasive vascular studies (arterial). This was ordered and it appear he has triphasic waveforms to ankle bilateral, pvr are diminished digital to the right but ok to other bilateral levels, JUSTUS normal bilateral, digital brachial index mildly diminished bilateral. This is consistent with mild arterial occlusive disease. If lack of healing is noted, referral will be considered. I also recommend venous doppler with reflux evaluation to work up for venous insufficiency. Venous insufficiency was not identified and these results were reviewed with him previously. To continue nutrition supplementation to optimize healing. To avoid laying directly on ulcer for pressure reduction. To follow up next week at wound center. Note: [employer] speech recognition apparel sales associate software was used to create portions of this document. Sound-alike and misspelled words, as well as other apparel sales associate errors may be contained in the documentation.
[2021-10-17 13:19] VITALS: BP 127/72; PULSE 68; TEMP 36.5; BMI 24.9
[2021-10-22 14:41] VITALS: BP 175/101; PULSE 95; RESP 20; TEMP 37.1; BMI 24.9
--- NOTE | 2021-10-22 15:33 | PN.PCM_ITS ---
History of Present Illness Date of Service: 10/22/21 Chief Complaint: left leg ulcers History of Wound: He kept that there is skin clean, dry, and intact to the left leg this past week. He reports continued dry skin to the right leg for which she has been scratching and has skin peeling which is a little worse this past week. He is following up today at the wound healing center for left leg chronic ulcers in which one remains now. The onset is intermittently for a couple of years. he has pain with direct touch. After these were cleaned up in the hospital and he had antibiotics, there is no longer odor or redness. He denies calf pain. He is amendable to have another debridement performed today. He denies fever, chills, nausea, vomiting or calf pain. Progress of Wound: improving Objective Data Objective Data Vital Signs: Vital Signs Temp Pulse Resp BP O2 Del Method 98.7 F 95 20 H 175/101 H Room Air 10/22/21 14:41 10/22/21 14:41 10/22/21 14:41 10/22/21 14:41 10/15/21 14:48 Oxygen Delivery Method Room Air Weight: 65.771 kg Body Mass Index (BMI) 24.9 Physical Exam Const alert, oriented x3 and no apparent distress Skin Skin Narrative: Left foot/ankle leg with resolved cellulitis. medial and lateral malleolus ulcers and anterior leg ulcer are healed; full epithelialization noted. There are still one open ulcers to the posterior leg with resolved fibrotic tissue and increased granular tissue noted today. there is no longer maloder and edema has decreased. notable decreased ulcer size noted. there is mild serosanguineous drainage (no purulence), no visible abscess, no fluctuance, no crepitus noted. There is diffuse xerosis bilateral lower extremity; increased peeling noted. Sensation intact to light touch bilateral foot. Debridement Note Debridement Note Wound debrided: posterior leg Wound Grade/Stage: left Type of Debridement: Excisional debridement Anesthesia Used: 4% Lidocaine Solution Depth: in the subcutaneous layer Percentage of wound debrided: 100 Instrument Used: #15 blade Tissue Removed: fibrous, devitalized subcutaneous, biofilm, slough Severity: Fat Layer Exposed Amount of bleeding with debridement: Mild Bleeding Controlled with: Pressure Patient tolerated procedure: Patient tolerated procedure well Post-Debridement Measurements and Additional Note: Post-Debridement Measurements/Treatment WC - Nurse 1 - General Ulcer Assessment Start: 10/01/21 14:38 Freq: Status: Active Protocol: DEVON.LOWEXT Activity Type Activity Date Activity User E-sign Co-sign Detail Recorded Client Recorded Date Recorded By Document 10/01/21 14:38 RB [id number] 10/01/21 15:04 RB Document 10/08/21 14:32 BMF [id number] 10/08/21 14:42 BMF Document 10/15/21 14:48 BMF [id number] 10/15/21 15:00 BMF Document 10/17/21 13:19 AK [id number] 10/17/21 13:22 AK Document 10/22/21 14:41 DL [id number] 10/22/21 14:51 DL 10/01/21 10/08/21 10/15/21 14:38 14:32 14:48 - Today's Visit Information Type of service Follow-up Visit Follow-up Visit Follow-up Visit (Physician/JOINTER OPERATOR (Physician/JOINTER OPERATOR (Physician/JOINTER OPERATOR ) ) ) Arrival Mode Ambulatory,Cane Ambulatory Ambulatory,Cane Transfer Assistance None None None Patient Identification Verified (Name & Yes Yes Yes ) Patient Requires Transmission-Based No No Precautions Height and Weight Body Mass Index (BMI) 24.9 24.9 24.9 BMI Classification Normal Normal Normal Vital Signs Temperature (97.8 F-99.1 F) 98.3 F 99 F Temperature Source Temporal Temporal Pulse Rate (60-100) 91 92 106 H Pulse Location Monitor Monitor Monitor Respiratory Rate (12-18) 18 16 16 Respiratory rate source Observation Observation Observation Oxygen Delivery Method Room Air Room Air Blood Pressure (90/60-120/80) 169/81 H 167/77 H 180/91 H Blood Pressure Mean (mm Hg) 110 107 120 Source Monitor Monitor Monitor Position Semi-Fowlers Sitting Sitting Blood Pressure Location Left Arm Left Arm Right Arm History Since Last Visit- (Skip if this is Patient's initial visit) Have you changed medications since your No No No last visit? Any new allergies or adverse reactions No No No Had a fall/change in ADL's that may No No No increase risk of falls Signs or symptoms of abuse and/or No No No neglect since last visit Have you been in the hospital since your No No No last visit? Has dressing in place as prescribed Yes Yes Yes Has compression in place as prescribed Yes Yes Yes Has offloadiing in place as prescribed No Yes Yes Experienced any changes in pain level or No No No management Left Footwear Custom Shoe Custom Shoe Right Footwear Regular Shoe Regular Shoe Pain Scale: 0-10 Numeric Is Patient Pain Free? Yes Yes Yes 10/17/21 10/22/21 13:19 14:41 - Today's Visit Information Type of service Follow-up Visit Follow-up Visit (Physician/JOINTER OPERATOR (Physician/JOINTER OPERATOR ) ) Arrival Mode Ambulatory,Cane Ambulatory Transfer Assistance None Patient Identification Verified (Name & Yes Yes ) Patient Requires Transmission-Based No No Precautions Height and Weight Body Mass Index (BMI) 24.9 24.9 BMI Classification Normal Normal Vital Signs Temperature (97.8 F-99.1 F) 97.7 F L 98.7 F Temperature Source Temporal Temporal Pulse Rate (60-100) 68 95 Pulse Location Monitor Monitor Respiratory Rate (12-18) 20 H Respiratory rate source Observation Oxygen Delivery Method Blood Pressure (90/60-120/80) 127/72 H 175/101 H Blood Pressure Mean (mm Hg) 90 125 Source Monitor Monitor Position Blood Pressure Location History Since Last Visit- (Skip if this is Patient's initial visit) Have you changed medications since your No No last visit? Any new allergies or adverse reactions No No Had a fall/change in ADL's that may No No increase risk of falls Signs or symptoms of abuse and/or No No neglect since last visit Have you been in the hospital since your No No last visit? Has dressing in place as prescribed Yes No Has compression in place as prescribed Yes Yes Has offloadiing in place as prescribed N/A Yes Experienced any changes in pain level or No No management Left Footwear Regular Shoe Right Footwear Regular Shoe Pain Scale: 0-10 Numeric Is Patient Pain Free? No Yes - Nurse 1 - General Ulcer Measurement Start: 10/01/21 14:38 Freq: Status: Active Protocol: Activity Type Activity Date Activity User E-sign Co-sign Detail Recorded Client Recorded Date Recorded By Document 10/01/21 14:38 RB [id number] 10/01/21 15:04 RB Document 10/08/21 14:32 BMF [id number] 10/08/21 14:42 [facility] Document 10/15/21 14:48 [facility] [id number] 10/15/21 15:00 [facility] Document 10/22/21 14:41 DL [id number] 10/22/21 14:51 DL 10/01/21 10/08/21 10/15/21 14:38 14:32 14:48 Wound Center Nurse 1 #2- L LAT ANKLE -Combined with other wound No -Current Size (cm) - Length 1 -Current Size (cm) - Width 1.1 -Current Size (cm) - Depth 0.1 -Total Square Cm 1.1 -Photo Taken Yes -Tunneling No -Undermining/Tunneling No -Circular Undermining No -Exudate Amt Medium -Exudate Type Serosanguineous -Wound Margin Distinct, Outline Attached -Granulation Amt Small (1-33%) -Granulation Quality [place] -Slough/Fibrin Yes -Necrosis Amt Large (67-100%) -Necrotic Tissue Type Adherent Slough -Structure Exposed N/A -Texture (Sis-wound Skin Appearance) Assessed -Moisture (Sis-wound Skin Appearance) Dry/Scaly -Color (Sis-wound Skin Appearance) Assessed -Temperature (Sis-wound Skin No Abnormality Appearance) (Pt Warm) -Tenderness on Palpation (Sis-wound No Skin Appearance) -Ulcer Cleansing Wound Cleanser -Foul Odor after Cleansing Yes -Anesthetic Used 5% Lidocaine Gel #1- L VILLARREAL -Combined with other wound No No No -Current Size (cm) - Length 2 2 0.1 -Current Size (cm) - Width 3.3 2 0.1 -Current Size (cm) - Depth 0.1 0.1 0.1 -Total Square Cm 6.6 4 0.01 -Date of Last Picture (Recall this 10/15/21 field) -Photo Taken Yes No Yes -Epithelialization Small 1-33% Large 67-100% -Tunneling No No No -Undermining/Tunneling No No No -Circular Undermining No No No -Exudate Amt Large Small None Present -Exudate Type Serosanguineous Serosanguineous -Wound Margin Distinct, Flat & Intact Outline Attached -Granulation Amt Small (1-33%) Small (1-33%) -Granulation Quality [place] -Slough/Fibrin Yes Yes -Necrosis Amt Large (67-100%) Medium (34-66%) -Necrotic Tissue Type Adherent Slough Adherent Slough -Structure Exposed N/A -Texture (Sis-wound Skin Appearance) Assessed Assessed, Assessed, Scarring Friable -Moisture (Sis-wound Skin Appearance) Dry/Scaly Assessed Assessed,Dry/ Scaly -Color (Sis-wound Skin Appearance) Assessed Assessed Assessed, Hemosiderin Staining -Temperature (Sis-wound Skin No Abnormality No Abnormality No Abnormality Appearance) (Pt Warm) (Pt Warm) (Pt Warm) -Tenderness on Palpation (Sis-wound No No No Skin Appearance) -Ulcer Cleansing Wound Cleanser Soap and Water Soap and Water -Foul Odor after Cleansing Yes No Yes, Due to Product Use -Anesthetic Used 5% Lidocaine 4% Lidocaine 4% Lidocaine Gel Solution Solution #3- L CALF CLUSTER -Combined with other wound No No No -Current Size (cm) - Length 8 2 1.8 -Current Size (cm) - Width 2.1 9.1 7.7 -Current Size (cm) - Depth 0.1 0.1 0.1 -Total Square Cm 16.8 18.2 13.86 -Date of Last Picture (Recall this 10/15/21 field) -Photo Taken Yes No Yes -Epithelialization Small 1-33% Small 1-33% -Tunneling No No No -Undermining/Tunneling No No No -Circular Undermining No No No -Exudate Amt Large Medium Medium -Exudate Type Serosanguineous Serosanguineous Serosanguineous -Wound Margin Distinct, Flat & Intact Distinct, Outline Outline Attached Attached -Granulation Amt Small (1-33%) Medium (34-66%) Large (67-100%) -Granulation Quality [place] Hyper- granulation,Red -Slough/Fibrin Yes Yes No -Necrosis Amt Large (67-100%) Medium (34-66%) None Present (0 %) -Necrotic Tissue Type Adherent Slough Adherent Slough -Structure Exposed N/A -Texture (Sis-wound Skin Appearance) Assessed Assessed, Assessed, Scarring Scarring -Moisture (Sis-wound Skin Appearance) Dry/Scaly Assessed Assessed,Dry/ Scaly -Color (Sis-wound Skin Appearance) Assessed Assessed Assessed -Temperature (Sis-wound Skin No Abnormality No Abnormality No Abnormality Appearance) (Pt Warm) (Pt Warm) (Pt Warm) -Tenderness on Palpation (Sis-wound No No No Skin Appearance) -Ulcer Cleansing Wound Cleanser Soap and Water Soap and Water -Foul Odor after Cleansing Yes No No -Anesthetic Used 5% Lidocaine 4% Lidocaine 4% Lidocaine Gel Solution Solution Lower Limb Edema Present Yes Yes Left Calf (cm) 32 31 Left Ankle (cm) 23.5 23.3 10/22/21 14:41 Wound Center Nurse 1 #2- L LAT ANKLE -Combined with other wound -Current Size (cm) - Length -Current Size (cm) - Width -Current Size (cm) - Depth -Total Square Cm -Photo Taken -Tunneling -Undermining/Tunneling -Circular Undermining -Exudate Amt -Exudate Type -Wound Margin -Granulation Amt -Granulation Quality -Slough/Fibrin -Necrosis Amt -Necrotic Tissue Type -Structure Exposed -Texture (Sis-wound Skin Appearance) -Moisture (Sis-wound Skin Appearance) -Color (Sis-wound Skin Appearance) -Temperature (Sis-wound Skin Appearance) -Tenderness on Palpation (Sis-wound Skin Appearance) -Ulcer Cleansing -Foul Odor after Cleansing -Anesthetic Used #1- L VILLARREAL -Combined with other wound -Current Size (cm) - Length 0.1 -Current Size (cm) - Width 0.1 -Current Size (cm) - Depth 0.1 -Total Square Cm 0.01 -Date of Last Picture (Recall this field) -Photo Taken No -Epithelialization -Tunneling -Undermining/Tunneling -Circular Undermining -Exudate Amt None Present -Exudate Type -Wound Margin -Granulation Amt Large (67-100%) -Granulation Quality [place] -Slough/Fibrin -Necrosis Amt None Present (0 %) -Necrotic Tissue Type -Structure Exposed N/A -Texture (Sis-wound Skin Appearance) Scarring -Moisture (Sis-wound Skin Appearance) Dry/Scaly -Color (Sis-wound Skin Appearance) Hemosiderin Staining -Temperature (Sis-wound Skin No Abnormality Appearance) (Pt Warm) -Tenderness on Palpation (Sis-wound No Skin Appearance) -Ulcer Cleansing Soap and Water -Foul Odor after Cleansing No -Anesthetic Used 4% Lidocaine Solution #3- L CALF CLUSTER -Combined with other wound -Current Size (cm) - Length 1 -Current Size (cm) - Width 3 -Current Size (cm) - Depth 0.1 -Total Square Cm 3 -Date of Last Picture (Recall this field) -Photo Taken No -Epithelialization -Tunneling -Undermining/Tunneling -Circular Undermining -Exudate Amt Medium -Exudate Type Serous -Wound Margin Distinct, Outline Attached -Granulation Amt Medium (34-66%) -Granulation Quality [place] -Slough/Fibrin -Necrosis Amt Medium (34-66%) -Necrotic Tissue Type Adherent Slough -Structure Exposed N/A -Texture (Sis-wound Skin Appearance) Excoriation, Scarring -Moisture (Sis-wound Skin Appearance) Dry/Scaly -Color (Sis-wound Skin Appearance) Hemosiderin Staining -Temperature (Sis-wound Skin No Abnormality Appearance) (Pt Warm) -Tenderness on Palpation (Ssi-wound No Skin Appearance) -Ulcer Cleansing Soap and Water -Foul Odor after Cleansing No -Anesthetic Used 4% Lidocaine Solution Lower Limb Edema Present Left Calf (cm) 31 Left Ankle (cm) 22.8 WC - Nurse 2 - General Ulcer CM Notes Start: 10/01/21 14:38 Freq: Status: Active Protocol: Activity Type Activity Date Activity User E-sign Co-sign Detail Recorded Client Recorded Date Recorded By Document 10/01/21 15:27 [id number] 10/01/21 15:32 Document 10/08/21 15:14 [id number] 10/08/21 15:15 Document 10/15/21 15:11 [id number] 10/15/21 15:19 Edit Result 10/15/21 15:11 JF (1) [id number] 10/16/21 07:25 PL Document 10/22/21 15:02 [id number] 10/22/21 15:03 JF (1) #3- L CALF CLUSTER - Apply Skin Sub - 1st 25 sq cm - Legs => 1 10/01/21 10/08/21 10/15/21 15:27 15:14 15:11 Wound Center Nurse 2 #2- L LAT ANKLE -Correct Patient No -Correct Side, Site, Position No -Correct Procedure No -Procedure Performed No -Post Debridement (cm) - Length 0 -Post Debridement (cm) - Width 0 -Post Debridement (cm) - Depth 0 -Total Square (Post) (cm) 0 -Area of Debridement (cm) - Length 0 -Area of Debridement (cm) - Width 0 -Total Square (Area) (cm) 0 -Wound/Ulcer Outcome Healed- Epithelialized #1- L VILLARREAL -Time 15:31 15:15 15:19 -Correct Patient Yes Yes Yes -Correct Side, Site, Position Yes Yes Yes -Correct Procedure Yes Yes Yes -Procedure Performed Yes Yes Yes -Type of Procedure Debridement Debridement Debridement -Clinical Debridement Subcutaneous Subcutaneous Subcutaneous -Tissue Removed Subcutaneous Subcutaneous Dermis -Post Debridement (cm) - Length 2 2.1 0.4 -Post Debridement (cm) - Width 3.4 2 0.6 -Post Debridement (cm) - Depth 0.1 0.1 0.1 -Total Square (Post) (cm) 6.8 4.2 0.24 -Area of Debridement (cm) - Length 2.0 2.1 0.4 -Area of Debridement (cm) - Width 3.4 2 0.6 -Total Square (Area) (cm) 6.80 4.2 0.24 -Tunneling No No No -Undermining/Tunneling No No No -Circular Undermining No No No -Wound/Ulcer Outcome Not Healed Not Healed Not Healed -Ulcer Cleansing Rinsed/ Rinsed/ Rinsed/ Irrigated with Irrigated with Irrigated with Saline Saline Saline -Foul Odor after Cleansing No No No -Bioengineered Tissue No No No -Bleeding Controlled with Pressure Pressure Pressure -Treatment Response Procedure Procedure Procedure Tolerated Well Tolerated Well Tolerated Well -Offloading No No No -Debridement - Subq, 1st 20sq cm No Yes Yes #3- L CALF CLUSTER -Time 15:28 15:14 15:17 -Correct Patient Yes Yes Yes -Correct Side, Site, Position Yes Yes Yes -Correct Procedure Yes Yes Yes -Procedure Performed Yes Yes Yes -Type of Procedure Debridement Debridement Debridement -Clinical Debridement Subcutaneous Subcutaneous Subcutaneous -Tissue Removed Subcutaneous Subcutaneous Subcutaneous -Post Debridement (cm) - Length 8 9.1 6 -Post Debridement (cm) - Width 2.2 2.1 1.7 -Post Debridement (cm) - Depth 0.1 0.1 0.1 -Total Square (Post) (cm) 17.6 19.11 10.2 -Area of Debridement (cm) - Length 8 9.1 6 -Area of Debridement (cm) - Width 2.2 2.1 1.7 -Total Square (Area) (cm) 17.6 19.11 10.2 -Tunneling No No No -Undermining/Tunneling No No No -Circular Undermining No No No -Wound/Ulcer Outcome Not Healed Not Healed Not Healed -Ulcer Cleansing Rinsed/ Rinsed/ Rinsed/ Irrigated with Irrigated with Irrigated with Saline Saline Saline -Foul Odor after Cleansing No No No -Bioengineered Tissue No Yes Yes -Type of Bioengineered Tissue Theraskin Theraskin -Expiration Date 06/20/24 08/05/24 -Product Lot Number [id number] -Percent Used 100 10 -Lot number of Saline Used [id number] -Bleeding Controlled with Pressure Pressure Pressure -Treatment Response Procedure Procedure Procedure Tolerated Well Tolerated Well Tolerated Well -Offloading No No No -Debridement - Subq, 1st 20sq cm Yes No No -Debridement, SubQ, ea addt'l 20sq cm 1 or part thereof -Apply Skin Sub - 1st 25 sq cm - Legs 1 1 -Theraskin (per sq cm) 13 13 Pain Scale: 0-10 Numeric Is Patient Pain Free? Yes Yes Yes 10/22/21 15:02 Wound Center Nurse 2 #2- L LAT ANKLE -Correct Patient -Correct Side, Site, Position -Correct Procedure -Procedure Performed -Post Debridement (cm) - Length -Post Debridement (cm) - Width -Post Debridement (cm) - Depth -Total Square (Post) (cm) -Area of Debridement (cm) - Length -Area of Debridement (cm) - Width -Total Square (Area) (cm) -Wound/Ulcer Outcome #1- L VILLARREAL -Time -Correct Patient No -Correct Side, Site, Position No -Correct Procedure No -Procedure Performed No -Type of Procedure -Clinical Debridement -Tissue Removed -Post Debridement (cm) - Length 0 -Post Debridement (cm) - Width 0 -Post Debridement (cm) - Depth 0 -Total Square (Post) (cm) 0 -Area of Debridement (cm) - Length 0 -Area of Debridement (cm) - Width 0 -Total Square (Area) (cm) 0 -Tunneling -Undermining/Tunneling -Circular Undermining -Wound/Ulcer Outcome Healed- Epithelialized -Ulcer Cleansing -Foul Odor after Cleansing -Bioengineered Tissue -Bleeding Controlled with -Treatment Response -Offloading -Debridement - Subq, 1st 20sq cm #3- L CALF CLUSTER -Time 15:02 -Correct Patient Yes -Correct Side, Site, Position Yes -Correct Procedure Yes -Procedure Performed Yes -Type of Procedure Debridement -Clinical Debridement Subcutaneous -Tissue Removed Subcutaneous -Post Debridement (cm) - Length 1.1 -Post Debridement (cm) - Width 3.1 -Post Debridement (cm) - Depth 0.1 -Total Square (Post) (cm) 3.41 -Area of Debridement (cm) - Length 1.1 -Area of Debridement (cm) - Width 3.1 -Total Square (Area) (cm) 3.41 -Tunneling No -Undermining/Tunneling No -Circular Undermining No -Wound/Ulcer Outcome Not Healed -Ulcer Cleansing Rinsed/ Irrigated with Saline -Foul Odor after Cleansing No -Bioengineered Tissue No -Type of Bioengineered Tissue -Expiration Date -Product Lot Number -Percent Used -Lot number of Saline Used -Bleeding Controlled with Pressure -Treatment Response Procedure Tolerated Well -Offloading No -Debridement - Subq, 1st 20sq cm Yes -Debridement, SubQ, ea addt'l 20sq cm or part thereof -Apply Skin Sub - 1st 25 sq cm - Legs -Theraskin (per sq cm) Pain Scale: 0-10 Numeric Is Patient Pain Free? Yes WC - Nurse 3 - General Ulcer D/C NN Start: 10/01/21 14:38 Freq: Status: Active Protocol: Activity Type Activity Date Activity User E-sign Co-sign Detail Recorded Client Recorded Date Recorded By Document 10/01/21 15:36 RB [id number] 10/01/21 15:39 RB Document 10/08/21 15:28 BMF [id number] 10/08/21 15:29 BMF Document 10/10/21 12:56 MT [id number] 10/10/21 13:25 MT Document 10/15/21 15:22 DL [id number] 10/15/21 15:24 DL Document 10/17/21 13:19 AK [id number] 10/17/21 13:22 AK Document 10/22/21 15:15 DL [id number] 10/22/21 15:17 DL 10/01/21 10/08/21 10/10/21 15:36 15:28 12:56 Wound Care Nurse 3 #1- L VILLARREAL -Ulcer Cleansing Rinsed/ Irrigated with Saline -Foul Odor after Cleansing -Negative Pressure Wound Therapy -Primary Dressing Applied Optilok 6.5x10 -Other Dressing aquacel ag, abd kerlix , kerlix -Primary Dressing Covered/Secured with -Other Covering theraskin -Optilok 6.5x10 1 #3- L CALF CLUSTER -Ulcer Cleansing Rinsed/ Soap and Water Irrigated with Saline -Foul Odor after Cleansing -Negative Pressure Wound Therapy -Primary Dressing Applied Aquacel AG 4x4 Optilok 8x12 Optilok 6.5x10, Optilok 8x12 -Other Dressing abd kerlix [place]rask[place] -Primary Dressing Covered/Secured with Dry Gauze,Dry Gauze & Roll Gauze,Secured with Tape -Other Covering kerlix -Aquacel AG 4x4 1 -Optilok 6.5x10 1 -Optilok 8x12 1 1 Left -Lotion applied to leg before compression wrap -Multi-Layered Wrap Application Multi-Layer Multi-Layer Comp - Left ($) Comp - Left ($) -Tubular Bandage Double Layer -Size of Tubigrip Used Size D -Size D ($) 2 Treatment Response Procedure Procedure Tolerated Well Tolerated Well Vital Signs Temperature (97.8 F-99.1 F) 97 F L Temperature Source Temporal Pulse Rate (60-100) 95 Pulse Location Monitor Respiratory Rate (12-18) 18 Respiratory rate source Observation Oxygen Delivery Method Room Air Blood Pressure (90/60-120/80) 147/77 H Blood Pressure Mean (mm Hg) 100 Source Monitor Position Sitting Blood Pressure Location Left Arm Pain Scale: 0-10 Numeric Is Patient Pain Free? Yes Yes Yes Teaching: Wound Center Dressing Your Wound -Person Taught Patient, Significant Other -Teaching Method Discussion, Demonstration -Response to teaching Verbalize understanding WC - Visit Discharge Discharge Condition Stable Stable Stable Ambulatory Status Ambulatory Ambulatory,Cane Transportation Private Auto Private Auto Private Auto Accompanied by girlfriend Medication Reconcilliation completed & No No provided to patient/care provider Clinical Summary of Care Provided Yes Yes Notes: dressing nurse visit. completed by Mahad Garcia RN 10/15/21 10/17/21 10/22/21 15:22 13:19 15:15 Wound Care Nurse 3 #1- L VILLARREAL -Ulcer Cleansing Soap and Water -Foul Odor after Cleansing No -Negative Pressure Wound Therapy N/A -Primary Dressing Applied -Other Dressing superabsorber -Primary Dressing Covered/Secured with Dry Gauze & Roll Gauze, Secured with Tape -Other Covering -Optilok 6.5x10 #3- L CALF CLUSTER -Ulcer Cleansing Soap and Water Rinsed/ Irrigated with Saline -Foul Odor after Cleansing No No No -Negative Pressure Wound Therapy N/A -Primary Dressing Applied Optilok 8x12 Aquacel AG 4x4 -Other Dressing superabsorber ABD -Primary Dressing Covered/Secured with Dry Gauze & Dry Gauze & Roll Gauze, Roll Gauze, Secured with Secured with Tape Tape -Other Covering -Aquacel AG 4x4 1 -Optilok 6.5x10 -Optilok 8x12 1 Left -Lotion applied to leg before No compression wrap -Multi-Layered Wrap Application Multi-Layer Multi-Layer Comp - Left ($) Comp - Right ($ ) -Tubular Bandage Double Layer -Size of Tubigrip Used Size D -Size D ($) 2 Treatment Response Procedure Procedure Tolerated Well Tolerated Well Vital Signs Temperature (97.8 F-99.1 F) 97.7 F L Temperature Source Temporal Pulse Rate (60-100) 68 Pulse Location Monitor Respiratory Rate (12-18) Respiratory rate source Oxygen Delivery Method Blood Pressure (90/60-120/80) 127/72 H Blood Pressure Mean (mm Hg) 90 Source Monitor Position Blood Pressure Location Pain Scale: 0-10 Numeric Is Patient Pain Free? Yes No Yes Teaching: Wound Center Dressing Your Wound -Person Taught -Teaching Method -Response to teaching WC - Visit Discharge Discharge Condition Stable Stable Stable Ambulatory Status Ambulatory Ambulatory,Cane Ambulatory Transportation Private Auto Private Auto Accompanied by Medication Reconcilliation completed & Yes provided to patient/care provider Clinical Summary of Care Provided Yes Notes: Assessment/Plan Assessment/Plan (1) Other specified peripheral vascular diseases: CODE(S): I73.89 - Other specified peripheral vascular diseases (2) Non-pressure chronic ulcer of unspecified part of left lower leg with fat layer exposed: CODE(S): L97.922 - Non-pressure chronic ulcer of unspecified part of left lower leg with fat layer exposed (3) Localized edema: CODE(S): R60.0 - Localized edema (4) Venous ulcer of left leg: CODE(S): I83.029 - Varicose veins of left lower extremity with ulcer of unspecified site; L97.929 - Non-pressure chronic ulcer of unspecified part of left lower leg with unspecified severity PLAN: Plan Re-evaluation performed. Reviewed diagnostic data. Patient is clinically stable and local signs of infection have resolved. Left foot/ankle and leg noted to be improved today. There is resolved cellulitis and all ulcer beds are now granular. The left leg was washed with soap and water. Compression was updated to 3M2L. He will follow-up on Wednesday for nurse dressing and compression change. I recommend application of advanced wound healing product including cadaver donated TheraSkin next week. The indications, benefits, anticipated application management were reviewed. Hydrogel and Adaptic was applied to the other ulcer sites; to change daily this week. I recommend improving skin integity this week with daily soap and water wash and lotion application. Offloading: To avoid laying directly on the ulcers. To help reduce pressure on the ulcers by better controlling the edema with a forementioned compression Tubigrip and Carlos wrap. I recommend Lac-Hydrin application to bilateral lower extremities to address his xerosis and maintain better skin integrity to avoid additional wounds and infections. refill sent to [facility]. He recently completed a cellulitis treatment course and has been discharged from the hospital. To complete course of cefdinir per infectious disease recommendations. No local signs infection noted today. Due to chronicity of these ulcers I also recommend noninvasive vascular studies (arterial). This was ordered and it appear he has triphasic waveforms to ankle bilateral, pvr are diminished digital to the right but ok to other bilateral levels, JUSTUS normal bilateral, digital brachial index mildly diminished bilateral. This is consistent with mild arterial occlusive disease. If lack of healing is noted, referral will be considered. I also recommend venous doppler with reflux evaluation to work up for venous insufficiency. Venous insufficiency was not identified and these results were reviewed with him previously. To continue nutrition supplementation to optimize healing. To avoid laying directly on ulcer for pressure reduction. To follow up next week at wound center. Note: [employer] speech recognition business proposal rep software was used to create por tions of this document. Sound-alike and misspelled words, as well as other business proposal rep errors may be contained in the documentation. The medical decision making level is low.? There is noted low risk of morbidity after considering this treatment plan and diagnostic data.? The problems addressed require a low medical decision making level which includes two or more minor problems, a stable chronic illness, or an acute uncomplicated illness or injury.
[2021-10-29 14:36] VITALS: BP 171/91; PULSE 86; RESP 18; TEMP 36.9; BMI 24.9
--- NOTE | 2021-10-29 15:28 | PN.PCM_ITS ---
History of Present Illness Date of Service: 10/29/21 Chief Complaint: left leg ulcers History of Wound: This 66-year-old pleasant male follows up for multiple left leg ulcers and chronic skin peeling. He denies drainage. He washed his leg and applied lotion daily last week. He denies applying lotion to his foot. The onset is intermittently for a couple of years. he has pain with direct touch. He denies calf pain. He denies fever, chills, nausea, vomiting or calf pain. Progress of Wound: Healed Objective Data Objective Data Vital Signs: Vital Signs Temp Pulse Resp BP O2 Del Method 98.5 F 86 18 171/91 H Room Air 10/29/21 14:36 10/29/21 14:36 10/29/21 14:36 10/29/21 14:36 10/15/21 14:48 Oxygen Delivery Method Room Air Weight: 65.771 kg Body Mass Index (BMI) 24.9 Lab / Micro Data Micro: Microbiology 10/22/21 15:13 Skin - Leg Fungal Smear - Final Physical Exam Const alert, oriented x3 and no apparent distress Skin Skin Narrative: Left foot/ankle leg with resolved cellulitis. medial and lateral malleolus ulcers and anterior leg ulcer are healed; full epithelialization noted. posterior leg is now healed with full epithelialization. All ulcers are now healed. there is no longer maloder and edema has decreased. no visible abscess, no fluctuance, no crepitus noted. There is diffuse xerosis bilateral lower extremity; decreased skin peeling noted. Sensation intact to light touch bilateral foot. Debridement Note Debridement Note Post-Debridement Measurements and Additional Note: Post-Debridement Measurements/Treatment - Nurse 1 - General Ulcer Assessment Start: 10/01/21 14:38 Freq: Status: Active Protocol: DEVON.LOWEXT Activity Type Activity Date Activity User E-sign Co-sign Detail Recorded Client Recorded Date Recorded By Document 10/01/21 14:38 RB [id number] 10/01/21 15:04 RB Document 10/08/21 14:32 BM [id number] 10/08/21 14:42 BMF Document 10/15/21 14:48 BM [id number] 10/15/21 15:00 BMF Document 10/17/21 13:19 AK [id number] 10/17/21 13:22 AK Document 10/22/21 14:41 DL [id number] 10/22/21 14:51 DL Document 10/29/21 14:36 DL [id number] 10/29/21 14:46 DL 10/01/21 10/08/21 10/15/21 14:38 14:32 14:48 WC - Today's Visit Information Type of service Follow-up Visit Follow-up Visit Follow-up Visit (Physician/PIN DRAFTER OPERATOR (Physician/PIN DRAFTER OPERATOR (Physician/PIN DRAFTER OPERATOR ) ) ) Arrival Mode Ambulatory,Cane Ambulatory Ambulatory,Cane Transfer Assistance None None None Patient Identification Verified (Name & Yes Yes Yes ) Patient Requires Transmission-Based No No Precautions Height and Weight Body Mass Index (BMI) 24.9 24.9 24.9 BMI Classification Normal Normal Normal Vital Signs Temperature (97.8 F-99.1 F) 98.3 F 99 F Temperature Source Temporal Temporal Pulse Rate (60-100) 91 92 106 H Pulse Location Monitor Monitor Monitor Respiratory Rate (12-18) 18 16 16 Respiratory rate source Observation Observation Observation Oxygen Delivery Method Room Air Room Air Blood Pressure (90/60-120/80) 169/81 H 167/77 H 180/91 H Blood Pressure Mean (mm Hg) 110 107 120 Source Monitor Monitor Monitor Position Semi-Fowlers Sitting Sitting Blood Pressure Location Left Arm Left Arm Right Arm History Since Last Visit- (Skip if this is Patient's initial visit) Have you changed medications since your No No No last visit? Any new allergies or adverse reactions No No No Had a fall/change in ADL's that may No No No increase risk of falls Signs or symptoms of abuse and/or No No No neglect since last visit Have you been in the hospital since your No No No last visit? Has dressing in place as prescribed Yes Yes Yes Has compression in place as prescribed Yes Yes Yes Has offloadiing in place as prescribed No Yes Yes Experienced any changes in pain level or No No No management Left Footwear Custom Shoe Custom Shoe Right Footwear Regular Shoe Regular Shoe Pain Scale: 0-10 Numeric Is Patient Pain Free? Yes Yes Yes 10/17/21 10/22/21 10/29/21 13:19 14:41 14:36 WC - Today's Visit Information Type of service Follow-up Visit Follow-up Visit Follow-up Visit (Physician/PIN DRAFTER OPERATOR (Physician/PIN DRAFTER OPERATOR (Physician/PIN DRAFTER OPERATOR ) ) ) Arrival Mode Ambulatory,Cane Ambulatory Ambulatory Transfer Assistance None None Patient Identification Verified (Name & Yes Yes Yes ) Patient Requires Transmission-Based No No Precautions Height and Weight Body Mass Index (BMI) 24.9 24.9 24.9 BMI Classification Normal Normal Normal Vital Signs Temperature (97.8 F-99.1 F) 97.7 F L 98.7 F 98.5 F Temperature Source Temporal Temporal Temporal Pulse Rate (60-100) 68 95 86 Pulse Location Monitor Monitor Monitor Respiratory Rate (12-18) 20 H 18 Respiratory rate source Observation Observation Oxygen Delivery Method Blood Pressure (90/60-120/80) 127/72 H 175/101 H 171/91 H Blood Pressure Mean (mm Hg) 90 125 117 Source Monitor Monitor Monitor Position Blood Pressure Location History Since Last Visit- (Skip if this is Patient's initial visit) Have you changed medications since your No No No last visit? Any new allergies or adverse reactions No No No Had a fall/change in ADL's that may No No No increase risk of falls Signs or symptoms of abuse and/or No No No neglect since last visit Have you been in the hospital since your No No No last visit? Has dressing in place as prescribed Yes No Yes Has compression in place as prescribed Yes Yes Yes Has offloadiing in place as prescribed N/A Yes N/A Experienced any changes in pain level or No No No management Left Footwear Regular Shoe Right Footwear Regular Shoe Pain Scale: 0-10 Numeric Is Patient Pain Free? No Yes Yes - Nurse 1 - General Ulcer Measurement Start: 10/01/21 14:38 Freq: Status: Active Protocol: Activity Type Activity Date Activity User E-sign Co-sign Detail Recorded Client Recorded Date Recorded By Document 10/01/21 14:38 RB [id number] 10/01/21 15:04 RB Document 10/08/21 14:32 BMF [id number] 10/08/21 14:42 BMF Document 10/15/21 14:48 BMF [id number] 10/15/21 15:00 BM Document 10/22/21 14:41 DL [id number] 10/22/21 14:51 DL Document 10/29/21 14:36 DL [id number] 10/29/21 14:46 DL 10/01/21 10/08/21 10/15/21 14:38 14:32 14:48 Wound Center Nurse 1 #3- L CALF CLUSTER -Combined with other wound No No No -Current Size (cm) - Length 8 2 1.8 -Current Size (cm) - Width 2.1 9.1 7.7 -Current Size (cm) - Depth 0.1 0.1 0.1 -Total Square Cm 16.8 18.2 13.86 -Date of Last Picture (Recall this 10/15/21 field) -Photo Taken Yes No Yes -Epithelialization Small 1-33% Small 1-33% -Tunneling No No No -Undermining/Tunneling No No No -Circular Undermining No No No -Exudate Amt Large Medium Medium -Exudate Type Serosanguineous Serosanguineous Serosanguineous -Wound Margin Distinct, Flat & Intact Distinct, Outline Outline Attached Attached -Granulation Amt Small (1-33%) Medium (34-66%) Large (67-100%) -Granulation Quality Nesbitt Nesbitt Hyper- granulation,Red -Slough/Fibrin Yes Yes No -Necrosis Amt Large (67-100%) Medium (34-66%) None Present (0 %) -Necrotic Tissue Type Adherent Slough Adherent Slough -Structure Exposed N/A -Texture (Sis-wound Skin Appearance) Assessed Assessed, Assessed, Scarring Scarring -Moisture (Sis-wound Skin Appearance) Dry/Scaly Assessed Assessed,Dry/ Scaly -Color (Sis-wound Skin Appearance) Assessed Assessed Assessed -Temperature (Sis-wound Skin No Abnormality No Abnormality No Abnormality Appearance) (Pt Warm) (Pt Warm) (Pt Warm) -Tenderness on Palpation (Sis-wound No No No Skin Appearance) -Ulcer Cleansing Wound Cleanser Soap and Water Soap and Water -Foul Odor after Cleansing Yes No No -Anesthetic Used 5% Lidocaine 4% Lidocaine 4% Lidocaine Gel Solution Solution #2- L LAT ANKLE -Combined with other wound No -Current Size (cm) - Length 1 -Current Size (cm) - Width 1.1 -Current Size (cm) - Depth 0.1 -Total Square Cm 1.1 -Photo Taken Yes -Tunneling No -Undermining/Tunneling No -Circular Undermining No -Exudate Amt Medium -Exudate Type Serosanguineous -Wound Margin Distinct, Outline Attached -Granulation Amt Small (1-33%) -Granulation Quality Nesbitt -Slough/Fibrin Yes -Necrosis Amt Large (67-100%) -Necrotic Tissue Type Adherent Slough -Structure Exposed N/A -Texture (Sis-wound Skin Appearance) Assessed -Moisture (Sis-wound Skin Appearance) Dry/Scaly -Color (Sis-wound Skin Appearance) Assessed -Temperature (Sis-wound Skin No Abnormality Appearance) (Pt Warm) -Tenderness on Palpation (Sis-wound No Skin Appearance) -Ulcer Cleansing Wound Cleanser -Foul Odor after Cleansing Yes -Anesthetic Used 5% Lidocaine Gel #1- L VILLARREAL -Combined with other wound No No No -Current Size (cm) - Length 2 2 0.1 -Current Size (cm) - Width 3.3 2 0.1 -Current Size (cm) - Depth 0.1 0.1 0.1 -Total Square Cm 6.6 4 0.01 -Date of Last Picture (Recall this 10/15/21 field) -Photo Taken Yes No Yes -Epithelialization Small 1-33% Large 67-100% -Tunneling No No No -Undermining/Tunneling No No No -Circular Undermining No No No -Exudate Amt Large Small None Present -Exudate Type Serosanguineous Serosanguineous -Wound Margin Distinct, Flat & Intact Outline Attached -Granulation Amt Small (1-33%) Small (1-33%) -Granulation Quality Nesbitt Nesbitt -Slough/Fibrin Yes Yes -Necrosis Amt Large (67-100%) Medium (34-66%) -Necrotic Tissue Type Adherent Slough Adherent Slough -Structure Exposed N/A -Texture (Sis-wound Skin Appearance) Assessed Assessed, Assessed, Scarring Friable -Moisture (Sis-wound Skin Appearance) Dry/Scaly Assessed Assessed,Dry/ Scaly -Color (Sis-wound Skin Appearance) Assessed Assessed Assessed, Hemosiderin Staining -Temperature (Sis-wound Skin No Abnormality No Abnormality No Abnormality Appearance) (Pt Warm) (Pt Warm) (Pt Warm) -Tenderness on Palpation (Sis-wound No No No Skin Appearance) -Ulcer Cleansing Wound Cleanser Soap and Water Soap and Water -Foul Odor after Cleansing Yes No Yes, Due to Product Use -Anesthetic Used 5% Lidocaine 4% Lidocaine 4% Lidocaine Gel Solution Solution Lower Limb Edema Present Yes Yes Left Calf (cm) 32 31 Left Ankle (cm) 23.5 23.3 10/22/21 10/29/21 14:41 14:36 Wound Center Nurse 1 #3- L CALF CLUSTER -Combined with other wound -Current Size (cm) - Length 1 0.1 -Current Size (cm) - Width 3 0.1 -Current Size (cm) - Depth 0.1 0.1 -Total Square Cm 3 0.01 -Date of Last Picture (Recall this field) -Photo Taken No No -Epithelialization -Tunneling -Undermining/Tunneling -Circular Undermining -Exudate Amt Medium Small -Exudate Type Serous Serosanguineous -Wound Margin Distinct, Distinct, Outline Outline Attached Attached -Granulation Amt Medium (34-66%) Small (1-33%) -Granulation Quality Nesbitt Nesbitt -Slough/Fibrin -Necrosis Amt Medium (34-66%) None Present (0 %) -Necrotic Tissue Type Adherent Slough -Structure Exposed N/A N/A -Texture (Sis-wound Skin Appearance) Excoriation, Excoriation, Scarring Scarring,Rash -Moisture (Sis-wound Skin Appearance) Dry/Scaly Dry/Scaly -Color (Sis-wound Skin Appearance) Hemosiderin No Abnormality Staining -Temperature (Sis-wound Skin No Abnormality No Abnormality Appearance) (Pt Warm) (Pt Warm) -Tenderness on Palpation (Sis-wound No No Skin Appearance) -Ulcer Cleansing Soap and Water Soap and Water -Foul Odor after Cleansing No No -Anesthetic Used 4% Lidocaine 5% Lidocaine Solution Gel #2- L LAT ANKLE -Combined with other wound -Current Size (cm) - Length -Current Size (cm) - Width -Current Size (cm) - Depth -Total Square Cm -Photo Taken -Tunneling -Undermining/Tunneling -Circular Undermining -Exudate Amt -Exudate Type -Wound Margin -Granulation Amt -Granulation Quality -Slough/Fibrin -Necrosis Amt -Necrotic Tissue Type -Structure Exposed -Texture (Sis-wound Skin Appearance) -Moisture (Sis-wound Skin Appearance) -Color (Sis-wound Skin Appearance) -Temperature (Sis-wound Skin Appearance) -Tenderness on Palpation (Sis-wound Skin Appearance) -Ulcer Cleansing -Foul Odor after Cleansing -Anesthetic Used #1- L VILLARREAL -Combined with other wound -Current Size (cm) - Length 0.1 -Current Size (cm) - Width 0.1 -Current Size (cm) - Depth 0.1 -Total Square Cm 0.01 -Date of Last Picture (Recall this field) -Photo Taken No -Epithelialization -Tunneling -Undermining/Tunneling -Circular Undermining -Exudate Amt None Present -Exudate Type -Wound Margin -Granulation Amt Large (67-100%) -Granulation Quality Nesbitt -Slough/Fibrin -Necrosis Amt None Present (0 %) -Necrotic Tissue Type -Structure Exposed N/A -Texture (Sis-wound Skin Appearance) Scarring -Moisture (Sis-wound Skin Appearance) Dry/Scaly -Color (Sis-wound Skin Appearance) Hemosiderin Staining -Temperature (Sis-wound Skin No Abnormality Appearance) (Pt Warm) -Tenderness on Palpation (Sis-wound No Skin Appearance) -Ulcer Cleansing Soap and Water -Foul Odor after Cleansing No -Anesthetic Used 4% Lidocaine Solution Lower Limb Edema Present Left Calf (cm) 31 32 Left Ankle (cm) 22.8 23.2 WC - Nurse 2 - General Ulcer CM Notes Start: 10/01/21 14:38 Freq: Status: Active Protocol: Activity Type Activity Date Activity User E-sign Co-sign Detail Recorded Client Recorded Date Recorded By Document 10/01/21 15:27 [id number] 10/01/21 15:32 Document 10/08/21 15:14 [id number] 10/08/21 15:15 Document 10/15/21 15:11 [id number] 10/15/21 15:19 Edit Result 10/15/21 15:11 JF (1) [id number] 10/16/21 07:25 PL Document 10/22/21 15:02 [id number] 10/22/21 15:03 JF Document 10/29/21 15:07 [id number] 10/29/21 15:10 JF (1) #3- L CALF CLUSTER - Apply Skin Sub - 1st 25 sq cm - Legs => 1 10/01/21 10/08/21 10/15/21 15:27 15:14 15:11 Wound Center Nurse 2 #3- L CALF CLUSTER -Time 15:28 15:14 15:17 -Correct Patient Yes Yes Yes -Correct Side, Site, Position Yes Yes Yes -Correct Procedure Yes Yes Yes -Procedure Performed Yes Yes Yes -Type of Procedure Debridement Debridement Debridement -Clinical Debridement Subcutaneous Subcutaneous Subcutaneous -Tissue Removed Subcutaneous Subcutaneous Subcutaneous -Post Debridement (cm) - Length 8 9.1 6 -Post Debridement (cm) - Width 2.2 2.1 1.7 -Post Debridement (cm) - Depth 0.1 0.1 0.1 -Total Square (Post) (cm) 17.6 19.11 10.2 -Area of Debridement (cm) - Length 8 9.1 6 -Area of Debridement (cm) - Width 2.2 2.1 1.7 -Total Square (Area) (cm) 17.6 19.11 10.2 -Tunneling No No No -Undermining/Tunneling No No No -Circular Undermining No No No -Wound/Ulcer Outcome Not Healed Not Healed Not Healed -Ulcer Cleansing Rinsed/ Rinsed/ Rinsed/ Irrigated with Irrigated with Irrigated with Saline Saline Saline -Foul Odor after Cleansing No No No -Bioengineered Tissue No Yes Yes -Type of Bioengineered Tissue Theraskin Theraskin -Expiration Date 06/20/24 08/05/24 -Product Lot Number [id number] -Percent Used 100 10 -Lot number of Saline Used [id number] -Bleeding Controlled with Pressure Pressure Pressure -Treatment Response Procedure Procedure Procedure Tolerated Well Tolerated Well Tolerated Well -Offloading No No No -Debridement - Subq, 1st 20sq cm Yes No No -Debridement, SubQ, ea addt'l 20sq cm 1 or part thereof -Apply Skin Sub - 1st 25 sq cm - Legs 1 1 -Theraskin (per sq cm) 13 13 #2- L LAT ANKLE -Correct Patient No -Correct Side, Site, Position No -Correct Procedure No -Procedure Performed No -Post Debridement (cm) - Length 0 -Post Debridement (cm) - Width 0 -Post Debridement (cm) - Depth 0 -Total Square (Post) (cm) 0 -Area of Debridement (cm) - Length 0 -Area of Debridement (cm) - Width 0 -Total Square (Area) (cm) 0 -Wound/Ulcer Outcome Healed- Epithelialized #1- L VILLARREAL -Time 15: 15:15 15:19 -Correct Patient Yes Yes Yes -Correct Side, Site, Position Yes Yes Yes -Correct Procedure Yes Yes Yes -Procedure Performed Yes Yes Yes -Type of Procedure Debridement Debridement Debridement -Clinical Debridement Subcutaneous Subcutaneous Subcutaneous -Tissue Removed Subcutaneous Subcutaneous Dermis -Post Debridement (cm) - Length 2 2.1 0.4 -Post Debridement (cm) - Width 3.4 2 0.6 -Post Debridement (cm) - Depth 0.1 0.1 0.1 -Total Square (Post) (cm) 6.8 4.2 0.24 -Area of Debridement (cm) - Length 2.0 2.1 0.4 -Area of Debridement (cm) - Width 3.4 2 0.6 -Total Square (Area) (cm) 6.80 4.2 0.24 -Tunneling No No No -Undermining/Tunneling No No No -Circular Undermining No No No -Wound/Ulcer Outcome Not Healed Not Healed Not Healed -Ulcer Cleansing Rinsed/ Rinsed/ Rinsed/ Irrigated with Irrigated with Irrigated with Saline Saline Saline -Foul Odor after Cleansing No No No -Bioengineered Tissue No No No -Bleeding Controlled with Pressure Pressure Pressure -Treatment Response Procedure Procedure Procedure Tolerated Well Tolerated Well Tolerated Well -Offloading No No No -Debridement - Subq, 1st 20sq cm No Yes Yes Pain Scale: 0-10 Numeric Is Patient Pain Free? Yes Yes Yes 10/22/21 10/29/21 15:02 15:07 Wound Center Nurse 2 #3- L CALF CLUSTER -Time 15:02 -Correct Patient Yes No -Correct Side, Site, Position Yes No -Correct Procedure Yes No -Procedure Performed Yes No -Type of Procedure Debridement -Clinical Debridement Subcutaneous -Tissue Removed Subcutaneous -Post Debridement (cm) - Length 1.1 0 -Post Debridement (cm) - Width 3.1 0 -Post Debridement (cm) - Depth 0.1 0 -Total Square (Post) (cm) 3.41 0 -Area of Debridement (cm) - Length 1.1 0 -Area of Debridement (cm) - Width 3.1 0 -Total Square (Area) (cm) 3.41 0 -Tunneling No -Undermining/Tunneling No -Circular Undermining No -Wound/Ulcer Outcome Not Healed Healed- Epithelialized -Ulcer Cleansing Rinsed/ Irrigated with Saline -Foul Odor after Cleansing No -Bioengineered Tissue No -Type of Bioengineered Tissue -Expiration Date -Product Lot Number -Percent Used -Lot number of Saline Used -Bleeding Controlled with Pressure -Treatment Response Procedure Tolerated Well -Offloading No -Debridement - Subq, 1st 20sq cm Yes -Debridement, SubQ, ea addt'l 20sq cm or part thereof -Apply Skin Sub - 1st 25 sq cm - Legs -Theraskin (per sq cm) #2- L LAT ANKLE -Correct Patient -Correct Side, Site, Position -Correct Procedure -Procedure Performed -Post Debridement (cm) - Length -Post Debridement (cm) - Width -Post Debridement (cm) - Depth -Total Square (Post) (cm) -Area of Debridement (cm) - Length -Area of Debridement (cm) - Width -Total Square (Area) (cm) -Wound/Ulcer Outcome #1- L VILLARREAL -Time -Correct Patient No -Correct Side, Site, Position No -Correct Procedure No -Procedure Performed No -Type of Procedure -Clinical Debridement -Tissue Removed -Post Debridement (cm) - Length 0 -Post Debridement (cm) - Width 0 -Post Debridement (cm) - Depth 0 -Total Square (Post) (cm) 0 -Area of Debridement (cm) - Length 0 -Area of Debridement (cm) - Width 0 -Total Square (Area) (cm) 0 -Tunneling -Undermining/Tunneling -Circular Undermining -Wound/Ulcer Outcome Healed- Epithelialized -Ulcer Cleansing -Foul Odor after Cleansing -Bioengineered Tissue -Bleeding Controlled with -Treatment Response -Offloading -Debridement - Subq, 1st 20sq cm Pain Scale: 0-10 Numeric Is Patient Pain Free? Yes Yes WC - Nurse 3 - General Ulcer D/C NN Start: 10/01/21 14:38 Freq: Status: Active Protocol: Activity Type Activity Date Activity User E-sign Co-sign Detail Recorded Client Recorded Date Recorded By Document 10/01/21 15:36 RB [id number] 10/01/21 15:39 RB Document 10/08/21 15:28 BMF [id number] 10/08/21 15:29 BMF Document 10/10/21 12:56 MT [id number] 10/10/21 13:25 MT Document 10/15/21 15:22 DL [id number] 10/15/21 15:24 DL Document 10/17/21 13:19 AK [id number] 10/17/21 13:22 AK Document 10/22/21 15:15 DL [id number] 10/22/21 15:17 DL Document 10/29/21 15:23 DL [id number] 10/29/21 15:25 DL 10/01/21 10/08/21 10/10/21 15:36 15:28 12:56 Wound Care Nurse 3 #3- L CALF CLUSTER -Ulcer Cleansing Rinsed/ Soap and Water Irrigated with Saline -Foul Odor after Cleansing -Negative Pressure Wound Therapy -Primary Dressing Applied Aquacel AG 4x4 Optilok 8x12 Optilok 6.5x10, Optilok 8x12 -Other Dressing abd kerlix theraskin -Primary Dressing Covered/Secured with Dry Gauze,Dry Gauze & Roll Gauze,Secured with Tape -Other Covering kerlix -Aquacel AG 4x4 1 -Optilok 6.5x10 1 -Optilok 8x12 1 1 #1- L VILLARREAL -Ulcer Cleansing Rinsed/ Irrigated with Saline -Foul Odor after Cleansing -Negative Pressure Wound Therapy -Primary Dressing Applied Optilok 6.5x10 -Other Dressing aquacel ag, abd kerlix , kerlix -Primary Dressing Covered/Secured with -Other Covering theraskin -Optilok 6.5x10 1 Left -Lotion applied to leg before compression wrap -Multi-Layered Wrap Application Multi-Layer Multi-Layer Comp - Left ($) Comp - Left ($) -Tubular Bandage Double Layer -Size of Tubigrip Used Size D -Size D ($) 2 Treatment Response Procedure Procedure Tolerated Well Tolerated Well Vital Signs Temperature (97.8 F-99.1 F) 97 F L Temperature Source Temporal Pulse Rate (60-100) 95 Pulse Location Monitor Respiratory Rate (12-18) 18 Respiratory rate source Observation Oxygen Delivery Method Room Air Blood Pressure (90/60-120/80) 147/77 H Blood Pressure Mean (mm Hg) 100 Source Monitor Position Sitting Blood Pressure Location Left Arm Pain Scale: 0-10 Numeric Is Patient Pain Free? Yes Yes Yes Teaching: Wound Center Dressing Your Wound -Person Taught Patient, Significant Other -Teaching Method Discussion, Demonstration -Response to teaching Verbalize understanding WC - Visit Discharge Discharge Condition Stable Stable Stable Ambulatory Status Ambulatory Ambulatory,Cane Transportation Private Auto Private Auto Private Auto Accompanied by girlfriend Medication Reconcilliation completed & No No provided to patient/care provider Clinical Summary of Care Provided Yes Yes Notes: dressing nurse visit. completed by nava and Gricel Garcia RN Orders Sent 10/15/21 10/17/21 10/22/21 15:22 13:19 15:15 Wound Care Nurse 3 #3- L CALF CLUSTER -Ulcer Cleansing Soap and Water Rinsed/ Irrigated with Saline -Foul Odor after Cleansing No No No -Negative Pressure Wound Therapy N/A -Primary Dressing Applied Optilok 8x12 Aquacel AG 4x4 -Other Dressing superabsorber ABD -Primary Dressing Covered/Secured with Dry Gauze & Dry Gauze & Roll Gauze, Roll Gauze, Secured with Secured with Tape Tape -Other Covering -Aquacel AG 4x4 1 -Optilok 6.5x10 -Optilok 8x12 1 #1- L VILLARREAL -Ulcer Cleansing Soap and Water -Foul Odor after Cleansing No -Negative Pressure Wound Therapy N/A -Primary Dressing Applied -Other Dressing superabsorber -Primary Dressing Covered/Secured with Dry Gauze & Roll Gauze, Secured with Tape -Other Covering -Optilok 6.5x10 Left -Lotion applied to leg before No compression wrap -Multi-Layered Wrap Application Multi-Layer Multi-Layer Comp - Left ($) Comp - Right ($ ) -Tubular Bandage Double Layer -Size of Tubigrip Used Size D -Size D ($) 2 Treatment Response Procedure Procedure Tolerated Well Tolerated Well Vital Signs Temperature (97.8 F-99.1 F) 97.7 F L Temperature Source Temporal Pulse Rate (60-100) 68 Pulse Location Monitor Respiratory Rate (12-18) Respiratory rate source Oxygen Delivery Method Blood Pressure (90/60-120/80) 127/72 H Blood Pressure Mean (mm Hg) 90 Source Monitor Position Blood Pressure Location Pain Scale: 0-10 Numeric Is Patient Pain Free? Yes No Yes Teaching: Wound Center Dressing Your Wound -Person Taught -Teaching Method -Response to teaching WC - Visit Discharge Discharge Condition Stable Stable Stable Ambulatory Status Ambulatory Ambulatory,Cane Ambulatory Transportation Private Auto Private Auto Accompanied by Medication Reconcilliation completed & Yes provided to patient/care provider Clinical Summary of Care Provided Yes Notes: Orders Sent 10/29/21 15:23 Wound Care Nurse 3 #3- L CALF CLUSTER -Ulcer Cleansing -Foul Odor after Cleansing -Negative Pressure Wound Therapy -Primary Dressing Applied -Other Dressing -Primary Dressing Covered/Secured with -Other Covering -Aquacel AG 4x4 -Optilok 6.5x10 -Optilok 8x12 #1- L VILLARREAL -Ulcer Cleansing -Foul Odor after Cleansing -Negative Pressure Wound Therapy -Primary Dressing Applied -Other Dressing -Primary Dressing Covered/Secured with -Other Covering -Optilok 6.5x10 Left -Lotion applied to leg before compression wrap -Multi-Layered Wrap Application -Tubular Bandage Double Layer -Size of Tubigrip Used Size D -Size D ($) 2 Treatment Response Procedure Tolerated Well Vital Signs Temperature (97.8 F-99.1 F) Temperature Source Pulse Rate (60-100) Pulse Location Respiratory Rate (12-18) Respiratory rate source Oxygen Delivery Method Blood Pressure (90/60-120/80) Blood Pressure Mean (mm Hg) Source Position Blood Pressure Location Pain Scale: 0-10 Numeric Is Patient Pain Free? Yes Teaching: Wound Center Dressing Your Wound -Person Taught -Teaching Method -Response to teaching - Visit Discharge Discharge Condition Stable Ambulatory Status Ambulatory,Cane Transportation Private Auto Accompanied by Medication Reconcilliation completed & provided to patient/care provider Clinical Summary of Care Provided Notes: Healed, F/U on 4 weeks. Orders Sent Yes Assessment/Plan Assessment/Plan (1) Non-pressure chronic ulcer of unspecified part of left lower leg with fat layer exposed: CODE(S): L97.922 - Non-pressure chronic ulcer of unspecified part of left lower leg with fat layer exposed (2) Localized edema: CODE(S): R60.0 - Localized edema (3) Dermatitis: CODE(S): L30.9 - Dermatitis, unspecified PLAN: Plan Re-evaluation performed. Reviewed diagnostic data. Patient is clinically stable and local signs of infection have resolved. It is noted that all ulcer sites are healed and no debridement was performed. He successfully completed a course of advanced wound healing product applications. I recommend improving skin integity in the ongoing future with daily soap and water wash and lotion application to both legs and feet. His work-up for dermatitis may be secondary to vasculitis. He had a BRISEIDA stain with no fungal elements noted. He is advised to quit smoking and to permanently work on controlling his lower extremity edema. Offloading: To help reduce recurrence of the ulcers by better controlling the edema with aforementioned compression Tubigrip and Carlos wrap. A prescription for compression stockings with donning device was provided today. He had prior noninvasive vascular studies for work-up of peripheral vascular di sease noted. This was ordered and it appear he has triphasic waveforms to ankle bilateral, pvr are diminished digital to the right but ok to other bilateral levels, JUSTUS normal bilateral, digital brachial index mildly diminished bilateral. This is consistent with mild arterial occlusive disease. If lack of healing is noted, referral will be considered. I also recommend venous doppler with reflux evaluation to work up for venous insufficiency. Venous insufficiency was not identified and these results were reviewed with him previously. Okay to discontinue nutritional supplementation and wound dressings. He is discharged from the wound healing center this time because his ulcers have healed. It was offered for him to follow-up in 1 month with another provider to confirm his ulcers remained healed. Note: [employer] speech recognition med surg nurse software was used to create portions of this document. Sound-alike and misspelled words, as well as other med surg nurse errors may be contained in the documentation. The medical decision making level is moderate based on data including at least three of the following: review of prior external notes, review of a test, ordering a test, assessment requiring an independent historian. The problems addressed require a moderate decision making level which includes one or more chronic illnesses (w/ exacerbation, progression, or side effects), two or more stable chronic illnesses, one undiagnosed new problem w/ uncertain prognosis, one acute illness with systemic symptoms, or one acute complicated injury.
== END 2021-10-29 23:59 | disposition home or self-care (01) ==
LOC: WC 14:30
PROVIDERS: Referring Provider Podiatrist; Visit Provider Podiatrist
DX: L97.922 Non-pressure chronic ulcer of unspecified part of left lower leg with fat layer exposed (principal); I73.9 Peripheral vascular disease, unspecified; I83.92 Asymptomatic varicose veins of left lower extremity; R60.0 Localized edema; I87.2 Venous insufficiency (chronic) (peripheral); L30.9 Dermatitis, unspecified
CPT/HCPCS: 11042; 11045; 15271; 29581; 87206; 99213; Q4121; G0463

== ENCOUNTER 2023-02-18 18:45 | Emergency (ER) | payer MEDICARE, SELFPAY ==
[2023-02-18] VITALS (8 sets, daily range): BP systolic 80–117; BP diastolic 56–84; PULSE 116–155; RESP 16–27; TEMP 36.3–36.5; O2SAT 90–99; BMI 22.8
--- NOTE | 2023-02-18 19:23 | EKG12_ITS ---
Test Reason : A FIB Blood Pressure : / mmHG Vent. Rate : 149 BPM Atrial Rate : 000 BPM P-R Int : 000 ms QRS Dur : 074 ms QT Int : 274 ms P-R-T Axes : 000 005 017 degrees QTc Int : 431 ms Critical Test Result: High HR Atrial fibrillation with rapid ventricular response Abnormal ECG When compared with ECG of 26-APR-2022 20:04, Atrial fibrillation has replaced Sinus rhythm Vent. rate has increased BY 98 BPM Confirmed by LOLY MIDDLETON MD ([id number]), clinical editor AARON YEN ([id number]) on 02/19/2023 2:09:07 PM Referred By: CHANDLER Confirmed By:LOLY MIDDLETON MD
--- NOTE | 2023-02-18 19:25 | EX.ED.DYSGE1 ---
HPI History of Present Illness Chief Complaint: General Illness Informant: patient and spouse/S.O. Narrative Narrative: Patient presents via EMS secondary to the stomach flu. Family states that he got ill 11 days ago and has not been able to keep anything down. They are concerned that he is very dehydrated. He states he does have cough with clear-colored sputum. He had vomiting and diarrhea but denies blood in the vomitus or stool. He normally drinks alcohol daily but has not been able to keep alcohol down for the past 11 days. PFSH PFSH Medical History Alcohol abuse Hypertension Smoker Allergy/AdvReac Type Severity Reaction Status Date / Time No Known Allergies Allergy Verified 02/18/23 18:46 Social History Smoking Status: Current every day smoker tobacco type: cigarettes ROS ROS ED Constitutional Constitutional ED: Denies chills or fever(s) Eyes Eyes: Denies discharge from eye(s) ENT ENT ED: Denies discharge from eye(s), rhinorrhea or sore throat Cardiovascular Cardiovascular: Denies chest pain or palpitations Respiratory/Chest Respiratory/Chest: Reports cough; Denies dyspnea Gastrointestinal Gastrointestinal: Reports diarrhea, nausea and vomiting; Denies abdominal pain Genitourinary Genitourinary ED: Reports other Details: Decreased urination Musculoskeletal Musculoskeletal: Denies back pain or extremity pain Integumentary Reports Abrasions; Denies rash Neurologic Neurologic: Reports weakness; Denies headache(s) Psychiatric Psychiatric: Denies anxiety or depression Allergic/Immunologic Allergic/Immunologic ED: Denies lip swelling or urticaria EXAM Physical Exam Const Vital Signs: 02/18/23 18:46 02/18/23 18:55 02/18/23 18:55 Temperature 97.3 F L 97.3 F L Temperature Source Temporal Temporal Pulse Rate 155 H 155 H Respiratory Rate 27 H 27 H Respiratory Effort Short of Breath Respiratory Pattern Tachypnea Blood Pressure 109/84 H 109/84 H Blood Pressure Mean 92 92 Pulse Ox 93 93 Oxygen Delivery Method Room Air Room Air Oxygen Flow Rate (L/min) 02/18/23 19:12 02/18/23 19:12 02/18/23 19:40 Temperature 97.7 F L Temperature Source Temporal Pulse Rate 147 H 153 H Respiratory Rate 25 H 25 H Respiratory Effort Respiratory Pattern Blood Pressure 80/69 L 80/69 L Blood Pressure Mean 72 72 Pulse Ox 95 90 Oxygen Delivery Method Room Air Nasal Cannula Nasal Cannula Oxygen Flow Rate (L/min) 2 02/18/23 19:42 02/18/23 21:00 02/18/23 21:34 Temperature Temperature Source Pulse Rate 135 H 142 H 121 H Respiratory Rate 20 H 18 22 H Respiratory Effort Respiratory Pattern Blood Pressure 96/56 L 117/72 92/64 Blood Pressure Mean 69 87 73 Pulse Ox 98 Oxygen Delivery Method Nasal Cannula Oxygen Flow Rate (L/min) 2 02/18/23 21:47 02/18/23 23:15 02/19/23 00:00 Temperature Temperature Source Pulse Rate 133 H 116 H 106 H Respiratory Rate 18 16 18 Respiratory Effort Respiratory Pattern Blood Pressure 91/62 91/67 86/66 L Blood Pressure Mean 71 75 72 Pulse Ox 99 97 90 Oxygen Delivery Method Nasal Cannula Nasal Cannula Oxygen Flow Rate (L/min) 2 2 Positive cachectic General Appearance ED: cachectic Nutritional Appearance: cachectic HEENT Reports dry mucous membranes Mouth ED: Yes dry mucous membranes Mouth: dry mucous membranes Eyes EOMs intact bilaterally Chest Wall inspection of chest normal and palpation of chest normal Resp normal respiratory effort and clear to auscultation bilaterally Cardio Rate: tachycardic GI GI Narrative: Abdomen soft with no focal tenderness. Hypoactive but present bowel sounds. Extremity Extremity Narrative: Linear abrasions noted over the lower extremities from scratching. Thick calluses noted to his feet. No sign of cellulitis at this time. Neuro oriented x3 Neuro Narrative: No focal neurologic deficit. MDM MDM MDM Narrative Medical decision making narrative: Patient placed on compliance monitor. IV line established. Patient given 2 L IV fluid bolus to start. Labwork obtained to evaluate for leukocytosis, anemia, and electrolyte derangement. Urinalysis obtained to evaluate for infection/hematuria. Chest x-ray obtained to evaluate for acute lung pathology, cardiac size, or mediastinal abnormality. Blood and urine cultures obtained. Swab for COVID and influenza obtained. History & Record Review Discussion w/independent historian: Patient and Significant other Lab Data Attestation: I reviewed the patient's lab results. Labs: Laboratory Results - last 24 hr 02/18/23 02/18/23 02/18/23 19:20 20:19 20:27 WBC 13.3 H RBC 4.01 L Hgb 13.8 Hct 39.7 L MCV 99.0 H MCH 34.4 H MCHC 34.8 RDW Std Deviation 45.6 H RDW Coeff of Kelsi 12.5 Plt Count 146 L MPV 10.5 Immature Gran % (Auto) 3.300 H Neut % (Auto) 85.4 H Lymph % (Auto) 3.2 L Sac % (Auto) 7.1 Eos % (Auto) 0.1 Baso % (Auto) 0.9 Absolute Neuts (auto) 11.4 H Absolute Lymphs (auto) 0.43 L Nucleated RBC % 0.2 Differential Comment SCANNED Reactive Lymphocytes 1+ PT 16.3 H INR 1.3 APTT 30.7 Sodium 121 L Potassium 3.6 Chloride 88 L Carbon Dioxide 13.0 L Anion Gap 20 H BUN 40 H Creatinine 1.46 H Estim Creat Clear Calc 41.67 Est GFR (MDRD) Af Amer 62 Est GFR (MDRD) Non-Af 51 L BUN/Creatinine Ratio 27.4 H Glucose 128 H Serum Osmolality Lactic Acid Cancelled 5.4 H* Calcium 9.0 Total Bilirubin 0.70 AST 158 H ALT 56 Alkaline Phosphatase 128 H Troponin I High Sens 86 H Total Protein 7.4 Albumin 2.0 L Globulin 5.4 H Albumin/Globulin Ratio 0.4 L Urine Color Yellow Urine Clarity Clear Urine pH 6.0 Ur Specific Freedom 1.015 Urine Protein 30 H Urine Glucose (UA) Normal Urine Ketones 15 H Urine Occult Blood 50 H Urine Nitrite Negative Urine Bilirubin Negative Urine Urobilinogen Normal Ur Leukocyte Esterase Negative Urine RBC 0 SEEN Urine WBC 0 SEEN Ur Squamous Epith Cells 0 SEEN Urine Bacteria 0 SEEN Urine Mucus 0 SEEN Ur Butalbital Screen Ur Butalbital Confirm Urine Opiates Screen Ur Opiates, Quant Ur Opiates Confirm Urine Codeine Confirm Urine Morphine Ur Morphine Confirm Urine Methadone Screen Ur Barbiturates Screen Urine Barbiturates Ur Barbiturate Confirm Ur Phencyclidine Scrn Ur Phencyclidine (PCP) Urine PCP Confirm Ur PCP Confirm (GC/MS) U Phencyclidine Interp Ur Amphetamines Screen Urine Amphetamine U Amphetamines Confirm Urine Methamphetamines U Methamphetamin GC/MS MDMA (Ecstasy) Screen Ur Amobarbital Screen Ur Amobarbital GC/MS U Pentobarbital Scrn U Pentobarbital GC/MS U Phenobarbital Scrn U Phenobarbital GC/MS U Secobarbital Screen U Secobarbital GC/MS U OH-Alprazolam Screen U OH-Alprazolam Confrm U Benzodiazepines Scrn U Benzodiazepine Confm U Benzodiazepine Cmmnt Ur Nordiazepam Ur Nordiazepam GC/MS Ur Oxazepam Screen U Oxazepam Confm GC/MS Urine Cocaine Screen Urine Cocaine Urine Cocaine Confirm U Cocaine Metab Screen U Benzoylecgonine GC/MS U Cannabinoids Screen Urine Cannabinoids U Cannabinoids Confirm Ur Carboxy THC Confirm Ur Carboxy THC GC/MS Ur Drug Screen Comment Ethyl Alcohol Ethyl Alc Confirm Urine Ethyl Alcohol 02/18/23 02/18/23 02/18/23 22:24 22:24 22:55 WBC RBC Hgb Hct MCV MCH MCHC RDW Std Deviation RDW Coeff of Kelsi Plt Count MPV Immature Gran % (Auto) Neut % (Auto) Lymph % (Auto) Sac % (Auto) Eos % (Auto) Baso % (Auto) Absolute Neuts (auto) Absolute Lymphs (auto) Nucleated RBC % Differential Comment Reactive Lymphocytes PT INR APTT Sodium Potassium Chloride Carbon Dioxide Anion Gap BUN Creatinine Estim Creat Clear Calc Est GFR (MDRD) Af Amer Est GFR (MDRD) Non-Af BUN/Creatinine Ratio Glucose Serum Osmolality 276 L Lactic Acid Calcium Total Bilirubin AST ALT Alkaline Phosphatase Troponin I High Sens Total Protein Albumin Globulin Albumin/Globulin Ratio Urine Color Urine Clarity Urine pH Ur Specific Freedom Urine Protein Urine Glucose (UA) Urine Ketones Urine Occult Blood Urine Nitrite Urine Bilirubin Urine Urobilinogen Ur Leukocyte Esterase Urine RBC Urine WBC Ur Squamous Epith Cells Urine Bacteria Urine Mucus Ur Butalbital Screen Cancelled Ur Butalbital Confirm Cancelled Urine Opiates Screen NEGATIVE Ur Opiates, Quant Cancelled Ur Opiates Confirm Cancelled Urine Codeine Confirm Cancelled Urine Morphine Cancelled Ur Morphine Confirm Cancelled Urine Methadone Screen NEGATIVE Ur Barbiturates Screen NEGATIVE Urine Barbiturates Cancelled Ur Barbiturate Confirm Cancelled Ur Phencyclidine Scrn NEGATIVE Ur Phencyclidine (PCP) Cancelled Urine PCP Confirm Cancelled Ur PCP Confirm (GC/MS) Cancelled U Phencyclidine Interp Cancelled Ur Amphetamines Screen NEGATIVE Urine Amphetamine Cancelled U Amphetamines Confirm Cancelled Urine Methamphetamines Cancelled U Methamphetamin GC/MS Cancelled MDMA (Ecstasy) Screen NEGATIVE Ur Amobarbital Screen Cancelled Ur Amobarbital GC/MS Cancelled U Pentobarbital Scrn Cancelled U Pentobarbital GC/MS Cancelled U Phenobarbital Scrn Cancelled U Phenobarbital GC/MS Cancelled U Secobarbital Screen Cancelled U Secobarbital GC/MS Cancelled U OH-Alprazolam Screen Cancelled U OH-Alprazolam Confrm Cancelled U Benzodiazepines Scrn Cancelled NEGATIVE U Benzodiazepine Confm Cancelled U Benzodiazepine Cmmnt Cancelled Ur Nordiazepam Cancelled Ur Nordiazepam GC/MS Cancelled Ur Oxazepam Screen Cancelled U Oxazepam Confm GC/MS Cancelled Urine Cocaine Screen NEGATIVE Urine Cocaine Cancelled Urine Cocaine Confirm Cancelled U Cocaine Metab Screen Cancelled U Benzoylecgonine GC/MS Cancelled U Cannabinoids Screen NEGATIVE Urine Cannabinoids Cancelled U Cannabinoids Confirm Cancelled Ur Carboxy THC Confirm Cancelled Ur Carboxy THC GC/MS Cancelled Ur Drug Screen Comment Ethyl Alcohol 5.0 Ethyl Alc Confirm Cancelled Urine Ethyl Alcohol Cancelled ABG Data ABG results: ABG 02/18/23 21:29 Specimen Type ART Sample Site L Radial pH 7.41 Bicarbonate Actual 14.2 L Total CO2 15 Base Excess -11 L O2 Saturation 97 O2 % 2.0 ABG pCO2 22.8 L ABG pO2 90 Marcus Test Positive O2 Delivery Device Cannula Vent Mode Not entered Radiography Chest X-Ray - ED: 1 View, Read by ED Physician and Chronic Changes Diagnostic Testing: Clinical Impression(s) from Imaging Studies Chest X-Ray 02/18/23 19:50 IMPRESSION: No acute findings in the chest. Electronically Signed: Augusto SilvermanEzra Washington DO at 20:10 EST , Abdomen/Pelvis CT 02/18/23 22:08 IMPRESSION: 1. Findings consistent with necrotizing fasciitis. There is intrapelvic extension as detailed above. 2. Urinary bladder wall thickening likely indicative of cystitis. 3. Nondistended small bowel with air-fluid levels perhaps indicative of an enteritis. 4. Likely fatty liver. 5. Colonic diverticulosis without discrete evidence of acute diverticulitis. Electronically Signed: Augusto SilvermanEzra Washington DO at 23:30 EST , ADDENDUM: 02/18/23 2341 IMPRESSION: 1. Findings consistent with necrotizing fasciitis. There is intrapelvic extension as detailed above. 2. Urinary bladder wall thickening likely indicative of cystitis. 3. Nondistended small bowel with air-fluid levels perhaps indicative of an enteritis. 4. Likely fatty liver. 5. Colonic diverticulosis without discrete evidence of acute diverticulitis. N.B. : The above Results were Read Back by Augusto Washington DO to Maura Shin MD, and understanding confirmed on 02/18/2023 23:34:31 (ET). Electronically Signed: Augusto Washington DO at 23:30 EST , EKG Initial EKG: Attestation: I personally reviewed and interpreted this EKG as follows: Interpretation: Atrial Fibrillation (Atrial fibrillation at 149. Mild lateral ST depression.) Treatment and Re-Evaluation :: CBC was a white count of 13.3 with 85% neutrophils. Hemoglobin is 13.8. Platelet count is low at 146. Coags are unremarkable. Chemistry studies significant for a sodium of 121 and a chloride of 88. Bicarb is 13. BUN is 40 and creatinine is 1.46. Lactic acid is elevated at 5.4. LFTs significant for an AST of 158. ALT is normal. Alk phos is 128. Urinalysis reveals 15 ketones with no evidence of infection. Patient has received nearly 2 L of IV fluids. Blood pressure is improved 141/74 currently. Heart rate has improved to 120. It does appear that he has new onset atrial fibrillation. Patient also has significant hyponatremia and acute kidney injury. Troponin is elevated 86 which may be rate related. Patient is given a dose of Zosyn. I spoke with the hospitalist who did request a CT scan of the abdomen and pelvis. CT scan returns with evidence of necrotizing fasciitis. There is air dissecting through the fascial planes of the scrotum into the perineum extending into the perirectal fascia and on the right pelvic sidewall with extensive stranding opacities and free fluid. Upon completion of this read I went back and reexamined the patient. His scrotum is not significant distended, erythematous, or tender. He has mild tenderness in the suprapubic area but no overlying skin changes. Test results are discussed with patient and spouse at bedside. He is receiving Zosyn currently and will also be given vancomycin. I will make phone calls for transfer. Discharge Plan Triage Chief Complaint: General Illness ED Provider: Maura Shin Dx/Rx/DC Orders Clinical Impression: Acute kidney injury, Gastroenteritis, Hyponatremia, Atrial fibrillation, new onset, Atrial fibrillation with RVR, Acidosis, lactic, Necrotizing fasciitis Primary Care Provider: Care Physician,No Primary Referrals: Care Physician,No Primary [Primary Care Provider] - Disposition Disposition: Acute Care Hospital Discharge Location: [facility]
[2023-02-18] MEDS: 0.9% Normal Saline (1000mL) 1,000 ML 150 ML IV (19:39)
[2023-02-18] MEDS: 0.9% Normal Saline (1000mL) 1,000 ML 999 ML IV ×2 (19:39→23:55)
[2023-02-18 19:45] LABS: Absolute Lymphocyte Count 0.43 X10^3/uL (0.83-4.51); Absolute Neutrophil Count 11.4 X10^3/uL (2.0-7.7); Basophil# 0.12 X10^3/uL; Basophil% 0.9 % (0-1); Eosinophil# 0.01 X10^3/uL; Eosinophils% 0.1 % (0-5); Hematocrit 39.7 % (40-54); Hemoglobin 13.8 g/dL (13.0-16.5); Lymphocyte # 0.43 X10^3/ul (0.83-4.51); Lymphocyte % 3.2 % (19-41); Mean Corp Hgb Conc 34.8 g/dL (32-36); Mean Corpuscular Hgb 34.4 pg (27.0-32.0); Mean Platelet Vol. 10.5 fl (6.2-12.0); Monocyte# 0.94 X10^3/uL; Monocyte% 7.1 % (0-10); NRBC Flagged by Analyzer 0.2 % (0-5); Neutrophil # 11.36 X10^3/uL (2.7-7.7); Neutrophil % 85.4 % (47-70); POSITIVE DIFFERENTIAL YES; POSITIVE MORPHOLOGY YES; Platelet Count 146 K/mm3 (150-450); RBC Distribution Width CV 12.5 % (11.6-14.6); RBC Distribution Width SD 45.6 fl (35.1-43.9); Red Blood Count 4.01 M/mm3 (4.6-6.2); White Blood Count 13.3 K/mm3 (4.4-11.0)
[2023-02-18 19:50] LABS: Differential Indicated SCAN CRITERIA MET
--- NOTE | 2023-02-18 19:50 | RAD_ITS ---
EXAM: XR CHEST, 1 VIEW CLINICAL INDICATION: sob TECHNIQUE: Frontal view of the chest. COMPARISON: No relevant prior studies available. FINDINGS: LUNGS AND PLEURAL SPACES: No significant abnormality. No consolidation or edema. No pneumothorax. No effusion. HEART: No significant abnormality. Cardiac silhouette not enlarged. MEDIASTINUM: Central airways and mediastinal contour are unremarkable. BONES/JOINTS: Multiple healing fractures of right posterior lateral ribs. Degenerative changes in the spine and shoulders. SOFT TISSUES: No significant abnormality. VASCULATURE: Atherosclerosis. RAD/Chest 1 View (Portable) IMPRESSION: No acute findings in the chest. Electronically Signed: Augusto Washington DO at 20:10 EST ,
[2023-02-18 19:58] LABS: International Normalized Ratio 1.3; Prothrombin Time (Protime)PT. 16.3 SECONDS (11.7-14.9)
[2023-02-18 20:00] LABS: Partial Thromboplast Time 30.7 Seconds (24.1-36.2)
[2023-02-18 20:06] LABS: ALB/GLOB Ratio 0.4 RATIO (0.9-2.4); AST(SGOT) 158 U/L (15-37); Alanine Aminotransfer ALT/SGPT 56 U/L (16-61); Alkaline Phosphatase 128 U/L (45-117); Anion Gap 20 (5-15); BUN 40 mg/dL (7-18); BUN/Creat Ratio 27.4 RATIO (10-20); Chloride 88 mmol/L (98-107); Creatinine, Serum 1.46 mg/dL (0.70-1.30); EST Glomerular Filtration Rate 51 mL/min (>60); Est Glom Filt Rate - Afr Amer 62 mL/min (>60); Estimated Creatinine Clearance 41.67 ml/min; Globulin 5.4 g/dL (2.2-4.2); Glucose 128 mg/dL (74-106); Potassium 3.6 mmol/L (3.5-5.1); Protein, Total 7.4 g/dL (6.4-8.2); Sodium Level 121 mmol/L (136-145); Troponin-I HS 86 pg/mL (3.0-78.0)
[2023-02-18 20:08] LABS: Differential Comment SCANNED; Reactive Lymphocyte 1+
[2023-02-18 20:48] LABS: Bacteria 0 SEEN /hpf (None Seen); Mucous, Urine 0 SEEN /hpf (<or=2+); Red Blood Cells-Urine 0 SEEN /hpf (0-5); Squamous Epithelial Cells - UA 0 SEEN /hpf (0-5); White Blood Cells 0 SEEN /hpf (0-5)
[2023-02-18 20:56] LABS: Color, Urine Yellow (Yellow); Glucose, Dipstick Normal (Normal); Ketone-Dipstick 15 mg/dl (Negative); Leukocyte Esterase-Dipstick Negative /ul (Negative); Nitrite-Dipstick Negative (Negative); Occult Blood-Urine 50 /ul (Negative); Protein-Dipstick 30 mg/dl (Negative); Specific Gravity, Urine 1.015 (1.002-1.030); Urine Bilirubin Dipstick Negative (Negative); Urine Clarity Clear (Clear); Urine Urobilinogen Normal (Normal)
[2023-02-18 21:09] LABS: Lactic Acid 5.4 mmol/L (0.4-1.9)
[2023-02-18 21:33] LABS: Allen Test Positive; Base Excess -11 mmol/L (-2 to +2); Bicarbonate 14.2 mmol/L (22-26); Blood Gas Specimen Type ART; Mode Not entered; O2 Delivery Device Cannula; PO2 90 mmHG (75-100); SITE L Radial; SO2 97 % (95-99); Total Carbon Dioxide 15 mmol/L; pCO2 22.8 mmHg (35-45); pH 7.41 (7.35-7.45)
--- NOTE | 2023-02-18 21:47 | ED.RN ---
pt. states he does not take any home medications.
--- NOTE | 2023-02-18 22:01 | HP.PCM.HOS_ITS ---
[facility] - General General Date of Admission: 02/18/23 Date of Service: 02/18/23 Chief Complaint: Nausea, vomiting and diarrhea. HPI Narrative MONSE ABRAHAM, is a 67 M with a past medical history of essential hypertension, tobacco abuse, chronic alcohol abuse, history of hyponatremia with previous level of 125 mmol/L; suspected to be due to beer potomania, chronic venous stasis of lower extremities and history of avoiding medical attention who presents to [facility] ER complaining of nausea, vomiting and diarrhea. Mr. Abraham reports his symptoms began approximately 11 days prior to admission with the abrupt onset of a severe viral type GI illness with nausea, vomiting and copious nonbloody diarrhea. He denies any gross blood in his emesis. He typically drinks alcohol daily but has not been able to routinely do so for the past 11 days and his family then became concerned that he was becoming dehydrated because they thought he had a stomach flu. In the ER he was noted to have a pulse of 153 bpm with a blood pressure of 80/69 mm Hg consistent with lactic acidosis of 5.4 mmol/L and leukocytosis of 13.3 present on admission; with left shift due to presumed septic shock with no precise source identified during his initial evaluation in the ER but with the presumption of possible viral gastroenteritis with a serum creatinine of 1.46 mg/dL present on admission and a BUN of 40 mg/dL present on admission consistent with acute dehydration complicated by elevated troponin of 86 pg/mL consistent with suspected non-ST elevation AZ with severe acute hyponatremia of 121 mmol/L present on admission and severe hypoalbuminemia of 2 g/dL present on admission consistent with presumed acute severe protein calorie malnutrition in the setting of chronic alcohol abuse and he was then admitted to the ICU for treatment under the sepsis protocol for ongoing care for stay that is expected to be greater than 48 hours. [facility] Medical History Alcohol abuse Hypertension Smoker Allergy/AdvReac Type Severity Reaction Status Date / Time No Known Allergies Allergy Verified 02/18/23 18:46 Social History Smoking Status: Current every day smoker tobacco type: cigarettes ROS ROS Narrative Review of systems: Constitutional: Patient denies fever or chills. Eyes: Patient denies visual changes or discharge from eyes. ENT: Patient denies runny nose, sore throat or ear pain. Cardiovascular: Patient denies chest pain or palpitations. Respiratory: Patient denies shortness of breath or cough. Gastrointestinal: Patient admits to nausea with bilious emesis and nonbloody diarrhea but denies abdominal pain. Genitourinary: Patient does admit to decreased urination but he denies dysuria or hematuria. Musculoskeletal: Patient denies back pain, neck pain or pain in extremities. Integumentary: Patient denies abrasions or rash. Neurologic: Patient denies headache or focal neurologic weakness. Psychiatric: Patient denies depression or anxiety. Allergic: Patient denies lip swelling, tongue swelling or urticaria. 14 point review of systems otherwise negative except for positives noted above in HPI. Vital Signs Vital Signs Vital Signs: 02/18/23 18:46 02/18/23 18:55 02/18/23 18:55 Temperature 97.3 F L 97.3 F L Temperature Source Temporal Temporal Pulse Rate 155 H 155 H Respiratory Rate 27 H 27 H Respiratory Effort Short of Breath Respiratory Pattern Tachypnea Blood Pressure 109/84 H 109/84 H Blood Pressure Mean 92 92 Pulse Ox 93 93 Oxygen Delivery Method Room Air Room Air Oxygen Flow Rate (L/min) 02/18/23 19:12 02/18/23 19:12 02/18/23 19:40 Temperature 97.7 F L Temperature Source Temporal Pulse Rate 147 H 153 H Respiratory Rate 25 H 25 H Respiratory Effort Respiratory Pattern Blood Pressure 80/69 L 80/69 L Blood Pressure Mean 72 72 Pulse Ox 95 90 Oxygen Delivery Method Room Air Nasal Cannula Nasal Cannula Oxygen Flow Rate (L/min) 2 02/18/23 19:42 02/18/23 21:00 02/18/23 21:34 Temperature Temperature Source Pulse Rate 135 H 142 H 121 H Respiratory Rate 20 H 18 22 H Respiratory Effort Respiratory Pattern Blood Pressure 96/56 L 117/72 92/64 Blood Pressure Mean 69 87 73 Pulse Ox 98 Oxygen Delivery Method Nasal Cannula Oxygen Flow Rate (L/min) 2 02/18/23 21:47 Temperature Temperature Source Pulse Rate 133 H Respiratory Rate 18 Respiratory Effort Respiratory Pattern Blood Pressure 91/62 Blood Pressure Mean 71 Pulse Ox 99 Oxygen Delivery Method Oxygen Flow Rate (L/min) Weight Weight: 132 lb 15.02 oz Body Mass Index (BMI) 22.8 Physical Exam Const alert, oriented x3 and average body habitus Constitutional Narrative: Patient appears chronically ill and disheveled. General Appearance: cooperative HEENT normocephalic, head/scalp atraumatic and hearing grossly normal bilaterally HEENT Narrative: Mucous membranes dry. Eyes PERRL and EOMs intact bilaterally Neck no lymphadenopathy and supple Resp normal respiratory effort, no retractions, no use of accessory muscles and clear to auscultation bilaterally Cardio regular rate and regular rhythm GI normal to inspection, nondistended, normoactive bowel sounds, soft to palpation, non-tender and non-distended Auscultation: hypoactive bowel sounds Extremity Extremity Narrative: Patient's lower extremities are noted to have excoriations with linear abrasions due to frequent scratching and thick calluses on his feet. There was no signs of acute cellulitic infection at this time. Skin Skin Narrative: Patient has no evidence of rash at this time. Patient's lower extremities are noted to have excoriations with linear abrasions due to frequent scratching and thick calluses on his feet. There was no signs of acute cellulitic infection at this time. Neuro oriented x3, CN's II-XII intact bilaterally, moves all extremities and no focal motor deficits Sensorium / Orientation: awake, alert, oriented to person, oriented to place and oriented to time Speech: speech normal Motor Exam: strength 5/5 throughout Psych affect normal Results Medical Records Data Attestation: I reviewed the patient's medical records Lab / Micro Data Attestation: I reviewed the patient's lab results. 02/18/23 19:20 02/18/23 19:20 Labs: Laboratory Results - last 24 hr 02/18/23 19:20: WBC 13.3 H, RBC 4.01 L, Hgb 13.8, Hct 39.7 L, MCV 99.0 H, MCH 34.4 H, MCHC 34.8, RDW Std Deviation 45.6 H, RDW Coeff of Kelsi 12.5, Plt Count 146 L, MPV 10.5, Immature Gran % (Auto) 3.300 H, Neut % (Auto) 85.4 H, Lymph % (Auto) 3.2 L, [place] % (Auto) 7.1, Eos % (Auto) 0.1, Baso % (Auto) 0.9, Absolute Neuts (auto) 11.4 H, Absolute Lymphs (auto) 0.43 L, Nucleated RBC % 0.2, Differential Comment SCANNED, Reactive Lymphocytes 1+, PT 16.3 H, INR 1.3, APTT 30.7, Sodium 121 L, Potassium 3.6, Chloride 88 L, Carbon Dioxide 13.0 L, Anion Gap 20 H, BUN 40 H, Creatinine 1.46 H, Estim Creat Clear Calc 41.67, Est GFR (MDRD) Af Amer 62, Est GFR (MDRD) Non-Af 51 L, BUN/Creatinine Ratio 27.4 H, Glucose 128 H, Lactic Acid Cancelled, Calcium 9.0, Total Bilirubin 0.70, AST 158 H, ALT 56, Alkaline Phosphatase 128 H, Troponin I High Sens 86 H, Total Protein 7.4, Albumin 2.0 L, Globulin 5.4 H, Albumin/Globulin Ratio 0.4 L 02/18/23 20:19: Lactic Acid 5.4 H* 02/18/23 20:27: Urine Color Yellow, Urine Clarity Clear, Urine pH 6.0, Ur Specific [place] 1.015, Urine Protein 30 H, Urine Glucose (UA) Normal, Urine Ketones 15 H, Urine Occult Blood 50 H, Urine Nitrite Negative, Urine Bilirubin Negative, Urine Urobilinogen Normal, Ur Leukocyte Esterase Negative, Urine RBC 0 SEEN, Urine WBC 0 SEEN, Ur Squamous Epith Cells 0 SEEN, Urine Bacteria 0 SEEN, Urine Mucus 0 SEEN Micro: Microbiology 02/18/23 19:30 Nasal Secretion SARS-CoV-2 & FLU Antigen (Rapid) - Final ABG Data ABG results: ABG 02/18/23 21:29 Specimen Type ART Sample Site L Radial pH 7.41 Bicarbonate Actual 14.2 L Total CO2 15 Base Excess -11 L O2 Saturation 97 O2 % 2.0 ABG pCO2 22.8 L ABG pO2 90 Marcus Test Positive O2 Delivery Device Cannula Vent Mode Not entered Imagaing Radiology Impression Chest X-Ray 02/18/23 19:50 IMPRESSION: No acute findings in the chest. Electronically Signed: Augusto Washington DO at 20:10 EST , Assessment & Plan Assessment/Plan (1) Sepsis: QUALIFIERS: Sepsis type: sepsis due to unspecified organism Severe sepsis acute organ dysfunction type: unspecified Severe sepsis shock status: with septic shock (2) Acidosis, lactic: (3) Hyponatremia: (4) Acute kidney injury: (5) Atrial fibrillation with RVR: (6) Gastroenteritis: (7) Dermatitis: (8) Venous ulcer of left leg: PLAN: Plan 1. Sepsis with septic shock due to unknown primary source of infection at this time evidenced by leukocytosis of 13.3; with left shift, lactic acidosis of 5.4 mmol/L present on admission and hypotension (80/69 mmHg) with tachycardia (~150 bpm) presumably due to viral gastroenteritis - Admit to ICU for treatment under the sepsis protocol. Aggressively volume resuscitate with 30 cc/kg. Serialize lactates to document response to therapy. CT scan of the abdomen pelvis pending along with stool studies to help pinpoint source of infection. Give Tylenol as needed pain or fever. Finally, we will consult the computer video game designer on-call to see this patient on rounds in the a.m. for further recommendations with help appreciated in advance. 2. Severe [id number] hyponatremia of 121 mmol/L present on admission; likely due to beer potomania from chronic alcohol abuse complicating #1 - Give NS IVF and recheck BMP every 4 hours to allow for gradual correction of no more than 8 to 10 mmol/L per 24 hours. Also placed patient on phenobarbital taper/CIWA protocol. Alcohol cessation will be strongly encouraged. Check bl ood alcohol concentration since 1 has not been checked up to this point in time. Also check urine drug screen to evaluate for other potential illicit drugs of abuse given his history of longstanding addiction. 3. Acute kidney injury secondary to dehydration arising from #1 & #2 - Vigorously volume resuscitate and recheck BMP in the a.m. to ensure improvement. Avoid potentially nephrotoxic agents. 4. Apparently new onset atrial fibrillation with rapid ventricular response with elevated troponin of 83 pg/mL present on admission consistent with suspected non-ST elevation AZ type II from acute cardiac strain patient having no chest pain at this time - Start IV heparin for stroke prevention and also start aspirin and Plavix. Serialize troponin. Check echocardiogram to evaluate left ventricular ejection fraction. Finally, we will consult grant manager on- call to see this patient on rounds in the a.m. with help appreciated in advance. 5. Intractable nausea, vomiting and diarrhea due to suspected viral gastroenteritis - Place on enteric precautions and check stool studies. Give Im modium prn once Clostridium difficile has been ruled out. 6. Essential hypertension - Hold scheduled antihypertensives in light of #1. 7. Tobacco abuse - Tobacco cessation will be strongly encouraged with nicotine patch offered to control cravings. 8. DVT prophylaxis - Patient started on IV heparin for #4. Total time: Approximately 95 minutes. Charges/Coding Visit Charges Inpatient E&M: 11501 Init Hosp L3
--- NOTE | 2023-02-18 22:08 | CT_ITS ---
We are attempting to reach an attending provider to discuss findings. An addendum with communication details will be sent when the communication is complete. EXAM: CT ABDOMEN AND PELVIS WITH INTRAVENOUS CONTRAST CLINICAL INDICATION: diarrhea, sepsis TECHNIQUE: Helically acquired images were obtained of the abdomen and pelvis with intravenous contrast. This CT exam was performed using one or more of the following dose reduction techniques: automated exposure control, adjustment of the mA and/or kV according to patient size, and/or use of iterative reconstruction technique. CONTRAST: IV 100mL [id number] COMPARISON: No relevant prior studies available. FINDINGS: LOWER THORAX: Coronary artery calcifications. Lung bases are clear. No cardiomegaly. No significant pericardial effusion. ABDOMEN: LIVER: Low-attenuation throughout the liver suggesting fatty infiltration. GALLBLADDER AND BILE DUCTS: No significant abnormality. No calcified gallstones. No gallbladder distention or wall edema. No intra- or extrahepatic biliary ductal dilation. PANCREAS: No significant abnormality. No focal cystic or solid mass. SPLEEN: No significant abnormality. Normal size without focal cystic or solid mass. ADRENALS: No significant abnormality. No nodules. KIDNEYS AND URETERS: No significant abnormality. Normal renal size and position. No hydronephrosis. STOMACH AND BOWEL: Nondistended small bowel with air-fluid levels perhaps indicative of an enteritis. Colonic diverticulosis without discrete evidence of acute diverticulitis. PELVIS: APPENDIX: No evidence of acute appendicitis. BLADDER: Urinary bladder wall thickening likely indicative of cystitis. REPRODUCTIVE: Normal as visualized. No mass. ABDOMEN and PELVIS: INTRAPERITONEAL AND SUBPERITONEAL SPACE: There is air dissecting through the fascial planes from the scrotum into the perineum extending into the perirectal fascia and on the right along the pelvic sidewall with extensive strandy opacities and free fluid. Inflammatory changes propagating into the prevesicular space. No intraperitoneal free air is identified. BONES/JOINTS: Degenerative changes throughout the spine with postoperative changes in the lower lumbar spine. No suspicious lytic or blastic abnormality. SOFT TISSUES: Scrotal edema and swelling and inflammatory changes in the perineum. VASCULATURE: Atherosclerosis of the aorta and its branch vessels. LYMPH NODES: Calcified peripancreatic lymph nodes indicative of granulomas. CT/Abdomen/Pelvis W IV Cont ONLY IMPRESSION: 1. Findings consistent with necrotizing fasciitis. There is intrapelvic extension as detailed above. 2. Urinary bladder wall thickening likely indicative of cystitis. 3. Nondistended small bowel with air-fluid levels perhaps indicative of an enteritis. 4. Likely fatty liver. 5. Colonic diverticulosis without discrete evidence of acute diverticulitis. Electronically Signed: Augusto Washington DO at 23:30 EST ,
[2023-02-18] MEDS: Piperacil/Tazobactam 4.5 GM in 0.9% Normal Saline (100mL MB+) 100 ML IV (23:13)
[2023-02-18 23:19] LABS: Amphetamine Urine VISTA NEGATIVE (<1000 ng/mL); Barbiturate Urine VISTA NEGATIVE (< 200 ng/mL); Benzodiazepine Urine VISTA NEGATIVE (< 200 ng/mL); Cocaine Urine VISTA NEGATIVE (< 300 ng/mL); Ecstacy Urine VISTA NEGATIVE (< 500 ng/mL); Methadone Urine VISTA NEGATIVE (< 300 ng/mL); PCP Urine VISTA NEGATIVE (< 25 ng/mL); THC Urine VISTA NEGATIVE (< 50 ng/mL); Vista UDS pH Range 5
[2023-02-18 23:48] LABS: Osmolality, Serum 276 mOsm/KG (280-301)
[2023-02-18] MEDS: Vancomycin HCl 1,500 MG in 0.9% Normal Saline (500mL Bag) 500 ML 250 MG IV (23:55)
[2023-02-19] VITALS: BP 86/66; PULSE 106; RESP 18; O2SAT 90
[2023-02-19 00:49] LABS: Reflex Lactate? Y
[2023-02-19 01:00] VITALS: BP 98/61; PULSE 105; RESP 19
[2023-02-19 01:43] VITALS: BP 98/61; PULSE 105; RESP 19; O2SAT 99
[2023-02-19 02:02] LABS: Lactic Acid 2.2 mmol/L (0.4-1.9)
== END 2023-02-19 01:45 | disposition short-term general hospital (02) ==
LOC: ED 22:54 → ICU 23:45 → ED 02-19 00:19
PROVIDERS: Internal Medicine; Emergency Provider Emergency Medicine; Visit Provider Emergency Medicine
DX: N17.9 Acute kidney failure, unspecified (principal); M72.6 Necrotizing fasciitis; I48.91 Unspecified atrial fibrillation; K52.9 Noninfective gastroenteritis and colitis, unspecified; F17.210 Nicotine dependence, cigarettes, uncomplicated; E87.20 Acidosis, unspecified; E87.1 Hypo-osmolality and hyponatremia; I10 Essential (primary) hypertension; K57.30 Diverticulosis of large intestine without perforation or abscess without bleeding
CPT/HCPCS: 36600; 71045; 74177; 80053; 80307; 81001; 82077; 82803; 83605; 83930; 84484; 85025; 85610; 85730; 87040; 87086; 87428; 93005; 96361; 96365; 96366; 99285; J7030; J7040; Q9967; A4216

== ENCOUNTER 2023-03-11 01:36 | Inpatient (IN) | payer MEDICARE, SELFPAY ==
[2023-03-11 01:51] VITALS: BP 146/84; PULSE 82; RESP 14; TEMP 36.8; O2SAT 98; BMI 20.5
--- NOTE | 2023-03-11 03:46 | NURSING ---
Addendum entered by Angeline Bro 03/11/23 06:59: This nurse attempted wound change again this morning during med pass, patient was still trying to refuse wound care. Pt was agitated this morning with staff, calling them imbeciles. Patient eventually allowed this nurse to perform wound care after reinforcing education regarding wound healing. Patient reports the only reason he came to [facility] was to get away from the staff at [facility]. Pt is not compliant with care and states he wants to go home. Original Note: Patient has history of refusing night time dressing changes. Dressing was not intact upon arrival to unit. Patient refused dressing change after multiple attempts and education regarding the importance of wound care. Wounds to bilateral buttocks and scrotum are open to air, patient asked if wounds could be done at a later time. This nurse will attempt to dress wounds at a later time.
[2023-03-11] MEDS: Amox/Clavulanate 875 MG Tablet PO ×2 (04:08→15:05)
[2023-03-11] MEDS: LORazepam 0.5 MG Tablet PO ×2 (06:00→15:05)
[2023-03-11 06:03] LABS: Absolute Lymphocyte Count 1.02 X10^3/uL (0.83-4.51); Absolute Neutrophil Count 9.7 X10^3/uL (2.0-7.7); Basophil# 0.09 X10^3/uL; Basophil% 0.7 % (0-1); Eosinophil# 0.89 X10^3/uL; Eosinophils% 6.7 % (0-5); Hematocrit 26.8 % (40-54); Hemoglobin 8.4 g/dL (13.0-16.5); Lymphocyte # 1.02 X10^3/ul (0.83-4.51); Lymphocyte % 7.6 % (19-41); Mean Corp Hgb Conc 31.3 g/dL (32-36); Mean Corpuscular Hgb 32.2 pg (27.0-32.0); Mean Corpuscular Volume 102.7 fL (80-94); Mean Platelet Vol. 8.9 fl (6.2-12.0); Monocyte# 1.14 X10^3/uL; Monocyte% 8.5 % (0-10); NRBC Flagged by Analyzer 0 % (0-5); Neutrophil # 9.69 X10^3/uL (2.7-7.7); Neutrophil % 72.7 % (47-70); Platelet Count 594 K/mm3 (150-450); RBC Distribution Width CV 15.6 % (11.6-14.6); Red Blood Count 2.61 M/mm3 (4.6-6.2); White Blood Count 13.3 K/mm3 (4.4-11.0)
[2023-03-11] MEDS: Na Biphos/Potassium Phosphate PACKET 1 PACKET PO (06:19)
[2023-03-11] MEDS: Thiamine Hydrochloride 100 MG Tablet PO ×2 (06:19→15:06)
[2023-03-11] MEDS: Acetaminophen 325 MG Tablet 975 MG PO ×3 (06:19→17:24)
[2023-03-11 06:35] LABS: Anion Gap 6 (5-15); BUN 9 mg/dL (7-18); BUN/Creat Ratio 19.1 RATIO (10-20); Calcium,Total 8.1 mg/dL (8.5-10.1); Chloride 104 mmol/L (98-107); Creatinine, Serum 0.47 mg/dL (0.70-1.30); EST Glomerular Filtration Rate 189 mL/min (>60); Est Glom Filt Rate - Afr Amer 229 mL/min (>60); Estimated Creatinine Clearance 69.93 ml/min; Glucose 94 mg/dL (74-106); Potassium 3.4 mmol/L (3.5-5.1); Sodium Level 133 mmol/L (136-145)
--- NOTE | 2023-03-11 07:40 | HP.PCM_ITS ---
HPI - General General Date of Admission: 03/11/23 Date of Service: 03/11/23 Chief Complaint: Here for rehabilitation. HPI Narrative 02/18/2023 MONSE TAYLOR, is a 67 Male who presents to [facility] ED generalized illness. Stomach flu, vomiting x 11 days, dehydrated. Cough, Diarrhea. Normal Saline 2 liters IV given. WBC 13.3, Creatinine 1.46, Lactate 5.4, AST 158, Troponin 86. CT A/P necrotizing fasciitis, cystitis, enteritis, fatty liver, di verticulosis. Zosyn, Vancomycin given. 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 02/19/2023 Admit to [facility]. General Surgery, Urology, NPO, IV fluids, Clindamycin, Vancomycin, Zosyn for Reilly's gangrene. 02/19/2023 General surgery, Urology performed debridement of genitalia, perineum. 02/26/2023 Laparoscopic transverse loop colostomy. I+D perirectal abscess. 02/28/2023 Right upper extremity doppler negative DVT. 03/04/2023 Repeat I+D, wound VAC applied. 03/06/2023 Hemoglobin 6.7, Transfuse 1 unit PRBC, Hemoglobin stable after transfusion. 03/07/2023 CT A/P posterior scrotum fluid, right pervesicular space fluid. IR drain versus aspiration fluid ordered, patient REFUSED. 03/08/2023 Wound VAC removed, pus noted, wet to dry dressings. Psychiatry consulted for depression, refusal of care. PT/OT SNF. Nephrology for hyponatremia, fluid restriction, salt tablets. 03/10/2023 Admit to TCU with debility, here for rehabilitation, strengthening, prior to discharge home with significant other. [facility] Medical History Alcohol abuse Hypertension Smoker Home Medications acetaminophen 325 mg tablet 975 mg PO 4X/DAY Pain 03/11/23 [History Last Taken 03/10/23 19:50] amoxicillin 875 mg-potassium clavulanate 125 mg tablet 1 tab PO Q12H Infection 03/11/23 [History Last Taken 03/10/23 14:05] ipratropium 0.5 mg-albuterol 3 mg (2.5 mg base)/3 mL nebulization soln 3 ml inhalation TID SOB, wheezing 03/11/23 [History Last Taken 03/10/23 11:20] lorazepam 0.5 mg tablet 0.5 mg PO TID Anxiety 03/11/23 [History Last Taken 03/10/23 19:55] oxycodone 5 mg tablet 5 mg PO Q6H PRN pain, moderate 03/11/23 [History Last Taken 03/08/23 08:25] potassium, sodium phosphates 280 mg-160 mg-250 mg oral powder packet (Phos-NaK) 1 packet PO TID Supplement 03/11/23 [History Last Taken 03/09/23 09:15] vits,calcium no.78-iron fumarate-folic acid 29 mg-1 mg tablet (Prenatabs FA) tab PO DAILY Supplement 03/11/23 [History Last Taken 03/09/23 09:15] thiamine HCl (vitamin B1) 100 mg tablet 100 mg PO TID Supplement 03/11/23 [History Last Taken 03/09/23 09:15] Allergy/AdvReac Type Severity Reaction Status Date / Time No Known Allergies Allergy Verified 02/18/23 18:46 Surgical History (Updated 03/11/23 @ 07:[address] Luis King MD) History of colostomy History of incision and drainage Social History (Updated 03/11/23 @ 07:[address] Luis King MD) household members: significant other Smoking Status: Current every day smoker tobacco type: cigarettes alcohol intake: current substance use type: does not use ROS Constitutional Constitutional: Denies chills, fever(s) or weight gain ENT HEENT: Denies headache(s), nasal congestion or nasal discharge Cardiovascular Cardiovascular: Denies chest pain or palpitations Respiratory/Chest Respiratory/Chest: Denies cough, excessive phlegm production or shortness of breath with exertion Gastrointestinal Gastrointestinal: Denies abdominal pain, nausea or vomiting Genitourinary Genitourinary: Denies dysuria Musculoskeletal Musculoskeletal: Denies joint pain or joint swelling Integumentary Integumentary: Denies rash or wounds Neurologic Neurologic: Denies focal weakness, numbness or tingling Psychiatric Psychiatric: Denies anxiety, auditory hallucinations, depression, homicidal ideation or suicidal ideation Vital Signs Vital Signs Vital Signs: 03/11/23 01:51 03/11/23 01:51 Temperature 98.2 F Temperature Source Temporal Pulse Rate 82 82 Pulse Rhythm Regular Pulse Strength Normal (2+) Respiratory Rate 14 14 Respiratory Effort Normal Non-Labored Respiratory Depth Normal Respiratory Pattern Normal Blood Pressure 146/84 H Blood Pressure Mean 104 Blood Pressure Source Monitor Blood Pressure Position Supine Blood Pressure Location Right Arm Pulse Ox 98 Oxygen Delivery Method Room Air Weight Weight: 54.431 kg Body Mass Index (BMI) 20.5 Physical Exam Const alert General Appearance: cooperative HEENT normocephalic Eyes PERRL and EOMs intact bilaterally Neck supple, no JVD and no carotid bruits Resp normal respiratory effort, normal air movement and clear to auscultation bilaterally Cardio regular rate and regular rhythm GI normal to inspection, nondistended, normoactive bowel sounds, non-tender and non-distended GI Narrative: Colostomy present. Narrative: Scrotal/perineal wounds per wound nurse. Extremity normal capillary refill General Extremity: Negative for edema Skin no rashes or lesions noted General Skin Exam: no breakdown Psych affect normal Appearance: appropriate Results Lab / Micro Data 03/11/23 05:21 03/11/23 05:21 Labs: Laboratory Results - last 24 hr 03/11/23 05:21: WBC 13.3 H, RBC 2.61 L, Hgb 8.4 L, Hct 26.8 L, MCV 102.7 H, MCH 32.2 H, MCHC 31.3 L, RDW Std Deviation 57.0 H, RDW Coeff of Kelsi 15.6 H, Plt Count 594 H, MPV 8.9, Immature Gran % (Auto) 3.800 H, Neut % (Auto) 72.7 H, Lymph % (Auto) 7.6 L, [place] % (Auto) 8.5, Eos % (Auto) 6.7 H, Baso % (Auto) 0.7, Absolute Neuts (auto) 9.7 H, Absolute Lymphs (auto) 1.02, Nucleated RBC % 0, Sodium 133 L, Potassium 3.4 L, Chloride 104, Carbon Dioxide 23.0, Anion Gap 6, BUN 9, Creatinine 0.47 L, Estim Creat Clear Calc 69.93, Est GFR (MDRD) Af Amer 229, Est GFR (MDRD) Non-Af 189, BUN/Creatinine Ratio 19.1, Glucose 94, Calcium 8.1 L Micro: Microbiology 03/11/23 04:10 Nasal Secretion SARS-CoV-2 Antigen (Rapid) - Final Assessment & Plan Assessment/Plan (1) Debility: (2) Sepsis: QUALIFIERS: Sepsis type: sepsis due to unspecified organism Severe sepsis acute organ dysfunction type: unspecified Severe sepsis shock status: with septic shock (3) Reilly's gangrene: (4) Alcohol abuse: (5) Tobacco abuse: (6) Essential (primary) hypertension: PLAN: Plan 67 year old male with below past medical history hospitalized for sepsis, Reilly's gangrene s/p incision/drainage, colostomy, admitted to TCU with debility, here for rehabilitation, strengthening, prior to discharge home with significant other. * Debility - PT/OT. * Pain - Tylenol 975mg 4x/day, Oxycodone 5mg q6 prn pain (6-10). * Bowel - new colostomy, monitor. * Adult immunization - Administer pneumonia vaccine, covid vaccine, flu vaccine as appropriate. * DVT prophylaxis - Monitor. * Reilly's gangrene s/p debridement - Augmentin 875mg q12 thru 03/24/2023, dressing changes. * Nutrition - Ensure Plus 120ml po tid. * Shortness of breath - Duoneb 3ml tid. * Anxiety - Lorazepam 0.5mg tid, stable chronic use, GDR not recommended. * Hypophosphatemia - K-Phos 1 packet tid. * Alcohol abuse - vitamins 1 tablet daily, Thiamine 100mg tid.
[2023-03-11] MEDS: Ensure Plus High Protein 120 ML LIQUID PO ×2 (08:54→12:14)
[2023-03-11] MEDS: Prenatal Vits Tablet 1 TABLET PO (08:54)
[2023-03-11] MEDS: Potassium Chloride Oral Tablet 20 MEQ PO (08:57)
--- NOTE | 2023-03-11 10:50 | MDS.RN ---
Resident declines to respond to MDS admission questions. Offered resident times for POC to be scheduled for 03/17/23. Declined to choose a time. Will be scheduled for 0900
[2023-03-11 11:28] VITALS: BP 104/65; PULSE 80; RESP 16; TEMP 36.1; O2SAT 98
--- NOTE | 2023-03-11 13:43 | PCM.PN.DRR ---
Documented by User: Hannah Easton 03/11/23 14:09 TCU RX Drug Regimen Review Subjective/Objective Subjective/Objective: Subjective: TCU Admission. 67 YOM presented to the ER with generalized illness, transferred to [facility]. Hospitalized for sepsis, Reilly's gangrene s/p incision/drainage, colostomy. Admitted to TCU with debility for strengthening and rehabilitation. Objective: Allergies No Known Allergies Allergy (Verified 02/18/23 18:46) Current Medications Generic Name Dose Route Start Last Admin Trade Name Freq PRN Reason Stop Dose Admin Acetaminophen 975 mg 03/11/23 17:00 Acetaminophen 325 Mg Tablet PO 4X/DAY GABBY Albuterol/Ipratropium 3 ml 03/11/23 06:00 Ipratropium/Albuterol Sulfate 3 Ml Ampul.Neb INHALATION TID.RT GABBY Amoxicillin/Clavulanate Potassium 875 mg 03/11/23 02:30 03/11/23 04:08 Amox/Clavulanate 875 Mg Tablet PO 03/24/23 14:31 875 mg Q12H GABBY Administration Lorazepam 0.5 mg 03/11/23 06:00 03/11/23 06:00 Lorazepam 0.5 Mg Tablet PO 03/21/23 06:01 0.5 mg TID GABBY Administration Nutritional Formula (Lactose Free) 120 ml 03/11/23 07:45 03/11/23 12:14 Ensure Plus High Protein 120 Ml Liquid PO 120 ml TIDCM GABBY Administration Oxycodone HCl 5 mg 03/11/23 02:34 Oxycodone 5 Mg Tablet PO Q6H PRN PRN Pain Score 6-10 Potassium Phos/Sodium Phos 1 packet 03/11/23 06:00 03/11/23 06:19 Na Biphos/Potassium Phosphate Packet PO 1 packet TID GABBY Administration Multivit/Folic Acid/Iron 1 tablet 03/11/23 10:00 03/11/23 08:54 Vits Tablet PO 1 tablet DAILY GABBY Administration Thiamine HCl 100 mg 03/11/23 06:00 03/11/23 06:19 Thiamine Hydrochloride 100 Mg Tablet PO 100 mg TID GABBY Administration Tuberculin PPD 0.1 ml 03/19/23 10:00 Tuberculin,Purif.Prot.Deriv. 50 Tu/Ml Vial ID 03/19/23 10:01 X1 ONE Tuberculin PPD 0.1 ml 03/12/23 10:00 Tuberculin,Purif.Prot.Deriv. 50 Tu/Ml Vial ID 03/12/23 10:01 X1 ONE Problem List (Updated 03/11/23 @ 07:[address] Luis King MD) Essential (primary) hypertension (Acute) Tobacco abuse (Acute) Alcohol abuse (Acute) Reilly's gangrene (Acute) Debility (Acute) Sepsis (Acute) Vital Signs Temp Pulse Resp BP Pulse Ox O2 Del Method 97.0 F L 80 16 104/65 98 Room Air 03/11/23 11:28 03/11/23 11:28 03/11/23 11:28 03/11/23 11:28 03/11/23 11:03/11/23 11:28 Oxygen Delivery Method Room Air Weight: 54.431 kg Body Mass Index (BMI) 20.5 Sodium 133 mmol/L (136-145) L 03/11/23 05:21 Potassium 3.4 mmol/L (3.5-5.1) L 03/11/23 05:21 Chloride 104 mmol/L (98-107) 03/11/23 05:21 Carbon Dioxide 23.0 mmol/L (21.0-32.0) 03/11/23 05:21 Anion Gap 6 (5-15) 03/11/23 05:21 BUN 9 mg/dL (7-18) 03/11/23 05:21 Creatinine 0.47 mg/dL (0.70-1.30) L 03/11/23 05:21 Est GFR (MDRD) Af Amer 229 mL/min (>60) 03/11/23 05:21 Est GFR (MDRD) Non-Af 189 mL/min (>60) 03/11/23 05:21 BUN/Creatinine Ratio 19.1 RATIO (10-20) 03/11/23 05:21 Glucose 94 mg/dL (74-106) 03/11/23 05:21 Assessment/Plan: 1. Pain: acetaminophen 975mg 4x/day and oxycodone 5mg PO Q6H PRN pain 6-10. Resident has not had any PRN doses. Please continue to monitor for increased pain and PRN usage. 2. Reilly's gangrene s/p debridement: Augmentin 875mg PO Q12 thru 03/24/23. Please continue to monitor for S/S of infection, diarrhea and renal function. 3. Hypophosphatemia: Neutra-Phos 1 packet PO TID. Please continue to monitor sodium (last 133mmol/L), potassium (last 3.4mmol/L) and phosphorous (no level in chart). Please consider ordering a phosphorous level unless a level is available from the transferring facility. Thanks. 4. Shortness of breath: Duoneb 3mL inhalation TID. Please continue to monitor for shortness of breath, HR (last 80bpm), shakiness and anxiety. 5. Alcohol abuse: vitamin 1T PO daily and thiamine 100mg PO TID. Please continue to monitor. Assessment/Plan for indications treated with psychotropic medications: 1. Anxiety: lorazepam 0.5mg PO TID thru 03/21/23. Please consider stopping this medication more gradually to avoid withdrawal symptoms (black box warning) if resident has been taking this dose for more than 2 weeks. Thanks. Please continue to monitor for anxiety, confusion, dementia/delirium (BEERs medication) and falls/fractures (BEERs medication). Medical chart and medication regimen reviewed. The following medication irregularities or issues were identified: 1. Neutra-Phos 1 packet PO TID. Please consider ordering a phosphorous level unless a level is available from the transferring facility. Thanks. 2. Lorazepam 0.5mg PO TID thru 03/21/23. Please consider stopping this medication more gradually to avoid withdrawal symptoms (black box warning) if resident has been taking this dose for more than 2 weeks. Thanks. Date Date of Note:: 03/11/23 Documented by User: Dr. Luis King MD 03/11/23 13:53 TCU RX Drug Regimen Review Provider Comments Provider responsibility Provider Comments to Recommendations by Pharmacy: Agree
--- NOTE | 2023-03-11 14:50 | WOUNDNOTE ---
ostomy appliance intact at this time. will plan to change appliance tomorrow. pt does not want anything to do with the care of the ostomy. asked patient is girlfriend would be willing t learn. pt states I don't know. You'll have to ask her.
--- NOTE | 2023-03-11 15:14 | WOUNDNOTE ---
wound photo: left scrotum
--- NOTE | 2023-03-11 15:15 | WOUNDNOTE ---
wound photo: perineum/oz-anal area
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
[2023-03-11 20:51] VITALS: RESP 14
--- NOTE | 2023-03-11 23:14 | NURSING ---
Addendum entered by Angeline Bro 03/12/23 02:09: This nurse approached patient at this time for his scheduled antibiotic. Patient did not want to be disturbed, but he agreed to take his medication. Patient's call light is in reach, fluids were given, and urinal emptied and at patient's bedside. Original Note: During HS med pass, patient was told what medications he had due. After scanning medications, the patient refused to take medications stating no, not after what you all did to me earlier, i don't care even if it was only at eight o'clock. This statement was regarding PM hygiene. This nurse, another RN, and [employer] LAB TECHNICIAN went into patient's room to perform PM hygiene care which included linens changed, a new and dry attends, and oz care. This nurse also did a patient assessment during this time. Patient was verbally aggressive to staff and stated he didn't ask to be here. Patient refuses care often and asks to not be disrupted. This nurse verbally educated patient on the importance of maintaining good hygiene and why staff highly encouraged him to be washed up. Staff did not feel comfortable leaving patient to lay in a bed soaked of urine, so PM hygiene was performed. Upon leaving his room during HS med pass, patient stated towards this nurse, fuck you. This nurse will approach patient at a later time. Call light is in reach, bed in lowest position, and patient provided fluids and blankets.
[2023-03-12] MEDS: Amox/Clavulanate 875 MG Tablet PO ×2 (02:02→14:24)
[2023-03-12] MEDS: Thiamine Hydrochloride 100 MG Tablet PO ×2 (05:07→14:24)
[2023-03-12] MEDS: Ensure Plus High Protein 120 ML LIQUID PO ×2 (05:07→13:22)
[2023-03-12] MEDS: LORazepam 0.5 MG Tablet PO (05:07)
[2023-03-12] MEDS: Acetaminophen 325 MG Tablet 975 MG PO (05:07)
--- NOTE | 2023-03-12 05:34 | NURSING ---
Patient is refusing to sign consent for treatment and other admission forms, stating at first, I can't sign them. Then patient stated, I'm not signing nothing unless I have legal counseling here.
[2023-03-12 05:54] LABS: Absolute Lymphocyte Count 1.14 X10^3/uL (0.83-4.51); Basophil# 0.13 X10^3/uL; Basophil% 0.9 % (0-1); Eosinophils% 6.5 % (0-5); Hematocrit 27.7 % (40-54); Hemoglobin 8.8 g/dL (13.0-16.5); Lymphocyte # 1.14 X10^3/ul (0.83-4.51); Lymphocyte % 8.2 % (19-41); Mean Corp Hgb Conc 31.8 g/dL (32-36); Mean Corpuscular Hgb 31.9 pg (27.0-32.0); Mean Corpuscular Volume 100.4 fL (80-94); Mean Platelet Vol. 8.8 fl (6.2-12.0); Monocyte# 1.22 X10^3/uL; Monocyte% 8.8 % (0-10); NRBC Flagged by Analyzer 0 % (0-5); Neutrophil # 9.98 X10^3/uL (2.7-7.7); Neutrophil % 71.6 % (47-70); Platelet Count 615 K/mm3 (150-450); RBC Distribution Width CV 15.3 % (11.6-14.6); RBC Distribution Width SD 55.8 fl (35.1-43.9); Red Blood Count 2.76 M/mm3 (4.6-6.2); White Blood Count 13.9 K/mm3 (4.4-11.0)
[2023-03-12 06:39] LABS: Anion Gap 6 (5-15); BUN 7 mg/dL (7-18); BUN/Creat Ratio 11.5 RATIO (10-20); Calcium,Total 8.4 mg/dL (8.5-10.1); Chloride 103 mmol/L (98-107); Creatinine, Serum 0.61 mg/dL (0.70-1.30); EST Glomerular Filtration Rate 140 mL/min (>60); Est Glom Filt Rate - Afr Amer 170 mL/min (>60); Estimated Creatinine Clearance 69.93 ml/min; Glucose 112 mg/dL (74-106); Potassium 3.9 mmol/L (3.5-5.1); Sodium Level 131 mmol/L (136-145)
--- NOTE | 2023-03-12 09:01 | NURSING ---
This nurse and [employer] Line Up Person attempted to get patient to sign his admission papers, including Consent to Treat form. Patient continued to refuse. Patient stated he wanted legal advise and he would just go home if he had to sign the papers. Advised patient I would sit there and read every paper to him and explain what each form meant. Patient still refused and said he just wanted to go home. Aimee Jenkins, Transitional Care and Inpatient Rehab Care Rep aware.
--- NOTE | 2023-03-12 11:43 | NURSING ---
This nurse was notified dressing to perineum area had fallen off during transfer into bathroom. Upon entering room social services assistant in room talking with pt. This nurse let pt know that I was there to apply the dressing. Pt refused multiple times.
--- NOTE | 2023-03-12 12:10 | WOUNDNOTE ---
Pt had refused for the nurse to change dressing to the perineal/oz-anal wound. packing had fallen out. in to see if patient would allow this nurse to change the dressing. pt did agree to let this nurse change the dressing, but refused to allow this nurse to change the dressing to the left scrotum. Pt is currently refusing everything else and states I'm just going home. Pt tolerated dressing change well. covered with dry dressing and secured dressing well with Medipore tape. will continue to follow and hopefully do teaching with patient's girlfriend later today if patient truly is going home.
--- NOTE | 2023-03-12 12:16 | WOUNDNOTE ---
Pt with layers and layers of thick dry skin to bilateral feet. podiatry had been following patient at [facility], but patient had refused some care there as well according to the podiatry notes. Pt does not want feet cared for at this time.
--- NOTE | 2023-03-12 13:20 | DS.PCM_ITS ---
Providers Date of Admission: 03/11/23 Primary Care Physician: Jennifer Primary Care Phys Consultations 03/11/23 02:18 Consult: Onc/Wound/emergency communications operator Routine Comment: Reason for Consult:: Reilly's Gangrene, new colostomy Reason For Visit: NECROTIZING FASCIITIS Diagnosis Discharge Diagnosis (1) Debility: Status: Acute Code(s): R53.81 - Other malaise (2) Sepsis: Status: Acute Code(s): A41.9 - Sepsis, unspecified organism Qualifiers: Sepsis type: sepsis due to unspecified organism Severe sepsis acute organ dysfunction type: unspecified Severe sepsis shock status: with septic shock (3) Reilly's gangrene: Status: Acute Code(s): N49.3 - Reilly gangrene (4) Alcohol abuse: Status: Acute Code(s): F10.10 - Alcohol abuse, uncomplicated (5) Tobacco abuse: Status: Acute Code(s): Z72.0 - Tobacco use (6) Essential (primary) hypertension: Status: Acute Code(s): I10 - Essential (primary) hypertension Plan 67 year old male with below past medical history hospitalized for sepsis, Reilly's gangrene s/p incision/drainage, colostomy, admitted to TCU with debility, here for rehabilitation, strengthening, prior to discharge home with significant other. * Debility - PT/OT. * Pain - Tylenol 975mg 4x/day, Oxycodone 5mg q6 prn pain (6-10). * Bowel - new colostomy, monitor. * Adult immunization - Administer pneumonia vaccine, covid vaccine, flu vaccine as appropriate. * DVT prophylaxis - Monitor. * Reilly's gangrene s/p debridement - Augmentin 875mg q12 thru 03/24/2023, dressing changes. * Nutrition - Ensure Plus 120ml po tid. * Shortness of breath - Duoneb 3ml tid. * Anxiety - Lorazepam 0.5mg tid, stable chronic use, GDR not recommended. * Hypophosphatemia - K-Phos 1 packet tid. * Alcohol abuse - vitamins 1 tablet daily, Thiamine 100mg tid. Medications at Discharge Home Medications amoxicillin 875 mg-potassium clavulanate 125 mg tablet 1 tab PO Q12H 12 days #24 tabs 03/12/23 lorazepam 0.5 mg tablet 0.5 mg PO TID 7 days #21 tabs 03/12/23 sodium hypochlorite 0.25 % solution (Dakin's Solution) 1 applic topical DAILY 30 days #1,000 mL 03/12/23 Hospital Course Operations - (see below.) Procedures None Summary of Care Provided Minutes Spent on Discharge: 35 Hospital Course: 67 year old male with below past medical history hospitalized for sepsis, Reilly's gangrene s/p incision/drainage, colostomy, admitted to TCU with debility, here for rehabilitation, strengthening, prior to discharge home with significant other. Resident refuses to sign consent to treatment form. Multiple providers including social work, implementation project coordinator, admission coordinator, route process administrator, and myself have asked him to please sign the form, he refused. I let resident know his perineal/scrotal wounds are large and difficult to care for in home setting, especially since he lives alone. He states his significant other will help with dressing changes. He refused follow up at wound care center. I will make him an appointment in office to establish for primary care. We have made every attempt to help resident receive care, however, resident is refusing. Discharge home AMA 03/12/2023. Physical Exam Const alert General Appearance: cooperative HEENT normocephalic Eyes PERRL and EOMs intact bilaterally Neck supple, no JVD and no carotid bruits Resp normal respiratory effort, normal air movement and clear to auscultation bilaterally Cardio regular rate and regular rhythm GI normal to inspection, nondistended, normoactive bowel sounds, non-tender and non-distended GI Narrative: Colostomy present. Narrative: Scrotal/perineal wounds per wound nurse. Extremity normal capillary refill General Extremity: Negative for edema Skin no rashes or lesions noted General Skin Exam: no breakdown Psych affect normal Appearance: appropriate Weight / BMI Weight Weight: 54.431 kg Body Mass Index (BMI) 20.5 ABG / Lab / Microbiology Data 03/12/23 05:32 03/12/23 05:32 Laboratory: Laboratory Results - last 24 hr 03/12/23 05:32: WBC 13.9 H, RBC 2.76 L, Hgb 8.8 L, Hct 27.7 L, MCV 100.4 H, MCH 31.9, MCHC 31.8 L, RDW Std Deviation 55.8 H, RDW Coeff of Kelsi 15.3 H, Plt Count 615 H, MPV 8.8, Immature Gran % (Auto) 4.000 H, Neut % (Auto) 71.6 H, Lymph % (Auto) 8.2 L, [place] % (Auto) 8.8, Eos % (Auto) 6.5 H, Baso % (Auto) 0.9, Absolute Neuts (auto) 10.0 H, Absolute Lymphs (auto) 1.14, Nucleated RBC % 0, Sodium 131 L, Potassium 3.9, Chloride 103, Carbon Dioxide 22.0, Anion Gap 6, BUN 7, Creatinine 0.61 L, Estim Creat Clear Calc 69.93, Est GFR (MDRD) Af Amer 170, Est GFR (MDRD) Non-Af 140, BUN/Creatinine Ratio 11.5, Glucose 112 H, Calcium 8.4 L Microbiology: Microbiology 03/11/23 04:10 Nasal Secretion SARS-CoV-2 Antigen (Rapid) - Final D/C Instructions Discharge Diet: No restrictions Discharge Activity: Return to Normal Activity and May Shower Weight Bearing Status: Weight bearing as tolerated Call your doctor if you observe: Fever of 101 or Higher, Inability to urinate, Inability to have a bowel movement, Shortness of breath, Dizziness, Fainting spells, Swelling in the ankles, Chest pain and Uncontrolled pain Additional Instructions: Discharge home AMA 03/12/2023. Meaningful Use Info Meaningful Use Diagnoses (Choose all that apply): None applicable Discharge Plan Admission Admit Date/Time: 03/11/23 01:36 Primary Reason for Your Visit: Debility. Attending Provider: Luis King Chi Primary Care Provider: Care Physician,No Primary Instructions Additional Instructions / Restrictions: Discharge home AMA 03/12/2023. Discharge Orders/Prescriptions Prescriptions: New lorazepam 0.5 mg Tablet 0.5 mg PO TID 7 Days Qty: 21 0RF amoxicillin-pot clavulanate 875-125 mg Tablet 1 tab PO Q12H 12 Days Qty: 24 0RF Dakin's Solution 0.25 % Solution 1 applic topical DAILY 30 Days Qty: 1000 0RF Protocol: *Topical Application Instructions APPLICATION INSTRUCTIONS: Dakins moistened gauze to scrotal and perineal wounds Discontinued acetaminophen 325 mg tablet 975 mg PO 4X/DAY amoxicillin-pot clavulanate 875-125 mg tablet 1 tab PO Q12H ipratropium-albuterol 0.5 mg-3 mg(2.5 mg base)/3 mL solution for nebulization 3 ml inhalation TID lorazepam 0.5 mg tablet 0.5 mg PO TID oxycodone 5 mg tablet 5 mg PO Q6H PRN (Reason: pain, moderate) potassium, sodium phosphates [Phos-NaK] 280-160-250 mg powder in packet 1 packet PO TID thiamine HCl (vitamin B1) 100 mg tablet 100 mg PO TID Prenatabs FA 29-1 mg tablet PO DAILY Referrals / Follow Up: Elza Covington [Other] Luis King Chi, MD [Med Staff - Active Staff] - Within 1 Week Disposition Disposition (needs filled in before D/C Order can be placed): Against Medical Advice
[2023-03-12] MEDS: DAKIN'S SOL HALF STRENGTH (=0.25%) 1 APPLIC TOPICAL (13:21)
--- NOTE | 2023-03-12 13:28 | NURSING ---
Databases Software Consultant Note; Activity Asset: Gina Hernandez is independent in his choice of daily activities. During interview he stated he did not want to answer any questions and not interested in anything other than staying in his room.
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
--- NOTE | 2023-03-12 16:52 | CASEMGMT ---
Social Work RENARD notified by admissions and director of TCU that pt is not agreeing to sign U consent to treat paperwork. Pt has given verbal agreement to some medications, wound dressing changes and therapy, but also refuses these treatments at times. Admissions and activities volunteer both spoke with pt together to explain the importance and meaning of consent to treat paperwork, but pt still denied to sign. Director of TCU and this worker involved Director of Risk Management for assistance. Director of Risk explained if pt is competent and still not agreeable to sign consent to treat forms, pt must DC AMA. Director of Risk inquired about competency, and if incompetent, this worker and Director of Risk can assist with conferring with an ip attorney for immediate guardianship. However, Dr. King needs to complete an expert eval, if appropriate. SW agreed to speak with pt again on paperwork and on expert eval. Director of TCU spoke with GFSaima, for assistance in speaking with pt on signing paperwork. GF agreed to visit and attempt to have pt agree to sign for consent. -- RENARD spoke with pt in room. Pt remained lying in bed, keeping his back toward this worker. This worker sat near the doorway. Pt continued the conversation with this worker facing away from SW. SW attempted to educate to consent to treat paperwork, and requested pt sign them. Pt remained adamant about not signing forms, stating the reason was because of what was said to me this morning . SW inquired about that statement, but pt replied, I don't know. I was belittled . SW attempted to gather more details, but pt did not respond. SW attempted to explore childhood, relationship with parents, siblings, friends, pt's work history, past life experiences, alcohol use, family history of alcohol use, parents work history. Pt remained vague with answers, not wanting to provide detailed information. SW broached topic of pt liking people, as pt stated that to staff prior. Pt denied liking people and appeared to be distant with medical staff as evidenced by pt's statement, I don't like strangers . SW attempted to explain and offer services such as transportation, FWW, applying for Medicaid, HHC. Attempted to explore finances and SSI, but pt expressed these answered were not pertinent knowledge of this worker. Pt getting increasingly agitated with continued questions as evidenced by answers getting short and raising his voice. RENARD reiterated the goal is for this worker and staff to care for pt and help pt. Explained the wound care and therapy is recommended for improvement of pt's independence to be successful at home. RENARD inquired about how pt will manage needs at home. Pt stated he would have his GF assist or figure it out . Again, this worker attempted to explore barriers to pt getting proper care and allowing help from others, but pt would not reply or curse at this worker, thus, SW exited room. -- RENARD collaborated with Director of TCU and Director of Risk. All parties continued to be in agreement if pt is not willing to sign consent to treat forms, pt must leave AMA. RENARD spoke with Dr. King about expert eval and reviewed form with . denied pt being incompetent, as pt is able to make his own decisions. RENARD updated Director of Risk. RENARD also collaborated with melt house supervisor Management on case for assistance. -- Director of TCU and Dr. King spoke with pt at another attempt for agreement to treat. This worker remained outside of pt's room for additional witness to conversation. Pt continued to deny to sign forms restating his reason for being belittled by staff this morning. Dr. King apologized twice for that incident and encouraged pt to remain to receive treatment. Dr. King explained the need for professional medical care, especially for wound care. Pt denied wanting the care. Dr. King explained if pt elects to not receive treatment and DC, it would be AMA. Pt repeated back, I understand I would be leaving against medical advice. I know that . Dr. King offered to be pt's PCP and follow pt for care in the community; offered to make an appt with [facility] for follow up and treatment for wounds. Pt adamantly denied to both. offered to call in prescription to pharmacy of choice for pt to remain on ATB. Pt agreed and requested [facility]. Director of TCU encouraged pt once he is home, if there is a change in condition and pt is not feeling well, to present to [facility] ED for treatment. Pt remained silent. Both exited room. -- RENARD phoned GF to inquire about visitation time to coordinate with wound nurse for teaching if pt remains elective of DC. GF presented about 1530 to unit. RENARD notified security and HRO, who remained present on unit and witnesses for remaining conversations. This worker and wound nurse spoke with pt and GF in room. SW explained to GF of pt's denial to sign consent to treat forms. GF having difficulty understanding why pt would not sign. SW explained further until GF expressed understanding. GF stated pt stated to her that he was being mistreated in TCU. Wound nurse denied those allegations, repeating pt has not allowed staff to give consistent treatment. GF attempted to speak with pt, but pt was raising his voice and cursing at GF, reiterated he wants to leave. SW confirmed with pt that he is denying to provide consent to treat - pt confirmed. Pt did agree to sign AMA form. Pt and GF agreed for wound nurse to provide teaching of wound care and provided some supplies for home. GF inquired about nursing care at home. SW explained since pt is leaving AMA, which this worker previously confirmed with Director of Risk, that this worker is unable to coordinate services, like HHC or FWW and pt does not have insurance coverage to get FWW or colostomy supplies, and pt again denied NAYANA. SW stated HHC would be covered under Medicare part A, but pt has not given consent to treat and does not have PCP and denied for Dr. King to be pt's PCP, and Dr unable to sign orders for HHC. GF expressed disappointment. After wound care teaching, pt transferred to w/c and GF used her personal FWW to walk pt out of the hospital. Security pushed pt in the w/c and escorted both parties to main entrance where a neighbor was waiting to drive them home. RENARD encouraged GF and pt if there are any changes to present to the ED for treatment. GF did express thanks to staff multiple times. IDT updated pt DCd AMA on 03/12. -- RENARD left detailed VM to Lorenzo at [facility]. [facility] is closed for the holiday and will not return call/be back in the office until 03/16. RENARD left VM with melt house supervisor Management. Milla Ling, PARTS MANAGER FINANCE ADMIN
--- NOTE | 2023-03-15 09:29 | NURSING ---
Seed Corn Production Manager Note; MDS for 03/12/2023 Resident left AMA and refused to answer any questions.
--- NOTE | 2023-05-06 14:45 | MDS.RN ---
Admission MDS was completed on time , [facility] error rejected original MDS report LI 03/12/23.
== END 2023-03-12 15:50 | disposition left against medical advice (07) | DRG 950 ==
PROVIDERS: Admitting Provider Family Medicine Geriatric Medicine; Referring Provider Family Medicine Geriatric Medicine; Visit Provider Family Medicine Geriatric Medicine
DX: Z48.815 Encounter for surgical aftercare following surgery on the digestive system (principal); E83.39 Other disorders of phosphorus metabolism; Z93.3 Colostomy status; F10.10 Alcohol abuse, uncomplicated; I10 Essential (primary) hypertension; F17.210 Nicotine dependence, cigarettes, uncomplicated; F41.9 Anxiety disorder, unspecified; N49.3 Fournier gangrene; Z79.899 Other long term (current) drug therapy
CPT/HCPCS: 36415; 80048; 85025; 87811; 97162; 97166; 97535; 97802

== ENCOUNTER 2023-08-11 17:47 | Emergency (ER) | payer MEDICARE, SELFPAY ==
[2023-08-11] VITALS (8 sets, daily range): BP systolic 96–127; BP diastolic 61–77; PULSE 80–98; RESP 14–27; TEMP 35.6; O2SAT 95–100; BMI 23.1
--- NOTE | 2023-08-11 17:57 | CT_ITS ---
STUDY: CT BRAIN WITHOUT CONTRAST REASON FOR EXAM: Male, 67 years old. trauma RADIATION DOSAGE (If Supplied By Facility): CTDIvol = ( 47.06 ) mGy, DLP = ( 925.62 ) mGycm TECHNIQUE: Transaxial CT imaging of the brain was performed without administration of intravenous contrast material. Individualized dose optimization techniques were used for this CT. COMPARISON: 07/30/2016 FINDINGS: Normal soft tissue structures. Stable defect of the right posterior parietal bone suggestive of previous craniotomy. Correlate with surgical history. Normal size ventricles and extra-axial spaces for the patient''s age. There are areas of decreased attenuation within the white matter tracts of the supratentorial brain, consistent with microvascular disease changes. 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 Normal brainstem. Normal cerebellum. There is no intracranial hemorrhage. There are no findings of an acute ischemic infarction. Normal visualized paranasal sinuses. CT/Brain/Head without Contrast IMPRESSION: Chronic involutional changes of the brain. No acute intracranial abnormality. Electronically Signed: Vidal Alexander MD at 18:42 EDT ,
--- NOTE | 2023-08-11 17:57 | ED.RN ---
PATIENT UNCOOPERATIVE AT THIS TIME, DR. ALONZO AND [place] [employer] AT BEDSIDE WITH THIS PATIENT PATIENT IS REFUSING ASSESSMENTS AND EVALUATIONS ALONG WITH VITAL SIGNS. PATIENT WITH ETOH ODOR, SATURATED PANTS PRESUMABLY URINE. PATIENT PLACED IN 4 POINT RESTRAINTS AT THIS TIME
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
[2023-08-11] MEDS: Midazolam 5 MG/ML Syringe IM (18:01)
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
--- NOTE | 2023-08-11 19:51 | ED.RN ---
1950: ELOPEMENT: PROVIDER WENT TO BEDSIDE TO INFORM THE PATIENT OF THEIR RESULTS. I WAS MADE AWARE THAT THE PATIENT IS NO LONGER IN THE ROOM AND BELONGINGS ARE GONE WELL.
== END 2023-08-11 19:52 | disposition left against medical advice (07) ==
PROVIDERS: Emergency Provider Emergency Medicine; Visit Provider Emergency Medicine
DX: S06.9X9A Unspecified intracranial injury with loss of consciousness of unspecified duration, initial encounter (principal); S00.81XA Abrasion of other part of head, initial encounter; F17.210 Nicotine dependence, cigarettes, uncomplicated; F10.129 Alcohol abuse with intoxication, unspecified; I10 Essential (primary) hypertension; X58.XXXA Exposure to other specified factors, initial encounter; Z53.29 Procedure and treatment not carried out because of patient's decision for other reasons
CPT/HCPCS: 70450; 96372; 99285

== ENCOUNTER 2024-05-06 12:03 | Inpatient (IN) | payer MEDICARE, SELFPAY ==
[2024-05-06 12:04] VITALS: BP 152/102; PULSE 109; RESP 16; TEMP 37.2; O2SAT 97; BMI 23.1
--- NOTE | 2024-05-06 12:15 | ED.RN ---
CALLED ASSOCIATE BRAND MANAGER REQUESTED OSTOMY SUPPLIES TO DO A COMPLETE REPLACEMENT.
--- NOTE | 2024-05-06 12:32 | EDS_ITS ---
<Statement entered by Zeus Escamilla DO - 05/09/24 08:40> Patient was seen and examined with physician lead assistant manager Dayna All components of the history and physical confirmed and agreed. History of present illness and physical exam: Patient is a 68-year-old male past medical history of colostomy, tobacco use, alcohol abuse who presents to the emergency department with 3 days of nausea vomiting and not feeling well. He states that he has been not able to keep anything down for the last several days and notes that his stools been thin but light brown. Patient was a poor historian but he states that he was admitted to [facility] Last year for a rectal infection and woke up with an ostomy records showed that he had necrotizing fasciitis. He states that he started carrying his walker after surgery which caused his ostomy site to enlarge and has been a golf ball size since then. Patient states that he drinks beer from time he gets up to the time he goes to bed approximately 324 ounce beers per day states that he does not drink any hard liquor. Review of systems: Agree with above Physical exam: As above MDM Patient is a 68-year-old male who presented to the emergency department with 3 days worth of nausea vomiting diarrhea and abdominal pain. On the differential diagnose includes Melamin to bowel obstruction, viral gastroenteritis, alcohol steatosis. Once workup is obtained reviewed he will be reevaluated. Patient CBC reviewed showed a white blood cell count of 10,000, hemoglobin was 13.2, plate count normal at 165. Patient sodium was noted to be low indicating hyponatremia at 128, potassium normal 3.6, creatinine was 2.09 and he had an anion gap of 21. Patient AST and ALT were 83 and 49 respectively. Patient lipase normal at 46, urinalysis did not reveal any evidence infection. Patient CT abdomen pelvis with IV contrast reviewed and showed no acute findings. He has diffuse bladder wall thickening which may be secondary to incomplete distention or developing UTI patient does not have any evidence of infection on his urinalysis. He has severe diffuse hepatic steatosis. At this point time patient will warrant admission to the hospital for his intractable nausea vomiting diarrhea abdominal pain and his elevated anion gap likely secondary to his alcohol abuse resulting in alcoholic ketosis. Case was discussed with hospitalist by physician lead assistant manager who accept patient for admission. Patient was notified all question concerns answered. Final impression: Abdominal pain Metabolic acidosis Nausea and vomiting History of stoma Disposition: Patient will be admitted to the hospital further evaluation management Supervising attending attestation: Zeus Escamilla D.O. HPI HPI - GI History of Present Illness Chief Complaint: Abd Pain Narrative Narrative: 68-year-old male with past medical history of colostomy, tobacco use, alcohol abuse presents with 3 days of nausea and vomiting. He states he has barely been keeping down fluids and so his stool has been thin but light brown. No melena, hematochezia, or mucus noted. He is a poor historian. He states he was admitted to [facility] Last year for some type of rectal infection and woke up with an ostomy. Records show he had necrotizing fasciitis. He states he started carrying his walker after surgery in the ostomy enlarged to the size of a golf ball since then. He does not follow with a primary care doctor or any specialists. He takes no medications. He denies fever or chills. He has had no hematemesis. He states he drinks beer from the time he gets up to the time he goes to sleep, approximately three 24 ounce beers per day, but has not been able to keep anything down for the last 3 days. [facility] Medical History (Updated 05/06/24 @ 15:01 by ANDREW Dahl) Atrial fibrillation Alcohol abuse Smoker Hypertension Home Medications ?Medication ?Instructions ?Recorded ?Last Taken ?Type NK 08/11/23 Unknown History Allergy/AdvReac Type Severity Reaction Status Date / Time No Known Allergies Allergy Verified 05/06/24 12:08 Surgical History History of colostomy History of incision and drainage Social History household members: significant other Smoking Status: Current every day smoker tobacco type: cigarettes alcohol intake: current substance use type: does not use ROS ROS ED ROS Narrative Constitutional: Negative for fever, chills, malaise. CVS: Negative for chest pain. Respiratory: Negative for shortness of breath. GI: Positive for nausea, vomiting, abdominal pain, diarrhea. EXAM Physical Exam Narrative Exam Narrative: CONST: Disheveled patient sitting in no acute distress. EYES: Normal inspection. NECK: Normal inspection. RESP: No respiratory distress, CTAB. CVS: Regular rate and rhythm, no murmur, no gallop. ABD: Ostomy left lower abdomen. Stoma is enlarged approximately the size of a golf ball but it is pink and healthy appearing. Thin brown stool in the bag. Abdomen soft and nontender. SKIN: Color normal, no rash, warm, dry, intact. EXTREMITIES: Normal appearance, no pedal edema. NEURO: Alert and answering questions appropriately. PSYCH: Normal affect. Const Vital Signs: 05/06/24 12:04 05/06/24 14:04 05/06/24 16:00 Temperature 99 F 98.8 F Temperature Source Temporal Pulse Rate 109 H 95 78 Respiratory Rate 16 18 16 Blood Pressure 152/102 H 136/94 H 135/95 H Blood Pressure Mean 118 108 108 Pulse Ox 97 98 99 Oxygen Delivery Method Room Air MDM MDM MDM Narrative Medical decision making narrative: Differential includes but not limited to diverticulitis, electrolyte abnormality, HEMANT, viral illness 68-year-old male with past medical history of colostomy presents with 3 days of N/V/D and abdominal pain. He appears unkempt but nontoxic. BP is 152/102, HR 109, otherwise stable vital signs. His stoma is slightly herniated into the bag but he states this is chronic since his surgery. His abdomen is soft and nontend er. CBC is unremarkable with WBC of 10.5, Hgb 13.2, platelets 165. Chemistry shows significant HEMANT with BUN of 28, creatinine 2.09 (previously 0.61). Sodium is 128, glucose 127, CO2 16.1, anion gap 21. I suspect this is secondary to long-term alcohol use and dehydration. He has chronic slight elevation of his liver enzymes. Lipase is normal. CT shows no acute abdominal pelvic findings. There is bladder wall thickening so a urinalysis was obtained and is negative. Patient requires admission for dehydration, HEMANT, and elevated anion gap. I discussed the case with the hospitalist. Lab Data Labs: Laboratory Results - last 24 hr 05/06/24 05/06/24 13:00 15:26 WBC 10.5 RBC 3.91 L Hgb 13.2 Hct 37.6 L MCV 96.2 H MCH 33.8 H MCHC 35.1 RDW Std Deviation 42.7 RDW Coeff of Kelsi 12.1 Plt Count 165 MPV 9.1 Immature Gran % (Auto) 1.000 H Neut % (Auto) 81.5 H Lymph % (Auto) 5.4 L Spalding % (Auto) 8.9 Eos % (Auto) 2.8 Baso % (Auto) 0.4 Absolute Neuts (auto) 8.5 H Absolute Lymphs (auto) 0.56 L Nucleated RBC % 0 Sodium 128 L Potassium 3.6 Chloride 91 L Carbon Dioxide 16.1 L Anion Gap 21 H BUN 28 H Creatinine 2.09 H Estim Creat Clear Calc 29.83 L Est GFR (MDRD) Non-Af 34 L BUN/Creatinine Ratio 13.4 Glucose 127 H Calcium 8.5 Total Bilirubin 0.99 AST 83 H ALT 49 H Alkaline Phosphatase 225 H Total Protein 8.5 H Albumin 4.3 Globulin 4.1 Albumin/Globulin Ratio 1.0 Lipase 46 Urine Color Yellow Urine Clarity Clear Urine pH 6.0 Ur Specific Dresser 1.010 Urine Protein 30 H Urine Glucose (UA) Normal Urine Ketones 5 H Urine Occult Blood 10 H Urine Nitrite Negative Urine Bilirubin Negative Urine Urobilinogen Normal Ur Leukocyte Esterase Negative Urine RBC 0 SEEN Urine WBC 0 SEEN Ur Squamous Epith Cells 0 SEEN Urine Bacteria 0 SEEN Urine Mucus 0 SEEN Radiography Diagnostic Testing: Clinical Impression(s) from Imaging Studies Abdomen/Pelvis CT 05/06/24 12:41 IMPRESSION: 1. No acute abdominopelvic finding. 2. Diffuse bladder wall thickening, which may be secondary to incomplete distention or developing urinary tract infection. Correlation with urinalysis recommended. 3. Severe diffuse hepatic steatosis. One or more dose reduction techniques were used (e.g., Automated exposure control, adjustment of the mA and/or kV according to patient size, use of iterative reconstruction technique). Reading Location: [facility] Discharge Plan Triage Chief Complaint: Abd Pain ED Midlevel Provider: Dayna Holly ED Provider: Zeus Escamilla Dx/Rx/DC Orders Clinical Impression: Nausea and vomiting, Alcohol abuse, Diarrhea, Acute hyponatremia, Acute kidney injury, High anion gap metabolic acidosis Prescriptions: No Action NK Primary Care Provider: Care Physician,No Primary Referrals: Care Physician,No Primary [Primary Care Provider] - Print Language: Georgian
--- NOTE | 2024-05-06 12:41 | CT_ITS ---
PROCEDURE: ABDOMEN/PELVIS W IV CONT ONLY REASON FOR EXAM: 68-year-old male, abdominal pain, nausea, vomiting and diarrhea. History of ostomy and alcohol abuse. TECHNIQUE: Abdomen and pelvis CT with intravenous contrast. No oral contrast. IV CONTRAST: Isovue-300 COMPARISON: CT abdomen pelvis 02/18/2023. FINDINGS: Lung bases: Coronary artery and aortic valvular calcifications. The heart is normal in size. Small hiatal hernia. Liver: The liver is normal in size with severe diffuse steatosis. The major portal veins are patent. No biliary ductal dilation. Gallbladder: No radiopaque stones within the gallbladder. Spleen: Unremarkable. Pancreas: Pancreatic atrophy. Adrenals: Unremarkable. Kidneys: No hydronephrosis or nephrolithiasis. Bladder: Minimally distended with diffuse bladder wall thickening. Probable small diverticulum along the midline cranial bladder wall. Reproductive Organs: Unremarkable. Bowel: Left mid abdominal ostomy. Small trans stomal hernia containing a nondilated small bowel loop. The bowel loops are normal in caliber. No ascites or pneumoperitoneum. Normal appendix. Lymph nodes: Stable calcified peripancreatic lymph nodes, compatible with granulomas. No suspicious lymph node enlargement. Vasculature: Moderate calcific plaque of the aortoiliac vessels. Bones: Thoracolumbar spondylosis. Chronic right rib fracture deformities. No aggressive osseous lesions. CT/Abdomen/Pelvis W IV Cont ONLY IMPRESSION: 1. No acute abdominopelvic finding. 2. Diffuse bladder wall thickening, which may be secondary to incomplete disten tion or developing urinary tract infection. Correlation with urinalysis recommended. 3. Severe diffuse hepatic steatosis. One or more dose reduction techniques were used (e.g., Automated exposure contr ol, adjustment of the mA and/or kV according to patient size, use of iterative reconstruction technique). Reading Location: [id number]
--- NOTE | 2024-05-06 13:05 | ED.RN ---
COMPLETE OSTOMY SYSTEM CHANGED BY COLE WOODWARD
[2024-05-06 13:06] LABS: Absolute Lymphocyte Count 0.56 X10^3/uL (0.83-4.51); Absolute Neutrophil Count 8.5 X10^3/uL (2.0-7.7); Basophil# 0.04 X10^3/uL; Basophil% 0.4 % (0-1); Eosinophil# 0.29 X10^3/uL; Eosinophils% 2.8 % (0-5); Hematocrit 37.6 % (40-54); Hemoglobin 13.2 g/dL (13.0-16.5); Lymphocyte # 0.56 X10^3/ul (0.83-4.51); Lymphocyte % 5.4 % (19-41); Mean Corp Hgb Conc 35.1 g/dL (32-36); Mean Corpuscular Hgb 33.8 pg (27.0-32.0); Mean Corpuscular Volume 96.2 fL (80-94); Mean Platelet Vol. 9.1 fl (6.2-12.0); Monocyte# 0.93 X10^3/uL; Monocyte% 8.9 % (0-10); NRBC Flagged by Analyzer 0 % (0-5); Neutrophil # 8.54 X10^3/uL (2.7-7.7); Neutrophil % 81.5 % (47-70); POSITIVE DIFFERENTIAL YES; POSITIVE MORPHOLOGY YES; Platelet Count 165 K/mm3 (150-450); RBC Distribution Width CV 12.1 % (11.6-14.6); RBC Distribution Width SD 42.7 fl (35.1-43.9); Red Blood Count 3.91 M/mm3 (4.6-6.2); White Blood Count 10.5 K/mm3 (4.4-11.0)
[2024-05-06] MEDS: 0.9% Normal Saline (1000mL) 1,000 ML 999 ML IV (13:10)
[2024-05-06] MEDS: Ondansetron 4 MG/2 ML Vial IV (13:11)
[2024-05-06] MEDS: Famotidine 200 MG/20 ML MDV 20 MG in 0.9% Normal Saline (Pres. free 8 ML 300 MG IV (13:11)
[2024-05-06 13:29] LABS: AST(SGOT) 83 U/L (<=37); Alanine Aminotransfer ALT/SGPT 49 U/L (<=46); Albumin, Serum 4.3 g/dL (3.4-4.8); Alkaline Phosphatase 225 U/L (40-129); Anion Gap 21 (5-15); BUN 28 mg/dL (4-19); BUN/Creat Ratio 13.4 RATIO (10-20); Calcium,Total 8.5 mg/dL (7.6-11.0); Carbon Dioxide 16.1 mmol/L (21.0-32.0); Chloride 91 mmol/L (98-108); Creatinine, Serum 2.09 mg/dL (0.70-1.20); EST Glomerular Filtration Rate 34 (>60); Estimated Creatinine Clearance 29.83 ml/min (50-250); Globulin 4.1 g/dL (2.2-4.2); Glucose 127 mg/dL (70-99); Lipase 46 U/L (13-75); Potassium 3.6 mmol/L (3.3-5.1); Protein, Total 8.5 g/dL (5.9-8.4); Sodium Level 128 mmol/L (133-145); Total Bilirubin 0.99 mg/dL (0.00-1.30)
[2024-05-06] MEDS: Morphine 4 MG/ML Syringe IV (13:33)
[2024-05-06 13:54] LABS: Differential Indicated SCAN CRITERIA MET
[2024-05-06 14:04] VITALS: BP 136/94; PULSE 95; RESP 18; O2SAT 98
[2024-05-06 15:30] LABS: Bacteria 0 SEEN /hpf (None Seen); Mucous, Urine 0 SEEN /hpf (<or=2+); Squamous Epithelial Cells - UA 0 SEEN /hpf (0-5); White Blood Cells 0 SEEN /hpf (0-5)
[2024-05-06 15:32] LABS: Color, Urine Yellow (Yellow); Glucose, Dipstick Normal (Normal); Ketone-Dipstick 5 mg/dl (Negative); Leukocyte Esterase-Dipstick Negative /ul (Negative); Nitrite-Dipstick Negative (Negative); Occult Blood-Urine 10 /ul (Negative); Protein-Dipstick 30 mg/dl (Negative); Urine Bilirubin Dipstick Negative (Negative); Urine Clarity Clear (Clear); Urine Urobilinogen Normal (Normal)
[2024-05-06 15:38] LABS: Red Blood Cells-Urine 0 SEEN /hpf (0-5)
--- NOTE | 2024-05-06 15:52 | PCM.HP.STD ---
HPI - General General Date of Admission: 05/06/24 Date of Service: 05/06/24 Chief Complaint: Nausea/vomiting with dehydration HPI Narrative MONSE TAYLOR, is a 68 M who presented to [facility] ED on 05/06/2024 with nausea and vomiting and dehydration. Patient reports 3-day history of nausea with vomiting and has essentially been unable to keep anything down over that time. Denies any abdominal pain or diarrhea with this. Denies any upper respiratory symptoms. 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 Patient was discharged to our TCU and can see Dr. King's H&P from 03/11/23 for further details. In short, patient had multiple procedures done during that hospitalization including colostomy. He recovered well from that infection but continues to have colostomy in place. He has largely stayed out of the hospital since then. He lives at home alone. Does have history of alcohol use, states he drinks 3 24 ounce beers daily. Denies any history of alcohol withdrawal symptoms. States he has not had any alcohol over the past 3 days due to his ongoing nausea with vomiting. In the ED he was mildly tachycardic and hypertensive but otherwise hemodynamically stable. Labs notable for sodium 128, chloride 91, creatinine 2.09 (baseline around 0.6). CT abdomen pelvis was largely unremarkable. Given his intractable nausea/vomiting with dehydration and HEMANT, hospitalist was contacted for admission. I saw the patient at bedside in the ED. Patient was mildly fatigued appearing but otherwise sitting back fairly comfortably in bed and in no acute distress. He had been given 1 L of IV fluids as well as medications for pain and nausea with mild to moderate relief of his symptoms. He does continue to have mild nausea and minimal appetite. He denies any acute pain or discomfort. Lives at home alone and states he has good functional status at baseline, is able to do things around the house from saw without issue. No other acute concerns this time. [facility] Medical History (Updated 05/06/24 @ 15:01 by ANDREW Dahl) Atrial fibrillation Alcohol abuse Smoker Hypertension Home Medications ?Medication ?Instructions ?Recorded ?Last Taken ?Type NK 08/11/23 Unknown History Allergy/AdvReac Type Severity Reaction Status Date / Time No Known Allergies Allergy Verified 05/06/24 12:08 Surgical History History of colostomy History of incision and drainage Social History household members: significant other Smoking Status: Current every day smoker tobacco type: cigarettes alcohol intake: current substance use type: does not use ROS Constitutional Constitutional: Reports fatigue; Denies chills, fever(s) or weakness Eyes Eyes: Denies change in vision Cardiovascular Cardiovascular: Denies chest pain Respiratory/Chest Respiratory/Chest: Denies cough or shortness of breath at rest Gastrointestinal Gastrointestinal: Reports nausea and vomiting; Denies abdominal pain, constipation or diarrhea Genitourinary Genitourinary: Denies dysuria Musculoskeletal Musculoskeletal: Denies arthralgias or myalgias Neurologic Neurologic: Denies dizziness or headache(s) Vital Signs Vital Signs Vital Signs: 05/06/24 12:04 05/06/24 14:04 Temperature 99 F Temperature Source Temporal Pulse Rate 109 H 95 Respiratory Rate 16 18 Blood Pressure 152/102 H 136/94 H Blood Pressure Mean 118 108 Pulse Ox 97 98 Oxygen Delivery Method Room Air Weight Weight: 63.2 kg Body Mass Index (BMI) 23.1 Physical Exam Const alert, oriented x3, no apparent distress and average body habitus Constitutional Narrative: Upper middle-aged male, mildly fatigued and somewhat unkempt appearing, otherwise sitting back comfortably in bed, conversing normally and in no acute distress. General Appearance: cooperative and comfortable HEENT normocephalic, head/scalp atraumatic, hearing grossly normal bilaterally and nasal mucous membranes and turbinates normal HEENT Narrative: Dry mucous membranes. Eyes PERRL, EOMs intact bilaterally and conjunctivae normal Neck full ROM Chest inspection of chest normal Resp normal respiratory effort, normal air movement, no use of accessory muscles and clear to auscultation bilaterally Cardio regular rate, regular rhythm, no murmurs and peripheral pulses 2+ throughout GI normal to inspection, nondistended, normoactive bowel sounds, soft to palpation, non-tender and non-distended GI Narrative: Colostomy in place with no stool in bag noted. Back/Spine normal ROM Extremity normal to inspection, full ROM and no pedal edema Skin no rashes or lesions noted Neuro moves all extremities and no focal motor deficits Speech: speech normal Motor Exam: strength 5/5 throughout Psych mental status grossly normal Results Lab / Micro Data 05/06/24 13:00 05/06/24 13:00 Labs: Laboratory Results - last 24 hr 05/06/24 13:00: WBC 10.5, RBC 3.91 L, Hgb 13.2, Hct 37.6 L, MCV 96.2 H, MCH 33.8 H, MCHC 35.1, RDW Std Deviation 42.7, RDW Coeff of Kelsi 12.1, Plt Count 165, MPV 9.1, Immature Gran % (Auto) 1.000 H, Neut % (Auto) 81.5 H, Lymph % (Auto) 5.4 L, [place] % (Auto) 8.9, Eos % (Auto) 2.8, Baso % (Auto) 0.4, Absolute Neuts (auto) 8.5 H, Absolute Lymphs (auto) 0.56 L, Nucleated RBC % 0, Sodium 128 L, Potassium 3.6, Chloride 91 L, Carbon Dioxide 16.1 L, Anion Gap 21 H, BUN 28 H, Creatinine 2.09 H, Estim Creat Clear Calc 29.83 L, Est GFR (MDRD) Non-Af 34 L, BUN/Creatinine Ratio 13.4, Glucose 127 H, Calcium 8.5, Total Bilirubin 0.99, AST 83 H, ALT 49 H, Alkaline Phosphatase 225 H, Total Protein 8.5 H, Albumin 4.3, Globulin 4.1, Albumin/Globulin Ratio 1.0, Lipase 46 05/06/24 15:26: Urine Color Yellow, Urine Clarity Clear, Urine pH 6.0, Ur Specific [place] 1.010, Urine Protein 30 H, Urine Glucose (UA) Normal, Urine Ketones 5 H, Urine Occult Blood 10 H, Urine Nitrite Negative, Urine Bilirubin Negative, Urine Urobilinogen Normal, Ur Leukocyte Esterase Negative, Urine RBC 0 SEEN, Urine WBC 0 SEEN, Ur Squamous Epith Cells 0 SEEN, Urine Bacteria 0 SEEN, Urine Mucus 0 SEEN Imaging Radiology Impression Abdomen/Pelvis CT 05/06/24 12:41 IMPRESSION: 1. No acute abdominopelvic finding. 2. Diffuse bladder wall thickening, which may be secondary to incomplete distention or developing urinary tract infection. Correlation with urinalysis recommended. 3. Severe diffuse hepatic steatosis. One or more dose reduction techniques were used (e.g., Automated exposure control, adjustment of the mA and/or kV according to patient size, use of iterative reconstruction technique). Reading Location: [id number] Assessment & Plan Assessment/Plan (1) Nausea and vomiting: (2) Acute kidney injury: (3) Acute hyponatremia: PLAN: Plan Patient is a 68-year-old male who presented [facility] ED on 05/06/2024 with nausea/vomiting and dehydration. 1. Dehydration with HEMANT secondary to nausea/vomiting ? Admit under inpatient status to [facility]. Creatinine 2.09 on admit, baseline around 0.6. Unclear etiology for nausea/vomiting, may be secondary to a mild viral gastroenteritis. CT abdomen pelvis on admit unremarkable. Presume prerenal HEMANT secondary to dehydration and poor p.o. intake. Given 2 L IV fluids on admit, follow-up a.m. BMP monitor urine output. Symptomatic management of nausea/vomiting. Will give patient regular diet and allow him to see what food and drink he tolerates. 2. Hyponatremia ? Sodium 128 on admit, chloride 91. Suspect primarily secondary to dehydration and poor p.o. intake with possibly mild degree of beer potomania. Given 2 L of normal saline in the ED, follow-up a.m. sodium level. 3. Elevated LFTs ? AST 83, ALT 49, alk phos 225 on admit. Appears these have been elevated in the past and CT abdomen pelvis did show severe diffuse hepatic steatosis. Suspect mildly elevated due to chronic alcohol use. Follow-up a.m. LFTs. 4. Alcohol use disorder ? Reports drinking 3 24 ounce beers on a daily basis. Has had minimal alcohol intake over the past 3 days due to ongoing nausea/vomiting. Denies history of alcohol withdrawal. Will order [facility] protocol for patient and monitor. 5. 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 Prolonged hospitalization at [facility] in 01/2023-03/2023 for this. Was ultimately discharged to our TCU, see Dr. King's note from 03/11/23 for further details. Colostomy remains in place. Patient has had no further issues regarding this since that hospitalization. DVT prophylaxis: Heparin subcu CODE STATUS: Full code, verified Expected disposition: Home, TBD Total clinical time spent by myself addressing the patient's medical issues, reviewing all the data, and collaborating with patient's care team: 75 minutes. Charges/Coding Visit Charges Inpatient E&M: 80206 Init Hosp L3
[2024-05-06 16:00] VITALS: BP 135/95; PULSE 78; RESP 16; TEMP 37.1; O2SAT 99
[2024-05-06] MEDS: 0.9% Normal Saline (1000mL) 1,000 ML 500 ML IV (16:35)
[2024-05-06 17:44] VITALS: BP 160/86; PULSE 86; RESP 18; TEMP 37.1; O2SAT 98
[2024-05-06 17:45] VITALS: BMI 23.3
[2024-05-06] MEDS: Heparin Injection (Vial) 5,000 UNIT/ML VIAL 5000 UNIT SC (20:20)
[2024-05-06 21:51] VITALS: BP 146/78; PULSE 84; RESP 18; TEMP 36.7; O2SAT 95
[2024-05-07 03:00] VITALS: BP 149/86; PULSE 63; RESP 17; TEMP 36.7; O2SAT 95
[2024-05-07] MEDS: Heparin Injection (Vial) 5,000 UNIT/ML VIAL 5000 UNIT SC ×3 (05:33→19:36)
[2024-05-07 07:58] LABS: Hemoglobin 11.5 g/dL (13.0-16.5); Mean Corp Hgb Conc 34.8 g/dL (32-36); Mean Corpuscular Hgb 33.7 pg (27.0-32.0); Mean Corpuscular Volume 96.8 fL (80-94); Mean Platelet Vol. 9.5 fl (6.2-12.0); Platelet Count 162 K/mm3 (150-450); RBC Distribution Width CV 12.3 % (11.6-14.6); RBC Distribution Width SD 43.1 fl (35.1-43.9); Red Blood Count 3.41 M/mm3 (4.6-6.2); White Blood Count 9.3 K/mm3 (4.4-11.0)
[2024-05-07 08:04] VITALS: BP 125/80; PULSE 80; RESP 18; TEMP 36.6; O2SAT 97
[2024-05-07] MEDS: Folic Acid 1 MG Tablet PO (08:11)
[2024-05-07] MEDS: Thiamine Hydrochloride 100 MG Tablet PO (08:11)
[2024-05-07 08:26] VITALS: O2SAT 95
[2024-05-07 09:27] LABS: ALB/GLOB Ratio 1.3 RATIO (0.9-2.4); AST(SGOT) 53 U/L (<=37); Alanine Aminotransfer ALT/SGPT 34 U/L (<=46); Albumin, Serum 3.9 g/dL (3.4-4.8); Alkaline Phosphatase 181 U/L (40-129); Anion Gap 19 (5-15); BUN 25 mg/dL (4-19); BUN/Creat Ratio 18.1 RATIO (10-20); Calcium,Total 7.5 mg/dL (7.6-11.0); Carbon Dioxide 15.1 mmol/L (21.0-32.0); Chloride 93 mmol/L (98-108); EST Glomerular Filtration Rate 55 (>60); Estimated Creatinine Clearance 41.21 ml/min (50-250); Globulin 3.1 g/dL (2.2-4.2); Glucose 78 mg/dL (70-99); Potassium 3.1 mmol/L (3.3-5.1); Sodium Level 127 mmol/L (133-145); Total Bilirubin 0.79 mg/dL (0.00-1.30)
[2024-05-07 13:57] VITALS: BP 131/78; PULSE 90; RESP 18; TEMP 36.8; O2SAT 100
--- NOTE | 2024-05-07 14:25 | PN_ITS ---
Subjective Subjective Patient seen and examined. He states he is feeling better. His nausea and vomiting have resolved. Review systems otherwise negative. He has remained hemodynamically stable. Objective Data Objective Data Vital Signs: Vital Signs Temp Pulse Resp BP Pulse Ox O2 Del Method 98.2 F 90 18 131/78 H 100 Room Air 05/07/24 13:57 05/07/24 13:57 05/07/24 13:57 05/07/24 13:57 05/07/24 13:57 05/07/24 13:57 Oxygen Delivery Method Room Air Weight: 132 lb Body Mass Index (BMI) 23.3 Intake & Output: Intake and Output for Last 24 Hours 05/05/24 05/06/24 05/08/24 23:59 23:59 00:59 Intake Total 2810 / 2810 700 / 700 Output Total 200 / 200 250 / 250 Balance 2610 / 2610 450 / 450 Medical Nutrition Assessment Dietitian: Malnutrition Criteria Met Start: 05/07/24 12:53 Freq: Status: Active Protocol: Document 05/07/24 12:53 LUIS (Rec: 05/07/24 12:53 SLA [id number]) Nutrition Malnutrition Evidence of Yes Malnutrition Exists Malnutrition (severe Acute Illness/Injury ): Evidenced By Suboptimal Energy Intake (Severe),Weight Loss (Severe) Clinical Problem Acute Disease or Injury Related Malnutrition Etiology related to n/v/dehydration and inadequate energy intake Signs/Symptoms as evidenced by po intake meeting <75% of est nutritional needs and wt loss of 17.6% in past week Status Active Problem Recommendation Dietitian Continue regular diet as ordered Recommendations/ Will provide 8 oz chocolate ensure plus high protein Changes tid w/ meals Lab / Micro Data 05/07/24 07:30 05/07/24 07:30 Labs: Laboratory Results - last 24 hr 05/06/24 13:00: WBC 10.5, RBC 3.91 L, Hgb 13.2, Hct 37.6 L, MCV 96.2 H, MCH 33.8 H, MCHC 35.1, RDW Std Deviation 42.7, RDW Coeff of Kelsi 12.1, Plt Count 165, MPV 9.1, Immature Gran % (Auto) 1.000 H, Neut % (Auto) 81.5 H, Lymph % (Auto) 5.4 L, [place] % (Auto) 8.9, Eos % (Auto) 2.8, Baso % (Auto) 0.4, Absolute Neuts (auto) 8.5 H, Absolute Lymphs (auto) 0.56 L, Nucleated RBC % 0, Sodium 128 L, Potassium 3.6, Chloride 91 L, Carbon Dioxide 16.1 L, Anion Gap 21 H, BUN 28 H, Creatinine 2.09 H, Estim Creat Clear Calc 29.83 L, Est GFR (MDRD) Non-Af 34 L, BUN/Creatinine Ratio 13.4, Glucose 127 H, Calcium 8.5, Total Bilirubin 0.99, AST 83 H, ALT 49 H, Alkaline Phosphatase 225 H, Total Protein 8.5 H, Albumin 4.3, Globulin 4.1, Albumin/Globulin Ratio 1.0, Lipase 46 05/06/24 15:26: Urine Color Yellow, Urine Clarity Clear, Urine pH 6.0, Ur Specific [place] 1.010, Urine Protein 30 H, Urine Glucose (UA) Normal, Urine Ketones 5 H, Urine Occult Blood 10 H, Urine Nitrite Negative, Urine Bilirubin Negative, Urine Urobilinogen Normal, Ur Leukocyte Esterase Negative, Urine RBC 0 SEEN, Urine WBC 0 SEEN, Ur Squamous Epith Cells 0 SEEN, Urine Bacteria 0 SEEN, Urine Mucus 0 SEEN 05/07/24 07:30: WBC 9.3, RBC 3.41 L, Hgb 11.5 L, Hct 33.0 L, MCV 96.8 H, MCH 33.7 H, MCHC 34.8, RDW Std Deviation 43.1, RDW Coeff of Kelsi 12.3, Plt Count 162, MPV 9.5, Sodium 127 L, Potassium 3.1 L, Chloride 93 L, Carbon Dioxide 15.1 L, A nion Gap 19 H, BUN 25 H, Creatinine 1.40 H, Estim Creat Clear Calc 41.21 L, Est GFR (MDRD) Non-Af 55 L, BUN/Creatinine Ratio 18.1, Glucose 78, Calcium 7.5 L, Total Bilirubin 0.79, AST 53 H, ALT 34, Alkaline Phosphatase 181 H, Total Protein 7.0, Albumin 3.9, Globulin 3.1, Albumin/Globulin Ratio 1.3 Micro: Microbiology 05/06/24 16:14 Mucosa - Nose SARS-CoV-2, Influenza & RSV (PCR) - Final Radiography Diagnostic Testing: Radiology Impression Abdomen/Pelvis CT 05/06/24 12:41 IMPRESSION: 1. No acute abdominopelvic finding. 2. Diffuse bladder wall thickening, which may be secondary to incomplete distention or developing urinary tract infection. Correlation with urinalysis recommended. 3. Severe diffuse hepatic steatosis. One or more dose reduction techniques were used (e.g., Automated exposure control, adjustment of the mA and/or kV according to patient size, use of iterative reconstruction technique). Reading Location: [facility] Physical Exam Const alert, oriented x3 and no apparent distress General Appearance: cooperative and well developed HEENT normocephalic, head/scalp atraumatic, moist oral mucous membranes and oropharynx normal Eyes PERRL and EOMs intact bilaterally Neck no lymphadenopathy and supple Lymph Lymphatic: no lymphadenopathy noted and no lymphedema noted Resp normal respiratory effort, normal air movement and clear to auscultation bilaterally Cardio regular rate, regular rhythm, S1 normal heart sound, S2 normal heart sound and no murmurs GI normal to inspection, nondistended, normoactive bowel sounds, soft to palpation, non-tender and non-distended Extremity normal capillary refill, no clubbing, cyanosis or edema and no calf tenderness General Extremity: no tenderness to palpation of joints or extremities Skin General Skin Exam: no breakdown Neuro CN's II-XII intact bilaterally, no focal motor deficits and no sensory deficits noted Motor Exam: strength 5/5 throughout and general weakness Psych thought process normal, cooperative and affect normal Appearance: appropriate Assessment & Plan Assessment/Plan (1) Acute kidney injury: (2) Acute hyponatremia: (3) High anion gap metabolic acidosis: (4) Nausea and vomiting: PLAN: Plan #HEMANT due to nausea and vomiting with dehydration. * Patient doing better. Creatinine is trending downwards. Nausea and vomiting have also resolved. CT of the abdomen done showed no acute pathology. * Trend creatinine and placed on oral diet. Advance as tolerated. * IV Zofran as needed #Hyponatremia: * Likely due to dehydration and poor oral intake. * He does drink alcohol also may be an element of beer potomania as well. * Patient hydrated with IV fluids. Trend sodium. * sodium is 127. #HEMANT with anion gap metabolic acidosis * Cr is 1.4, down from 2.09. * anion gap is 19; was 21 yesterday. * #Hypokalemia: K is 3.1. Will replace and trend. #Elevated liver enzymes * CT of the abdomen pelvis showed diffuse hepatic steatosis which is likely due to chronic alcohol abuse. Trend liver enzymes. Patient counseled to quit drinking alcohol. Will benefit from follow-up with gastroenterology on outpatient basis. * #History of alcohol use disorder: Drinks about 324 ounce cans of beer daily. No symptoms of withdrawal. Was placed on CIWA protocol on admission as a precaution. Will monitor. 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 * stable. Will monitor * DVT prophylaxis: on lovenox * Charges/Coding Visit Charges Inpatient E&M: 94941 Subs Hosp L2
[2024-05-07 21:19] VITALS: BP 106/71; PULSE 91; RESP 17; TEMP 36.9; O2SAT 95
[2024-05-08 02:57] VITALS: BP 117/76; PULSE 91; RESP 17; TEMP 36.8; O2SAT 93
[2024-05-08] MEDS: Heparin Injection (Vial) 5,000 UNIT/ML VIAL 5000 UNIT SC (03:31)
[2024-05-08 07:08] VITALS: O2SAT 94
[2024-05-08 07:24] LABS: Absolute Lymphocyte Count 0.68 X10^3/uL (0.83-4.51); Absolute Neutrophil Count 4.7 X10^3/uL (2.0-7.7); Basophil# 0.06 X10^3/uL; Basophil% 0.9 % (0-1); Eosinophil# 0.11 X10^3/uL; Eosinophils% 1.7 % (0-5); Hemoglobin 10.9 g/dL (13.0-16.5); Lymphocyte # 0.68 X10^3/ul (0.83-4.51); Lymphocyte % 10.7 % (19-41); Mean Corp Hgb Conc 35.2 g/dL (32-36); Mean Corpuscular Volume 96.6 fL (80-94); Mean Platelet Vol. 9.5 fl (6.2-12.0); Monocyte# 0.74 X10^3/uL; Monocyte% 11.6 % (0-10); NRBC Flagged by Analyzer 0 % (0-5); Neutrophil # 4.73 X10^3/uL (2.7-7.7); Neutrophil % 74.2 % (47-70); Platelet Count 145 K/mm3 (150-450); RBC Distribution Width CV 12.3 % (11.6-14.6); RBC Distribution Width SD 43.5 fl (35.1-43.9); Red Blood Count 3.21 M/mm3 (4.6-6.2); White Blood Count 6.4 K/mm3 (4.4-11.0)
[2024-05-08 08:08] VITALS: BP 117/83; PULSE 71; RESP 18; TEMP 36.3
[2024-05-08 08:29] LABS: Anion Gap 14 (5-15); BUN 26 mg/dL (4-19); BUN/Creat Ratio 23.9 RATIO (10-20); Calcium,Total 7.5 mg/dL (7.6-11.0); Chloride 97 mmol/L (98-108); Creatinine, Serum 1.07 mg/dL (0.70-1.20); EST Glomerular Filtration Rate 76 (>60); Estimated Creatinine Clearance 53.92 ml/min (50-250); Glucose 114 mg/dL (70-99); Potassium 2.9 mmol/L (3.3-5.1); Sodium Level 129 mmol/L (133-145)
--- NOTE | 2024-05-08 08:34 | PCM.PN.HOSP ---
Reason for Visit Reason for Visit: Diagnoses Hypo-osmolality and hyponatremia (05/06/24) Other acidosis (05/06/24) Acute kidney failure, unspecified (05/06/24) Nausea with vomiting, unspecified (05/06/24) Subjective Subjective Feeling better. Tolerting diet. Objective Data Objective Data Vital Signs: Vital Signs Temp Pulse Resp BP Pulse Ox O2 Del Method 36.3 C L 71 18 117/83 H 93 Room Air 05/08/24 08:08 05/08/24 08:08 05/08/24 08:08 05/08/24 08:08 05/08/24 02:57 05/08/24 08:08 Oxygen Delivery Method Room Air Weight: 59.874 kg Body Mass Index (BMI) 23.3 Intake & Output: Intake and Output for Last 24 Hours 05/06/24 05/08/24 05/08/24 23:59 00:59 23:59 Intake Total 2810 / 2810 1000 / 1000 1120 / 1120 Output Total 200 / 200 850 / 850 900 / 900 Balance 2610 / 2610 150 / 150 220 / 220 Medical Nutrition Assessment Dietitian: Malnutrition Criteria Met Start: 05/07/24 12:53 Freq: Status: Active Protocol: Document 05/07/24 12:53 LUIS (Rec: 05/07/24 12:53 LUIS [id number]) Nutrition Malnutrition Evidence of Yes Malnutrition Exists Malnutrition (severe Acute Illness/Injury ): Evidenced By Suboptimal Energy Intake (Severe),Weight Loss (Severe) Clinical Problem Acute Disease or Injury Related Malnutrition Etiology related to n/v/dehydration and inadequate energy intake Signs/Symptoms as evidenced by po intake meeting <75% of est nutritional needs and wt loss of 17.6% in past week Status Active Problem Recommendation Dietitian Continue regular diet as ordered Recommendations/ Will provide 8 oz chocolate ensure plus high protein Changes tid w/ meals Lab / Micro Data 05/08/24 07:00 05/08/24 07:00 Labs: Laboratory Results - last 24 hr 05/07/24 07:30: Sodium 127 L, Potassium 3.1 L, Chloride 93 L, Carbon Dioxide 15.1 L, Anion Gap 19 H, BUN 25 H, Creatinine 1.40 H, Estim Creat Clear Calc 41.21 L, Est GFR (MDRD) Non-Af 55 L, BUN/Creatinine Ratio 18.1, Glucose 78, Calcium 7.5 L, Total Bilirubin 0.79, AST 53 H, ALT 34, Alkaline Phosphatase 181 H, Total Protein 7.0, Albumin 3.9, Globulin 3.1, Albumin/Globulin Ratio 1.3 05/08/24 07:00: WBC 6.4, RBC 3.21 L, Hgb 10.9 L, Hct 31.0 L, MCV 96.6 H, MCH 34.0 H, MCHC 35.2, RDW Std Deviation 43.5, RDW Coeff of Kelsi 12.3, Plt Count 145 L, MPV 9.5, Immature Gran % (Auto) 0.900, Neut % (Auto) 74.2 H, Lymph % (Auto) 10.7 L, [place] % (Auto) 11.6 H, Eos % (Auto) 1.7, Baso % (Auto) 0.9, Absolute Neuts (auto) 4.7, Absolute Lymphs (auto) 0.68 L, Nucleated RBC % 0, Sodium 129 L, Potassium 2.9 L, Chloride 97 L, Carbon Dioxide 18.0 L, Anion Gap 14, BUN 26 H, Creatinine 1.07, Estim Creat Clear Calc 53.92, Est GFR (MDRD) Non-Af 76, BUN/Creatinine Ratio 23.9 H, Glucose 114 H, Calcium 7.5 L Micro: Microbiology 05/06/24 16:14 Mucosa - Nose SARS-CoV-2, Influenza & RSV (PCR) - Final Physical Exam Const alert and no apparent distress HEENT head/scalp atraumatic and moist oral mucous membranes Resp normal respiratory effort, no retractions, no use of accessory muscles and clear to auscultation bilaterally Cardio regular rate, regular rhythm, S1 normal heart sound and S2 normal heart sound GI GI Narrative: protruding stoma. Skin Skin Narrative: large thickened scales on plantar aspect of feet. Assessment & Plan Assessment/Plan (1) Acute kidney injury: PLAN: 2/2 dehydration. Now resolved with IVF. (2) Acute hyponatremia: PLAN: more chronic dating back to 2021. Appears to be at baseline. (3) Gastroenteritis: PLAN: Resolved No testing performed. Would hold off on testing as symptoms improved. (4) Hypokalemia: PLAN: 2/2 GI losses. Magnesium low, will replace. PLAN: Plan DC home. Recommended pt follow up with podiatry given large thick scaling on plantar aspects of feet, plus nail care.
[2024-05-08] MEDS: Thiamine Hydrochloride 100 MG Tablet PO (09:15)
[2024-05-08] MEDS: Folic Acid 1 MG Tablet PO (09:15)
[2024-05-08] MEDS: Potassium Chloride Oral Tablet 20 MEQ 60 MEQ PO (09:16)
[2024-05-08 10:26] LABS: Magnesium 1.3 mg/dL (1.5-2.2)
--- NOTE | 2024-05-08 11:35 | CASEMGMT ---
COLE AVILA Assessment: Face to Face with pt for initial transition planning/care coordination assessment. COLE VAILA introduced self and role at [facility], pt voices understanding and consents to assessment. Pt is A&O x4 and answers all questions appropriately at this time. Pt lying in bed in no distress anxious to go home. Care providers, pharmacy, and demographics verified/updated. Admitting Dx: nausea and vomiting, dehydration and HEMANT Strata Score: 2 PCP:Denies- Pt does not want a local healthcare directory nor any help with setting up a PCP. Pt states he would like help to get the hell out of here though. Specialists:Denies Preferred Pharmacy:[facility] Insurance: MCR A Prescription Benefit: no LNOK: Saima Gavin, friend Living Arrangements: Pt lives alone in a single story apt with 23 steps to enter with a rail. Pt states he is I in ADL/IADLs and denies concerns at home. Pt reports he empties his colostomy and his friend Saima changes the bag. Transportation: Pt does not drive. Pt walks to places he needs to which is [facility] [employer] [facility] and [facility]. DME:cane, walker, colostomy supplies HHC/SNF: Denies hx of Pt states no concerns with going home at time of dc. Pt drinks 3- 24 oz beer daily. Denies need for resources for cessation. Pt is not interested in any homegoing services. Pt states no further concerns/needs. CM to follow. Advised pt to ask CM if any further questions/concerns/needs arise, voices understanding. Pt Goal: Home Plan: Home Ed[place] GALVAN CM
[2024-05-08] MEDS: Magnesium Sulfate 4gm/100mL 4 GM/100 ML IV.SOLN. IV (11:47)
[2024-05-08] MEDS: 0.9% Saline Lock 10 ML Syringe IV (11:47)
--- NOTE | 2024-05-08 12:09 | PCM.DC.SUM ---
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 Now resolved with IVF. (2) Acute hyponatremia: Status: Acute Code(s): E87.1 - Hypo-osmolality and hyponatremia Plan: more chronic dating back to 2021. Appears to be at baseline. (3) Gastroenteritis: Status: Inactive Code(s): K52.9 - Noninfective gastroenteritis and colitis, unspecified Plan: Resolved No testing performed. Would hold off on testing as symptoms improved. (4) Hypokalemia: Status: Acute Code(s): E87.6 - Hypokalemia Plan: 2/2 GI losses. Magnesium low, will replace. Plan DC home. Recommended pt follow up with podiatry given large thick scaling on plantar aspects of feet, plus nail care. Medications at Discharge Home Medications NK 08/11/23 Hospital Course Operations None Procedures None Summary of Care Provided Hospital Course: Patient presents with severe vomiting. He had acute kidney injury as well as hypokalemia and hypomagnesemia. Overall has improved. Likely viral gastroenteritis but this was not checked. Patient feels better. No additional workup is necessary. Patient though does have pronounced thickened scales on the plantar aspect of his feet bilaterally as well as very long and thickened toenails. Recommend that the patient follow-up with podiatry to have foot and nail care. Medical Records Data Medical Nutrition Assessment Dietitian: Malnutrition Criteria Met Start: 05/07/24 12:53 Freq: Status: Active Protocol: Document 05/07/24 12:53 LUIS (Rec: 05/07/24 12:53 LUIS [id number]) Nutrition Malnutrition Evidence of Yes Malnutrition Exists Malnutrition (severe Acute Illness/Injury ): Evidenced By Suboptimal Energy Intake (Severe),Weight Loss (Severe) Clinical Problem Acute Disease or Injury Related Malnutrition Etiology related to n/v/dehydration and inadequate energy intake Signs/Symptoms as evidenced by po intake meeting <75% of est nutritional needs and wt loss of 17.6% in past week Status Active Problem Recommendation Dietitian Continue regular diet as ordered Recommendations/ Will provide 8 oz chocolate ensure plus high protein Changes tid w/ meals Weight / BMI Weight Weight: 59.874 kg Body Mass Index (BMI) 23.3 ABG / Lab / Microbiology Data 05/08/24 07:00 05/08/24 07:00 Laboratory: Laboratory Results - last 24 hr 05/08/24 07:00: WBC 6.4, RBC 3.21 L, Hgb 10.9 L, Hct 31.0 L, MCV 96.6 H, MCH 34.0 H, MCHC 35.2, RDW Std Deviation 43.5, RDW Coeff of Kelsi 12.3, Plt Count 145 L, MPV 9.5, Immature Gran % (Auto) 0.900, Neut % (Auto) 74.2 H, Lymph % (Auto) 10.7 L, [place] % (Auto) 11.6 H, Eos % (Auto) 1.7, Baso % (Auto) 0.9, Absolute Neuts (auto) 4.7, Absolute Lymphs (auto) 0.68 L, Nucleated RBC % 0, Sodium 129 L, Potassium 2.9 L, Chloride 97 L, Carbon Dioxide 18.0 L, Anion Gap 14, BUN 26 H, Creatinine 1.07, Estim Creat Clear Calc 53.92, Est GFR (MDRD) Non-Af 76, BUN/Creatinine Ratio 23.9 H, Glucose 114 H, Calcium 7.5 L, Magnesium 1.3 L Microbiology: Microbiology 05/06/24 16:14 Mucosa - Nose SARS-CoV-2, Influenza & RSV (PCR) - Final D/C Instructions Discharge Diet: No restrictions DC O2, CPAP, BIPAP Needs Home O2 Discharge instructions: No Meaningful Use Info Meaningful Use Meaningful Use Diagnoses (Choose all that apply): None applicable Ischemic Stroke Statin Dosing Therapy Reference: STATIN DOSE THERAPY REFERENCE: * Patients > 75 years receive moderate or high dose statin therapy. * Patients 75 years or YOUNGER should receive HIGH intensity statin dose unless contraindicated. You will be required to document reason for non-treatment if statin daily dose does not meet guidelines. HIGH DOSE STATIN THERAPY DAILY Atorvastatin > than or = to 40 mg Rosuvastatin > than or = to 20 mg Amlodipine + Atorvastatin > than or = to 2.5/40 mg Ezetimibe + Simvastatin 10/80 mg Simvastatin 80mg Discharge Plan Admission Admit Date/Time: 05/06/24 16:00 Primary Reason for Your Visit: Gastroenteritis. Attending Provider: Steven Siddiqi Primary Care Provider: Care Physician,No Primary Consulting Providers: Travon Nickerson; Naomi Marroquin Instructions Additional Instructions / Restrictions: Recommend the get a primary care doctor to establish with. Also recommend that you follow-up podiatry for foot and nail care. Discharge Orders/Prescriptions Prescriptions: No Action NK Referrals / Follow Up: Antonio Childers DPM [Med Staff - Active Staff] - Within 2 Weeks Care Physician,No Primary [Primary Care Provider] - Disposition Disposition (needs filled in before D/C Order can be placed): Home, Self Care Charges/Coding Visit Charges Inpatient E&M: 24142 Disch Hosp
[2024-05-08 17:08] VITALS: BP 133/78; PULSE 87; RESP 16; TEMP 36.8; O2SAT 99
== END 2024-05-08 17:26 | disposition home or self-care (01) | DRG 682 ==
LOC: ED 13:39 → MS3 17:18
PROVIDERS: Physician Assistant; Student in an Organized Health Care Education/Training Program; Admitting Provider Hospitalist; Emergency Provider Emergency Medicine; Referring Provider Hospitalist
DX: N17.9 Acute kidney failure, unspecified (principal); E43 Unspecified severe protein-calorie malnutrition; E87.21 Acute metabolic acidosis; E87.1 Hypo-osmolality and hyponatremia; F10.10 Alcohol abuse, uncomplicated; K76.0 Fatty (change of) liver, not elsewhere classified; I10 Essential (primary) hypertension; Z93.3 Colostomy status; E87.6 Hypokalemia; R11.2 Nausea with vomiting, unspecified; F17.210 Nicotine dependence, cigarettes, uncomplicated; K52.9 Noninfective gastroenteritis and colitis, unspecified; E83.42 Hypomagnesemia; E86.0 Dehydration; A08.4 Viral intestinal infection, unspecified; Z68.23 Body mass index [BMI] 23.0-23.9, adult
CPT/HCPCS: 36415; 74177; 80048; 80053; 81001; 83690; 83735; 85025; 85027; 87631; 97802; 99285; Q9967; A4216; J2405